=== PATIENT | female | born 1985 | race Caucasian/White ===

== ENCOUNTER 2017-11-15 16:06 | Emergency (ER) | payer MEDICAID, SELFPAY ==
[2017-11-15 16:08] VITALS: BP 121/63; PULSE 90; RESP 22; TEMP 36.6; O2SAT 97; BMI 34.7
--- NOTE | 2017-11-15 16:21 | CT_ITS ---
STUDY: CT BRAIN WITHOUT CONTRAST REASON FOR EXAM: Female, 32 years old. Headache. Nausea. RADIATION DOSAGE (If Supplied By Facility): CTDIvol = ( 44.99 ) mGy, DLP = ( 796.11 ) mGycm TECHNIQUE: Transaxial CT imaging of the brain was performed without administration of intravenous contrast material. Individualized dose optimization techniques were used for this CT. COMPARISON: 03/15/2017 FINDINGS: There is no acute bleed or infarct. There are normal white matter tracts. The ventricles are normal in configuration. There is no hydrocephalus. The visualized paranasal sinuses are clear. The mastoid air cells are well aerated. There is no skull fracture. CT/Brain/Head without Contrast IMPRESSION: No acute intracranial abnormality. Electronically Signed: Juan Miguel Kat, at 17:23 EDT Tel , Service support ,
[2017-11-15] MEDS: Ketorolac 30 MG/ML Syringe IV (16:34)
[2017-11-15] MEDS: 0.9% Normal Saline 1,000 ML 150 ML IV (16:34)
[2017-11-15] MEDS: proMETHazine 25 MG/ML Syringe 12.5 MG IV (16:34)
[2017-11-15 16:36] LABS: Bedside Glucose 121 mg/dL (70-110)
[2017-11-15 16:52] LABS: Absolute Lymphocyte Count 1.11 X10^3/ul (0.83-4.51); Absolute Neutrophil Count 6.5 X10^3/uL (2.0-7.7); Basophil# 0.01 X10^3/uL; Basophil% 0.1 % (0-1); Eosinophil# 0.03 X10^3/uL; Eosinophils% 0.4 % (0-5); Hematocrit 40.8 % (37-47); Hemoglobin 13.7 g/dl (12.0-15.0); Lymphocyte # 1.11 X10^3/ul (4.0); Lymphocyte % 14.5 % (19-41); Mean Corp Hgb Conc 33.6 g/gl (32-36); Mean Corpuscular Hgb 28.7 pg (27.0-32.0); Mean Corpuscular Volume 85.5 fL (81-99); Mean Platelet Vol. 9.2 fl (6.2-12.0); Monocyte# 0.03 X10^3/uL; Monocyte% 0.4 % (0-10); Neutrophil # 6.45 X10^3/uL (2.7-7.7); Neutrophil % 84.1 % (47-70); POSITIVE COUNT NO; POSITIVE DIFFERENTIAL NO; POSITIVE MORPHOLOGY NO; Platelet Count 172 K/mm3 (150-450); RBC Distribution Width CV 12.8 % (11.6-14.6); RBC Distribution Width SD 39.9 fl (35.1-43.9); Red Blood Count 4.77 M/mm3 (4.2-5.4); White Blood Count 7.7 K/mm3 (4.4-11.0)
[2017-11-15 17:01] LABS: Anion Gap 11 (5-15); BUN 11 mg/dL (7-18); BUN/Creat Ratio 12.3 RATIO (10-20); Calcium,Total 8.7 mg/dL (8.5-10.1); Chloride 111 mmol/L (98-107); Creatinine, Serum 0.89 mg/dL (0.55-1.02); EST Glomerular Filtration Rate 78 mL/min (>60); Est Glom Filt Rate - Afr Amer 94 mL/min (>60); Estimated Creatinine Clearance 81.66 ml/min; Glucose 103 mg/dL (74-106); Potassium 3.4 mmol/L (3.5-5.1); Sodium Level 144 mmol/L (136-145)
--- NOTE | 2017-11-15 17:16 | ED.VISSUMM ---
- ER Visit Summary Date of Service: 11/15/17 Chief Complaint: Headache History of Present Illness: The patient is a 32 F who states that she was out shopping today when she developed rather quick onset of frontal headache. She states it does not feel like her typical migraines. She has some nausea and feels shaky. Patient has not yet taken anything for this headache. She does have a history of migraines and seizures. She states she did hit the back of her head 3 days ago, but she has had no pain over the last 3 days. She has not had significant URI symptoms. Physical Examination: Vital signs are unremarkable. Patient sitting upright in bed no acute distress. Head neck examination is unremarkable. There is no meningismus. Heart is regular rate and rhythm. Lung sounds are clear. Abdomen soft nontender. Neuro exam reveals normal strength and sensation throughout with strong distal pulses. Test Results: CBC and chemistry studies are significant only for potassium of 3.4. BGT on arrival was 121. CT scan of the head Emergency Department Course and Treatment: She was given IV fluids along with Toradol and Phenergan. On repeat evaluation when the patient asked how her headache was she states still hurts. Patient was given p.o. Tylenol and Reglan. Repeat evaluation she does report improvement and wishes to go home. Treatment Plan: [] Disposition: Discharge Impression: Cephalgia, improved This note was generated with [employer] dictation software. It may contain incorrect words, spelling, and punctuation that were not noted in review of the chart prior to signing ED Disposition - Plan for ED Patient: Chief Complaint: Headache Referrals: Harrison Maldonado MD [Primary Care Provider] -
[2017-11-15] MEDS: Acetaminophen 500 MG Tablet 1000 MG PO (18:05)
[2017-11-15 18:06] VITALS: BP 96/66; PULSE 75; RESP 16; O2SAT 98
[2017-11-15] MEDS: Metoclopramide 10 MG Tablet PO (18:29)
--- NOTE | 2017-11-15 18:41 | ED.DEP ---
ED Disposition - Plan for ED Patient: Disposition: Home or Assisted Living Chief Complaint: Headache Instructions: ED Cephalgia Unspecified Referrals: Harrison Maldonado MD [Primary Care Provider] - As Needed
[2017-11-15 18:46] VITALS: BP 118/73; PULSE 68; RESP 15; O2SAT 98
== END 2017-11-15 18:48 | disposition home or self-care (01) ==
PROVIDERS: Emergency Provider Emergency Medicine; Family Provider Family Medicine; PCP Family Medicine
DX: R51 Headache (principal); R56.9 Unspecified convulsions; G43.909 Migraine, unspecified, not intractable, without status migrainosus; Z72.0 Tobacco use; Z79.51 Long term (current) use of inhaled steroids; Z79.899 Other long term (current) drug therapy
CPT/HCPCS: 70450; 80048; 82962; 85025; 96361; 96374; 96375; 99285; J7030; A4216

== ENCOUNTER 2018-01-10 18:17 | Observation (INO) | payer MEDICAID, SELFPAY ==
[2018-01-10 18:18] VITALS: BP 161/117; PULSE 52; RESP 18; TEMP 36.4; O2SAT 99; BMI 34.0
--- NOTE | 2018-01-10 18:38 | CT_ITS ---
CT Abdomen And Pelvis W/ Contrast INDICATION: LOWER LEFT SIDE ABD PAIN X 4 DAYS, HX SBO. Hx of colon resection x 2 d/t blockage. COMPARISON: None TECHNIQUE: Axial CT imaging of the abdomen and pelvis with IV contrast. Coronal and sagittal reformatted images. Radiation dose optimization technique applied. 100 mL of Isovue-300 were given intravenously. FINDINGS: Subsegmental atelectasis is seen at the visualized lung bases. The heart size is normal. The liver, gallbladder, adrenal glands, and pancreas are unremarkable. There is a focal wedge shaped area of decreased enhancement along the dome of the spleen, measuring approximately 1.7 cm in depth and with no associated subcapsular hematoma or other signs of hemorrhage. The kidneys enhance contrast symmetrically bilaterally and are without evidence of hydronephrosis. The bowel loops are nondistended. Sutures are noted at the hepatic flexure. Urinary bladder is unremarkable. There is no evidence of free air or free fluid. CT/Abdomen/Pelvis WITH Contrast IMPRESSION: Small focal wedge-shaped area of hypoenhancement in the dome of the spleen, suggestive of small focal infarct. No evidence of associated laceration or hemorrhage. The visualized lower ribs are intact. Otherwise no acute findings. at 2130 Reported and signed by: Shama Kaur MD Electronically Signed: Shama Kaur MD at 21:28 EDT Tel , Service support ,
--- NOTE | 2018-01-10 18:41 | ED.DCSUM_ITS ---
- ER Visit Summary Date of Service: 01/10/18 Chief Complaint: Abdominal pain History of Present Illness: The patient is a 32 F presenting with abdominal pain ?4 days. Patient has nausea with no vomiting. She has diarrhea. Denied denies blood in stool. She states she has felt similar in the past when she has had bowel obstructions. History of appendectomy and partial bowel resection secondary to bowel obstruction. Denies fever. Denies other complaints. Physical Examination: Vitals are stable. Patient is afebrile. Alert no acute distress. HEENT exam is unremarkable. Neck is supple. Lungs are clear and equal bilaterally. Heart is regular rate and rhythm. Abdomen is soft left upper and lower quadrant tenderness, voluntary guarding, no rebound Extremities are unremarkable. Skin is warm and dry. No focal neurologic deficit. Remainder of exam is unremarkable. Emergency Department Course and Treatment: Patient is given Dilaudid, Zofran IV. CBC chemistries unremarkable. Lipase is 691. Urinalysis unremarkable. HCG negative. CT abdomen/pelvis shows small focal wedge-shaped area of hypoenhancement in the dome of the spleen, suggestive of small focal infarct. No evidence of associated laceration or hemorrhage. The visualized lower ribs are intact. Discussed with Dr Grace, recommends pain control and workup for hypercoagulability. Will discuss the hospitalist for admission. Disposition: Observation Impression: Abdominal pain, splenic infarct, elevated lipase This note was generated with [employer] dictation software. It may contain incorrect words, spelling, and punctuation that were not noted in review of the chart prior to signing ED Disposition - Plan for ED Patient: Chief Complaint: Abd Pain Referrals: Harrison Maldonado MD [Primary Care Provider] -
[2018-01-10] MEDS: HYDROmorphone 1 MG/ML Syringe IV (19:01)
[2018-01-10] MEDS: Ondansetron 4 MG/2 ML Vial IV (19:01)
[2018-01-10 19:12] LABS: Bacteria 0 SEEN /hpf (None Seen); Mucous, Urine 0 SEEN /hpf (<or=2+); Red Blood Cells-Urine 0 SEEN /hpf (0-5)
[2018-01-10 19:14] LABS: Absolute Lymphocyte Count 2.01 X10^3/ul (0.83-4.51); Absolute Neutrophil Count 5.2 X10^3/uL (2.0-7.7); Basophil# 0.03 X10^3/uL; Basophil% 0.4 % (0-1); Eosinophil# 0.12 X10^3/uL; Eosinophils% 1.5 % (0-5); Hematocrit 42.7 % (37-47); Hemoglobin 14.8 g/dl (12.0-15.0); Lymphocyte # 2.01 X10^3/ul (4.0); Lymphocyte % 25.7 % (19-41); Mean Corp Hgb Conc 34.7 g/gl (32-36); Mean Corpuscular Hgb 29.1 pg (27.0-32.0); Mean Corpuscular Volume 84.1 fL (81-99); Mean Platelet Vol. 9.3 fl (6.2-12.0); Monocyte# 0.48 X10^3/uL; Monocyte% 6.1 % (0-10); Neutrophil # 5.18 X10^3/uL (2.7-7.7); Neutrophil % 66.2 % (47-70); Platelet Count 193 K/mm3 (150-450); RBC Distribution Width SD 39.5 fl (35.1-43.9); Red Blood Count 5.08 M/mm3 (4.2-5.4); White Blood Count 7.8 K/mm3 (4.4-11.0)
[2018-01-10 19:18] VITALS: BP 148/85; PULSE 60; RESP 14; O2SAT 97
[2018-01-10 19:20] LABS: POSITIVE COUNT NO; POSITIVE DIFFERENTIAL NO; POSITIVE MORPHOLOGY NO
[2018-01-10 19:21] LABS: Color, Urine Yellow (Yellow); Glucose, Dipstick Normal (Normal); Ketone-Dipstick Negative (Negative); Leukocyte Esterase-Dipstick 25 /ul (Negative); Nitrite-Dipstick Negative (Negative); Occult Blood-Urine Negative /ul (Negative); Protein-Dipstick Negative (Negative); Specific Gravity, Urine 1.005 (1.002-1.030); Urine Bilirubin Dipstick Negative (Negative); Urine Clarity Sl. Cloudy (Clear); Urine Urobilinogen Normal (Normal)
[2018-01-10 19:28] LABS: Squamous Epithelial Cells - UA 0-5 SEEN /hpf (5-10); White Blood Cells 0-5 SEEN /hpf (0-5)
[2018-01-10 19:31] LABS: ALB/GLOB Ratio 1.1 RATIO (0.9-2.4); AST(SGOT) 21 U/L (15-37); Alanine Aminotransfer ALT/SGPT 47 U/L (13-56); Albumin, Serum 4.1 g/dL (3.2-5.0); Alkaline Phosphatase 80 U/L (45-117); Anion Gap 8 (5-15); BUN 7 mg/dL (7-18); BUN/Creat Ratio 7.9 RATIO (10-20); Chloride 112 mmol/L (98-107); Creatinine, Serum 0.89 mg/dL (0.55-1.02); EST Glomerular Filtration Rate 78 mL/min (>60); Est Glom Filt Rate - Afr Amer 94 mL/min (>60); Estimated Creatinine Clearance 81.66 ml/min; Globulin 3.7 g/dL (2.2-4.2); Glucose 89 mg/dL (74-106); Lipase 691 U/L (73-393); Potassium 3.6 mmol/L (3.5-5.1); Protein, Total 7.8 g/dL (6.4-8.2); Sodium Level 143 mmol/L (136-145)
[2018-01-10 19:34] LABS: Pregnancy, Serum, hCG Quali. NEGATIVE Negative (0-9 Nonpreg)
[2018-01-10 21:02] VITALS: PULSE 64; RESP 15; O2SAT 97
[2018-01-10] MEDS: HYDROmorphone 0.5 MG/0.5 ML SYRINGE IV (22:18)
[2018-01-10 23:03] VITALS: BP 125/99; PULSE 67; RESP 18; TEMP 36.7; O2SAT 98
[2018-01-10 23:19] VITALS: BMI 34.8
[2018-01-10 23:23] VITALS: BMI 34.8
--- NOTE | 2018-01-10 23:33 | HP.PCM_ITS ---
Problem List (1) Abdominal pain Status: Acute (2) Splenic infarct Status: Acute (3) Pancreatitis Status: Acute (4) Partial small bowel obstruction Status: Acute (5) Seizure disorder Status: Chronic History of Present Illness Date of Admission: 01/10/18 Chief Complaint: Splenic infarct The patient is a 32 year old female admitted for splenic infarct. She has no h/ o spontaneous . She used marijuana for [employer] and has been having abdominal pain. Pain is sharp and severe. Pain has been getting progressively worse. Nothing appeared to improve or worse. Pain is not associated with any other symptoms. No diarrhea. No n/v. Past Medical History Past Medical History (Chronic Problems): Chronic Problems Seizure disorder (Chronic) Allergies bupropion HCl [From Wellbutrin] Allergy (Verified 01/10/18 23:18) seizures dill oil Allergy (Verified 11/15/17 16:08) Shortness of breath diphenhydramine HCl [From Benadryl] Allergy (Verified 01/10/18 23:18) Itching/throat swells doxycycline Allergy (Verified 01/10/18 23:18) Itching/vomiting morphine Allergy (Verified 11/15/17 16:08) Itching venom-honey bee [bee venom (honey bee)] Allergy (Verified 11/15/17 16:08) Anaphylaxis Home Medications: Ambulatory Orders Medication Instructions Recorded Folic Acid 4 mg PO DAILY@0800 12/20/14 Sucralfate [Carafate] 1 gm PO TID 12/20/14 Zonisamide [Zonegran] 300 mg PO QHS 12/20/14 Ranitidine [Zantac] 150 mg PO DAILY 05/11/16 Albuterol Inhaler [Ventolin Hfa 1 puff INHALATION Q4H PRN PRN 09/14/16 (SP)] levETIRAcetam tablet [Keppra] 1,000 mg PO BID 10/24/16 Sertraline HCl [Zoloft] 100 mg PO QHS 02/09/17 busPIRone [Buspar] 15 mg PO BID 02/09/17 traZODone [Desyrel] 100 mg PO QHS 02/11/17 Ibuprofen [Motrin] 800 mg PO TID PRN PRN #20 tablet 04/14/17 Verapamil [Calan Sr] 180 mg PO QHS 04/14/17 Rizatriptan Benzoate [Maxalt] 10 mg PO DAILY PRN 11/15/17 Clonazepam [Klonopin] 0.5 mg PO DAILY PRN 01/10/18 Fluticasone/Vilanterol [Breo 1 puff INHALATION DAILY 01/10/18 Ellipta 200-25 Mcg INH] Surgical History: no surgical history, - Psychiatric History: No pertinent psych hx Lives: With Family Smoking Status: Former smoker Tobacco Use: Secondhand, Cigarettes - *Family History Maternal History Items: - - She denies a family history of any chronic medical problems Review of Systems Constitutional: Denies: Chills, Fever, Weight Change HEENT: Denies: Head Aches, Sinus Congestion, Sinus Drainage Cardiovascular: Denies: Chest Pain, Palpitations Respiratory: Denies: Cough, Shortness of breath at rest, Sputum production Gastrointestinal: Reports: Abdominal Pain. Denies: Nausea, Vomiting Genitourinary: Denies: Dysuria Musculoskeletal: Denies: Joint Pain, Joint Tenderness Skin: Denies: Rash, Wounds Neurological: Denies: Numbness, Tingling, Focal weakness Psychiatric: Denies: Anxiety, Depression, Homicidal Ideations, Suicidal Ideations Hematologic/ Lymphatic: Denies: Easy Bruising, Easy Bleeding VTE Information - Inpt Only VTE Present on Admission: No VTE Mechan Device Prophylaxis: SCD's VTE Pharm Prophylaxis ordered?: Yes Patient Problems: Active and Suspected Problems Abdominal pain (Acute) Splenic infarct (Acute) Pancreatitis (Acute) - Physical Exam General: Alert, Oriented x3, Cooperative HEENT: Atraumatic, PERRLA, EOMI, Normocephalic Neck: Supple, No JVD, Negative Carotid Bruits Lungs: Clear to auscultation, Normal air movement Cardiovascular: Regular rate, No murmurs Abdomen: Soft, Tender Extremities: No edema, Capillary Refill Less than 3 Seconds Skin: No rashes, No breakdown Musculoskeletal: No Tenderness to Palpation of Joints or Extremities Neurological: Cranial nerves II-XII grossly intact Psych/Mental Status: Normal Affect, Appropriate Vital Signs Temp Pulse Resp BP Pulse Ox 98.1 F 67 18 125/99 H 98 01/10/18 23:03 01/10/18 23:03 01/10/18 23:03 01/10/18 23:03 01/10/18 23:03 Oxygen Delivery Method Room Air Weight: 94.9 kg Body Mass Index (BMI) 34.8 Assessment/Plan All Active Problems Abdominal pain (Acute) Splenic infarct (Acute) Pancreatitis (Acute) Partial small bowel obstruction (Acute) 32 year old female admitted for splenic infarct. 1) Abdominal pain: Most likely secondary to splenic infarct. Pain control. IVF hydration. Hypercoag workup pending. ECHO pending. 2) Splenic infarct: Hypercoag workup pending. ECHO pending. 3) Pancreatitis: Lipase 600s. Will repeat level in AM. Hydration and pain controlled. Pt is not allergic to morphine. 4) Drug abuse: Utox positive for marijuana and opiates. Education done.
--- NOTE | 2018-01-10 23:36 | ECHOD_ITS ---
Reason For Study: Chest Pain Procedure This was a 2D Doppler, Color Flow transthoracic echocardiogram. Exam performed portable in patient room. Left Ventricle Normal size and thickness. The estimated ejection fraction is 65 %. Normal diastology for age. No regional wall motion abnormalities noted. Right Ventricle Normal size and thickness. Normal systolic function. Atria Normal left atrium. Normal right atrium. Normal atrial septum. Mitral Valve The mitral valve is structurally normal. No prolapse or stenosis seen. Trivial mitral valve insufficiency. Tricuspid Valve Normal tricuspid valve. Trivial tricuspid valve insufficiency. Unable to estimate RV systolic pressure/pulmonary artery pressure due to technically difficult study. Aortic Valve Normal aortic valve. Trisinus/trileaflet aortic valve. Pulmonic Valve Normal pulmonic valve. Great Vessels Normal aortic root. Normal arch. Normal inferior vena cava. Inferior vena cava collapse with sniff. Pericardium/Pleural No pericardial effusion. MMode/2D Measurements & Calculations LVIDd: 4.7 cm IVSd: 0.83 cm Ao root diam: 2.9 cm LVIDs: 2.5 cm LVPWd: 0.88 cm LA dimension: 3.4 cm FS: 46.7 % LAV(MOD-bp): 42.7 ml LA A4 area: 19.2 cm2 RA A4 area: 14.1 cm2 LAV(MOD-bp) Indexed: 21.2 ml/m2 LAV(MOD-sp2): 35.7 ml LAV(MOD-sp4): 50.7 ml Time Measurements MV dec time: 0.18 sec Doppler Measurements & Calculations MV E max keo: 121.7 cm/sec MV V2 max: 139.6 cm/sec MV P1/2t max keo: 138.7 cm/sec MV A max keo: 73.8 cm/sec MV max P.8 mmHg MV P1/2t: 92.8 msec MV E/A: 1.6 MV V2 mean: 62.9 cm/sec MV dec slope: 437.6 cm/sec2 MV mean P.0 mmHg MVA(P1/2t): 2.4 cm2 MV V2 VTI: 41.3 cm Ao V2 max: 132.9 cm/sec LV V1 max: 121.3 cm/sec PA V2 max: 90.5 cm/sec Ao max P.1 mmHg LV V1 max P.9 mmHg Ao V2 mean: 87.6 cm/sec LV V1 mean P.9 mmHg Ao mean P.4 mmHg LV V1 mean: 79.7 cm/sec Ao V2 VTI: 27.1 cm LV V1 VTI: 26.9 cm Interpretation Summary The estimated ejection fraction is 65 %. Normal diastology for age. Trivial mitral valve insufficiency. Trivial tricuspid valve insufficiency. Unable to estimate RV systolic pressure/pulmonary artery pressure due to technically difficult study. Ordering Physician: Nicko Alvarez Referring Physician: Harrison Maldonado Performed By: Zelalem Ramos RCS
[2018-01-11] MEDS: busPIRone 15 MG TABLET PO ×2 (00:16→09:04)
[2018-01-11] MEDS: 0.9% Normal Saline 1,000 ML 150 ML IV ×4 (00:16→18:28)
[2018-01-11] MEDS: 0.9% NaCl Peripheral Flush Adult/Peds IV (00:16)
[2018-01-11] MEDS: levETIRAcetam 1,000 MG Tablet 1000 MG PO ×2 (00:17→09:04)
[2018-01-11] MEDS: Sertraline 100 MG Tablet PO (00:17)
[2018-01-11] MEDS: traZODone 100 MG Tablet PO (00:17)
[2018-01-11] MEDS: Verapamil SR 180 MG CAPSULE PO (00:18)
[2018-01-11] MEDS: Morphine 2 MG/ML Syringe 1 MG IV ×8 (00:21→20:40)
--- NOTE | 2018-01-11 00:29 | NURSING ---
Patient states had Morphine here a few years ago and IV site became itchy. She then had it in a [place] hospital in September of this year and did not experience any itching or side effects. Discussed with pharmacy and patient, patient OK with trying Morphine this admission. Removed Morphine from allergy list. Instructed patient to let RN know if she has any side effects with the Morphine this time. Will continue to monitor.
[2018-01-11 02:14] LABS: Amphetamine Urine VISTA NEGATIVE (<1000 ng/mL); Barbiturate Urine VISTA NEGATIVE (< 200 ng/mL); Benzodiazepine Urine VISTA NEGATIVE (< 200 ng/mL); Cocaine Urine VISTA NEGATIVE (< 300 ng/mL); Ecstacy Urine VISTA NEGATIVE (< 500 ng/mL); Methadone Urine VISTA NEGATIVE (< 300 ng/mL); PCP Urine VISTA NEGATIVE (< 25 ng/mL); THC Urine VISTA POSITIVE (< 50 ng/mL); Vista UDS pH Range 5
[2018-01-11 05:04] VITALS: BP 100/51; PULSE 64; RESP 18; TEMP 36.8; O2SAT 94
[2018-01-11 06:08] LABS: Absolute Lymphocyte Count 3.13 X10^3/ul (0.83-4.51); Absolute Neutrophil Count 4.5 X10^3/uL (2.0-7.7); Basophil# 0.03 X10^3/uL; Basophil% 0.4 % (0-1); Eosinophil# 0.21 X10^3/uL; Eosinophils% 2.5 % (0-5); Hematocrit 36.1 % (37-47); Hemoglobin 12.2 g/dl (12.0-15.0); Lymphocyte # 3.13 X10^3/ul (4.0); Lymphocyte % 37.8 % (19-41); Mean Corp Hgb Conc 33.8 g/gl (32-36); Mean Corpuscular Hgb 28.7 pg (27.0-32.0); Mean Corpuscular Volume 84.9 fL (81-99); Mean Platelet Vol. 9.1 fl (6.2-12.0); Monocyte# 0.41 X10^3/uL; Neutrophil # 4.48 X10^3/uL (2.7-7.7); Neutrophil % 54.2 % (47-70); Platelet Count 175 K/mm3 (150-450); RBC Distribution Width CV 13.3 % (11.6-14.6); RBC Distribution Width SD 41.3 fl (35.1-43.9); Red Blood Count 4.25 M/mm3 (4.2-5.4); White Blood Count 8.3 K/mm3 (4.4-11.0)
[2018-01-11 06:09] LABS: Differential Indicated SCAN CRITERIA MET; POSITIVE COUNT YES; POSITIVE DIFFERENTIAL NO; POSITIVE MORPHOLOGY NO
[2018-01-11 06:14] LABS: Anion Gap 8 (5-15); BUN 6 mg/dL (7-18); BUN/Creat Ratio 7.1 RATIO (10-20); Calcium,Total 7.9 mg/dL (8.5-10.1); Chloride 113 mmol/L (98-107); Creatinine, Serum 0.84 mg/dL (0.55-1.02); EST Glomerular Filtration Rate 83 mL/min (>60); Est Glom Filt Rate - Afr Amer 101 mL/min (>60); Estimated Creatinine Clearance 86.52 ml/min; Glucose 74 mg/dL (74-106); Lipase 179 U/L (73-393); Potassium 3.4 mmol/L (3.5-5.1); Sodium Level 146 mmol/L (136-145)
[2018-01-11] MEDS: Ondansetron 4 MG/2 ML Vial IV (06:16)
[2018-01-11 09:00] VITALS: BP 105/50; PULSE 54; RESP 16; TEMP 36.6; O2SAT 94
[2018-01-11] MEDS: Aspirin 81 MG TAB.CHEW PO (09:10)
--- NOTE | 2018-01-11 11:44 | PCM.PN.HOSP ---
Patient Problems: Active and Suspected Problems Abdominal pain (Acute) Splenic infarct (Acute) Pancreatitis (Acute) Subjective: CC: Abdominal pain Objective: The patient still reports of abdominal pain in the right upper quadrant area, she denies nausea, vomiting, diarrhea or constipation. Vitals/I&O's: Vital Signs Temp Pulse Resp BP Pulse Ox 97.8 F 54 L 16 105/50 L 94 01/11/18 09:00 01/11/18 09:00 01/11/18 09:00 01/11/18 09:00 01/11/18 09:00 Oxygen Delivery Method Room Air Weight: 94.9 kg Body Mass Index (BMI) 34.8 Intake and Output for Last 24 Hours 01/09/18 01/10/18 01/11/18 23:59 23:59 23:59 Intake Total 1384 / 1384 Output Total 500 / 500 Balance 884 / 884 General: Alert, Oriented x3 Oral: Moist Mucosa Neck: Supple Lungs: Clear to auscultation Cardiovascular: Normal S1, Normal S2 Abdomen: Bowel Sounds Present, Non Tender Extremities: No clubbing Laboratory Results 01/11/18 01:47: Urine Opiates Screen POSITIVE H, Urine Methadone Screen NEGATIVE, Ur Barbiturates Screen NEGATIVE, Ur Phencyclidine Scrn NEGATIVE, Ur Amphetamines Screen NEGATIVE, U Methamphetamin-MDMA NEGATIVE, U Benzodiazepines Scrn NEGATIVE, Urine Cocaine Screen NEGATIVE, U Cannabinoids Screen POSITIVE H, Ur Drug Screen Comment 01/11/18 05:30: Protein C Antigen Pending, Functional Protein C Cancelled, Prot C Funct Activity Pending, Antithrombin III Ag Pending, Func Antithrombin III Pending, Factor V Leiden Mutat Pending, Beta-2-GPI IgG Ab Pending, Beta-2-GPI IgA Ab Pending, Beta-2-GPI IgM Ab Pending, Anti-Cardiolipin IgG Ab Pending, Anti-Cardiolipin IgM Ab Pending, Factor II DNA Analysis Pending 01/11/18 05:30: WBC 8.3, RBC 4.25, Hgb 12.2, Hct 36.1 L, MCV 84.9, MCH 28.7, MCHC 33.8, RDW 13.3, RDW Differential 41.3, Plt Count 175, MPV 9.1, Immature Gran % (Auto) 0.100, Neut % (Auto) 54.2, Lymph % (Auto) 37.8, [place] % (Auto) 5.0, Eos % (Auto) 2.5, Baso % (Auto) 0.4, Absolute Neuts (auto) 4.5, Absolute Lymphs (auto) 3.13, Total Counted Not Reportable, Differential Comment 01/11/18 05:30: Sodium 146 H, Potassium 3.4 L, Chloride 113 H, Carbon Dioxide 25.0, Anion Gap 8, BUN 6 L, Creatinine 0.84, Estim Creat Clear Calc 86.52, Est GFR (MDRD) Af Amer 101, Est GFR (MDRD) Non-Af 83, BUN/Creatinine Ratio 7.1 L, Glucose 74, Calcium 7.9 L, Lipase 179 01/11/18 05:30: Dil Ector Viper Venom Pending Current Medications Albuterol Sulfate (Ventolin Aerosols) 2.5 mg INHALATION Q4H PRN PRN PRN Reason: WHEEZING Aspirin (Aspirin, Baby) 81 mg PO DAILY@0800 [facility] Last Admin: 01/11/18 09:10 Dose: 81 mg Buspirone HCl (Buspar) 15 mg PO BID [facility] Last Admin: 01/11/18 09:04 Dose: 15 mg Heparin Sodium (Porcine) (Heparin Na) 5,000 unit SC Q8 [facility] Last Admin: 01/11/18 05:15 Dose: Not Given Sodium Chloride () 1,000 mls @ 150 mls/hr IV .Q6H40M [facility] Last Admin: 01/11/18 06:26 Dose: 150 mls/hr Sodium Chloride () 250 mls @ 15 mls/hr IV .[id number] PRN PRN Reason: SALINE FLUSH Levetiracetam (Keppra Tablet) 1,000 mg PO BID [facility] Last Admin: 01/11/18 09:04 Dose: 1,000 mg Magnesium Hydroxide (Milk Of Magnesia) 30 ml PO DAILY PRN PRN PRN Reason: Constipation Morphine Sulfate () 1 mg IV Q2H PRN PRN PRN Reason: SEVERE PAIN (6-10/10) Last Admin: 01/11/18 09:03 Dose: 1 mg Ondansetron HCl (Zofran) 4 mg IV Q4H PRN PRN PRN Reason: NAUSEA/VOMITING Last Admin: 01/11/18 06:16 Dose: 4 mg Rizatriptan Benzoate (Maxalt) 10 mg PO DAILY PRN PRN Reason: HEADACHE Sertraline HCl (Zoloft) 100 mg PO QHS [facility] Last Admin: 01/11/18 00:17 Dose: 100 mg Sodium Chloride () 5 - 30 ml IV UD PRN PRN Reason: SALINE FLUSH Last Admin: 01/11/18 00:16 Dose: 10 ml Trazodone HCl (Desyrel) 100 mg PO QHS [facility] Last Admin: 01/11/18 00:17 Dose: 100 mg Verapamil HCl (Calan Sr) 180 mg PO QHS [facility] Last Admin: 01/11/18 00:18 Dose: 180 mg Medical Necessity - Tobacco Use Smoking Status: Former smoker Tobacco Use: Secondhand, Cigarettes Assessment/Plan All Active Problems Abdominal pain (Acute) Splenic infarct (Acute) Pancreatitis (Acute) Partial small bowel obstruction (Acute) 1. Abdominal pain; Most likely secondary to splenic infarct. We will continue pain control. 2. Splenic infarct; will start the patient on aspirin, will continue IV fluids echocardiogram and hypercoagulable profile pending. 3 acute Pancreatitis; bowel rest, IV fluids control. 4. History of drug abuse; UDS is positive for marijuana and opiates. She is recommended to avoid illicit drug use. 5. Subcutaneous heparin for DVT prophylaxis. Code Visit Inpatient E&M: 62068 Subs Hosp L2
--- NOTE | 2018-01-11 11:47 | PN_ITS ---
Patient Problems: Active and Suspected Problems Abdominal pain (Acute) Splenic infarct (Acute) Pancreatitis (Acute) Subjective: CC: Abdominal pain Objective: The patient still reports of abdominal pain in the right upper quadrant area, she denies nausea, vomiting, diarrhea or constipation. Vitals/I&O's: Vital Signs Temp Pulse Resp BP Pulse Ox 97.8 F 54 L 16 105/50 L 94 01/11/18 09:00 01/11/18 09:00 01/11/18 09:00 01/11/18 09:00 01/11/18 09:00 Oxygen Delivery Method Room Air Weight: 94.9 kg Body Mass Index (BMI) 34.8 Intake and Output for Last 24 Hours 01/09/18 01/10/18 01/11/18 23:59 23:59 23:59 Intake Total 1384 / 1384 Output Total 500 / 500 Balance 884 / 884 General: Alert, Oriented x3 Oral: Moist Mucosa Neck: Supple Lungs: Clear to auscultation Cardiovascular: Normal S1, Normal S2 Abdomen: Bowel Sounds Present, Non Tender Extremities: No clubbing Laboratory Results 01/11/18 01:47: Urine Opiates Screen POSITIVE H, Urine Methadone Screen NEGATIVE , Ur Barbiturates Screen NEGATIVE, Ur Phencyclidine Scrn NEGATIVE, Ur Amphetamines Screen NEGATIVE, U Methamphetamin-MDMA NEGATIVE, U Benzodiazepines Scrn NEGATIVE, Urine Cocaine Screen NEGATIVE, U Cannabinoids Screen POSITIVE H, Ur Drug Screen Comment 01/11/18 05:30: Protein C Antigen Pending, Functional Protein C Cancelled, Prot C Funct Activity Pending, Antithrombin III Ag Pending, Func Antithrombin III Pending, Factor V Leiden Mutat Pending, Beta-2-GPI IgG Ab Pending, Beta-2-GPI IgA Ab Pending, Beta-2-GPI IgM Ab Pending, Anti-Cardiolipin IgG Ab Pending, Anti -Cardiolipin IgM Ab Pending, Factor II DNA Analysis Pending 01/11/18 05:30: WBC 8.3, RBC 4.25, Hgb 12.2, Hct 36.1 L, MCV 84.9, MCH 28.7, MCHC 33.8, RDW 13.3, RDW Differential 41.3, Plt Count 175, MPV 9.1, Immature Gran % (Auto) 0.100, Neut % (Auto) 54.2, Lymph % (Auto) 37.8, [place] % (Auto) 5.0 , Eos % (Auto) 2.5, Baso % (Auto) 0.4, Absolute Neuts (auto) 4.5, Absolute Lymphs (auto) 3.13, Total Counted Not Reportable, Differential Comment 01/11/18 05:30: Sodium 146 H, Potassium 3.4 L, Chloride 113 H, Carbon Dioxide 25.0, Anion Gap 8, BUN 6 L, Creatinine 0.84, Estim Creat Clear Calc 86.52, Est GFR (MDRD) Af Amer 101, Est GFR (MDRD) Non-Af 83, BUN/Creatinine Ratio 7.1 L, Glucose 74, Calcium 7.9 L, Lipase 179 01/11/18 05:30: Dil Ector Viper Venom Pending Current Medications Albuterol Sulfate (Ventolin Aerosols) 2.5 mg INHALATION Q4H PRN PRN PRN Reason: WHEEZING Aspirin (Aspirin, Baby) 81 mg PO DAILY@0800 [facility] Last Admin: 01/11/18 09:10 Dose: 81 mg Buspirone HCl (Buspar) 15 mg PO BID [facility] Last Admin: 01/11/18 09:04 Dose: 15 mg Heparin Sodium (Porcine) (Heparin Na) 5,000 unit SC Q8 [facility] Last Admin: 01/11/18 05:15 Dose: Not Given Sodium Chloride () 1,000 mls @ 150 mls/hr IV .Q6H40M [facility] Last Admin: 01/11/18 06:26 Dose: 150 mls/hr Sodium Chloride () 250 mls @ 15 mls/hr IV .[id number] PRN PRN Reason: SALINE FLUSH Levetiracetam (Keppra Tablet) 1,000 mg PO BID [facility] Last Admin: 01/11/18 09:04 Dose: 1,000 mg Magnesium Hydroxide (Milk Of Magnesia) 30 ml PO DAILY PRN PRN PRN Reason: Constipation Morphine Sulfate () 1 mg IV Q2H PRN PRN PRN Reason: SEVERE PAIN (6-10/10) Last Admin: 01/11/18 09:03 Dose: 1 mg Ondansetron HCl (Zofran) 4 mg IV Q4H PRN PRN PRN Reason: NAUSEA/VOMITING Last Admin: 01/11/18 06:16 Dose: 4 mg Rizatriptan Benzoate (Maxalt) 10 mg PO DAILY PRN PRN Reason: HEADACHE Sertraline HCl (Zoloft) 100 mg PO QHS [facility] Last Admin: 01/11/18 00:17 Dose: 100 mg Sodium Chloride () 5 - 30 ml IV UD PRN PRN Reason: SALINE FLUSH Last Admin: 01/11/18 00:16 Dose: 10 ml Trazodone HCl (Desyrel) 100 mg PO QHS [facility] Last Admin: 01/11/18 00:17 Dose: 100 mg Verapamil HCl (Calan Sr) 180 mg PO QHS [facility] Last Admin: 01/11/18 00:18 Dose: 180 mg Medical Necessity - Tobacco Use Smoking Status: Former smoker Tobacco Use: Secondhand, Cigarettes Assessment/Plan All Active Problems Abdominal pain (Acute) Splenic infarct (Acute) Pancreatitis (Acute) Partial small bowel obstruction (Acute) 1. Abdominal pain; Most likely secondary to splenic infarct. We will continue pain control. 2. Splenic infarct; will start the patient on aspirin, will continue IV fluids echocardiogram and hypercoagulable profile pending. 3 acute Pancreatitis; bowel rest, IV fluids control. 4. History of drug abuse; UDS is positive for marijuana and opiates. She is recommended to avoid illicit drug use. 5. Subcutaneous heparin for DVT prophylaxis. Code Visit Inpatient E&M: 02512 Subs Hosp L2
[2018-01-11] MEDS: Pantoprazole Sodium 40 MG Tablet PO (14:12)
[2018-01-11 14:15] VITALS: BP 99/54; PULSE 58; RESP 18; TEMP 36.6; O2SAT 96
[2018-01-11 20:36] VITALS: BP 107/65; PULSE 64; RESP 18; TEMP 36.8; O2SAT 97
[2018-01-11 23:53] VITALS: BP 105/53; PULSE 49; RESP 16; TEMP 36.4; O2SAT 100
[2018-01-12] MEDS: busPIRone 15 MG TABLET PO ×2 (00:02→08:27)
[2018-01-12] MEDS: traZODone 100 MG Tablet PO (00:02)
[2018-01-12] MEDS: levETIRAcetam 1,000 MG Tablet 1000 MG PO ×2 (00:03→08:27)
[2018-01-12] MEDS: Sertraline 100 MG Tablet PO (00:04)
[2018-01-12] MEDS: Acetaminophen 325 MG Tablet PO ×3 (01:06→10:59)
[2018-01-12] MEDS: oxyCODONE 5 MG Tablet PO ×3 (01:07→10:58)
[2018-01-12 04:45] VITALS: BP 110/52; PULSE 50; RESP 18; TEMP 36.7; O2SAT 97
[2018-01-12 08:25] VITALS: BP 105/47; PULSE 63; RESP 18; TEMP 36.8; O2SAT 97
[2018-01-12] MEDS: Pantoprazole Sodium 40 MG Tablet PO (08:27)
[2018-01-12] MEDS: Aspirin 81 MG TAB.CHEW PO (08:30)
--- NOTE | 2018-01-12 10:01 | PCM.DC ---
- Discharge Diagnoses Current Active Problems: Current Active and Chronic Problems Abdominal pain (Acute) Splenic infarct (Acute) Pancreatitis (Acute) You will use the following diet at home:: Regular Discharge Activity: Return to Normal Activity Allergies/Adverse Reactions: Allergies bupropion HCl [From Wellbutrin] Allergy (Verified 01/10/18 23:18) seizures dill oil Allergy (Verified 11/15/17 16:08) Shortness of breath diphenhydramine HCl [From Benadryl] Allergy (Verified 01/10/18 23:18) Itching/throat swells doxycycline Allergy (Verified 01/10/18 23:18) Itching/vomiting venom-honey bee [bee venom (honey bee)] Allergy (Verified 11/15/17 16:08) Anaphylaxis Medications to take at Discharge Folic Acid 4 mg PO DAILY@0800 12/20/14 Sucralfate [Carafate] 1 gm PO TID 12/20/14 Zonisamide [Zonegran] 300 mg PO QHS 12/20/14 Ranitidine [Zantac] 150 mg PO DAILY 05/11/16 Albuterol Inhaler [Ventolin Hfa] 1 puff INHALATION Q4H PRN PRN 09/14/16 levETIRAcetam tablet [Keppra tablet] 1,000 mg PO BID 10/24/16 Sertraline HCl [Zoloft] 100 mg PO QHS 02/09/17 busPIRone [Buspar] 15 mg PO BID 02/09/17 traZODone [Desyrel] 100 mg PO QHS 02/11/17 Verapamil [Calan Sr] 180 mg PO QHS 04/14/17 Rizatriptan Benzoate [Maxalt] 10 mg PO DAILY PRN 11/15/17 Clonazepam [Klonopin] 0.5 mg PO DAILY PRN 01/10/18 Fluticasone/Vilanterol [Breo Ellipta 200-25 Mcg INH] 1 puff INHALATION DAILY 01/10/18 Aspirin [Aspirin, Baby] 81 mg PO DAILY@0800 tab.chew 01/12/18 Oxycodone [Oxyir] 5 mg PO Q4H PRN PRN #20 tab 01/12/18 The following prescriptions were given: Oxycodone [Oxyir] 5 mg PO Q4H PRN PRN #20 tab PRN Reason: Pain Primary Care Physician: Harrison Maldonado MD [Primary Care Provider] - Within 2 Weeks
--- NOTE | 2018-01-12 10:04 | DS.PCM_ITS ---
Discharge Date and Diagnosis Date of Admission: 01/10/18 Date of Discharge: 01/12/18 - Primary Discharge Diagnosis Active and Suspected Problems Abdominal pain (Acute) Splenic infarct (Acute) Pancreatitis (Acute) - Secondary Discharge Diagnosis Chronic Problems Seizure disorder (Chronic) Hospital Course and Treatment Operations: None Summary of Care Provided: 1. Abdominal pain; Most likely secondary to splenic infarct. The patient was discharged on prescription for oxycodone as needed. 2. Splenic infarct; started on Aspirin, echocardiogram showed no intracardiac thrombi and hypercoagulable profile pending is still pending. 3 Acute Pancreatitis; bowel was rested and IV fluids given. 4. History of drug abuse; UDS is positive for marijuana and opiates. She is recommended to avoid illicit drug use. The patient is a 32 year old female admitted who presented to the emergency room with abdominal pain. CT scan of the abdomen and pelvis demonstrated a small focal splenic infarct. The patient was started on aspirin and echocardiogram was obtained and did not show any intracardiac thrombi, hypercoagulable profile was ordered and is currently pending. She was discharged home in a stable condition and recommended to follow-up with her primary care doctor next week. Discharge Diet: No Restrictions Discharge Activity: Return to Normal Activity Home Medications: Medications to take at Discharge Folic Acid 4 mg PO DAILY@0800 12/20/14 Sucralfate [Carafate] 1 gm PO TID 12/20/14 Zonisamide [Zonegran] 300 mg PO QHS 12/20/14 Ranitidine [Zantac] 150 mg PO DAILY 05/11/16 Albuterol Inhaler [Ventolin Hfa] 1 puff INHALATION Q4H PRN PRN 09/14/16 levETIRAcetam tablet [Keppra tablet] 1,000 mg PO BID 10/24/16 Sertraline HCl [Zoloft] 100 mg PO QHS 02/09/17 busPIRone [Buspar] 15 mg PO BID 02/09/17 traZODone [Desyrel] 100 mg PO QHS 02/11/17 Verapamil [Calan Sr] 180 mg PO QHS 04/14/17 Rizatriptan Benzoate [Maxalt] 10 mg PO DAILY PRN 11/15/17 Clonazepam [Klonopin] 0.5 mg PO DAILY PRN 01/10/18 Fluticasone/Vilanterol [Breo Ellipta 200-25 Mcg INH] 1 puff INHALATION DAILY 08/29 Aspirin [Aspirin, Baby] 81 mg PO DAILY@0800 tab.chew 01/12/18 Oxycodone [Oxyir] 5 mg PO Q4H PRN PRN #20 tab 01/12/18 Following Prescrptions Were Given to Patient: Oxycodone [Oxyir] 5 mg PO Q4H PRN PRN #20 tab PRN Reason: Pain Primary Care Physician: Harrison Maldonado MD [Primary Care Provider] - Within 2 Weeks Medical Necessity - Tobacco Use Smoking Status: Former smoker Tobacco Use: Secondhand, Cigarettes Meaningful Use Info Meaningful Use Diagnoses (Choose all that apply): None applicable Code Visit Inpatient E&M: 7101[address] [facility]
[2018-01-23 10:01] LABS: Antithrombin 3 Function 72 % (75-135)
[2018-01-23 10:46] LABS: Dilute Russell Viper Venom 36.5 sec (0.0-47.0)
[2018-01-23 10:50] LABS: Protein C Antigen 66 % (60-150)
[2018-01-23 10:51] LABS: Anti-Cardiolipin Ab, IgG, Qn < 9 GPL U/mL (0-14); Anti-Cardiolipin Ab, IgM, Qn < 9 MPL U/mL (0-12); Anti-Thrombin 3 AG, Immunol 73 % (72-124); Beta-2-Glycoprotein I IgA <9 (0-25); Beta-2-Glycoprotein I IgG <9 (0-20); Beta-2-Glycoprotein I IgM <9 (0-32); Protein C, Functional 77 % (73-180)
== END 2018-01-12 11:42 | disposition home or self-care (01) ==
LOC: ED 18:52 → MS3 22:46
PROVIDERS: Admitting Provider Internal Medicine; Emergency Provider Emergency Medicine; Family Provider Family Medicine; PCP Family Medicine; Visit Provider Internal Medicine
DX: D73.5 Infarction of spleen (principal); K85.90 Acute pancreatitis without necrosis or infection, unspecified; G40.909 Epilepsy, unspecified, not intractable, without status epilepticus; F11.10 Opioid abuse, uncomplicated; F12.10 Cannabis abuse, uncomplicated; Z87.891 Personal history of nicotine dependence; Z79.899 Other long term (current) drug therapy; J45.909 Unspecified asthma, uncomplicated
CPT/HCPCS: 36415; 74177; 80048; 80053; 80307; 81001; 81240; 81241; 83690; 84703; 85025; 85300; 85301; 85302; 85303; 85613; 86146; 86147; 93306; 96361; 96374; 96375; 96376; 97802; 99218; 99285; J7030; J7040; Q9967; A4216; G0378; J2405

== ENCOUNTER 2018-02-21 17:35 | Emergency (ER) | payer MEDICAID, SELFPAY ==
[2018-02-21 17:37] VITALS: BP 137/84; PULSE 79; RESP 18; TEMP 36.9; O2SAT 99; BMI 34.6
--- NOTE | 2018-02-21 17:56 | ED.DCSUM_ITS ---
- ER Visit Summary Date of Service: 02/21/18 Chief Complaint: Abdominal pain History of Present Illness: The patient is a 32 F with history of a splenic laceration one month ago who presents for left upper quadrant abdominal pain. Patient states that yesterday she developed left upper quadrant abdominal pain with pain radiating into the left shoulder. It is sharp and stabbing. Worse with breathing and movement. Patient has tried ibuprofen and Percocet with minimal improvement. She has associated nausea and has had some diarrhea. She denies fever, chest pain, shortness of breath, back pain, vomiting, urinary symptoms. She is on the Depakote shot and denies any chance of . Patient was diagnosed with a splenic laceration [facility] approximately 1 month ago. No history of trauma. Patient did not require surgical intervention. Physical Examination: Vital signs: afebrile, hemodynamically stable, no hypoxia on room air General: well nourished, well developed, in no distress Skin: warm, dry, no rash, no pallor HEENT: normocephalic and atraumatic; PERRL, EOMI, moist mucous membranes Cardiovascular: regular rate and rhythm without murmurs, no peripheral edema, 2 + pulses all distal extremities Respiratory: No increased work of breathing, lungs are clear to auscultation bilaterally, no rales, rhonchi or wheezing Abdominal: Abdomen is soft, tender in the left upper quadrant with normoactive bowel sounds, no guarding or rebound, no masses MSK: Moves all extremities, no deformities, normal strength Neuro: Awake and alert, oriented ?4. No facial droop, sensation and motor function intact and symmetric Test Results: Abnormal Lab Results 02/21/18 02/21/18 02/21/18 18:15 18:15 18:15 WBC 7.2 RBC 4.90 Hgb 14.3 Hct 41.9 MCV 85.5 MCH 29.2 MCHC 34.1 RDW 13.1 RDW Differential 40.9 Plt Count 205 MPV 9.5 Immature Gran % (Auto) 0.300 Neut % (Auto) 56.3 Lymph % (Auto) 34.4 [place] % (Auto) 5.4 Eos % (Auto) 2.9 Baso % (Auto) 0.7 Absolute Neuts (auto) 4.0 Absolute Lymphs (auto) 2.47 Total Counted Not Reportable Sodium 144 Potassium 4.1 Chloride 112 H Carbon Dioxide 24.0 Anion Gap 8 BUN 10 Creatinine 0.86 Estim Creat Clear Calc 84.51 Est GFR (MDRD) Af Amer 99 Est GFR (MDRD) Non-Af 82 BUN/Creatinine Ratio 11.7 Glucose 104 Lactic Acid 1.5 Calcium 8.8 Total Bilirubin 0.40 AST 10 L ALT 27 Alkaline Phosphatase 82 Total Protein 7.3 Albumin 3.9 Globulin 3.4 Albumin/Globulin Ratio 1.1 Lipase 140 Urine Color Urine Clarity Urine pH Ur Specific [place] Urine Protein Urine Glucose (UA) Urine Ketones Urine Occult Blood Urine Nitrite Urine Bilirubin Urine Urobilinogen Ur Leukocyte Esterase Urine RBC Urine WBC Ur Squamous Epith Cells Urine Bacteria Urine Mucus Urine Test 02/21/18 02/21/18 18:27 18:27 WBC RBC Hgb Hct MCV MCH MCHC RDW RDW Differential Plt Count MPV Immature Gran % (Auto) Neut % (Auto) Lymph % (Auto) [place] % (Auto) Eos % (Auto) Baso % (Auto) Absolute Neuts (auto) Absolute Lymphs (auto) Total Counted Sodium Potassium Chloride Carbon Dioxide Anion Gap BUN Creatinine Estim Creat Clear Calc Est GFR (MDRD) Af Amer Est GFR (MDRD) Non-Af BUN/Creatinine Ratio Glucose Lactic Acid Calcium Total Bilirubin AST ALT Alkaline Phosphatase Total Protein Albumin Globulin Albumin/Globulin Ratio Lipase Urine Color Yellow Urine Clarity Sl. Cloudy Urine pH 6.0 Ur Specific [place] 1.015 Urine Protein 15 H Urine Glucose (UA) Normal Urine Ketones Negative Urine Occult Blood 250 H Urine Nitrite Negative Urine Bilirubin Negative Urine Urobilinogen Normal Ur Leukocyte Esterase 25 H Urine RBC 25-50 SEEN Urine WBC 0 SEEN Ur Squamous Epith Cells 0-5 SEEN Urine Bacteria RARE Urine Mucus 0 SEEN Urine Test Negative Clinical Impression(s) from Imaging Studies Abdomen/Pelvis CT 02/21/18 19:15 IMPRESSION: No acute abdominal or pelvic pathology. Stable 1.1 cm hyperenhancing lesion in the right lobe of the liver. This is not fully characterized on this exam, but may represent a hemangioma. Electronically Signed: Juan Miguel Kat, at 19:40 EDT Tel , Service support , Emergency Department Course and Treatment: Patient received pain medication and IV fluids. Given the history of the recent splenic injury, a CT of the abdomen and pelvis was performed. Patient had no abnormalities on her lab work. She did have hematuria, but states she is not currently menstruating. She has no urinary symptoms that would be concerning for pyelonephritis or UTI. negative. CT scan of the abdomen and pelvis showed no acute findings, including no kidney stones, perinephric stranding, splenic injuries, or any other abnormalities. Patient was given a prescription for Percocet after reviewing her OAR[facility] report. Given that this is likely pain related to a recent splenic injury, opiates were deemed appropriate for pain control in the situation. Patient is to follow-up with her doctor in 1 week for reevaluation of her hematuria or if she develops any new symptoms. Patient agreed with this plan and was discharged home in improved condition. Treatment Plan: [] Disposition: [] Impression: Left upper quadrant pain, recent history of splenic laceration This note was generated with [employer] dictation software. It may contain incorrect words, spelling, and punctuation that were not noted in review of the chart prior to signing ED Disposition - Plan for ED Patient: Disposition: Home or Assisted Living Chief Complaint: Abd Pain Instructions: ED Abdominal Pain Unkn Cause, ED Hematuria Prescriptions: Oxycodone HCl/Acetaminophen [Percocet 5/325] 1 tab PO Q6H PRN PRN 3 Days #12 tab PRN Reason: Pain Referrals: Harrison Maldonado MD [Primary Care Provider] - 5-7 Days Additional Instructions: Please follow-up with your doctor for reevaluation of the blood in your urine that was noted on your lab work. If you develop any pain when peeing, peeing more often than normal, or feeling like you need to pee but unable to do so, please be reevaluated for possibility of a urinary tract infection. You may use the Percocet as needed for pain. If you have any worsening of your condition or any new concerning symptoms, please return immediately to the emergency department for another evaluation.
[2018-02-21] MEDS: Morphine 4 MG/ML Syringe IV (18:23)
[2018-02-21] MEDS: 0.9% Normal Saline 1,000 ML 1000 ML IV (18:23)
[2018-02-21] MEDS: Ondansetron 4 MG/2 ML Vial IV (18:24)
[2018-02-21 18:27] LABS: Absolute Lymphocyte Count 2.47 X10^3/ul (0.83-4.51); Basophil# 0.05 X10^3/uL; Basophil% 0.7 % (0-1); Eosinophil# 0.21 X10^3/uL; Eosinophils% 2.9 % (0-5); Hematocrit 41.9 % (37-47); Hemoglobin 14.3 g/dl (12.0-15.0); Lymphocyte # 2.47 X10^3/ul (4.0); Lymphocyte % 34.4 % (19-41); Mean Corp Hgb Conc 34.1 g/gl (32-36); Mean Corpuscular Hgb 29.2 pg (27.0-32.0); Mean Corpuscular Volume 85.5 fL (81-99); Mean Platelet Vol. 9.5 fl (6.2-12.0); Monocyte# 0.39 X10^3/uL; Monocyte% 5.4 % (0-10); Neutrophil # 4.03 X10^3/uL (2.7-7.7); Neutrophil % 56.3 % (47-70); Platelet Count 205 K/mm3 (150-450); RBC Distribution Width CV 13.1 % (11.6-14.6); RBC Distribution Width SD 40.9 fl (35.1-43.9); White Blood Count 7.2 K/mm3 (4.4-11.0)
[2018-02-21 18:30] LABS: POSITIVE COUNT NO; POSITIVE DIFFERENTIAL NO; POSITIVE MORPHOLOGY NO
[2018-02-21 18:33] LABS: Mucous, Urine 0 SEEN /hpf (<or=2+); White Blood Cells 0 SEEN /hpf (0-5)
[2018-02-21 18:34] LABS: Color, Urine Yellow (Yellow); Glucose, Dipstick Normal (Normal); Ketone-Dipstick Negative (Negative); Leukocyte Esterase-Dipstick 25 /ul (Negative); Nitrite-Dipstick Negative (Negative); Occult Blood-Urine 250 /ul (Negative); Protein-Dipstick 15 mg/dl (Negative); Specific Gravity, Urine 1.015 (1.002-1.030); Urine Bilirubin Dipstick Negative (Negative); Urine Clarity Sl. Cloudy (Clear); Urine Urobilinogen Normal (Normal)
[2018-02-21 18:37] LABS: Internal QC Validated? YES +Cl - CLEAR BKGD
[2018-02-21 18:38] LABS: Pregnancy, Urine Negative Negative
[2018-02-21 18:41] LABS: ALB/GLOB Ratio 1.1 RATIO (0.9-2.4); AST(SGOT) 10 U/L (15-37); Alanine Aminotransfer ALT/SGPT 27 U/L (13-56); Albumin, Serum 3.9 g/dL (3.2-5.0); Alkaline Phosphatase 82 U/L (45-117); Anion Gap 8 (5-15); BUN 10 mg/dL (7-18); BUN/Creat Ratio 11.7 RATIO (10-20); Calcium,Total 8.8 mg/dL (8.5-10.1); Chloride 112 mmol/L (98-107); Creatinine, Serum 0.86 mg/dL (0.55-1.02); EST Glomerular Filtration Rate 82 mL/min (>60); Est Glom Filt Rate - Afr Amer 99 mL/min (>60); Estimated Creatinine Clearance 84.51 ml/min; Globulin 3.4 g/dL (2.2-4.2); Glucose 104 mg/dL (74-106); Lipase 140 U/L (73-393); Potassium 4.1 mmol/L (3.5-5.1); Protein, Total 7.3 g/dL (6.4-8.2); Sodium Level 144 mmol/L (136-145)
[2018-02-21 19:02] LABS: Lactic Acid 1.5 mmol/L (0.4-2.0)
[2018-02-21 19:09] LABS: Bacteria RARE /hpf (None Seen); Red Blood Cells-Urine 25-50 SEEN /hpf (0-5); Squamous Epithelial Cells - UA 0-5 SEEN /hpf (5-10)
--- NOTE | 2018-02-21 19:15 | CT_ITS ---
STUDY: CT ABDOMEN AND PELVIS WITH CONTRAST REASON FOR EXAM: Female, 32 years old. Abdominal pain. History of pancreatitis and splenic infarct or RADIATION DOSAGE (If Supplied By Facility): CTDIvol = ( 18.44 ) mGy, DLP = ( 1129.36 ) mGycm TECHNIQUE: Transaxial images were obtained from the dome of the diaphragm to the symphysis pubis without oral contrast. 100 ml of Isovue 300 contrast was administered. Sagittal and coronal images were reconstructed. Individualized dose optimization techniques were used for this CT. COMPARISON: 01/10/2018 FINDINGS: The visualized lung bases are clear. The visualized portions of the heart and pericardium are within normal limits. There are no calcified gallstones present. There is a stable 1.1 cm hyperenhancing lesion in the right lobe of the liver (image 37 series 2). The liver is otherwise unremarkable. The spleen is normal in size. The pancreas is within normal limits. There is no CT evidence of pancreatitis. The adrenal glands are within normal limits. There are no renal or ureteral stones. There is no hydronephrosis. There are no focal renal lesions. Normal visualized stomach. There is no bowel obstruction or inflammation. There are stable postsurgical changes from a right hemicolectomy. The aorta is normal in caliber. There is no abdominal or pelvic free air, free fluid, fluid collection or lymphadenopathy. There are bilateral physiologic adnexal cysts. There are no destructive osseous lesions. CT/Abdomen/Pelvis W IV Cont ONLY IMPRESSION: No acute abdominal or pelvic pathology. Stable 1.1 cm hyperenhancing lesion in the right lobe of the liver. This is not fully characterized on this exam, but may represent a hemangioma. Electronically Signed: Juan Miguel Kat, at 19:40 EDT Tel , Service support ,
[2018-02-21 19:50] VITALS: BP 117/67; PULSE 68; RESP 18; O2SAT 96
--- NOTE | 2018-02-21 20:23 | ED.DEP ---
ED Disposition - Plan for ED Patient: Disposition: Home or Assisted Living Chief Complaint: Abd Pain Instructions: ED Abdominal Pain Unkn Cause, ED Hematuria Prescriptions: Oxycodone HCl/Acetaminophen [Percocet 5/325] 1 tab PO Q6H PRN PRN 3 Days #12 tab PRN Reason: Pain Referrals: Harrison Maldonado MD [Primary Care Provider] - 5-7 Days Additional Instructions: Please follow-up with your doctor for reevaluation of the blood in your urine that was noted on your lab work. If you develop any pain when peeing, peeing more often than normal, or feeling like you need to pee but unable to do so, please be reevaluated for possibility of a urinary tract infection. You may use the Percocet as needed for pain. If you have any worsening of your condition or any new concerning symptoms, please return immediately to the emergency department for another evaluation.
[2018-02-21 20:43] VITALS: BP 113/73; PULSE 64; RESP 17
== END 2018-02-21 20:47 | disposition home or self-care (01) ==
PROVIDERS: Emergency Provider Emergency Medicine; Family Provider Family Medicine; PCP Family Medicine
DX: R10.12 Left upper quadrant pain (principal); Z87.828 Personal history of other (healed) physical injury and trauma
CPT/HCPCS: 74177; 80053; 81001; 81025; 83605; 83690; 85025; 96361; 96374; 96375; 99283; J7030; Q9967; A4216; J2405

== ENCOUNTER 2018-05-17 12:46 | Emergency (ER) | payer MEDICAID, SELFPAY ==
[2018-05-17 12:46] VITALS: BP 153/82; PULSE 82; RESP 16; TEMP 37.1; O2SAT 97; BMI 35.1
--- NOTE | 2018-05-17 13:03 | CT_ITS ---
STUDY: CT ABDOMEN AND PELVIS WITHOUT CONTRAST REASON FOR EXAM: Female, 32 years old. Abdominal pain radiating to back with nausea for past 3 days. History of prior colectomy due to rupture, and appendectomy. RADIATION DOSAGE (If Supplied By Facility): CTDIvol = ( 19.69 ) mGy, DLP = ( 1033.00 ) mGycm TECHNIQUE: Transaxial images were obtained from the dome of the diaphragm to the symphysis pubis without oral contrast, and without intravenous contrast. Sagittal and coronal images were reconstructed. Individualized dose optimization techniques were used for this CT. COMPARISON: CT abdomen and pelvis with IV contrast February 21, 2018. FINDINGS: The visualized lung bases are unremarkable. The visualized portions of the heart are within normal limits. Normal liver. The portal vein diameter is 14.5 mm. Normal gallbladder and extrahepatic biliary system. The common bile duct diameter reaches 7 mm. Coarsely calcified 13.5 mm structure along the subhepatic margin of the left lobe is consistent with a calcified lymph node. Normal spleen. Normal pancreas. Normal bilateral adrenal glands. Normal right kidney. Normal left kidney. No hydronephrosis. Normal visualized stomach. Normal small intestine. The right colon is surgically absent, and there is an anastomotic suture ring at an enterocolic anastomosis near the hepatic flexure, abutting the gallbladder. There is non-visualization of the appendix. Normal abdominal aorta. Normal inferior vena cava. Normal retroperitoneum. Normal urinary bladder. Normal visualized uterus and bilateral ovaries. There is a healed midline surgical incision of the mid abdominal wall. Just deep to the lower aspect of the incision is a 1 cm calcification that may be a lymph node or other postsurgical granuloma. There is a small umbilical hernia containing fat. Normal osseous structures. CT/Abdomen/Pelvis without Cont IMPRESSION: 1. Changes of prior right colectomy and enterocolic anastomosis near the hepatic flexure. No sign of bowel obstruction or suspicious mural thickening. The appendix is absent. 2. Healed midline surgical incision of the mid anterior abdominal wall. Just deep to the lower aspect of this incision is a stable 1 cm calcification, and there is a stable calcified lymph node along the inferior left subhepatic margin. 3. The hyperenhancing lesion seen in the right lobe of the liver on prior study, possibly an hemangioma, is not apparent here without IV contrast. 4. No new demonstrated abdominal/pelvic mass or fluid collection. Electronically Signed: Uriel Leon MD at 14:09 EDT , Service support ,
--- NOTE | 2018-05-17 13:07 | ED.DCSUM_ITS ---
- ER Visit Summary Date of Service: 05/17/18 Chief Complaint: [] Left flank pain for 3 days History of Present Illness: The patient is a 32 F [] left flank pain to the left lower quadrant for about 3 days she has a history of bowel obstructions with surgery [place] September 2017, she is been seen by Dr. santillan in the past for the above, she also has history of kidney stones a few years ago. She indicates the pain intensified today and she came in for evaluation she indicates she is constantly pushing her urine out of her body and the urine seems slightly more discolored she denies dysuria, some urinary frequency, bowel habits have been normal she has been able to eat light foods and had something to drink today that did not affect her pain, the etiology of her bowel obstructions are unclear she has seizure disorder that stable and she has no other complaints Depo-Provera contraception injections and denies any chance of Physical Examination: [] General, no distress resting comfortably HEENT is generally unremarkable The neck is supple no adenopathy Cardiovascular, regular rate and rhythm Lungs, clear bilateral Abdomen, soft there is very vague pain to the left lower abdomen, there is pain to the left flank there is no skin lesions the abdomen otherwise is soft without rebound or guarding, she indicates she did provide urine sample here and again she is been having bowel habits that consist of brown stool Extremities, no clubbing cyanosis or edema Neurologic, awake alert answering questions appropriately moving all 4 extremities Test Results: [] Emergency Department Course and Treatment: [] Given her complaints screening labs IV fluids pain management CT CT abdomen shows the postsurgical changes from her prior bowel obstructions including what appears to be a right hemicolectomy, no other acute abnormalities no bowel obstruction, see that report, her UA shows signs of UTI urine culture sent and screening labs are otherwise all generally unremarkable see those reports Expanded test results the patient explained is no signs of bowel obstruction kidney stone, signs of UTI she understands at this time she will be started on Naprosyn for the flank pain, Augmentin for the UTI, we did discuss the concept of pyelonephritis she understands and agrees with outpatient discharge, in addition she was given IV antibiotics and w and have asked to follow with her family doctors in the next few days for further management and she agrees to do so Treatment Plan: [] Disposition: [] Home stable Impression: [] Urinary tract infection, left flank pain This note was generated with [employer] dictation software. It may contain incorrect words, spelling, and punctuation that were not noted in review of the chart prior to signing ED Disposition - Plan for ED Patient: Chief Complaint: Abd Pain Instructions: ED Flank Pain Uncertain Cause Prescriptions: Amox/Clavulanate Tablet [Augmentin Tablet] 875 mg PO Q12H #20 tab Naproxen [Naprosyn] 500 mg PO BID PRN #20 tab Referrals: Harrison Maldonado MD [Primary Care Provider] -
[2018-05-17] MEDS: 0.9% Normal Saline 1,000 ML 250 ML IV (13:17)
[2018-05-17] MEDS: morphine 8 MG/ML Syringe IV (13:17)
[2018-05-17] MEDS: Ondansetron 4 MG/2 ML Vial IV (13:17)
[2018-05-17 13:36] LABS: Absolute Lymphocyte Count 1.65 X10^3/ul (0.83-4.51); Absolute Neutrophil Count 3.7 X10^3/uL (2.0-7.7); Basophil# 0.04 X10^3/uL; Basophil% 0.7 % (0-1); Color, Urine Yellow (Yellow); Eosinophil# 0.24 X10^3/uL; Eosinophils% 3.9 % (0-5); Glucose, Dipstick Normal (Normal); Hematocrit 42.3 % (37-47); Hemoglobin 14.1 g/dl (12.0-15.0); Ketone-Dipstick Negative (Negative); Leukocyte Esterase-Dipstick 100 /ul (Negative); Lymphocyte # 1.65 X10^3/ul (4.0); Mean Corp Hgb Conc 33.3 g/gl (32-36); Mean Corpuscular Hgb 29.3 pg (27.0-32.0); Mean Corpuscular Volume 87.9 fL (81-99); Mean Platelet Vol. 9.4 fl (6.2-12.0); Monocyte# 0.49 X10^3/uL; Mucous, Urine 0 SEEN /hpf (<or=2+); Neutrophil % 60.4 % (47-70); Nitrite-Dipstick Negative (Negative); Occult Blood-Urine Negative /ul (Negative); Platelet Count 187 K/mm3 (150-450); Protein-Dipstick Negative (Negative); RBC Distribution Width CV 12.8 % (11.6-14.6); RBC Distribution Width SD 41.1 fl (35.1-43.9); Red Blood Cells-Urine 0 SEEN /hpf (0-5); Red Blood Count 4.81 M/mm3 (4.2-5.4); Specific Gravity, Urine 1.015 (1.002-1.030); Urine Bilirubin Dipstick Negative (Negative); Urine Clarity Sl. Cloudy (Clear); Urine Urobilinogen Normal (Normal); White Blood Count 6.1 K/mm3 (4.4-11.0)
[2018-05-17 13:38] LABS: POSITIVE COUNT NO; POSITIVE DIFFERENTIAL NO; POSITIVE MORPHOLOGY NO
[2018-05-17 13:45] LABS: White Blood Cells 5-10 SEEN /hpf (0-5)
[2018-05-17 13:46] LABS: Anion Gap 9 (5-15); BUN 16 mg/dL (7-18); BUN/Creat Ratio 13.4 RATIO (10-20); Bacteria 1+ /hpf (None Seen); Calcium,Total 8.8 mg/dL (8.5-10.1); Chloride 108 mmol/L (98-107); Creatinine, Serum 1.19 mg/dL (0.55-1.02); EST Glomerular Filtration Rate 56 mL/min (>60); Est Glom Filt Rate - Afr Amer 67 mL/min (>60); Estimated Creatinine Clearance 61.07 ml/min; Glucose 111 mg/dL (74-106); Potassium 3.8 mmol/L (3.5-5.1); Sodium Level 139 mmol/L (136-145); Squamous Epithelial Cells - UA 0-5 SEEN /hpf (5-10)
--- NOTE | 2018-05-17 14:44 | ED.DEP ---
ED Disposition - Plan for ED Patient: Chief Complaint: Abd Pain Instructions: ED Flank Pain Uncertain Cause Prescriptions: Naproxen [Naprosyn] 500 mg PO BID PRN #20 tab Referrals: Harrison Maldonado MD [Primary Care Provider] -
--- NOTE | 2018-05-17 14:51 | ED.DEP ---
ED Disposition - Plan for ED Patient: Chief Complaint: Abd Pain Instructions: ED Flank Pain Uncertain Cause Prescriptions: Amox/Clavulanate Tablet [Augmentin Tablet] 875 mg PO Q12H #20 tab Naproxen [Naprosyn] 500 mg PO BID PRN #20 tab Referrals: Harrison Maldonado MD [Primary Care Provider] -
[2018-05-17] MEDS: 0.9% Normal Saline 1,000 ML 999 ML IV (15:26)
[2018-05-17 15:31] VITALS: BP 110/67; PULSE 57; RESP 16; O2SAT 97
[2018-05-17 18:23] LABS: Pregnancy, Serum, hCG Quali. NEGATIVE Negative (0-9 Nonpreg)
== END 2018-05-17 16:51 | disposition home or self-care (01) ==
PROVIDERS: Emergency Provider Emergency Medicine; Family Provider Family Medicine; PCP Family Medicine
DX: N39.0 Urinary tract infection, site not specified (principal); R10.9 Unspecified abdominal pain; G40.909 Epilepsy, unspecified, not intractable, without status epilepticus; Z87.442 Personal history of urinary calculi; Z79.51 Long term (current) use of inhaled steroids; Z79.82 Long term (current) use of aspirin; Z79.899 Other long term (current) drug therapy
CPT/HCPCS: 74176; 80048; 81001; 84703; 85025; 87086; 87088; 96361; 96365; 96374; 96375; 99284; J7030; A4216; J0696; J2405

== ENCOUNTER 2018-06-14 17:10 | Emergency (ER) | payer MEDICAID, SELFPAY ==
--- NOTE | 2018-06-14 17:10 | EKG12_ITS ---
Test Reason : CP Blood Pressure : / mmHG Vent. Rate : 077 BPM Atrial Rate : 077 BPM P-R Int : 172 ms QRS Dur : 088 ms QT Int : 390 ms P-R-T Axes : 062 -03 018 degrees QTc Int : 441 ms Sinus rhythm with Premature supraventricular complexes Low voltage QRS Nonspecific T wave abnormality Abnormal ECG Confirmed by BETZY BANEGAS, PATTI ([id number]), newspaper managing editor JARETT HAIR ([id number]) on 06/18/2018 1:33:59 PM Referred By: YOSELYN Confirmed By:PATTI OB MD
[2018-06-14 17:11] VITALS: BP 124/83; PULSE 86; RESP 19; TEMP 36.6; O2SAT 99; BMI 36.8
--- NOTE | 2018-06-14 17:44 | RAD_ITS ---
STUDY: X-RAY CHEST REASON FOR EXAM: Female, 32 years old. Chest pain. TECHNIQUE: Single frontal view of the chest. COMPARISON: August 11, 2016 FINDINGS: The lungs are clear and expanded. There is no demonstrated pleural abnormality. Normal size heart. Normal mediastinum and barbra. Normal visualized pulmonary arteries. Normal visualized aortic arch and descending thoracic aorta. Normal visualized thoracic spine. Normal visualized ribs, clavicles, and shoulders. There is no demonstrated abnormality of the visualized soft tissue structures of the upper abdomen. RAD/Chest 1 View (Portable) IMPRESSION: Normal x-ray examination of the chest. Electronically Signed: Daniel Pineda MD at 18:07 EDT , Service support ,
[2018-06-14 18:16] LABS: Mucous, Urine 0 SEEN /hpf (<or=2+)
[2018-06-14 18:18] LABS: Absolute Lymphocyte Count 1.99 X10^3/ul (0.83-4.51); Absolute Neutrophil Count 4.2 X10^3/uL (2.0-7.7); Basophil# 0.03 X10^3/uL; Basophil% 0.4 % (0-1); Color, Urine Yellow (Yellow); Eosinophil# 0.14 X10^3/uL; Eosinophils% 2.1 % (0-5); Glucose, Dipstick Normal (Normal); Hematocrit 41.3 % (37-47); Hemoglobin 13.9 g/dl (12.0-15.0); Ketone-Dipstick Negative (Negative); Leukocyte Esterase-Dipstick 500 /ul (Negative); Lymphocyte # 1.99 X10^3/ul (4.0); Lymphocyte % 29.3 % (19-41); Mean Corp Hgb Conc 33.7 g/gl (32-36); Mean Corpuscular Hgb 29.6 pg (27.0-32.0); Mean Corpuscular Volume 87.9 fL (81-99); Mean Platelet Vol. 9.1 fl (6.2-12.0); Monocyte# 0.39 X10^3/uL; Monocyte% 5.7 % (0-10); Neutrophil # 4.24 X10^3/uL (2.7-7.7); Neutrophil % 62.5 % (47-70); Nitrite-Dipstick Negative (Negative); Occult Blood-Urine 150 /ul (Negative); POSITIVE COUNT NO; POSITIVE DIFFERENTIAL NO; POSITIVE MORPHOLOGY NO; Platelet Count 183 K/mm3 (150-450); Protein-Dipstick Negative (Negative); RBC Distribution Width CV 12.9 % (11.6-14.6); RBC Distribution Width SD 41.4 fl (35.1-43.9); Urine Bilirubin Dipstick Negative (Negative); Urine Clarity Clear (Clear); Urine Urobilinogen Normal (Normal); Urine pH 6.5 (5.0 - 8.0); White Blood Count 6.8 K/mm3 (4.4-11.0)
[2018-06-14] MEDS: Mag Hydrox/Al Hydrox/Simeth 30 ML UDC PO (18:28)
[2018-06-14 18:29] LABS: White Blood Cells 50-100 SEEN /hpf (0-5)
[2018-06-14 18:31] LABS: Bacteria 1+ /hpf (None Seen); Red Blood Cells-Urine 5-10 SEEN /hpf (0-5); Squamous Epithelial Cells - UA 25-50 SEEN /hpf (5-10); Yeast-Urine RARE /hpf (None Seen)
[2018-06-14 18:41] LABS: ALB/GLOB Ratio 1.1 RATIO (0.9-2.4); AST(SGOT) 11 U/L (15-37); Alanine Aminotransfer ALT/SGPT 36 U/L (13-56); Albumin, Serum 3.6 g/dL (3.2-5.0); Alkaline Phosphatase 69 U/L (45-117); Anion Gap 7 (5-15); BUN 10 mg/dL (7-18); BUN/Creat Ratio 10.3 RATIO (10-20); Calcium,Total 8.4 mg/dL (8.5-10.1); Chloride 113 mmol/L (98-107); Creatinine, Serum 0.97 mg/dL (0.55-1.02); EST Glomerular Filtration Rate 70 mL/min (>60); Est Glom Filt Rate - Afr Amer 85 mL/min (>60); Estimated Creatinine Clearance 74.92 ml/min; Globulin 3.4 g/dL (2.2-4.2); Glucose 120 mg/dL (74-106); Lipase 127 U/L (73-393); Potassium 3.7 mmol/L (3.5-5.1); Sodium Level 143 mmol/L (136-145)
[2018-06-14 19:32] VITALS: BP 112/77; PULSE 73; RESP 15; O2SAT 97
[2018-06-14 19:34] LABS: Pregnancy, Serum, hCG Quali. NEGATIVE Negative (0-9 Nonpreg)
--- NOTE | 2018-06-14 19:45 | ED.VISSUMM ---
- ER Visit Summary Date of Service: 06/14/18 Chief Complaint: Stomach pain History of Present Illness: The patient is a 32 F with stomach pain for 3 days. The pain is in her epigastric area and radiates to her chest. Associated with nausea. Denies vomiting or diarrhea. She does have some dysuria. She is on control. Denies any MEDICAL TECHNOLOGIST HEMATOLOGY symptoms. Denies any history of this in the past. Denies fevers or jaundice. Physical Examination: Afebrile and vital signs unremarkable. Uncomfortable but not toxic or in distress. Heart regular rate and rhythm. Lungs clear. Abdomen is tender in the epigastric region. Skin appears normal in color. Alert and oriented. Tearful. Test Results: CBC unremarkable. EKG shows sinus rhythm at a rate of 77 with PVCs and nonspecific T wave changes. Chest x-ray normal. Glucose 120. Liver panel and lipase normal. Urinalysis shows signs of infection. Troponin and test negative. Emergency Department Course and Treatment: Patient treated with a GI cocktail. On reassessment, she did not have much improvement. She was treated with Pepcid, naproxen, and Macrobid. I believe she is appropriate for outpatient follow-up and will call her PCP on Saturday. If she has any new or worsening symptoms, she should return right away. Treatment Plan: Discharge Disposition: Discharge Impression: 1. Abdominal pain epigastric 2. UTI This note was generated with [employer] dictation software. It may contain incorrect words, spelling, and punctuation that were not noted in review of the chart prior to signing ED Disposition - Plan for ED Patient: Chief Complaint: General Illness Referrals: Harrison Maldonado MD [Primary Care Provider] -
--- NOTE | 2018-06-14 19:47 | ED.DEP ---
ED Disposition - Plan for ED Patient: Chief Complaint: General Illness Instructions: ED Abdominal Pain Unkn Cause Prescriptions: Nitrofurantoin Macrocrystals [Macrobid] 100 mg PO Q12 #10 cap Famotidine [Pepcid] 20 mg PO BID #28 tab Naproxen [Naprosyn] 500 mg PO BID #14 tab Referrals: Harrison Maldonado MD [Primary Care Provider] -
[2018-06-14 19:53] VITALS: BP 103/63; PULSE 67; RESP 20; O2SAT 97
[2018-06-14] MEDS: Nitrofurantoin Macrocrystals 100 MG Capsule PO (19:53)
[2018-06-14] MEDS: Famotidine 20 MG Tablet PO (19:53)
[2018-06-14] MEDS: Naproxen 250 MG Tablet 500 MG PO (19:53)
== END 2018-06-14 20:01 | disposition home or self-care (01) ==
LOC: ED 18:18
PROVIDERS: Emergency Provider Emergency Medicine; Family Provider Family Medicine; PCP Family Medicine
DX: N39.0 Urinary tract infection, site not specified (principal); R10.13 Epigastric pain; J45.909 Unspecified asthma, uncomplicated; R56.9 Unspecified convulsions; Z72.0 Tobacco use; Z79.51 Long term (current) use of inhaled steroids; Z79.82 Long term (current) use of aspirin; Z79.899 Other long term (current) drug therapy
CPT/HCPCS: 71045; 80053; 81001; 83690; 84484; 84703; 85025; 93005; 99285; A4216

== ENCOUNTER 2018-08-24 00:52 | Emergency (ER) | payer MEDICAID, SELFPAY ==
[2018-08-24 00:53] VITALS: BP 122/97; PULSE 70; RESP 18; TEMP 36.8; O2SAT 97; BMI 35.7
[2018-08-24 01:14] LABS: Absolute Lymphocyte Count 3.74 X10^3/ul (0.83-4.51); Absolute Neutrophil Count 5.8 X10^3/uL (2.0-7.7); Basophil# 0.04 X10^3/uL; Basophil% 0.4 % (0-1); Eosinophil# 0.19 X10^3/uL; Eosinophils% 1.9 % (0-5); Hematocrit 43.5 % (37-47); Hemoglobin 14.6 g/dl (12.0-15.0); Lymphocyte # 3.74 X10^3/ul (4.0); Lymphocyte % 36.5 % (19-41); Mean Corp Hgb Conc 33.6 g/gl (32-36); Mean Corpuscular Hgb 29.7 pg (27.0-32.0); Mean Corpuscular Volume 88.6 fL (81-99); Mean Platelet Vol. 9.7 fl (6.2-12.0); Monocyte# 0.46 X10^3/uL; Monocyte% 4.5 % (0-10); Neutrophil # 5.81 X10^3/uL (2.7-7.7); Neutrophil % 56.5 % (47-70); POSITIVE COUNT NO; POSITIVE DIFFERENTIAL NO; POSITIVE MORPHOLOGY NO; Platelet Count 197 K/mm3 (150-450); RBC Distribution Width SD 41.7 fl (35.1-43.9); Red Blood Count 4.91 M/mm3 (4.2-5.4); White Blood Count 10.3 K/mm3 (4.4-11.0)
[2018-08-24] MEDS: 0.9% Normal Saline 1,000 ML 1000 ML IV (01:15)
[2018-08-24] MEDS: Ondansetron 4 MG/2 ML Vial IV (01:15)
[2018-08-24] MEDS: Morphine 4 MG/ML Syringe IV (01:16)
[2018-08-24 01:26] LABS: Mucous, Urine 0 SEEN /hpf (<or=2+); Red Blood Cells-Urine 0 SEEN /hpf (0-5)
[2018-08-24 01:32] LABS: ALB/GLOB Ratio 1.2 RATIO (0.9-2.4); AST(SGOT) 16 U/L (15-37); Alanine Aminotransfer ALT/SGPT 33 U/L (13-56); Albumin, Serum 4.1 g/dL (3.2-5.0); Alkaline Phosphatase 74 U/L (45-117); Anion Gap 9 (5-15); BUN 11 mg/dL (7-18); BUN/Creat Ratio 9.9 RATIO (10-20); Chloride 109 mmol/L (98-107); Creatinine, Serum 1.11 mg/dL (0.55-1.02); EST Glomerular Filtration Rate 60 mL/min (>60); Est Glom Filt Rate - Afr Amer 73 mL/min (>60); Estimated Creatinine Clearance 65.47 ml/min; Globulin 3.3 g/dL (2.2-4.2); Glucose 98 mg/dL (74-106); Lipase 159 U/L (73-393); Potassium 3.7 mmol/L (3.5-5.1); Protein, Total 7.4 g/dL (6.4-8.2); Sodium Level 140 mmol/L (136-145)
[2018-08-24 01:33] LABS: Color, Urine Yellow (Yellow); Glucose, Dipstick Normal (Normal); Ketone-Dipstick Negative (Negative); Leukocyte Esterase-Dipstick 100 /ul (Negative); Nitrite-Dipstick Negative (Negative); Occult Blood-Urine Negative /ul (Negative); Protein-Dipstick 15 mg/dl (Negative); Urine Bilirubin Dipstick Negative (Negative); Urine Clarity Sl. Cloudy (Clear); Urine Urobilinogen 1 mg/dl (Normal)
[2018-08-24 01:42] LABS: Bacteria 1+ /hpf (None Seen); Internal QC Validated? YES +Cl - CLEAR BKGD; Pregnancy, Urine Negative Negative; Squamous Epithelial Cells - UA 5-10 SEEN /hpf (5-10); White Blood Cells 0-5 SEEN /hpf (0-5)
--- NOTE | 2018-08-24 01:53 | CT_ITS ---
HISTORY: ABD PAIN X 5 DAYS, HX SBO WITH COLECTOMY, APPY FROM TECHNIQUE: Helically acquired images were obtained of the abdomen and pelvis following IV contrast. A radiation dose optimization technique was used for this scan. IV Contrast dosage and agent: 100 cc Isovue-300 contrast Oral contrast: None. The patient was unable to fully follow breathing instructions and this partly limits evaluation of the liver. COMPARISON: 05/17/2018 without contrast and 02/21/2018 with IV contrast FINDINGS: Lower thorax: Clear Allowing for motion artifact, the pericholecystic right hepatic lobe shows a stable 1.1 cm enhancing lesion compatible with flash filling hemangioma. Stable benign-appearing coarse calcifications measuring 1.2 cm in dimension posterior to the left hepatic lobe. This may reflect old peripancreatic derick calcification. No biliary dilatation or new hepatic lesion. Normal hepatic size. Normal spleen and pancreas. Bilateral renal excretion of contrast without evidence of hydronephrosis, pyelonephritis, or suspicious renal lesion. Adrenal glands are not enlarged. Abdominal aorta is normal caliber. Patent IVC. No ascites or suspicious lymph enlargement. GI tract: No obstruction. Right hemicolectomy with ileotransverse anastomosis. Pelvis: Anteverted uterus which is normal in size. Poorly distended urinary bladder which is otherwise negative. No free fluid or lymphadenopathy. Bones: No acute osseous abnormality. Ventral abdominal Wall: Small fat-containing umbilical hernia., Unchanged. CT/Abdomen/Pelvis W IV Cont ONLY IMPRESSION: 1. No bowel obstruction or other acute abdominal disease identified. Stable CT findings 2. Right hemicolectomy with incidental findings, as above. Individualized dose optimization techniques were used for this CT. at 0244 Reported and signed by: Eugenio Garces MD Electronically Signed: Eugenio Garces, at 2:43 EST Tel , Service support ,
[2018-08-24] MEDS: Mag Hydrox/Al Hydrox/Simeth 30 ML UDC PO (02:27)
--- NOTE | 2018-08-24 02:58 | ED.VISSUMM ---
- ER Visit Summary Date of Service: 08/24/18 Chief Complaint: Abdominal pain History of Present Illness: The patient is a 32 F with upper abdominal pain for 5 days. Epigastric location. Associated with nausea. No other associated symptoms like vomiting, diarrhea, fever, jaundice. 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 She also had a prior colectomy after a bowel injury, appendectomy, pancreatitis partial small bowel obstruction. She said she never had this pain before. She takes Carafate as well as an H2 kristen. She has a history of acid reflux. Physical Examination: Afebrile and vital signs are unremarkable. Patient but not toxic or in distress. Heart regular. Lungs clear. Abdomen is tender in the upper hemiabdomen. No guarding or rebound. Skin appears normal in color. Test Results: CBC unremarkable. CMP and lipase are unremarkable. Creatinine is 1.11, slightly elevated. Urinalysis shows what looks like skin contamination. test negative. Emergency Department Course and Treatment: Patient treated with pain meds, Zofran. Will check labs and urinalysis. Everything was fairly unremarkable. She said her pain had not improved. She received additional pain medicine as well as a GI cocktail, and a CT was ordered. CT showed no acute changes. She does have postoperative changes, but nothing to explain her pain. Patient has unremarkable vitals and unremarkable exam. Workup here was also unremarkable. I believe she is for outpatient follow-up. She is will add a PPI kristen. Return for any new or worsening issues, otherwise follow-up with primary care. Treatment Plan: As above Disposition: Discharge Impression: 1. Epigastric abdominal pain This note was generated with [employer] dictation software. It may contain incorrect words, spelling, and punctuation that were not noted in review of the chart prior to signing ED Disposition - Plan for ED Patient: Chief Complaint: Abd Pain Referrals: Harrison Maldonado MD [Primary Care Provider] -
--- NOTE | 2018-08-24 03:05 | ED.DEP ---
ED Disposition - Plan for ED Patient: Chief Complaint: Abd Pain Instructions: ED Abdominal Pain Unkn Cause Prescriptions: Omeprazole [Prilosec] 20 mg PO DAILY #30 cap Referrals: Harrison Maldonado MD [Primary Care Provider] -
[2018-08-24 03:13] VITALS: BP 118/70; PULSE 72; RESP 20; O2SAT 96
== END 2018-08-24 03:14 | disposition home or self-care (01) ==
PROVIDERS: Emergency Provider Emergency Medicine; Family Provider Family Medicine; PCP Family Medicine
DX: R10.13 Epigastric pain (principal); K21.9 Gastro-esophageal reflux disease without esophagitis; R56.9 Unspecified convulsions; Z90.49 Acquired absence of other specified parts of digestive tract; Z79.51 Long term (current) use of inhaled steroids; Z79.82 Long term (current) use of aspirin; Z79.899 Other long term (current) drug therapy
CPT/HCPCS: 74177; 80053; 81001; 81025; 83690; 85025; 96361; 96374; 96375; 99285; J7030; Q9967; A4216; J2405

== ENCOUNTER 2018-08-27 02:05 | Emergency (ER) | payer MEDICAID, SELFPAY ==
[2018-08-27 02:06] VITALS: BP 122/88; PULSE 77; RESP 18; TEMP 37.1; O2SAT 97; BMI 35.7
--- NOTE | 2018-08-27 02:21 | RAD_ITS ---
STUDY: X-RAY - ACUTE ABDOMINAL SERIES REASON FOR EXAM: Female, 33 years old. Midabdominal pain for one week TECHNIQUE: Single view of the chest. Supine, 3 view(s) of the abdomen were obtained. COMPARISON: None. FINDINGS: The lungs are clear and expanded. Normal size heart. Normal mediastinum and barbra. Normal visualized pulmonary arteries. Normal visualized aortic arch and descending thoracic aorta. There is a non-specific bowel gas pattern. The soft tissue structures of the abdomen and pelvis are unremarkable. Normal visualized osseous structures. RAD/Acute Abdomen Inc Chest IMPRESSION: Normal x-ray examination of the chest, abdomen, and pelvis. No acute findings Electronically Signed: Kwabena Churchill MD at 3:12 EST Tel , Service support ,
--- NOTE | 2018-08-27 02:24 | ED.DCSUM_ITS ---
- ER Visit Summary Date of Service: 08/27/18 Chief Complaint: Abdominal pain History of Present Illness: The patient is a 33 F persistent upper abdominal pain for the past week. Nausea symptoms. Was seen in the ED 2 days ago with a workup that was negative. States pain has been continued, she did call her PCP yesterday was told to walk into the office however did not. She reports she does get sent to the ED. This evening pain was worsening going down to her mid abdomen. 8 out of 10. History of right hemicolectomy and appendectomy secondary to trauma from childbirth. Records noted she had a splenic infarct, she reports there was initial concerns of this however when transferred to [place], was found to have splenic laceration conservatively managed. Pain is sharp and achy 8 out of 10. She is on the Depakote shots. Nausea without vomiting. No bowel movement for 2 days. Positive flatus. Reports history of pancreatitis. Denies alcohol use. Tobacco history occasional THC with last use 2 days ago. Physical Examination: General: Alert and oriented ?3, no acute distress HEENT: Normocephalic, atraumatic. Moist mucosa membranes Neck: supple, nontender. Cardiovascular: Regular rate and rhythm, no murmurs Respiratory: Normal breath sounds, symmetric, no distress Abdomen: Soft, tenderness mid abdomen without guarding or rebound, nondistended, mild hypoactive bowel sounds Extremities: Nontender, no edema, pulses intact ?4 Neuro: no focal neurological deficits. Test Results: White count 10.8 hemoglobin 14.6. Creatinine 1.17. Potassium 3.8. Lipase 143. Liver enzymes normal. Lactic acid 1.0. Abdominal series x- ray nonspecific bowel pattern per radiology Emergency Department Course and Treatment: Patient nonsurgical abdomen. She had a normal CT 2 days ago. Persistent symptoms worsened today. Labs stable lactic acid also negative. Abdominal series per radiology nonspecific bowel pattern. She does admit to still having flatus. Treated for pain and nausea with improving symptoms. Abdomen on reevaluation remains benign. There is no progression. Prescription for antiemetics, antispasmodics as needed. Signs and symptoms discussed to return. All questions were answered. Treatment Plan: [] Disposition: Discharge Impression: 1. Nonspecific abdominal pain This note was generated with [employer] dictation software. It may contain incorrect words, spelling, and punctuation that were not noted in review of the chart prior to signing ED Disposition - Plan for ED Patient: Disposition: Home or Assisted Living Chief Complaint: Abd Pain Diagnosis: Nonspecific abdominal pain Instructions: ED Abdominal Pain Unkn Cause Prescriptions: Dicyclomine HCl [Bentyl] 10 mg PO Q6H PRN PRN #12 capsule PRN Reason: abdominal cramping Ondansetron [Zofran Odt] 4 mg PO Q8H PRN PRN #10 tablet PRN Reason: Nausea Referrals: Harrison Maldonado MD [Primary Care Provider] - 2 Days Gabe Grace MD [STAFF PHYSICIAN] - 2 Days
[2018-08-27] MEDS: Morphine 4 MG/ML Syringe IV (02:34)
[2018-08-27] MEDS: 0.9% Normal Saline 1,000 ML 1000 ML IV (02:34)
[2018-08-27] MEDS: Ondansetron 4 MG/2 ML Vial IV (02:35)
[2018-08-27 02:44] LABS: Absolute Lymphocyte Count 3.19 X10^3/ul (0.83-4.51); Absolute Neutrophil Count 6.7 X10^3/uL (2.0-7.7); Basophil# 0.06 X10^3/uL; Basophil% 0.6 % (0-1); Eosinophil# 0.17 X10^3/uL; Eosinophils% 1.6 % (0-5); Hematocrit 42.9 % (37-47); Hemoglobin 14.6 g/dl (12.0-15.0); Lymphocyte # 3.19 X10^3/ul (4.0); Lymphocyte % 29.6 % (19-41); Mean Corpuscular Hgb 29.9 pg (27.0-32.0); Mean Corpuscular Volume 87.9 fL (81-99); Mean Platelet Vol. 9.5 fl (6.2-12.0); Monocyte# 0.64 X10^3/uL; Monocyte% 5.9 % (0-10); Neutrophil # 6.69 X10^3/uL (2.7-7.7); Neutrophil % 62.1 % (47-70); Platelet Count 199 K/mm3 (150-450); RBC Distribution Width CV 12.8 % (11.6-14.6); RBC Distribution Width SD 40.9 fl (35.1-43.9); Red Blood Count 4.88 M/mm3 (4.2-5.4); White Blood Count 10.8 K/mm3 (4.4-11.0)
[2018-08-27 02:46] LABS: POSITIVE COUNT NO; POSITIVE DIFFERENTIAL NO; POSITIVE MORPHOLOGY NO
[2018-08-27 02:59] LABS: ALB/GLOB Ratio 1.1 RATIO (0.9-2.4); AST(SGOT) 18 U/L (15-37); Alanine Aminotransfer ALT/SGPT 31 U/L (13-56); Alkaline Phosphatase 72 U/L (45-117); Anion Gap 9 (5-15); BUN 14 mg/dL (7-18); Calcium,Total 8.7 mg/dL (8.5-10.1); Chloride 110 mmol/L (98-107); Creatinine, Serum 1.17 mg/dL (0.55-1.02); EST Glomerular Filtration Rate 57 mL/min (>60); Est Glom Filt Rate - Afr Amer 69 mL/min (>60); Estimated Creatinine Clearance 61.54 ml/min; Globulin 3.6 g/dL (2.2-4.2); Glucose 81 mg/dL (74-106); Lipase 143 U/L (73-393); Potassium 3.8 mmol/L (3.5-5.1); Protein, Total 7.6 g/dL (6.4-8.2); Sodium Level 141 mmol/L (136-145)
[2018-08-27 03:21] VITALS: BP 136/80; PULSE 88; RESP 16; O2SAT 98
--- OUTSIDE RECORDS SUMMARY | 2018-10-31 20:47 | XMS RPT_ITS ---
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 Liver enzymes normal. Lactic acid 1.0. Abdominal series x-ray nonspecific bowel pattern per radiology Emergency Department Course and Treatment: Patient nonsurgical abdomen. She had a normal CT 2 days ago. Persistent symptoms worsened today. Labs stable lactic acid also negative. Abdominal series per radiology nonspecific bowel pattern. She does admit to still having flatus. Treated for pain and nausea with improving symptoms. Abdomen on reevaluation remains benign. There is no progression. Prescription for antiemetics, antispasmodics as needed. Signs and symptoms discussed to return. All questions were answered. Treatment Plan: [] Disposition: Discharge Impression: 1. Nonspecific abdominal pain This note was generated with ViViFi dictation software. It may contain incorrect words, spelling, and punctuation that were not noted in review of the chart prior to signing ED Disposition - Plan for ED Patient: Disposition: Home or Assisted Living Chief Complaint: Abd Pain Diagnosis: Nonspecific abdominal pain Instructions: ED Abdominal Pain Unkn Cause Prescriptions: Dicyclomine HCl [Bentyl] 10 mg PO Q6H PRN PRN #12 capsule PRN Reason: abdominal cramping Ondansetron [Zofran Odt] 4 mg PO Q8H PRN PRN #10 tablet PRN Reason: Nausea Referrals: Harrison Chambers MD [Primary Care Provider] - 2 Days Gabe Grace MD [STAFF PHYSICIAN] - 2 Days What to do if you have Problems For any increased pain, shortness of breath, bleeding, nausea or vomiting, chest pain, or any unexpected problems, contact your Primary Care Provider. Call [facility] ([phone]) or report to the closest Emergency Room. Call 911 if necessary. 08/27/18 0321 <Electronically signed by Clive Hawkins> Date Clive Hawkins Cosigner Signature (If Indicated): Date CC: Harrison Chambers MD CBC W/DIFF, AUTOMATED Collected: 08/27/2018 Status: F Source: [place] 2:25 AM [facility] REPOSITORY TYPE CODE TESTS RESULT OUT OF RANGE REFERENCE UNITS LAB L100.1000 4.4-11.0 K/mm3 Normal WBC 10.8 LAB L100.1200 4.2-5.4 M/mm3 Normal RBC 4.88 LAB L100.1300 12.0-15.0 g/dl Normal HGB 14.6 LAB L100.1400 37-47 % Normal HCT 42.9 LAB L100.1500 81-99 fL Normal MCV 87.9 LAB L100.1600 27.0-32.0 pg Normal MCH 29.9 LAB L100.1700 32-36 g/gl Normal MCHC 34.0 LAB L100.1810 11.6-14.6 % Normal RDW CV 12.8 LAB L100.1820 35.1-43.9 fl Normal RDW SD 40.9 LAB L100.1900 150-450 K/mm3 Normal PLT 199 LAB L100.2000 6.2-12.0 fl Normal MPV 9.5 LAB L100.2100 47-70 % Normal NEUT% 62.1 LAB L100.2200 19-41 % Normal LY% 29.6 LAB L100.2300 0-10 % Normal MONO% 5.9 LAB L100.2400 0-5 % Normal EO% 1.6 LAB L100.2500 0-1 % Normal BASO% 0.6 LAB L100.2550 0.0-0.9 % Normal IM GRAN % 0.200 Result Comment: IG% - Immature Granulocytes (promyelocytes, myelocytes and metamyelocytes) > 1% indicates that a LEFT SHIFT is Present. LAB L100.2620 2.0-7.7 X10 3/uL Normal Absolute Neut 6.7 LAB L100.2720 0.83-4.51 X10 3/ul Normal Absolute Lymph 3.19 Performed By: #### L100.0100 #### [facility] [address] [place], [address] COMPREHENSIVE METABOLIC Collected: 08/27/2018 Status: F Source: [facility] 2:25 AM [facility] REPOSITORY TYPE CODE TESTS RESULT OUT OF RANGE REFERENCE UNITS LAB L501.0100 74-106 mg/dL Normal GLU 81 Result Comment: Please note revised GLUCOSE reference range effective 2017. LAB L501.1000 7-18 mg/dL Normal BUN 14 LAB L501.1100 0.55-1.02 mg/dL High CREAT,SERUM 1.17 Result Comment: The validity of the calculated GFR AND GFRAA in patients over 70 years has not been determined. Clinical correlation is essential. LAB L501.1110 >60 mL/min Low EST GFR 57 Result Comment: Non- GFR Calc LAB L501.1115 >60 mL/min Normal EST GFR - AA 69 Result Comment: GFR Calc LAB L501.1255 ml/min Normal Estimated CRCL 61.54 LAB L501.1300 10-20 RATIO Normal BUN/CRE 12.0 LAB L501.1500 6.4-8. g/dL Normal 2 T PROT 7.6 LAB L501.1800 3.2-5. g/dL Normal 0 ALB 4.0 LAB L501.1950 2.2-4. g/dL Normal 2 GLOB 3.6 LAB L501.2000 0.9-2. RATIO Normal 4 A/G 1.1 LAB L501.2200 8.5-10 mg/dL Normal .1 CA 8.7 LAB L501.4100 15-37 U/L Normal AST 18 Result Comment: Slight Hemolysis, Result may be falsely increased. LAB L501.4305 45-117 U/L Normal ALK P 72 LAB L501.4405 13-56 U/L Normal ALT 31 LAB L501.4600 0.20-1.00 mg/dL Normal T BILI 0.90 LAB L501.5300 136-145 mmol/L Normal NA 141 LAB L501.5600 3.5-5.1 mmol/L Normal K 3.8 Result Comment: Slight Hemolysis, Result may be falsely increased. LAB L501.5900 98-107 mmol/L High CL 110 LAB L501.6100 21.0-32.0 mmol/L Normal CO2 22.0 LAB L501.6200 5-15 Normal 9 GAP Performed By: #### L500.4050, L501.2450 #### [facility] [address] [place], [place], [address] LIPASE Collected: 08/27/2018 Status: F Source: [place] 2:25 AM [facility] REPOSITORY TYPE CODE TESTS RESULT OUT OF RANGE REFERENCE UNITS LAB L501.2450 73-393 U/L Normal LIPASE 143 Performed By: #### L500.4050, L501.2450 #### [facility] [address] [place], [address] LACTIC ACID Collected: 08/27/2018 Status: F Source: [place] 2:25 AM [facility] REPOSITORY Order Comment: Yes/No query for Sepsis Lactate Rule Y TYPE CODE TESTS RESULT OUT OF RANGE REFERENCE UNITS LAB L503.6005 0.4-2.0 mmol/L Normal LACTIC ACID 1.0 Performed By: #### L503.6005 #### [facility] [address] [place], [address] ACUTE ABDOMEN INC Observed: 08/27/2018 Status: F Source: [place]ST 2:22 AM [facility] REPOSITORY [facility] Imaging Services [address] [place] [address] Acute Abdomen Inc Chest MR#: [id number] Acct: [id number] Name: URSULA HUGHES Rep #: [id number] : 1985 F 33 From: Kwabena Churchill MD PCP: Harrison Chambers MD Status: REG ER Study: Acute Abdomen Inc Chest Date of Exam: 08/27/18 Exam# [id number] Ordering Dr: Clive Neri DO STUDY: X-RAY - ACUTE ABDOMINAL SERIES REASON FOR EXAM: Female, 33 years old. Midabdominal pain for one week TECHNIQUE: Single view of the chest. Supine, 3 view(s) of the abdomen were obtained. COMPARISON: None. FINDINGS: The lungs are clear and expanded. Normal size heart. Normal mediastinum and barbra. Normal visualized pulmonary arteries. Normal visualized aortic arch and descending thoracic aorta. There is a non-specific bowel gas pattern. The soft tissue structures of the abdomen and pelvis are unremarkable. Normal visualized osseous structures. RAD/Acute Abdomen Inc Chest IMPRESSION: Normal x-ray examination of the chest, abdomen, and pelvis. No acute findings Electronically Signed: Kwabena Churchill MD at 3:12 EST Tel , Service support , CC: Clive Neri; Harrison Chambers MD Water Aerob[employer] Instructor: Signed EMERGENCY DEPARTMENT Observed: 08/24/2018 Status: F Source: [place] SUMMARY 4:37 AM [facility] REPOSITORY [facility] Medical Records Department [address] [place] [address] Emergency Department Summary 08/24/18 0258 MR#: [id number] Acct: [id number] Name: URSULA HUGHES Rep #: [id number] : 1985 32 From: Owen Mason MD PCP: Harrison Chambers MD Status: DEP ER - ER Visit Summary Date of Service: 08/24/18 Chief Complaint: Abdominal pain History of Present Illness: The patient is a 32 F with upper abdominal pain for 5 days. Epigastric location. Associated with nausea. No other associated symptoms like vomiting, diarrhea, fever, jaundice. 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 She also had a prior colectomy after a bowel injury, appendectomy, pancreatitis partial small bowel obstruction. She said she never had this pain before. She takes Carafate as well as an H2 kristen. She has a history of acid reflux. Physical Examination: Afebrile and vital signs are unremarkable. Patient but not toxic or in distress. Heart regular. Lungs clear. Abdomen is tender in the upper hemiabdomen. No guarding or rebound. Skin appears normal in color. Test Results: CBC unremarkable. CMP and lipase are unremarkable. Creatinine is 1.11, slightly elevated. Urinalysis shows what looks like skin contamination. test negative. Emergency Department Course and Treatment: Patient treated with pain meds, Zofran. Will check labs and urinalysis. Everything was fairly unremarkable. She said her pain had not improved. She received additional pain medicine as well as a GI cocktail, and a CT was ordered. CT showed no acute changes. She does have postoperative changes, but nothing to explain her pain. Patient has unremarkable vitals and unremarkable exam. Workup here was also unremarkable. I believe she is for outpatient follow-up. She is will add a PPI kristen. Return for any new or worsening issues, otherwise follow-up with primary care. Treatment Plan: As above Disposition: Discharge Impression: 1. Epigastric abdominal pain This note was generated with ViViFi dictation software. It may contain incorrect words, spelling, and punctuation that were not noted in review of the chart prior to signing ED Disposition - Plan for ED Patient: Chief Complaint: Abd Pain Referrals: Harrison Chambers MD [Primary Care Provider] - What to do if you have Problems For any increased pain, shortness of breath, bleeding, nausea or vomiting, chest pain, or any unexpected problems, contact your Primary Care Provider. Call [facility] ([phone]) or report to the closest Emergency Room. Call 911 if necessary. 08/24/18436 <Electronically signed by Owen Mason MD> Date Owen Mason MD Cosigner Signature (If Indicated): Date CC: Harrison Chambers MD DISCHARGE INSTRUCTION Observed: 08/24/2018 Status: F Source: [place] 4:37 AM [facility] REPOSITORY [facility] Medical Records Department [address] [place] [address] Discharge Instruction 08/24/18 0305 MR#: [id number] Acct: [id number] Name: URSULA HUGHES Rep #: [id number] : 1985 32 From: Owen Mason MD PCP: Harrison Chambers MD Status: DEP ER ED Disposition - Plan for ED Patient: Chief Complaint: Abd Pain Instructions: ED Abdominal Pain Unkn Cause Prescriptions: Omeprazole [Prilosec] 20 mg PO DAILY #30 cap Referrals: Harrison Chambers MD [Primary Care Provider] - What to do if you have Problems For any increased pain, shortness of breath, bleeding, nausea or vomiting, chest pain, or any unexpected problems, contact your Primary Care Provider. Call [facility] ([phone]) or report to the closest Emergency Room. Call 911 if necessary. 08/24/18436 <Electronically signed by Owen Mason MD> Date Owen Mason MD Cosigner Signature (If Indicated): Date CC: Harrison Chambers MD ABDOMEN/PELVIS W IV CONT Observed: 08/24/2018 Status: F Source: [place] ONLY 1:54 AM [facility] REPOSITORY [facility] Imaging [place] [address] Abdomen/Pelvis W IV Cont ONLY MR#: [id number] Acct: [id number] Name: URSULA HUGHES Rep #: [id number] : 1985 F 32 From: Carolin Garces MD PCP: Harrison Chambers MD Status: REG ER Study: Abdomen/Pelvis W IV Cont ONLY Date of Exam: 08/24/18 Exam# [id number] Ordering Dr: Owen Mason MD HISTORY: ABD PAIN X 5 DAYS, HX SBO WITH COLECTOMY, APPY FROM TECHNIQUE: Helically acquired images were obtained of the abdomen and pelvis following IV contrast. A radiation dose optimization technique was used for this scan. IV Contrast dosage and agent: 100 cc Isovue-300 contrast Oral contrast: None. The patient was unable to fully follow breathing instructions and this partly limits evaluation of the liver. COMPARISON: 05/17/2018 without contrast and 02/21/2018 with IV contrast FINDINGS: Lower thorax: Clear Allowing for motion artifact, the pericholecystic right hepatic lobe shows a stable 1.1 cm enhancing lesion compatible with flash filling hemangioma. Stable benign-appearing coarse calcifications measuring 1.2 cm in dimension posterior to the left hepatic lobe. This may reflect old peripancreatic derick calcification. No biliary dilatation or new hepatic lesion. Normal hepatic size. Normal spleen and pancreas. Bilateral renal excretion of contrast without evidence of hydronephrosis, pyelonephritis, or suspicious renal lesion. Adrenal glands are not enlarged. Abdominal aorta is normal caliber. Patent IVC. No ascites or suspicious lymph enlargement. GI tract: No obstruction. Right hemicolectomy with ileotransverse anastomosis. Pelvis: Anteverted uterus which is normal in size. Poorly distended urinary bladder which is otherwise negative. No free fluid or lymphadenopathy. Bones: No acute osseous abnormality. Ventral abdominal Wall: Small fat-containing umbilical hernia., Unchanged. CT/Abdomen/Pelvis W IV Cont ONLY IMPRESSION: 1. No bowel obstruction or other acute abdominal disease identified. Stable CT findings 2. Right hemicolectomy with incidental findings, as above. Individualized dose optimization techniques were used for this CT. at 0244 Reported and signed by: Carolin Garces MD Electronically Signed: Carolin Garces, at 2:43 EST Tel , Service support , CC: Owen Mason MD; Harrison Chambers MD Water Aerobics Instructor: Signed URINALYSIS, COMPLETE Collected: 08/24/2018 Status: F Source: [place] 1:20 AM [facility] REPOSITORY Order Comment: How was Urine Obtained? CLEAN CATCH TYPE CODE TESTS RESULT OUT OF RANGE REFERENCE UNITS LAB L400.3000 Yellow COLOR Normal Yellow LAB L400.3050 Clear Normal CLARITY Sl. Cloudy LAB L400.3200 Normal mg/dl Normal GLUCOSE, UR Normal LAB L400.3300 Negative mg/dL Normal BILIRUBIN URINE Negative LAB L400.3400 Negative mg/dl Normal KETONE UR Negative LAB L400.3465 1.002-1.030 Normal SP.GR. DIPSTX 1.010 LAB L400.3550 5.0 - 8.0 pH UR Normal 7.0 LAB L400.3600 Negative mg/dl High PROT 15 DIPSTX LAB L400.3700 Normal mg/dl High 1 UROBILI LAB L400.3750 Negative Normal NITRITE UR Negative LAB L400.3780 Negative /ul Normal OCCULT BLOOD-UR Negative LAB L400.3800 Negative /ul High LEUK ESTERASE 100 LAB L400.4050 0-5 /hpf WBC Normal 0-5 SEEN LAB L400.4100 0-5 /hpf 0 Normal RBC-UA SEEN LAB L400.4150 5-10 /hpf SQUAM Normal EPI 5-10 SEEN LAB L400.4300 None Seen /hpf 1+ Normal BACTERIA LAB L400.4350 <or=2+ /hpf 0 Normal MUCUS, URINE SEEN Performed By: #### L400.0001, L400.7600 #### [facility] [address] [place], [address] ,URINE Collected: 08/24/2018 Status: F Source: [place] 1:20 AM [facility] REPOSITORY Order Comment: How was Urine Obtained? CLEAN CATCH TYPE CODE TESTS RESULT OUT OF REFERENCE UNITS RANGE LAB L400.8000 Negative Normal HCGUQUAL Negative Result Comment: Very dilute urine specimens, as indicated by a low specific gravity, may not contain home office representative levels of hCG. If is still suspected, a first morning urine specimen should be collected 48 hours later and tested. Performed By: #### L400.0001, L400.7600 #### [facility] [place], [address] CBC W/DIFF, AUTOMATED Collected: 08/24/2018 Status: F Source: [place] 1:03 AM [facility] REPOSITORY TYPE CODE TESTS RESULT OUT OF RANGE REFERENCE UNITS LAB L100.1000 4.4-11.0 K/mm3 Normal WBC 10.3 LAB L100.1200 4.2-5.4 M/mm3 Normal RBC 4.91 LAB L100.1300 12.0-15.0 g/dl Normal HGB 14.6 LAB L100.1400 37-47 % Normal HCT 43.5 LAB L100.1500 81-99 fL Normal MCV 88.6 LAB L100.1600 27.0-32.0 pg Normal MCH 29.7 LAB L100.1700 32-36 g/gl Normal MCHC 33.6 LAB L100.1810 11.6-14.6 % Normal RDW CV 13.0 LAB L100.1820 35.1-43.9 fl Normal RDW SD 41.7 LAB L100.1900 150-450 K/mm3 Normal PLT 197 LAB L100.2000 6.2-12.0 fl Normal MPV 9.7 LAB L100.2100 47-70 % Normal NEUT% 56.5 LAB L100.2200 19-41 % Normal LY% 36.5 LAB L100.2300 0-10 % Normal MONO% 4.5 LAB L100.2400 0-5 % Normal EO% 1.9 LAB L100.2500 0-1 % Normal BASO% 0.4 LAB L100.2550 0.0-0.9 % Normal IM GRAN % 0.200 Result Comment: IG% - Immature Granulocytes (promyelocytes, myelocytes and metamyelocytes) > 1% indicates that a LEFT SHIFT is Present. LAB L100.2620 2.0-7.7 X10 3/uL Normal Absolute Neut 5.8 LAB L100.2720 0.83-4.51 X10 3/ul Normal Absolute Lymph 3.74 Performed By: #### L100.0100 #### [facility] [address] [place], [address] COMPREHENSIVE METABOLIC Collected: 08/24/2018 Status: F Source: [place] [facility] 1:03 AM [facility] REPOSITORY TYPE CODE TESTS RESULT OUT OF RANGE REFERENCE UNITS LAB L501.0100 74-106 mg/dL Normal GLU 98 Result Comment: Please note revised GLUCOSE reference range effective 2017. LAB L501.1000 7-18 mg/dL Normal BUN 11 LAB L501.1100 0.55-1.02 mg/dL High CREAT,SERUM 1.11 Result Comment: The validity of the calculated GFR AND GFRAA in patients over 70 years has not been determined. Clinical correlation is essential. LAB L501.1110 >60 mL/min Normal EST GFR 60 Result Comment: Non- GFR Calc LAB L501.1115 >60 mL/min Normal EST GFR - AA 73 Result Comment: GFR Calc LAB L501.1255 ml/min Normal Estimated CRCL 65.47 LAB L501.1300 10-20 RATIO Low BUN/CRE 9.9 LAB L501.1500 6.4-8. g/dL Normal 2 T PROT 7.4 LAB L501.1800 3.2-5. g/dL Normal 0 ALB 4.1 LAB L501.1950 2.2-4. g/dL Normal 2 GLOB 3.3 LAB L501.2000 0.9-2. RATIO Normal 4 A/G 1.2 LAB L501.2200 8.5-10 mg/dL Normal .1 CA 9.0 LAB L501.4100 15-37 U/L Normal AST 16 LAB L501.4305 45-117 U/L Normal ALK P 74 LAB L501.4405 13-56 U/L Normal ALT 33 LAB L501.4600 0.20-1 mg/dL Normal .00 T BILI 0.50 LAB L501.5300 136-14 mmol/L Normal 5 NA 140 LAB L501.5600 3.5-5. mmol/L Normal 1 K 3.7 LAB L501.5900 98-107 mmol/L High CL 109 LAB L501.6100 21.0-3 mmol/L Normal 2.0 CO2 22.0 LAB L501.6200 5-15 Normal GAP 9 Performed By: #### L500.4050, L501.2450 #### [facility] [address] [place], [address] LIPASE Collected: 08/24/2018 Status: F Source: [place] 1:03 AM [facility] REPOSITORY TYPE CODE TESTS RESULT OUT OF RANGE REFERENCE UNITS LAB L501.2450 73-393 U/L Normal LIPASE 159 Performed By: #### L500.4050, L5.0 #### [facility] [address] [place], [address] PROGRESS Observed: 08/14/2018 Status: COMPLETED Source: [place] 3:06 PM [facility] REPOSITORY HNO ID: [id number] Author: Idania Nguyen RN Service: (none) Author Type: (none) Type: Progress Notes Filed: 08/14/2018 3:10 PM Note Text: Patient identified by name and date of . Ursula Hughes is here for a Depo Provera injection. Patient brought medication. Date last injected: out of range - negative test Depo-Provera, 150 mg, administered IM right upper quadrant gluteus, Lot # [id number], expiration date 09/11/2022. Depo-Provera was given without incident. Date of last menses: No LMP recorded. Patient has had an injection. Irregular bleeding - No Menses ceased - Yes STD prevention discussed: Yes Patient instructed to return to clinic in 12 weeks. [email or web address] Provider Alisia Ellington MD was present in office at time of injection. Idania Nguyen RN CNNURSE Observed: 08/14/2018 Status: COMPLETED Source: [place] 3:00 PM [facility] REPOSITORY Nurse Visit (WOOB) URSULA HUGHES ([id number]) 1985 F Date Time Provider Department 08/14/18 3:00 PM NURSE GRAPHIC ART TECHNICIAN [facility] BRITTANY WOAMBER During your visit today, we recorded the following information about you: Blood pressure Weight 108/80 100.2 kg Idania Nguyen RN 08/14/2018 3:10 PM Signed Patient identified by name and date of . Ursula Hughes is here for a Depo Provera injection. Patient brought medication. Date last injected: out of range - negative test Depo-Provera, 150 mg, administered IM right upper quadrant gluteus, Lot # [id number], expiration date 09/11/2022. Depo-Provera was given without incident. Date of last menses: No LMP recorded. Patient has had an injection. Irregular bleeding - No Menses ceased - Yes STD prevention discussed: Yes Patient instructed to return to clinic in 12 weeks. [email or web address] Provider Alisia Ellington MD was present in office at time of injection. Idania Nguyen RN 08/14/2018 3:06 PM Signed DEPO-PROVERA control is a way for men and women to prevent . There are many different methods of control; some types also protect against sexually transmitted diseases. Depo-Provera is a control method for women. It is made up of a hormone similar to progesterone and is given as a shot into the woman's arm or buttocks. Each shot provides protection against for up to 14 weeks, but the shot must be received once every 3 months. Depo-Provera does not protect against sexually transmitted diseases. Where can I get Depo-Provera? You must receive the shot from a doctor. The shot is usually given within five days of the beginning of your menstrual period. How is Depo-Provera used? Once the shot has been given, no additional steps are needed to prevent . With Depo-Provera, you must receive another shot once every three months to remain fully protected. How soon does it work? Protection begins immediately after the first shot if given during a menstrual period. How effective is Depo-Provera? Depo-Provera is 99% effective in preventing . Can any woman use Depo-Provera? Most women can use Depo-Provera. However, it is not recommended for women who have: Unexplained vaginal bleeding Liver disease Breast cancer Blood clots Are there side effects associated with Depo-Provera? Depo-Provera can cause a number of side effects, including: Irregular menstrual periods, or no periods at all Headaches Nervousness Depression Dizziness Acne Changes in appetite Weight gain Excessive growth of facial and body hair Hair loss You should discuss the potential side effects of Depo-Provera with your doctor. Most of the side effects are not common. Change in the menstrual cycle is the most common side effect. You may experience irregular bleeding or spotting. After a year of use, about 50% of women will stop getting their periods. Their periods usually return when they discontinue the shots. Can I become after I stop using Depo-Provera? With Depo-Provera, you could become as soon as 12 to 14 weeks after your last shot. It may take some women up to a year or two to conceive after they stop using this type of control. Does Depo-Provera protect against sexually transmitted diseases? No. To help protect yourself from STDs, use a male condom each time you and your partner have sex. What are the advantages of using Depo-Provera? You don't have to remember to take it every day or use it before sex. It provides long-term protection as long as you get the shot every three months. It doesn't interfere with sexual activity. It's over 99% effective. It's less expensive than the Pill. What are the disadvantages of using Depo-Provera? It can cause unwanted side effects. It does not provide protection against sexually transmitted diseases. It can cause irregular menstrual periods. You need to stop taking Depo-Provera several months ahead of time if you plan to become . Regular doctor visits can be inconvenient. ? Copyright 9499-2021 [facility]. All rights reserved This information is provided by the [facility] and is not intended to replace the medical advice of your doctor or health care provider. Please consult your health care provider for advice about a specific medical condition. For additional written health information, please contact the Health Information Center at the [facility] or toll-free extension [phone]. This document was last reviewed on: 2004 Referring Provider: SELF [[id number]] Allergies As of Date: 08/14/2018 Noted Allergy Reaction BEES 02/06/2007 BENADRYL MAXIMUM STRENGTH (DIPHEN*02/11/2006 Comments: throat itchy and vomiting dill pickles [Other] 02/06/2007 doxycycillin [Other] 10/03/2007 10 - Anaphylaxis OPIOIDS - MORPHINE ANALOGUES 12/19/2015 15 - Contraindication- Medical [facility]* Comments: Has hx of drug diversion WELLBUTRIN (BUPROPION) 06/14/2008 Comments: seizures Date Reviewed: 08/14/2018 Reviewed by: Idania Nguyen RN - Fully Assessed Reason for Visit: Depo Provera Injection [1655] Primary Visit Diagnosis:Encounter for management and injection of depo-Provera [Z30.42] Other Visit Diagnosis:Endometriosis [N80.9] Order(s):[facility] [place] [facility] [[id number]] Order #: [id number] Prescriptions as of 08/14/2018 Sig: FOLIC ACID 1 MG TABLET Take 4 tablets by mouth once * BUSPIRONE 15 MG TABLET TAKE 1 TABLET BY MOUTH THREE * RANITIDINE 150 MG TABLET TAKE 1 TABLET BY MOUTH TWICE * RIZATRIPTAN 10 MG TABLET TAKE 1 TABLET BY MOUTH NEE* SUCRALFATE 1 GRAM TABLET TAKE 1 TABLET BY MOUTH BEFORE* TRAZODONE 100 MG TABLET TAKE 1 TABLET BY MOUTH DAILY * MEDROXYPROGESTERONE 150 MG/ML* Inject 1 mL intramuscularly e* LEVETIRACETAM 1,000 MG TABLET Take 1 tablet by mouth twice * SERTRALINE 25 MG TABLET Take 4 tablets by mouth once * ALBUTEROL SULFATE HFA 90 MCG/* Inhale 2 Puffs as instructed * VERAPAMIL ER 180 MG 24 HR CAP* Take 1 capsule by mouth once * CIPROFLOXACIN 0.3 %-DEXAMETHA* Use 4 Drops in the right ear * VERAPAMIL ER (SR) 180 MG TABL* Take 1 tablet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 Physical Exam Constitutional: She is oriented to person, place, and time. She appears well-developed and well-nourished. HENT: Head: Normocephalic and atraumatic. Right Ear: External ear normal. Left Ear: External ear normal. Eyes: EOM are normal. Right eye exhibits no discharge. Left eye exhibits no discharge. No scleral icterus. Neck: Normal range of motion. No tracheal deviation present. Cardiovascular: Normal rate and regular rhythm. Pulmonary/Chest: Effort normal and breath sounds normal. No respiratory distress. Abdominal: Soft. She exhibits no distension. There is tenderness. There is no rebound and no guarding. Musculoskeletal: Normal range of motion. She exhibits no edema, tenderness or deformity. Neurological: She is alert and oriented to person, place, and time. Skin: Skin is warm and dry. Capillary refill takes less than 2 seconds. No rash noted. No erythema. No pallor. Psychiatric: She has a normal mood and affect. Her behavior is normal. Judgment and thought content normal. Nursing note and vitals reviewed. Diagnostic Testing ED Labs Ordered and Reviewed COMPREHENSIVE METABOLIC PANEL (AK,AV,EU,FV,HL,ALIE,MM,SP) - Abnormal; Notable for the following: Result Value Ref Range Chloride 110 (*) 98 - 107 mEq/L Glucose 106 (*) 70 - 99 mg/dL All other components within normal limits URINALYSIS WITH MICROSCOPIC (EU,FV,HL,ALIE,MM,SP) - Abnormal; Notable for the following: Leukocytes Esterase 3+ (*) Negative Bacteria Urine (Manual) FEW (*) None All other components within normal limits CBC + AUTO DIFF (AK,AV,EU,FV,HL,ALIE,MM,SP) LIPASE BLOOD (AK,AV,EU,FV,HL,ALIE,MM,SP) HCG QUAL BLOOD (AK,EU,FV,HL,ALIE,SP) MDRD GFR Procedures ED Course / Clinical Impression Clinical Impressions as of Apr 09 1556 Pain of upper abdomen MDM / Disposition / Plan patient had a CT scan done no acute findings labs all look good concerning history regarding opiate pain medication as well nonacute abdomen . Will stick with nonnarcotic analgesic Disposition The patient was discharged and given RX. Counseled patient regarding . As well as the need for follow-up. Discharged home with verbal and written instructions. They were instructed to return as needed for persistent or worsening symptoms or any new concerns. Condition at disposition is stable and improved. SIGNATURE: MD Jossy Cruz MD 04/09/18 1556 ED NOTE Observed: 04/09/2018 Status: COMPLETED Source: [place] 2:24 PM [facility] REPOSITORY HNO ID: [id number] Author: Magi (Rn) REBECCA Foreman Service: Emergency Medicine Author Type: Registered Nurse Type: ED Notes Filed: 04/09/2018 2:47 PM Note Text: Patient returned to the Emergency Department. CT ABDOMEN AND PELVIS Observed: 04/09/2018 Status: F Source: [facility] WITH CONTRAST 2:20 PM HEALTH SYSTEM REPOSITORY Performed at [facility] APPROVED BY: Tulio Prince MD EXAMINATION: CT ABDOMEN AND PELVIS WITH IV CONTRAST CLINICAL HISTORY: Abdominal pain and fever. TECHNIQUE: CT of the abdomen and pelvis is performed using standard technique, scanning from just above the dome of the diaphragm to the symphysis pubis. MQ: CTAP_3 Contrast: IV: 150 ml of Omnipaque 300 Oral: None CT Radiation dose: Integrated Dose-length product (DLP) for this visit = 697.55 mGy*cm. CT Dose Reduction Employed: Automated exposure control COMPARISON: CT abdomen and pelvis studies 01/22/2018 and 01/20/2018. RESULT: There is a relative diffuse decrease in liver attenuation. There is a 1.2 cm hypervascular lesion redemonstrated within the liver, image 34 of series 2. Stable. The gallbladder is visualized. There is no biliary duct dilatation. The spleen, pancreas and adrenal glands are unremarkable. There is symmetric renal enhancement. There is no renal calculus or hydronephrosis. The celiac and superior mesenteric arteries are patent. The SMV, splenic and portal veins are patent. Postoperative changes of midline incision. 0.8 cm mesenteric calcification anterior pelvis. There is no pathologically enlarged abdominal or pelvic lymphadenopathy. There is no abdominopelvic ascites. The small bowel is not dilated or thick-walled. There are findings of right hemicolectomy with enterocolic anastomosis within the right upper quadrant abdomen. There is moderate stool within the trans verse and descending colon. No acute osseous abnormality. Bibasilar atelectasis. IMPRESSION: No definite acute intra-abdominal abnormality. 1.2 cm hypervascular liver lesion, possible flash fill cavernous hemangioma. Status post right hemicolectomy. ED NOTE Observed: 04/09/2018 Status: COMPLETED Source: [place] 1:51 PM [facility] REPOSITORY HNO ID: [id number] Author: Magi SalmeronRn) Kellen, RN Service: Emergency Medicine Author Type: Registered Nurse Type: ED Notes Filed: 04/09/2018 2:46 PM Note Text: Patient transported to radiology with Tech. ED NOTE Observed: 04/09/2018 Status: COMPLETED Source: [place] 1:29 PM [facility] REPOSITORY HNO ID: [id number] Author: Magi SalmeronRn) Kellen, RN Service: Emergency Medicine Author Type: Registered Nurse Type: ED Notes Filed: 04/09/2018 1:37 PM Note Text: Patient informed: the name of medication, why we are giving it, possible side effects, what they may expect to feel, and was offered a chance to ask questions, prior to the administration of Dilaudid and Zofran. COMPREHENSIVE PANEL Collected: 04/09/2018 Status: F Source: [facility] 1:20 PM HEALTH SYSTEM REPOSITORY TYPE CODE TESTS RESULT OUT OF REFERENCE UNITS RANGE LAB DIRECTOR TALENT(LOINC) 136-145 mEq/L Sodium Blood 140 LAB LK(LOINC) 3.5-5.1 mEq/L Potassium Blood 4.4 LAB LCL(LOINC) 98-107 mEq/L Chloride High Blood 110 LAB LCO2(LOINC 21-32 mEq/L ) CO2 Blood 25 LAB LGLU(LOINC 70-99 mg/dL ) Glucose High Blood 106 LAB LBUN(LOINC 7-25 mg/dL ) BUN Blood 10 LAB LCREA(LOIN 0.51-0.95 mg/dL C) Creatinine Blood 0.83 LAB LCA(LOINC) 8.5-10.1 mg/dL Calcium Blood 9.0 LAB LALB(LOINC 3.4-5.0 g/dL ) Albumin Blood 3.9 LAB LTP(LOINC) 6.4-8.2 g/dL Total Protein 6.9 LAB LAST(LOINC 15-37 U/L ) AST-SGOT Blood 16 LAB LALT(LOINC 14-63 U/L ) ALT-SGPT Blood 22 LAB LALKP(LOIN 46-116 U/L C) Alk Phosphatase 64 LAB LBILT(LOIN 0.2-1.0 mg/dL C) Total Bilirubin 0.9 LAB LANGP(LOIN 8-20 C) Anion Gap 10 LAB LBNCR(LOIN 10-20 C) BUN/Creatinine 12 Ratio Performed By: #### LP14 #### [place] [address] LIPASE BLOOD Collected: 04/09/2018 Status: F Source: [facility] 1:20 PM [facility] REPOSITORY TYPE CODE TESTS RESULT OUT OF REFERENCE UNITS RANGE LAB LLIP(LOINC) 73-393 U/L Lipase Blood 126 Performed By: #### LLIP #### [place] [address] MDRD EGFR Collected: 04/09/2018 Status: F Source: [facility] 1:20 PM [facility] REPOSITORY TYPE CODE TESTS RESULT OUT OF RANGE REFERENCE UNITS LAB LGFRF(LOINC >60mL/min/1.73m ) 2 eGFR >60 Result Comment: If the patient is , multiply the result by 1.210. Performed By: #### LGFR #### [facility] [address] [place], [place] [address] HCG, QUAL. SERUM Collected: 04/09/2018 Status: F Source: [facility] 1:20 PM HEALTH SYSTEM REPOSITORY TYPE CODE TESTS RESULT OUT OF REFERENCE UNITS RANGE LAB LSHCG(LOINC Negative ) HCG, Negative Qual. Serum Performed By: #### LSHCG #### [facility] [address] [place], [place] [address] HEMOGRAM/DIFF Collected: 04/09/2018 Status: F Source: [facility] 1:20 PM HEALTH SYSTEM REPOSITORY TYPE CODE TESTS RESULT OUT OF REFERENCE UNITS RANGE LAB LWBC(LOINC 4.8-10.8 thou/cmm ) WBC 6.6 LAB LRBC(LOINC 4.20-5.40 mil/cmm ) RBC 4.67 LAB LHGB(LOINC 12.0-16.0 g/dL ) Hgb 13.7 LAB LHCT(LOINC 37.0-47.0 % ) Hct 40.6 LAB LMCV(LOINC 81.0-99.0 fl ) MCV 86.9 LAB LMCH(LOINC 27.0-31.0 pg ) MCH 29.3 LAB LMCHC(LOIN 32.0-36.0 % C) MCHC 33.7 LAB LRDW(LOINC 11.5-15.9 % ) RDW 12.4 LAB LPLT(LOINC 150-400 thou/cmm ) Platelet 199 LAB LMPV(LOINC 7.1-10.5 fl ) MPV 9.4 LAB LSEGT(LOIN % C) Seg Neutrophil 62.7 LAB LLYMP(LOIN % C) Lymphocyte 29.0 LAB LMNO(LOINC % ) Monocyte 5.0 LAB VERN(LOINC % ) Eosinophil 3.0 LAB LBASO(LOIN % C) Basophil 0.3 LAB LSEGN(LOIN 3.00-5.67 thou/cmm C) Abs. Neut (ANC) 4.13 LAB LLYMN(LOIN 1.50-3.65 thou/cmm C) Abs. Lymph 1.91 LAB LMONN(LOIN 0.20-1.00 thou/cmm C) Abs. [place] 0.33 LAB LEOSN(LOIN 0.00-0.41 thou/cmm C) Abs. Eosin 0.20 LAB LBASN(LOIN 0.00-0.08 thou/cmm C) Abs. Baso 0.02 Performed By: #### LCBCD #### [place] [address] URINALYSIS ROUTINE Collected: 04/09/2018 Status: F Source: [facility] 12:57 PM HEALTH SYSTEM REPOSITORY TYPE CODE TESTS RESULT OUT OF RANGE REFERENCE UNITS LAB LCOLR(LOIN C) Urine Color YELLOW LAB LAPPU(LOIN C) Urine Appearance 2+ (SLT CLOUDY) LAB LGLUR(LOIN Negative C) Glucose Urine NEGATIVE LAB LKETO(LOIN Negative C) Ketone Urine NEGATIVE LAB LHGBU(LOIN Negative C) Hemoglobin,Urin NEGATIVE e LAB LPRTU(LOIN Negative C) Protein Urine NEGATIVE LAB LNITR(LOIN Negative C) Nitrites Urine NEGATIVE LAB LBILU(LOIN Negative C) Bilirubin Urine NEGATIVE LAB LSPG(LOINC 1.005-1.030 ) Specific 1.020 [place], Ur LAB LPHUR(LOIN 5.0-8.0 C) pH,Urine 7.0 LAB LUROB(LOIN 0.0-1.0 EU/dL C) Urobilinogen,Ur 1.0 LAB LLEUK(LOIN Negative C) Abnormal Leukocytes 3+ Esterase LAB LWBCU(LOIN 0-5 /hpf C) WBC, Urine 2-5 LAB LRBCU(LOIN 0-3 /hpf C) RBC,Urine NONE LAB LEPIT(LOIN 0-5 /hpf C) Ep Cells Urine 2-5 LAB LBACT(LOIN None C) Abnormal Bacteria Urine FEW LAB LMUCU(LOIN None C) Mucus Threads FEW Performed By: #### LURIN #### [place] [address] ED NOTE Observed: 04/09/2018 Status: COMPLETED Source: [place] 12:30 PM [facility] REPOSITORY HNO ID: [id number] Author: Silvina (Rn) REBECCA Matt Service: Emergency Medicine Author Type: Registered Nurse Type: ED Notes Filed: 04/09/2018 12:31 PM Note Text: Alert and oriented x 3 with regular and easy respirations. EMERGENCY DEPARTMENT Observed: 02/22/2018 Status: F Source: [place] SUMMARY 1:03 AM [facility] REPOSITORY [facility] Medical Records Department [address] [place] [address] Emergency Department Summary 02/21/18 1755 MR#: [id number] Acct: [id number] Name: URSULA HUGHES Rep #: [id number] : 1985 32 From: Janki Franco MD PCP: Harrison Chambers MD Status: DEP ER - ER Visit Summary Date of Service: 02/21/18 Chief Complaint: Abdominal pain History of Present Illness: The patient is a 32 F with history of a splenic laceration one month ago who presents for left upper quadrant abdominal pain. Patient states that yesterday she developed left upper quadrant abdominal pain with pain radiating into the left shoulder. It is sharp and stabbing. Worse with breathing and movement. Patient has tried ibuprofen and Percocet with minimal improvement. She has associated nausea and has had some diarrhea. She denies fever, chest pain, shortness of breath, back pain, vomiting, urinary symptoms. She is on the Depakote shot and denies any chance of . Patient was diagnosed with a splenic laceration [facility] approximately 1 month ago. No history of trauma. Patient did not require surgical intervention. Physical Examination: Vital signs: afebrile, hemodynamically stable, no hypoxia on room air General: well nourished, well developed, in no distress Skin: warm, dry, no rash, no pallor HEENT: normocephalic and atraumatic; PERRL, EOMI, moist mucous membranes Cardiovascular: regular rate and rhythm without murmurs, no peripheral edema, 2+ pulses all distal extremities Respiratory: No increased work of breathing, lungs are clear to auscultation bilaterally, no rales, rhonchi or wheezing Abdominal: Abdomen is soft, tender in the left upper quadrant with normoactive bowel sounds, no guarding or rebound, no masses MSK: Moves all extremities, no deformities, normal strength Neuro: Awake and alert, oriented 4. No facial droop, sensation and motor function intact and symmetric Test Results: Abnormal Lab Results WBC 7.2 RBC 4.90 Hgb 14.3 Hct 41.9 MCV 85.5 MCH 29.2 MCHC 34.1 Clinical Impression(s) from Imaging Studies Abdomen/Pelvis CT 02/21/18 19:15 IMPRESSION: No acute abdominal or pelvic pathology. Stable 1.1 cm hyperenhancing lesion in the right lobe of the liver. This is not fully characterized on this exam, but may represent a hemangioma. Electronically Signed: Juan Miguel Kat, at 19:40 EDT Tel , Service support , Emergency Department Course and Treatment: Patient received pain medication and IV fluids. Given the history of the recent splenic injury, a CT of the abdomen and pelvis was performed. Patient had no abnormalities on her lab work. She did have hematuria, but states she is not currently menstruating. She has no urinary symptoms that would be concerning for pyelonephritis or UTI. negative. CT scan of the abdomen and pelvis showed no acute findings, including no kidney stones, perinephric stranding, splenic injuries, or any other abnormalities. Patient was given a prescription for Percocet after reviewing her [facility]ARRS report. Given that this is likely pain related to a recent splenic injury, opiates were deemed appropriate for pain control in the situation. Patient is to follow-up with her doctor in 1 week for reevaluation of her hematuria or if she develops any new symptoms. Patient agreed with this plan and was discharged home in improved condition. Treatment Plan: [] Disposition: [] Impression: Left upper quadrant pain, recent history of splenic laceration This note was generated with ViVi[employer] dictation software. It may contain incorrect words, spelling, and punctuation that were not noted in review of the chart prior to signing ED Disposition - Plan for ED Patient: Disposition: Home or Assisted Living Chief Complaint: Abd Pain Instructions: ED Abdominal Pain Unkn Cause, ED Hematuria Prescriptions: Oxycodone HCl/Acetaminophen [Percocet 5/325] 1 tab PO Q6H PRN PRN 3 Days #12 tab PRN Reason: Pain Referrals: Harrison Chambers MD [Primary Care Provider] - 5-7 Days Additional Instructions: Please follow-up with your doctor for reevaluation of the blood in your urine that was noted on your lab work. If you develop any pain when peeing, peeing more often than normal, or feeling like you need to pee but unable to do so, please be reevaluated for possibility of a urinary tract infection. You may use the Percocet as needed for pain. If you have any worsening of your condition or any new concerning symptoms, please return immediately to the emergency department for another evaluation. What to do if you have Problems For any increased pain, shortness of breath, bleeding, nausea or vomiting, chest pain, or any unexpected problems, contact your Primary Care Provider. Call [facility] ([phone]) or report to the closest Emergency Room. Call 911 if necessary. 02/22/18 0103 <Electronically signed by Janki Franco MD> Date Janki Franco MD Cosigner Signature (If Indicated): Date CC: Harrison Chambers MD DISCHARGE INSTRUCTION Observed: 02/22/2018 Status: F Source: [place] 12:20 AM [facility] REPOSITORY [facility] Medical Records Department [address] [place] [address] Discharge Instruction 02/21/182022 MR#: [id number] Acct: [id number] Name: URSULA HUGHES Rep #: [id number] : 1985 32 From: Janki Franco MD PCP: Harrison Chambers MD Status: DEP ER ED Disposition - Plan for ED Patient: Disposition: Home or Assisted Living Chief Complaint: Abd Pain Instructions: ED Abdominal Pain Unkn Cause, ED Hematuria Prescriptions: Oxycodone HCl/Acetaminophen [Percocet 5/325] 1 tab PO Q6H PRN PRN 3 Days #12 tab PRN Reason: Pain Referrals: Harrison Chambers MD [Primary Care Provider] - 5-7 Days Additional Instructions: Please follow-up with your doctor for reevaluation of the blood in your urine that was noted on your lab work. If you develop any pain when peeing, peeing more often than normal, or feeling like you need to pee but unable to do so, please be reevaluated for possibility of a urinary tract infection. You may use the Percocet as needed for pain. If you have any worsening of your condition or any new concerning symptoms, please return immediately to the emergency department for another evaluation. What to do if you have Problems For any increased pain, shortness of breath, bleeding, nausea or vomiting, chest pain, or any unexpected problems, contact your Primary Care Provider. Call [facility] ([phone]) or report to the closest Emergency Room. Call 911 if necessary. 02/22/18 0020 <Electronically signed by Janki Franco MD> Date Janki Franco MD Cosigner Signature (If Indicated): Date CC: Harrison Chambers MD ,URINE Collected: 02/21/2018 Status: F Source: [place] 6:27 PM [facility] REPOSITORY TYPE CODE TESTS RESULT OUT OF REFERENCE UNITS RANGE LAB L400.8000 Negative Normal HCGUQUAL Negative Result Comment: Very dilute urine specimens, as indicated by a low specific gravity, may not contain home office representative levels of hCG. If is still suspected, a first morning urine specimen should be collected 48 hours later and tested. Performed By: #### L400.7600, L400.0001 #### [facility] [address] [place], [address] URINALYSIS, COMPLETE Collected: 02/21/2018 Status: F Source: [place] 6:27 PM [facility] REPOSITORY Order Comment: How was Urine Obtained? CLEAN CATCH TYPE CODE TESTS RESULT OUT OF RANGE REFERENCE UNITS LAB L400.3000 Yellow COLOR Normal Yellow LAB L400.3050 Clear Normal CLARITY Sl. Cloudy LAB L400.3200 Normal mg/dl Normal GLUCOSE, UR Normal LAB L400.3300 Negative mg/dL Normal BILIRUBIN URINE Negative LAB L400.3400 Negative mg/dl Normal KETONE UR Negative LAB L400.3465 1.002-1.030 Normal SP.GR. DIPSTX 1.015 LAB L400.3550 5.0 - 8.0 pH UR Normal 6.0 LAB L400.3600 Negative mg/dl High PROT 15 DIPSTX LAB L400.3700 Normal mg/dl Normal UROBILI Normal LAB L400.3750 Negative Normal NITRITE UR Negative LAB L400.3780 Negative /ul High OCCULT BLOOD-UR 250 LAB L400.3800 Negative /ul High LEUK 25 ESTERASE LAB L400.4050 0-5 /hpf WBC 0 Normal SEEN LAB L400.4100 0-5 /hpf Normal RBC-UA 25-50 SEEN LAB L400.4150 5-10 /hpf SQUAM Normal EPI 0-5 SEEN LAB L400.4300 None Seen /hpf Normal BACTERIA RARE LAB L400.4350 <or=2+ /hpf 0 Normal MUCUS, URINE SEEN Performed By: #### L400.7600, L400.0001 #### [facility] [place], [address] CBC W/DIFF, AUTOMATED Collected: 02/21/2018 Status: F Source: [place] 6:15 PM [facility] REPOSITORY TYPE CODE TESTS RESULT OUT OF RANGE REFERENCE UNITS LAB L100.1000 4.4-11.0 K/mm3 Normal WBC 7.2 LAB L100.1200 4.2-5.4 M/mm3 Normal RBC 4.90 LAB L100.1300 12.0-15.0 g/dl Normal HGB 14.3 LAB L100.1400 37-47 % Normal HCT 41.9 LAB L100.1500 81-99 fL Normal MCV 85.5 LAB L100.1600 27.0-32.0 pg Normal MCH 29.2 LAB L100.1700 32-36 g/gl Normal MCHC 34.1 LAB L100.1810 11.6-14.6 % Normal RDW CV 13.1 LAB L100.1820 35.1-43.9 fl Normal RDW SD 40.9 LAB L100.1900 150-450 K/mm3 Normal PLT 205 LAB L100.2000 6.2-12.0 fl Normal MPV 9.5 LAB L100.2100 47-70 % Normal NEUT% 56.3 LAB L100.2200 19-41 % Normal LY% 34.4 LAB L100.2300 0-10 % Normal MONO% 5.4 LAB L100.2400 0-5 % Normal EO% 2.9 LAB L100.2500 0-1 % Normal BASO% 0.7 LAB L100.2550 0.0-0.9 % Normal IM GRAN % 0.300 Result Comment: IG% - Immature Granulocytes (promyelocytes, myelocytes and metamyelocytes) > 1% indicates that a LEFT SHIFT is Present. LAB L100.2620 2.0-7.7 X10 3/uL Normal Absolute Neut 4.0 LAB L100.2720 0.83-4.51 X10 3/ul Normal Absolute Lymph 2.47 Performed By: #### L100.0100 #### [facility] [address] [place], [address] COMPREHENSIVE METABOLIC Collected: 02/21/2018 Status: F Source: [facility] 6:15 PM [facility] REPOSITORY TYPE CODE TESTS RESULT OUT OF RANGE REFERENCE UNITS LAB L501.0100 74-106 mg/dL Normal GLU 104 Result Comment: Fasting Glucose result from 100 to 125 mg/dL suggests IMPAIRED HOMEOSTASIS per A.D.A. criteria. Please note revised GLUCOSE reference range effective 2017. LAB L501.1000 7-18 mg/dL Normal BUN 10 LAB L501.1100 0.55-1.02 mg/dL Normal CREAT,SERUM 0.86 Result Comment: The validity of the calculated GFR AND GFRAA in patients over 70 years has not been determined. Clinical correlation is essential. LAB L501.1110 >60 mL/min Normal EST GFR 82 Result Comment: Non- GFR Calc LAB L501.1115 >60 mL/min Normal EST GFR - AA 99 Result Comment: GFR Calc LAB L501.1255 ml/min Normal Estimated CRCL 84.51 LAB L501.1300 10-20 RATIO Normal BUN/CRE 11.7 LAB L501.1500 6.4-8. g/dL Normal 2 T PROT 7.3 LAB L501.1800 3.2-5. g/dL Normal 0 ALB 3.9 LAB L501.1950 2.2-4. g/dL Normal 2 GLOB 3.4 LAB L501.2000 0.9-2. RATIO Normal 4 A/G 1.1 LAB L501.2200 8.5-10 mg/dL Normal .1 CA 8.8 LAB L501.4100 15-37 U/L Low AST 10 LAB L501.4305 45-117 U/L Normal ALK P 82 LAB L501.4405 13-56 U/L Normal ALT 27 LAB L501.4600 0.20-1 mg/dL Normal .00 T BILI 0.40 LAB L501.5300 136-14 mmol/L Normal 5 NA 144 LAB L501.5600 3.5-5. mmol/L Normal 1 K 4.1 LAB L501.5900 98-107 mmol/L High CL 112 LAB L501.6100 21.0-3 mmol/L Normal 2.0 CO2 24.0 LAB L501.6200 5-15 Normal GAP 8 Performed By: #### L500.4050, L501.2450, L503.6005 #### [facility] [address] [place], [address] LIPASE Collected: 02/21/2018 Status: F Source: [place] 6:15 PM [facility] REPOSITORY TYPE CODE TESTS RESULT OUT OF RANGE REFERENCE UNITS LAB L501.2450 73-393 U/L Normal LIPASE 140 Performed By: #### L500.4050, L501.2450, L503.6005 #### [facility] [address] [place], [address] LACTIC ACID Collected: 02/21/2018 Status: F Source: [place] 6:15 PM [facility] REPOSITORY Order Comment: Yes/No query for Sepsis Lactate Rule Y TYPE CODE TESTS RESULT OUT OF RANGE REFERENCE UNITS LAB L503.6005 0.4-2.0 mmol/L Normal LACTIC ACID 1.5 Performed By: #### L500.4050, L501.2450, L503.6005 #### [facility] [address] [place], [address] ABDOMEN/PELVIS W IV CONT Observed: 02/21/2018 Status: F Source: [facility] 5:55 PM [facility] REPOSITORY [facility] [address] [place] [address] Abdomen/Pelvis W IV Cont ONLY MR#: [id number] Acct: [id number] Name: URSULA HUGHES Rep #: [id number] : 1985 F 32 From: Juan Miguel Kat MD PCP: Harrison Chambers MD Status: REG ER Study: Abdomen/Pelvis W IV Cont ONLY Date of Exam: 02/21/18 Exam# [id number] Ordering Dr: Janki Franco MD STUDY: CT ABDOMEN AND PELVIS WITH CONTRAST REASON FOR EXAM: Female, 32 years old. Abdominal pain. History of pancreatitis and splenic infarct or RADIATION DOSAGE (If Supplied By Facility): CTDIvol = ( 18.44 ) mGy, DLP = ( 1129.36 ) mGycm TECHNIQUE: Transaxial images were obtained from the dome of the diaphragm to the symphysis pubis without oral contrast. 100 ml of Isovue 300 contrast was administered. Sagittal and coronal images were reconstructed. Individualized dose optimization techniques were used for this CT. COMPARISON: 01/10/2018 FINDINGS: The visualized lung bases are clear. The visualized portions of the heart and pericardium are within normal limits. There are no calcified gallstones present. There is a stable 1.1 cm hyperenhancing lesion in the right lobe of the liver (image 37 series 2). The liver is otherwise unremarkable. The spleen is normal in size. The pancreas is within normal limits. There is no CT evidence of pancreatitis. The adrenal glands are within normal limits. There are no renal or ureteral stones. There is no hydronephrosis. There are no focal renal lesions. Normal visualized stomach. There is no bowel obstruction or inflammation. There are stable postsurgical changes from a right hemicolectomy. The aorta is normal in caliber. There is no abdominal or pelvic free air, free fluid, fluid collection or lymphadenopathy. There are bilateral physiologic adnexal cysts. There are no destructive osseous lesions. CT/Abdomen/Pelvis W IV Cont ONLY IMPRESSION: No acute abdominal or pelvic pathology. Stable 1.1 cm hyperenhancing lesion in the right lobe of the liver. This is not fully characterized on this exam, but may represent a hemangioma. Electronically Signed: Juan Miguel Kat, at 19:40 EDT Tel , Service support , CC: Janki Franco MD; Harrison Chambers MD Water Aerobics Instructor: Signed PROGRESS Observed: 02/14/2018 Status: COMPLETED Source: [place] 3:09 PM [facility] REPOSITORY HNO ID: [id number] Author: Jing Vásquez LPN Service: (none) Author Type: (none) Type: Progress Notes Filed: 02/14/2018 3:34 PM Note Text: Pt seen in office today for Depo Provera Injection. Patient brought own med. BP 116/70 Ht 5' 5.5 (1.66m) Wt 209 lb 6.4 oz (95.0kg) BMI 34.30 kg/(m2). Vital signs reviewed. Pt advised when to return for next injection and/or yearly pap. Tolerated injection well? Yes. See medication note for lot#, exp date. CNOV Observed: 02/14/2018 Status: COMPLETED Source: [place] 3:00 PM [facility] REPOSITORY Office Visit (WOOB) URSULA HUGHES ([id number]) 1985 F Date Time Provider Department 02/14/18 3:00 PM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 clinician: [facility] Acute Pancreatitis What is acute pancreatitis? Pancreatitis is a condition that occurs when the pancreas, an organ behind the stomach, becomes inflamed. The pancreas produces digestive enzymes needed to break down food. It also makes insulin, which regulates the level of glucose in the blood. The digestive enzymes flow into the small intestine. Insulin is released into the blood. Pancreatitis can be acute or chronic. Acute pancreatitis occurs as one sudden episode. After acute pancreatitis the pancreas usually returns to its normal condition. Chronic pancreatitis means ongoing pancreatitis in which there is permanent damage to the pancreas. How does it occur? The cause of the acute pancreatitis is not completely understood. About half of the people who have pancreatitis have gallstones. Alcohol abuse can also lead to pancreatitis. Less frequent causes are some medicines, stomach or duodenal ulcers, or injury from being hit in the stomach. What are the symptoms? The main symptom is severe pain in the middle of your upper abdomen. The pain: often occurs 12 to 24 hours after a large meal or heavy drinking spreads to your back and chest is steady and sharp gets worse when you move feels better when you sit or lean forward usually makes you vomit In severe cases, you may have signs of shock, including: restlessness fast heartbeat feeling lightheaded or faint confusion cold, sweaty arms or legs If you have any of these signs of shock with abdominal pain, get emergency care or call 911 right away. How is it diagnosed? Your health care provider will ask about your medical history, particularly about how much alcohol you drink and if you have had symptoms of gallstones. He or she will examine you and order blood and urine tests. You may have the following tests: x-rays of your abdomen and chest ultrasound exam of the pancreas and gallbladder ERCP, which is a way of looking at your pancreas through a slim, flexible tube called an endoscope, which is passed through your mouth, down to where your pancreas and intestines are connected CT scan of the pancreas How is it treated? You will probably stay in the hospital. To decrease the amount of enzymes your pancreas is producing, you cannot eat or drink anything for a while. You will not start drinking or eating again until the abdominal pain stops. You will be given fluids through your vein (IV). A tube may be put through your nose, down into your stomach to remove fluids and prevent nausea and vomiting. This is called nasogastric suction. You may have to stop taking some medicines you have been taking. A narcotic drug or other pain reliever will be prescribed for your abdominal pain. You may have other medicines as well. You will need to stay in bed and take it easy. When the pain stops, you can start drinking clear liquids and gradually progress to eating a diet of low-fat foods. If you have gallstones, they may be removed while you are in the hospital to prevent another attack of pancreatitis. Your health care provider may decide you can leave the hospital when you no longer have pain and are able to eat. Most people treated with nasogastric suction and IV fluids start feeling better in 1 to 3 days and go home in 5 to 10 days. More severe disease requires treatment in an intensive care unit (ICU) and a hospital stay of several weeks. How long do the effects last? Most people recover completely, especially if the disease is diagnosed early enough. Severe pancreatitis can be life threatening. How can I take care of myself? Follow the instructions your health care provider gives you. This includes how you take any medicines he or she has prescribed. Don't take any other medicines, including non-prescription drugs, without asking your health care provider. How can I prevent another attack of acute pancreatitis? Pancreatitis can recur and may become an ongoing problem. To prevent another attack: Avoid drinking alcohol unless your health care provider approves. Follow the diet your health care provider prescribes. Follow your provider's recommendations for physical activity. If gallstones caused the pancreatitis and they have not been removed, surgery to remove them may help prevent further attacks. Prescriptions ordered this encounter Disp Refills Start End OXYCODONE-ACETAMINOPHEN 5 MG-325 MG * 20 t* 0 01/20/2018 01/27/2018 Class: Print RX Route: ORAL Sig: Take 1 tablet by mouth every 4 hours as needed for Pain (sparingly) for up to 7 days. Encounter Status:Closed by Rafael COREY PA-C on 01/20/18 DISCHARGE SUMMARY Observed: 01/12/2018 Status: F Source: [place] 4:15 PM [facility] REPOSITORY [facility] Medical Records Department [address] [facility] [address] Discharge Summary 01/12/18 1004 MR#: [id number] Acct: [id number] Name: URSULA HUGHES Rafael Rep #: [id number] : 1985 32 From: Joan Gates MD PCP: Harrison Chambers MD Status: DIS MAGALIE Y Location: [place] [address]-1 Discharge Date and Diagnosis Date of Admission: 01/10/18 Date of Discharge: 01/12/18 - Primary Discharge Diagnosis Active and Suspected Problems Abdominal pain (Acute) Splenic infarct (Acute) Pancreatitis (Acute) - Secondary Discharge Diagnosis Chronic Problems Seizure disorder (Chronic) Hospital Course and Treatment Operations: None Summary of Care Provided: 1. Abdominal pain; Most likely secondary to splenic infarct. The patient was discharged on prescription for oxycodone as needed. 2. Splenic infarct; started on Aspirin, echocardiogram showed no intracardiac thrombi and hypercoagulable profile pending is still pending. 3 Acute Pancreatitis; bowel was rested and IV fluids given. 4. History of drug abuse; UDS is positive for marijuana and opiates. She is recommended to avoid illicit drug use. The patient is a 32 year old female admitted who presented to the emergency room with abdominal pain. CT scan of the abdomen and pelvis demonstrated a small focal splenic infarct. The patient was started on aspirin and echocardiogram was obtained and did not show any intracardiac thrombi, hypercoagulable profile was ordered and is currently pending. She was discharged home in a stable condition and recommended to follow-up with her primary care doctor next week. Discharge Diet: No Restrictions Discharge Activity: Return to Normal Activity Home Medications: Medications to take at Discharge Folic Acid 4 mg PO DAILY@0800 12/20/14 Sucralfate [Carafate] 1 gm PO TID 12/20/14 Zonisamide [Zonegran] 300 mg PO QHS 12/20/14 Ranitidine [Zantac] 150 mg PO DAILY 05/11/16 Albuterol Inhaler [Ventolin Hfa] 1 puff INHALATION Q4H PRN PRN 09/14/16 levETIRAcetam tablet [Keppra tablet] 1,000 mg PO BID 10/24/16 Sertraline HCl [Zoloft] 100 mg PO QHS 02/09/17 busPIRone [Buspar] 15 mg PO BID 02/09/17 traZODone [Desyrel] 100 mg PO QHS 02/11/17 Verapamil [Calan Sr] 180 mg PO QHS 04/14/17 Rizatriptan Benzoate [Maxalt] 10 mg PO DAILY PRN 11/15/17 Clonazepam [Klonopin] 0.5 mg PO DAILY PRN 01/10/18 Fluticasone/Vilanterol [Breo Ellipta 200-25 Mcg INH] 1 puff INHALATION DAILY 01/10/18 Aspirin [Aspirin, Baby] 81 mg PO DAILY@0800 tab.chew 01/12/18 Oxycodone [Oxyir] 5 mg PO Q4H PRN PRN #20 tab 01/12/18 Following Prescrptions Were Given to Patient: Oxycodone [Oxyir] 5 mg PO Q4H PRN PRN #20 tab PRN Reason: Pain Primary Care Physician: Harrison Chambers MD [Primary Care Provider] - Within 2 Weeks Medical Necessity - Tobacco Use Smoking Status: Former smoker Tobacco Use: Secondhand, Cigarettes Meaningful Use Info Meaningful Use Diagnoses (Choose all that apply): None applicable Code Visit Inpatient E AND M: 11233 Disch Hosp 01/12/18 8495 <Electronically signed by Joan Gates MD> Date Joan Gates MD Cosigner Signature (if applicable): Date CC: Joan Gates MD; Harrison Chambers MD Signed DISCHARGE INSTRUCTION Observed: 01/12/2018 Status: F Source: LISSY 10:02 AM [facility] REPOSITORY [facility] Medical Records Department [address] [place] [address] Instructions for Home/Discharge Instructions 01/12/18 1001 MR#: [id number] Acct: [id number] Name: URSULA HUGHES Rep #: [id number] : 1985 32 From: Joan Gates MD PCP: Harrison Chambers MD Status: ADM MAGALIE - Discharge Diagnoses Current Active Problems: Current Active and Chronic Problems Abdominal pain (Acute) Splenic infarct (Acute) Pancreatitis (Acute) You will use the following diet at home:: Regular Discharge Activity: Return to Normal Activity Allergies/Adverse Reactions: Allergies bupropion HCl [From Wellbutrin] Allergy (Verified 01/10/18 23:18) seizures dill oil Allergy (Verified 11/15/17 16:08) Shortness of breath diphenhydramine HCl [From Benadryl] Allergy (Verified 01/10/18 23:18) Itching/throat swells doxycycline Allergy (Verified 01/10/18 23:18) Itching/vomiting venom-honey bee [bee venom (honey bee)] Allergy (Verified 11/15/17 16:08) Anaphylaxis Medications to take at Discharge Folic Acid 4 mg PO DAILY@0800 12/20/14 Sucralfate [Carafate] 1 gm PO TID 12/20/14 Zonisamide [Zonegran] 300 mg PO QHS 12/20/14 Ranitidine [Zantac] 150 mg PO DAILY 05/11/16 Albuterol Inhaler [Ventolin Hfa] 1 puff INHALATION Q4H PRN PRN 09/14/16 levETIRAcetam tablet [Keppra tablet] 1,000 mg PO BID 10/24/16 Sertraline HCl [Zoloft] 100 mg PO QHS 02/09/17 busPIRone [Buspar] 15 mg PO BID 02/09/17 traZODone [Desyrel] 100 mg PO QHS 02/11/17 Verapamil [Calan Sr] 180 mg PO QHS 04/14/17 Rizatriptan Benzoate [Maxalt] 10 mg PO DAILY PRN 11/15/17 Clonazepam [Klonopin] 0.5 mg PO DAILY PRN 01/10/18 Fluticasone/Vilanterol [Breo Ellipta 200-25 Mcg INH] 1 puff INHALATION DAILY 01/10/18 Aspirin [Aspirin, Baby] 81 mg PO DAILY@0800 tab.chew 01/12/18 Oxycodone [Oxyir] 5 mg PO Q4H PRN PRN #20 tab 01/12/18 The following prescriptions were given: Oxycodone [Oxyir] 5 mg PO Q4H PRN PRN #20 tab PRN Reason: Pain Primary Care Physician: Harrison Chambers MD [Primary Care Provider] - Within 2 Weeks 01/12/18 1002 <Electronically signed by Joan Gates MD> Date Joan Gates MD CC: Harrison Chambers MD ECHOCARDIOGRAM COMPLETE Observed: 01/11/2018 Status: F Source: TIONA 10:15 AM [facility] REPOSITORY [facility] Cardiovascular Services [address] [place] [id number] Echo Complete 01/11/18 0830 MR#: [id number] Acct: [id number] Name: URSULA HUGHES Rep #: [id number] : 1985 32 From: Owen Pettit MD Attending Dr: Joan Gates MD Status: ADM MAGALIE Ordering Dr: Nicko Alvarez MD Date: 01/10/18 Location: [facility] Sex: F C Admitted: 01/10/18 Reason For Study: Chest Pain Procedure This was a 2D Doppler, Color Flow transthoracic echocardiogram. Exam performed portable in patient room. Left Ventricle Normal size and thickness. The estimated ejection fraction is 65 %. Normal diastology for age. No regional wall motion abnormalities noted. Right Ventricle Normal size and thickness. Normal systolic function. Atria Normal left atrium. Normal right atrium. Normal atrial septum. Mitral Valve The mitral valve is structurally normal. No prolapse or stenosis seen. Trivial mitral valve insufficiency. Tricuspid Valve Normal tricuspid valve. Trivial tricuspid valve insufficiency. Unable to estimate RV systolic pressure/pulmonary artery pressure due to technically difficult study. Aortic Valve Normal aortic valve. Trisinus/trileaflet aortic valve. Pulmonic Valve Normal pulmonic valve. Great Vessels Normal aortic root. Normal arch. Normal inferior vena cava. Inferior vena cava collapse with sniff. Pericardium/Pleural No pericardial effusion. MMode/2D Measurements AND Calculations LVIDd: 4.7 cm IVSd: 0.83 cm Ao root diam: 2.9 cm LVIDs: 2.5 cm LVPWd: 0.88 cm LA dimension: 3.4 cm FS: 46.7 % LAV(MOD-bp): 42.7 ml LA A4 area: 19.2 cm2 RA A4 area: 14.1 cm2 LAV(MOD-bp) Indexed: 21.2 ml/m2 LAV(MOD-sp2): 35.7 ml LAV(MOD-sp4): 50.7 ml Time Measurements MV dec time: 0.18 sec Doppler Measurements AND Calculations MV E max keo: 121.7 cm/sec MV V2 max: 139.6 cm/sec MV P1/2t max keo: 138.7 cm/sec MV A max keo: 73.8 cm/sec MV max P.8 mmHg MV P1/2t: 92.8 msec MV E/A: 1.6 MV V2 mean: 62.9 cm/sec MV dec slope: 437.6 cm/sec2 MV mean P.0 mmHg MVA(P1/2t): 2.4 cm2 MV V2 VTI: 41.3 cm Ao V2 max: 132.9 cm/sec LV V1 max: 121.3 cm/sec PA V2 max: 90.5 cm/sec Ao max P.1 mmHg LV V1 max P.9 mmHg Ao V2 mean: 87.6 cm/sec LV V1 mean P.9 mmHg Ao mean P.4 mmHg LV V1 mean: 79.7 cm/sec Ao V2 VTI: 27.1 cm LV V1 VTI: 26.9 cm Interpretation Summary The estimated ejection fraction is 65 %. Normal diastology for age. Trivial mitral valve insufficiency. Trivial tricuspid valve insufficiency. Unable to estimate RV systolic pressure/pulmonary artery pressure due to technically difficult study. Ordering Physician: Nicko Alvarez Referring Physician: Harrison Chambers Performed By: Zelalem Ramos RCS 01/11/18 1015 Date Owen Pettit MD CC: Joan Gates MD; Nicko Alvarez MD; Harrison hCambers MD Date Dictated: 01/11/18 0830 Date Transcribed: 01/11/18 101 [employer] Instructor: Signed CBC W/DIFF, AUTOMATED Collected: 01/11/2018 Status: F Source: [place] 5:30 AM [facility] REPOSITORY TYPE CODE TESTS RESULT OUT OF RANGE REFERENCE UNITS LAB L100.1000 4.4-11.0 K/mm3 Normal WBC 8.3 LAB L100.1200 4.2-5.4 M/mm3 Normal RBC 4.25 LAB L100.1300 12.0-15.0 g/dl Normal HGB 12.2 LAB L100.1400 37-47 % Low HCT 36.1 LAB L100.1500 81-99 fL Normal MCV 84.9 LAB L100.1600 27.0-32.0 pg Normal MCH 28.7 LAB L100.1700 32-36 g/gl Normal MCHC 33.8 LAB L100.1810 11.6-14.6 % Normal RDW CV 13.3 LAB L100.1820 35.1-43.9 fl Normal RDW SD 41.3 LAB L100.1900 150-450 K/mm3 Normal PLT 175 LAB L100.2000 6.2-12.0 fl Normal MPV 9.1 LAB L100.2100 47-70 % Normal NEUT% 54.2 LAB L100.2200 19-41 % Normal LY% 37.8 LAB L100.2300 0-10 % Normal MONO% 5.0 LAB L100.2400 0-5 % Normal EO% 2.5 LAB L100.2500 0-1 % Normal BASO% 0.4 LAB L100.2550 0.0-0.9 % Normal IM GRAN % 0.100 Result Comment: IG% - Immature Granulocytes (promyelocytes, myelocytes and metamyelocytes) > 1% indicates that a LEFT SHIFT is Present. LAB L100.2620 2.0-7.7 X10 3/uL Normal Absolute Neut 4.5 LAB L100.2720 0.83-4.51 X10 3/ul Normal Absolute Lymph 3.13 LAB L100.4500 SMEAR Normal COMMENT Result Comment: RARE MACROTHROMBOCYTES Performed By: #### L100.0100 #### [facility] [address] [place], [address] BASIC METABOLIC Collected: 01/11/2018 Status: F Source: [place] PROFILE (BMP) 5:30 AM [facility] REPOSITORY TYPE CODE TESTS RESULT OUT OF RANGE REFERENCE UNITS LAB L501.0100 74-106 mg/dL Normal GLU 74 Result Comment: Please note revised GLUCOSE reference range effective 2017. LAB L501.1000 7-18 mg/dL Low BUN 6 LAB L501.1100 0.55-1.02 mg/dL Normal CREAT,SERUM 0.84 Result Comment: The validity of the calculated GFR AND GFRAA in patients over 70 years has not been determined. Clinical correlation is essential. LAB L501.1110 >60 mL/min Normal EST GFR 83 Result Comment: Non- GFR Calc LAB L501.1115 >60 mL/min Normal EST GFR - AA 101 Result Comment: GFR Calc LAB L501.1255 ml/min Normal Estimated CRCL 86.52 LAB L501.1300 10-20 RATIO Low BUN/CRE 7.1 LAB L501.2200 8.5-10 mg/dL Low .1 CA 7.9 LAB L501.5300 136-14 mmol/L High 5 NA 146 LAB L501.5600 3.5-5. mmol/L Low 1 K 3.4 LAB L501.5900 98-107 mmol/L High CL 113 LAB L501.6100 21.0-3 mmol/L Normal 2.0 CO2 25.0 LAB L501.6200 5-15 Normal GAP 8 Performed By: #### L500.2500, L501.2450 #### [facility] [address] [place], [address] LIPASE Collected: 01/11/2018 Status: F Source: [place] 5:30 AM [facility] REPOSITORY TYPE CODE TESTS RESULT OUT OF RANGE REFERENCE UNITS LAB L501.2450 73-393 U/L Normal LIPASE 179 Performed By: #### L500.2500, L501.2450 #### [facility] [address] [place], [address] DILUTE NELSON VIPER Collected: 01/11/2018 Status: F Source: [place] VENOM 5:30 AM [facility] REPOSITORY TYPE CODE TESTS RESULT OUT OF RANGE REFERENCE UNITS LAB L4500.1015 0.0-47.0 sec Normal DRVVT 36.5 Result Comment: Effective January 13, 2018 this profile will be made non- orderable. [facility] offers order code [id number] Lupus Anticoagulant Reflex. For further information please contact your local [facility] Portfolio Analyst. Performed at: - [facility] [address] [id number] Assisted Living Assistant: Harrison Dodd MD, Phone: [phone] Performed By: #### L4500.1015 #### [facility] (refer to report for specific site) refer to report for address and phone number PROTEIN C DEFIC. Collected: 01/11/2018 Status: F Source: [place] PROFILE 5:30 AM [facility] REPOSITORY TYPE CODE TESTS RESULT OUT OF RANGE REFERENCE UNITS LAB L3100.7310 60-150 % Normal PROTEIN C 66 Result Comment: Verified by repeat analysis LAB L3100.7335 73-180 % Normal PROT C,FUNC 77 Result Comment: A deficiency of protein C (PC), either congenital or acquired, increases the risk of thromboembolism. Acquired PC deficiency occurs more frequently than congenital deficiency. PC levels can be transiently diminished after a thrombotic event or surgery or in the presence of certain anticoagulants. Heparin, direct Xa inhibitor, or thrombotic inhibitor therapy does not alter PC levels physiologically and does not interfere with this assay because it is chromogenic and clot-based. Vitamin K antagonist therapy may decrease plasma levels of functional protein C (PC) as PC is a vitamin K-dependent protein. Vitamin K deficiency, due to dietary insufficiency or malabsorption will also lead to reduced PC levels. Acquired deficiency can be found in individuals with disseminated intravascular coagulation (DIC) and sepsis. Severe hepatic disorders (hepatitis, cirrhosis, etc.), nephrotic syndrome, malignancy and inflammatory bowel disease can lead to diminished PC levels. Drug therapy with L-asparaginse or fluorouracil can also reduce PC levels. Levels may be decreased in patients with polycythemia vera, sickle cell disease and essential thrombocythemia. Repeat evaluation on a new plasma sample to confirm or refute this result should be considered, after ruling out acquired causes, depending on the clinical scenario. Performed By: #### L3100.7275, L3100.8410, L3300.0450, L3410.2000, L4500.2000, L4500.5000 #### [facility] (refer to report for specific site) refer to report for address and phone number ANTICARDIOLIPIN IGG, IGM Collected: 01/11/2018 Status: F Source: LISSY 5:30 AM [facility] REPOSITORY TYPE CODE TESTS RESULT OUT OF RANGE REFERENCE UNITS LAB L3100.8420 0-14 GPL U/mL Normal ANTICARDIO IgG < 9 Result Comment: Negative: <15 Indeterminate: 15 - 20 Low-Med Positive: >20 - 80 High Positive: >80 LAB L3100.8425 0-12 MPL U/mL Normal ANTICARDIO IgM < 9 Result Comment: Negative: <13 Indeterminate: 13 - 20 Low-Med Positive: >20 - 80 High Positive: >80 Performed By: #### L3100.7275, L3100.8410, L3300.0450, L3410.2000, L4500.2000, L4500.5000 #### [facility] (refer to report for specific site) refer to report for address and phone number AT [facility] / Collected: 01/11/2018 Status: F Source: LISSY IMMUNOL 5:30 AM [facility] REPOSITORY TYPE CODE TESTS RESULT OUT OF RANGE REFERENCE UNITS LAB L3300.0500 75-135 % Low AT3 FUNCTION 72 LAB L3300.0540 72-124 % Normal AT3 AG, 73 IMMUNOL Result Comment: This test was developed and its performance characteristics determined by [facility]. It has not been cleared or approved by the Food and Drug Administration. Performed By: #### L3100.7275, L3100.8410, L3300.0450, L3410.2000, L4500.2000, L4500.5000 #### [facility] (refer to report for specific site) refer to report for address and phone number BETA-2 GLYCOPROT IGG, Collected: 01/11/2018 Status: F Source: Rafael CHAPMAN 5:30 AM [facility] REPOSITORY TYPE CODE TESTS RESULT OUT OF RANGE REFERENCE UNITS LAB L3410.2100 0-20 Normal B2 GLYCO <9 I IGG Result Comment: Result Units: GPI IgG units The reference interval reflects a 3SD or 99th percentile interval, which is thought to represent a potentially clinically significant result in accordance with the International Consensus Statement on the classification criteria for definitive antiphospholipid syndrome (APS). J Thromb Haem 2006;4:295-306. LAB L3410.2200 0-25 Normal B2 GLYCO I IGA <9 Result Comment: Result Units: GPI IgA units The reference interval reflects a 3SD or 99th percentile interval, which is thought to represent a potentially clinically significant result in accordance with the International Consensus Statement on the classification criteria for definitive antiphospholipid syndrome (APS). J Thromb Haem 2006;4:295-306. LAB L3410.2300 0-32 Normal B2 GLYCO I IGM <9 Result Comment: Result Units: GPI IgM units The reference interval reflects a 3SD or 99th percentile interval, which is thought to represent a potentially clinically significant result in accordance with the International Consensus Statement on the classification criteria for definitive antiphospholipid syndrome (APS). J Thromb Haem 2006;4:295-306. Performed By: #### L3100.7275, L3100.8410, L3300.0450, L3410.2000, L4500.2000, L4500.5000 #### [facility] (refer to report for specific site) refer to report for address and phone number FACTOR II, DNA Collected: 01/11/2018 Status: F Source: LISSY ANALYSIS 5:30 AM [facility] REPOSITORY TYPE CODE TESTS RESULT OUT OF RANGE REFERENCE UNITS LAB L4500.2100 . Normal FACTOR Comment II,DNA Result Comment: NEGATIVE No mutation identified. Comment: A point mutation ([id number]) in the factor II (prothrombin) gene is the second most common cause of inherited thrombophilia. The incidence of this mutation in the [place] population is about 2% and in the population it is approximately 0.5%. This mutation is rare in the and population. Being heterozygous for a prothrombin mutation increases the risk for developing venous thrombosis about 2 to 3 times above the general population risk. Being homozygous for the prothrombin gene mutation increases the relative risk for venous thrombosis further, although it is not yet known how much further the risk is increased. In women heterozygous for the prothrombin gene mutation, the use of estrogen containing oral contraceptives increases the relative risk of venous thrombosis about 16 times and the risk of developing cerebral thrombosis is also significantly increased. In the prothrombin gene mutation increases risk for venous thrombosis and may increase risk for stillbirth, placental abruption, pre-eclampsia and growth restriction. If the patient possesses two or more congenital or acquired thrombophilic risk factors, the risk for thrombosis may rise to more than the sum of the risk ratios for the individual mutations. This assay detects only the prothrombin [id number] mutation and does not measure genetic abnormalities elsewhere in the genome. Other thrombotic risk factors may be pursued through systematic clinical laboratory analysis. These factors include the R506Q (Leiden) mutation in the Factor V gene, plasma homocysteine levels, as well as testing for deficiencies of antithrombin III, protein C and protein S. Genetic Counselors are available for health care providers to discuss results at [phone] [place] ([phone]). Methodology: DNA analysis of the Factor II gene was performed by PCR amplification followed by restriction analysis. The diagnostic sensitivity is >99% for both. All the tests must be combined with clinical information for the most accurate interpretation. Molecular-based testing is highly accurate, but as in any laboratory test, diagnostic errors may occur. This test was developed and its performance characteristics determined by [facility]. It has not been cleared or approved by the Food and Drug Administration. Poort SR, et al. Blood. 1996; 88:3822-3854. Yady EA. Circulation. 2004; 110:e15-e18. Joyce I, et al. Arterioscler Thromb Vasc Biol. 1999; 19:700-703. Ervin Hutson, PhD, FACMG Fifi Tinsley, PhD, FACMG Shama Nguyen MMarcoS., PhD, FACMG Mei Duran, PhD, FACMG Kem Escobar, PhD, FACMG Brian Wilde, PhD, FAC Performed at: [address] [id number] Assisted Living Assistant: Harrison Dodd MD, Phone: [phone] Performed at: [address] [id number] Assisted Living Assistant: Bill Joya PhD, Phone: [phone] Performed at: [address] [id number] Assisted Living Assistant: Spenser Pagan MD, Phone: [phone] Performed By: #### L3100.7275, L3100.3138, L3300.0450, L3410.2000, L4500.2000, L4500.5000 #### [facility]er to report for specific site) refer to report for address and phone number FACT V LEIDEN Collected: 01/11/2018 Status: F Source: LISSY MUTATION 5:30 AM [facility] REPOSITORY TYPE CODE TESTS RESULT OUT OF RANGE REFERENCE UNITS LAB L4500.5100 . Normal FACTOR V Comment LEIDEN Result Comment: Result: Negative (no mutation found) Factor V Leiden is a specific mutation (R506Q) in the factor V gene that is associated with an increased risk of venous thrombosis. Factor V Leiden is more resistant to inactivation by activated protein C. As a result, factor V persists in the circulation leading to a mild hyper- coagulable state. The Leiden mutation accounts for 90% - 95% of APC resistance. Factor V Leiden has been reported in patients with deep vein thrombosis, pulmonary embolus, central retinal vein occlusion, cerebral sinus thrombosis and hepatic vein thrombosis. Other risk factors to be considered in the workup for venous thrombosis include the [id number] mutation in the factor II (prothrombin) gene, protein S and C deficiency, and antithrombin deficiencies. Anticardiolipin antibody and lupus anticoagulant analysis may be appropriate for certain patients, as well as homocysteine levels. Contact your local [facility] for information on how to order additional testing if desired. Genetic counselors are available for health care providers to discuss results at [phone] Methodology: DNA analysis of the Factor V gene was performed by allele- specific PCR. The diagnostic sensitivity and specificity is >99% for both. Molecular-based testing is highly accurate, but as in any laboratory test, diagnostic errors may occur. All test results must be combined with clinical information for the most accurate interpretation. This test was developed and its performance characteristics determined by [facility]. It has not been cleared or approved by the Food and Drug Administration. References: Kulwant Blanca (1996). Clin Lab Med 16:169-186. Ervin Hutson, PhD, FACMG Fifi Tinsley, PhD, FACMG Shama Nguyen M.S., PhD, FACMG Mei Duran, PhD, FACMG Kem Escobar, PhD, FAC Brian Wilde PhD, FAC Performed By: #### L3100.7275, L3100.8410, L3300.0450, L3410.2000, L4500.2000, L4500.5000 #### [facility] (refer to report for specific site) refer to report for address and phone number HISTORY AND PHYSICAL Observed: 01/11/2018 Status: F Source: TIONA EXAM 4:47 AM [facility] REPOSITORY [facility] Medical Records Department [address] [place] [address] History and Physical 01/10/18 2333 MR#: [id number] Acct: [id number] Name: URSULA HUGHES Rep #: [id number] : 1985 32 From: Nicko Alvarez MD PCP: Harrison Chambers MD Status: ADM MAGALIE Y Location: [place] [address] Problem List (1) Abdominal pain Status: Acute (2) Splenic infarct Status: Acute (3) Pancreatitis Status: Acute (4) Partial small bowel obstruction Status: Acute (5) Seizure disorder Status: Chronic History of Present Illness Date of Admission: 01/10/18 Chief Complaint: Splenic infarct The patient is a 32 year old female admitted for splenic infarct. She has no h/o spontaneous . She used marijuana for and has been having abdominal pain. Pain is sharp and severe. Pain has been getting progressively worse. Nothing appeared to improve or worse. Pain is not associated with any other symptoms. No diarrhea. No n/v. Past Medical History Past Medical History (Chronic Problems): Chronic Problems Seizure disorder (Chronic) Allergies bupropion HCl [From Wellbutrin] Allergy (Verified 01/10/18 23:18) seizures dill oil Allergy (Verified 11/15/17 16:08) Shortness of breath diphenhydramine HCl [From Benadryl] Allergy (Verified 01/10/18 23:18) Itching/throat swells doxycycline Allergy (Verified 01/10/18 23:18) Itching/vomiting morphine Allergy (Verified 11/15/17 16:08) Itching venom-honey bee [bee venom (honey bee)] Allergy (Verified 11/15/17 16:08) Anaphylaxis Home Medications: Ambulatory Orders Medication Instructions Recorded Surgical History: no surgical history, - Psychiatric History: No pertinent psych hx Lives: With Family Smoking Status: Former smoker Tobacco Use: Secondhand, Cigarettes - *Family History Maternal History Items: - - She denies a family history of any chronic medical problems Review of Systems Constitutional: Denies: Chills, Fever, Weight Change HEENT: Denies: Head Aches, Sinus Congestion, Sinus Drainage Cardiovascular: Denies: Chest Pain, Palpitations Respiratory: Denies: Cough, Shortness of breath at rest, Sputum production Gastrointestinal: Reports: Abdominal Pain. Denies: Nausea, Vomiting Genitourinary: Denies: Dysuria Musculoskeletal: Denies: Joint Pain, Joint Tenderness Skin: Denies: Rash, Wounds Neurological: Denies: Numbness, Tingling, Focal weakness Psychiatric: Denies: Anxiety, Depression, Homicidal Ideations, Suicidal Ideations Hematologic/ Lymphatic: Denies: Easy Bruising, Easy Bleeding VTE Information - Inpt Only VTE Present on Admission: No VTE Mechan Device Prophylaxis: SCD's VTE Pharm Prophylaxis ordered?: Yes Patient Problems: Active and Suspected Problems Abdominal pain (Acute) Splenic infarct (Acute) Pancreatitis (Acute) - Physical Exam General: Alert, Oriented x3, Cooperative HEENT: Atraumatic, PERRLA, EOMI, Normocephalic Neck: Supple, No JVD, Negative Carotid Bruits Lungs: Clear to auscultation, Normal air movement Cardiovascular: Regular rate, No murmurs Abdomen: Soft, Tender Extremities: No edema, Capillary Refill Less than 3 Seconds Skin: No rashes, No breakdown Musculoskeletal: No Tenderness to Palpation of Joints or Extremities Neurological: Cranial nerves II-XII grossly intact Psych/Mental Status: Normal Affect, Appropriate Vital Signs Temp Pulse Resp BP Pulse Ox 98.1 F 67 18 125/99 H 98 01/10/18 23:03 01/10/18 23:03 01/10/18 23:03 01/10/18 23:03 01/10/18 23:03 Oxygen Delivery Method Room Air Weight: 94.9 kg Body Mass Index (BMI) 34.8 Assessment/Plan All Active Problems Abdominal pain (Acute) Splenic infarct (Acute) Pancreatitis (Acute) Partial small bowel obstruction (Acute) 32 year old female admitted for splenic infarct. 1) Abdominal pain: Most likely secondary to splenic infarct. Pain control. IVF hydration. Hypercoag workup pending. ECHO pending. 2) Splenic infarct: Hypercoag workup pending. ECHO pending. 3) Pancreatitis: Lipase 600s. Will repeat level in AM. Hydration and pain controlled. Pt is not allergic to morphine. 4) Drug abuse: Utox positive for marijuana and opiates. Education done. 01/11/18 1314 <Electronically signed by Nicko Alvarez MD> Date [facility] Signature: Date (if applicable) CC: Nicko Alvarez MD; Harrison Chambers MD Signed URINE DRUG SCREEN Collected: 01/11/2018 Status: F Source: LISSY (VISTA) 1:47 AM [facility] REPOSITORY TYPE CODE TESTS RESULT OUT OF RANGE REFERENCE UNITS LAB L505.0075 TO BE Normal CONFIRMED Result Comment: CONFIRMATORY TESTING FOR ALL POSITIVE URINE DRUG SCREEN RESULTS WILL ONLY BE SENT OUT UPON PHYSICIAN ORDER. VISTA Urine Drug Screen methods provide only preliminary analytical test results. A more specific alternate chemical method must be used in order to obtain a confirmed analytical result. Gas chromatography/mass spectrometery (GC/MS) is the preferred confirmatory method. Clinical consideration and professional judgement should be applied to any drug of abuse test result, particularly when preliminary positive results are used. URINE TCA TESTING MUST BE ORDERED SEPARATELY. USE TEST MNEMONIC: [facility] LAB L505.5005 VISTA UDS PH 5 Normal LAB L505.5015 <1000 ng/mL AMPHETAMINES Normal NEGATIVE LAB L505.5025 < 200 ng/mL BARBITIURATES Normal NEGATIVE LAB L505.5035 < 200 ng/mL BENZODIAZIPINE Normal NEGATIVE LAB L505.5045 < 300 ng/mL COCAINE Normal NEGATIVE LAB L505.5055 < 500 ng/mL ECSTACY Normal NEGATIVE LAB L505.5065 < 300 ng/mL METHADONE Normal NEGATIVE LAB L505.5075 < 300 High ng/mL OPIATES POSITIVE LAB L505.5085 < 25 ng/mL PCP Normal NEGATIVE LAB L505.5095 < 50 High ng/mL THC POSITIVE Performed By: #### L505.5000 #### [facility] [address] [facility] [place], [address] EMERGENCY DEPARTMENT Observed: 01/10/2018 Status: F Source: LISSY SUMMARY 10:38 PM [facility] REPOSITORY [facility] Medical Records Department [address] [facility] [place] [address] Emergency Department Summary 01/10/18 1840 MR#: [id number] Acct: [id number] Name: URSULA HUGHES Rep #: [id number] : 1985 32 From: Kelsy Pate MD PCP: Harrison Chambers MD Status: REG ER - ER Visit Summary Date of Service: 01/10/18 Chief Complaint: Abdominal pain History of Present Illness: The patient is a 32 F presenting with abdominal pain 4 days. Patient has nausea with no vomiting. She has diarrhea. Denied denies blood in stool. She states she has felt similar in the past when she has had bowel obstructions. History of appendectomy and partial bowel resection secondary to bowel obstruction. Denies fever. Denies other complaints. Physical Examination: Vitals are stable. Patient is afebrile. Alert no acute distress. HEENT exam is unremarkable. Neck is supple. Lungs are clear and equal bilaterally. Heart is regular rate and rhythm. Abdomen is soft left upper and lower quadrant tenderness, voluntary guarding, no rebound Extremities are unremarkable. Skin is warm and dry. No focal neurologic deficit. Remainder of exam is unremarkable. Emergency Department Course and Treatment: Patient is given Dilaudid, Zofran IV. CBC chemistries unremarkable. Lipase is 691. Urinalysis unremarkable. HCG negative. CT abdomen/pelvis shows small focal wedge-shaped area of hypoenhancement in the dome of the spleen, suggestive of small focal infarct. No evidence of associated laceration or hemorrhage. The visualized lower ribs are intact. Discussed with Dr Grace, recommends pain control and workup for hypercoagulability. Will discuss the hospitalist for admission. Disposition: Observation Impression: Abdominal pain, splenic infarct, elevated lipase This note was generated with ViViFi dictation software. It may contain incorrect words, spelling, and punctuation that were not noted in review of the chart prior to signing ED Disposition - Plan for ED Patient: Chief Complaint: Abd Pain Referrals: Harrison Chambers MD [Primary Care Provider] - What to do if you have Problems For any increased pain, shortness of breath, bleeding, nausea or vomiting, chest pain, or any unexpected problems, contact your Primary Care Provider. Call [facility] ([phone]) or report to the closest Emergency Room. Call 911 if necessary. 01/10/18 7771 <Electronically signed by Kelsy Pate MD> Date Kelsy Garnerigngio Signature (If Indicated): Date CC: Harrison Chambers MD CBC W/DIFF, AUTOMATED Collected: 01/10/2018 Status: F Source: LISSY 7:05 PM [facility] REPOSITORY TYPE CODE TESTS RESULT OUT OF RANGE REFERENCE UNITS LAB L100.1000 4.4-11.0 K/mm3 Normal WBC 7.8 LAB L100.1200 4.2-5.4 M/mm3 Normal RBC 5.08 LAB L100.1300 12.0-15.0 g/dl Normal HGB 14.8 LAB L100.1400 37-47 % Normal HCT 42.7 LAB L100.1500 81-99 fL Normal MCV 84.1 LAB L100.1600 27.0-32.0 pg Normal MCH 29.1 LAB L100.1700 32-36 g/gl Normal MCHC 34.7 LAB L100.1810 11.6-14.6 % Normal RDW CV 13.0 LAB L100.1820 35.1-43.9 fl Normal RDW SD 39.5 LAB L100.1900 150-450 K/mm3 Normal PLT 193 LAB L100.2000 6.2-12.0 fl Normal MPV 9.3 LAB L100.2100 47-70 % Normal NEUT% 66.2 LAB L100.2200 19-41 % Normal LY% 25.7 LAB L100.2300 0-10 % Normal MONO% 6.1 LAB L100.2400 0-5 % Normal EO% 1.5 LAB L100.2500 0-1 % Normal BASO% 0.4 LAB L100.2550 0.0-0.9 % Normal IM GRAN % 0.100 Result Comment: IG% - Immature Granulocytes (promyelocytes, myelocytes and metamyelocytes) > 1% indicates that a LEFT SHIFT is Present. LAB L100.2620 2.0-7.7 X10 3/uL Normal Absolute Neut 5.2 LAB L100.2720 0.83-4.51 X10 3/ul Normal Absolute Lymph 2.01 Performed By: #### L100.0100 #### [facility] [address] [place], [place], [id number] COMPREHENSIVE METABOLIC Collected: 01/10/2018 Status: F Source: LISSY HUTCHINS 7:05 PM [facility] REPOSITORY TYPE CODE TESTS RESULT OUT OF RANGE REFERENCE UNITS LAB L501.0100 74-106 mg/dL Normal GLU 89 Result Comment: Please note revised GLUCOSE reference range effective 2017. LAB L501.1000 7-18 mg/dL Normal BUN 7 LAB L501.1100 0.55-1.02 mg/dL Normal CREAT,SERUM 0.89 Result Comment: The validity of the calculated GFR AND GFRAA in patients over 70 years has not been determined. Clinical correlation is essential. LAB L501.1110 >60 mL/min Normal EST GFR 78 Result Comment: Non- GFR Calc LAB L501.1115 >60 mL/min Normal EST GFR - AA 94 Result Comment: GFR Calc LAB L501.1255 ml/min Normal Estimated CRCL 81.66 LAB L501.1300 10-20 RATIO Low BUN/CRE 7.9 LAB L501.1500 6.4-8. g/dL Normal 2 T PROT 7.8 LAB L501.1800 3.2-5. g/dL Normal 0 ALB 4.1 LAB L501.1950 2.2-4. g/dL Normal 2 GLOB 3.7 LAB L501.2000 0.9-2. RATIO Normal 4 A/G 1.1 LAB L501.2200 8.5-10 mg/dL Normal .1 CA 9.0 LAB L501.4100 15-37 U/L Normal AST 21 LAB L501.4305 45-117 U/L Normal ALK P 80 LAB L501.4405 13-56 U/L Normal ALT 47 LAB L501.4600 0.20-1 mg/dL Normal .00 T BILI 0.50 LAB L501.5300 136-14 mmol/L Normal 5 NA 143 LAB L501.5600 3.5-5. mmol/L Normal 1 K 3.6 LAB L501.5900 98-107 mmol/L High CL 112 LAB L501.6100 21.0-3 mmol/L Normal 2.0 CO2 23.0 LAB L501.6200 5-15 Normal GAP 8 Performed By: #### L500.4050, L501.2450 #### [facility] [address], [address] LIPASE Collected: 01/10/2018 Status: F Source: TIONA 7:05 PM [facility] REPOSITORY TYPE CODE TESTS RESULT OUT OF REFERENCE UNITS RANGE LAB L501.2450 73-393 U/L High LIPASE 691 Performed By: #### L500.4050, L501.2450 #### [facility] [address] [place], [address] ,SERUM,HCG QUALI. Collected: Status: F Source: TIONA 01/10/2018 7:05 PM [facility] REPOSITORY TYPE CODE TESTS RESULT OUT OF REFERENCE UNITS RANGE LAB L700.6700 =>Qualitative mIU/mL Normal HCG Qual < 1 triggr LAB L700.7000 0-9 Nonpreg Negative Normal HCGSQUAL NEGATIVE Performed By: #### L700.6800 #### [facility] [address] [place], [address] URINALYSIS, COMPLETE Collected: 01/10/2018 Status: F Source: TIONA 6:50 PM [facility] REPOSITORY Order Comment: Order Date: 01/10/18 How was Urine Obtained? CLEAN CATCH TYPE CODE TESTS RESULT OUT OF RANGE REFERENCE UNITS LAB L400.3000 Yellow COLOR Normal Yellow LAB L400.3050 Clear Normal CLARITY Sl. Cloudy LAB L400.3200 Normal mg/dl Normal GLUCOSE, UR Normal LAB L400.3300 Negative mg/dL Normal BILIRUBIN URINE Negative LAB L400.3400 Negative mg/dl Normal KETONE UR Negative LAB L400.3465 1.002-1.030 Normal SP.GR. DIPSTX 1.005 LAB L400.3550 5.0 - 8.0 pH UR Normal 7.0 LAB L400.3600 Negative mg/dl PROT Normal DIPSTX Negative LAB L400.3700 Normal mg/dl Normal UROBILI Normal LAB L400.3750 Negative Normal NITRITE UR Negative LAB L400.3780 Negative /ul Normal OCCULT BLOOD-UR Negative LAB L400.3800 Negative /ul High LEUK 25 ESTERASE LAB L400.4050 0-5 /hpf WBC Normal 0-5 SEEN LAB L400.4100 0-5 /hpf 0 Normal RBC-UA SEEN LAB L400.4150 5-10 /hpf SQUAM Normal EPI 0-5 SEEN LAB L400.4300 None Seen /hpf 0 Normal BACTERIA SEEN LAB L400.4350 <or=2+ /hpf 0 Normal MUCUS, URINE SEEN Performed By: #### L400.0001 #### [facility] [address] [facility] [place], [address] ABDOMEN/PELVIS WITH Observed: 01/10/2018 Status: F Source: TIONA CONTRAST 6:39 PM [facility] REPOSITORY [facility] Imaging Services [address] [place] [address] Abdomen/Pelvis WITH Contrast MR#: [id number] Acct: [id number] Name: URSULA HUGHES Rep #: [id number] : 1985 F 32 From: Shama Kaur MD PCP: Harrison Chambers MD Status: REG ER Study: Abdomen/Pelvis WITH Contrast Date of Exam: 01/10/18 Exam# [id number] Ordering Dr: Kelsy Pate MD CT Abdomen And Pelvis W/ Contrast INDICATION: LOWER LEFT SIDE ABD PAIN X 4 DAYS, HX SBO. Hx of colon resection x 2 d/t blockage. COMPARISON: None TECHNIQUE: Axial CT imaging of the abdomen and pelvis with IV contrast. Coronal and sagittal reformatted images. Radiation dose optimization technique applied. 100 mL of Isovue-300 were given intravenously. FINDINGS: Subsegmental atelectasis is seen at the visualized lung bases. The heart size is normal. The liver, gallbladder, adrenal glands, and pancreas are unremarkable. There is a focal wedge shaped area of decreased enhancement along the dome of the spleen, measuring approximately 1.7 cm in depth and with no associated subcapsular hematoma or other signs of hemorrhage. The kidneys enhance contrast symmetrically bilaterally and are without evidence of hydronephrosis. The bowel loops are nondistended. Sutures are noted at the hepatic flexure. Urinary bladder is unremarkable. There is no evidence of free air or free fluid. CT/Abdomen/Pelvis WITH Contrast IMPRESSION: Small focal wedge-shaped area of hypoenhancement in the dome of the spleen, suggestive of small focal infarct. No evidence of associated laceration or hemorrhage. The visualized lower ribs are intact. Otherwise no acute findings. at 2130 Reported and signed by: Shama Kaur MD Electronically Signed: Shama Kaur MD at 21:28 EDT Tel , Service support , CC: Kelsy Pate MD; Harrison Chambers MD [employer] Instructor: Signed PROGRESS Observed: 12/06/2017 Status: COMPLETED Source: [place] 3:29 PM [facility] REPOSITORY HNO ID: [id number] Author: Jing Khalil Service: (none) Author Type: (none) Type: Progress Notes Filed: 12/06/2017 3:29 PM Note Text: Radiology Service Progress Note PATIENT NAME: Ursula Hughes DATE OF SERVICE: December 06, 2017 TIME: 3:29 PM PATIENT IDENTITY VERIFICATION COMPLETED USING TWO (2) METHODS: Patient confirmed name verbally and Date of . PATIENT GENDER DATA: Female. status: : No status: NO. PATIENT RELEVANT IMPLANT DATA REVIEWED: Not Applicable RADIOLOGY DEPARTMENT: CT; Exam(s) Completed: Brain PERIPHERAL IV DATA: Not applicable SIGNED BY: Jing Khalil December 06, 2017 3:29 PM CBC AND DIFFERENTIAL Collected: 12/06/2017 Status: F Source: [place] 2:28 PM [facility] REPOSITORY TYPE CODE TESTS RESULT OUT OF REFERENCE UNITS RANGE LAB WBC 3.70-11.00 k/uL WBC 5.97 LAB RBC 3.90-5.20 m/uL RBC 4.86 LAB HGB 11.5-15.5 g/dL Hemoglobin 14.0 LAB HCT 36.0-46.0 % Hematocrit 41.9 LAB MCV 80.0-100.0 fL MCV 86.2 LAB MCH 26.0-34.0 pG MCH 28.8 LAB MCHC 30.5-36.0 g/dL MCHC 33.4 LAB RDWCV 11.5-15.0 % RDW-CV 12.9 LAB PLTCT 150-400 k/uL Platelet Count 203 LAB MPV 9.0-12.7 fL MPV 9.9 LAB ANEUT % Neut% 60.3 LAB AANEUT 1.45-7.50 k/uL Abs Neut 3.59 LAB ALYMP % Lymph% 33.2 LAB AALYMP 1.00-4.00 k/uL Abs Lymph 1.98 LAB AMONO % Randolph% 4.4 LAB AAMONO <0.87 k/uL Abs Randolph 0.26 LAB AEOS % Eosin% 1.3 LAB AAEOS <0.46 k/uL Abs Eosin 0.08 LAB ABASO % Baso% 0.8 LAB AABASO <0.11 k/uL Abs Baso 0.05 LAB AUNRBC 0 /100 WBC NRBCs 0.0 LAB ABNRBC <0.01 k/uL Absolute nRBC <0.01 LAB DTYP DTYPE Auto Diff Performed By: #### CBCDIF, BMP #### [facility] [address], [place] [address] BASIC METABOLIC PANL Collected: 12/06/2017 Status: F Source: [place] 2:28 PM [facility] REPOSITORY TYPE CODE TESTS RESULT OUT OF REFERENCE UNITS RANGE LAB GLU 74-99 mg/dL Glucose 82 Result Comment: The [place] Diabetes Association (ADA) provides guidance for cutoff values for fasting glucose and random glucose. The ADA defines fasting as no caloric intake for at least 8 hours. Fas ting plasma glucose results between 100 to 125 mg/dL indicate increased risk for diabetes (prediabetes). Fasting plasma glucose results greater than or equal to 126 mg/dL meet the criteria for diagnosis of diabetes. In the absence of unequivocal hyperglycemia, results should be confirmed by repeat testing. In a patient with classic symptoms of hyperglycemia or hyperglycemic crisis, random plasma glucose results greater than or equal to 200 mg/dL meet the criteria for diagnosis of diabetes. Reference: Standards of Medical Care in Diabetes 2016, [place] Diabetes Association. Diabetes Care. 2016.39(Suppl 1). LAB BUN 7-21 mg/dL BUN 11 LAB CRET 0.58-0.96 mg/dL Creatinine 0.92 LAB NA 136-144 mmol/L Sodium 142 LAB K 3.7-5.1 mmol/L Potassium 4.4 LAB CL 97-105 mmol/L Chloride High 109 LAB CO2 22-30 mmol/L Low CO2 20 LAB AGAP 9-18 mmol/L Anion Gap 13 LAB CA 8.5-10.2 mg/dL Calcium, Total 9.2 LAB GFRAA eGFR- Amer. >60 LAB GFRNAA . eGFR-All Other Races >60 Result Comment: eGFR (Estimated GFR) Units of measure: mL/min/1.73 meters squared eGFR is derived from the reexpressed MDRD Study equation using the following parameters: serum creatinine, age, gender and race. The creatinine assay has been calibrated to be traceable to IDMS. An eGFR <60 mL/min/1.73m2 for >3 months is consistent with chronic kidney disease. Refer to KDOQI guidelines for clinical interpretation. In patients with unstable renal function, e.g. those with acute kidney injury, the eGFR may not accurately reflect actual GFR. Performed By: #### CBCDIF, [facility] #### [facility] [address] [place], [place] [address] CT BRAIN WO IVCON Observed: 12/06/2017 Status: F Source: [place] 2:07 PM [facility] REPOSITORY * * *Final Report* * * DATE OF EXAM: Dec 06 2017 2:07PM [facility] 0504 - CT BRAIN WO IVCON / PROCEDURE REASON: Headache * * * * Physician Interpretation * * * * EXAMINATION: CT BRAIN WO IVCON HISTORY: Headache TECHNIQUE: Serial axial images without IV contrast were obtained from the vertex to the foramen magnum. MQ: [id number] CT Dose-Length Product (DLP): 907 mGy*cm CT Dose Reduction Employed: No dose reduction techniques were required COMPARISON: MRI of 02/23/2014 RESULT: Post-operative change: None. Acute change: No evidence of an acute infarct or other acute parenchymal process. Hemorrhage: No evidence of acute intracranial hemorrhage. Mass Lesion / Mass Effect: There is no evidence of an intracranial mass or extraaxial fluid collection. No significant mass effect. Chronic change: None apparent. Parenchyma: There is no significant volume loss. The brain parenchyma is otherwise within normal limits for age. Ventricles: The ventricles are within normal limits of size and configuration for age. Paranasal sinuses and skull base: The visualized paranasal sinuses are grossly clear. The skull base and imaged soft tissues are unremarkable. IMPRESSION: No acute intracranial process, including no intracranial hemorrhage. Water Aerob[employer] Instructor: DARLINE Transcribe Date/Time: Dec 06 2017 2:20P Dictated by : CAROLIN COHEN DO This examination was interpreted and the report reviewed and electronically signed by: ARPITA WALL MD on Dec 06 2017 2:29PM EST [id number] Observed: 12/06/2017 Status: COMPLETED Source: [place] 12:02 PM [facility] REPOSITORY HNO ID: [id number] Author: Harrison Chambers Service: (none) Author Type: Physician Type: Progress Notes Filed: 12/06/2017 12:13 PM Note Text: Patient presents with: Headache HPI: Patient presents today for office visit for acute visit. Nursing Notes: Natividad Carlson LPN 12/06/2017 11:36 AM Signed Here today c/o headache for 3 days and not getting relief. Does note some sinus congestion. Cough that isn't productive feels like has stuff to cough up but she can't. Does state some changes in her vision with head and is sensitive to light. Denies nausea/vomiting. Has used her maxalt and tylenol along with ice to help. Also has a scratch on left palm that wants to check was done by unknown animal yesterday. Is the worst headache she has ever had. Normally gets a few times a year. This gradually got worse Photophobia and vision changes are new. Having a tunnel vision sensation. No new speech issues. No numbness or weakness. Some dizziness. No fever or chills. Has mild cough and congestion. Mild nausea. No head injury. No diarrhea or constipation. Headache is very focal on right forehead. Headache is 9/10 MEDICATIONS: Current Outpatient Prescriptions: sertraline (ZOLOFT) 25 mg tablet Take 4 tablets by mouth once daily. levETIRAcetam (KEPPRA) 1,000 mg tablet Take 1,000 mg by mouth twice daily. folic acid 1 mg tablet Take 4 tablets by mouth once daily. ranitidine (ZANTAC) 150 mg tablet Take 1 tablet by mouth twice daily. sucralfate (CARAFATE) 1 gram tablet Take 1 tablet by mouth before meals and at bedtime. albuterol HFA (PROAIR HFA) 90 mcg/actuation inhaler Inhale 2 Puffs as instructed every 6 hours as needed. flunisolide (AEROSPAN) 80 mcg/actuation HFAA Inhale 2 Puffs as instructed twice daily. verapamil ER 180 mg 24 hr capsule Take 1 capsule by mouth once daily. rizatriptan (MAXALT) 10 mg tablet Take 1 tablet by mouth as needed. May repeat in 2 hours if needed clonazePAM (KLONOPIN) 0.5 mg tablet Take 1 tablet by mouth twice daily as needed for up to 90 days. busPIRone (BUSPAR) 15 mg tablet Take 1 tablet by mouth three times daily. medroxyPROGESTERone (DEPO-PROVERA) 150 mg/mL injection Inject 1 mL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 09/21/2017 Status: COMPLETED Source: [place] 10:45 PM [facility] REPOSITORY HNO ID: [id number] Author: Ni SalmeronRn) REBECCA Pan Service: Emergency Medicine Author Type: Registered Nurse Type: ED Notes Filed: 09/21/2017 10:55 PM Note Text: Dr Sams [facility] ED NOTE Observed: 09/21/2017 Status: COMPLETED Source: [place] 10:36 PM [facility] REPOSITORY HNO ID: [id number] Author: Thelma SalmeronRn) REBECCA Tyler Service: Emergency Medicine Author Type: Registered Nurse Type: ED Notes Filed: 09/21/2017 10:39 PM Note Text: Presents to ED ambulatory via triage, states significant other is here waiting in car (states has ride). Pt c/o incisional pain s/p abdominal surgery in [place] 09/04/17 for adhesions. Pt sts this pain started yesterday, has not notified surgeon of c/o due to moving here from [place]. Pt is AANDO, wdp, resps appear even and unlabored. Pt does not appear to be in distress. ALLERGIES ALLERGIES DATE TYPE / CODE NAME / CODE REACTION SEVERITY SOURCE 09/05/19 Drug bupropion seizures Unknown [place] [facility] Allergy/978903770 HCl/V026234314(RXNO [facility] (SNOMED CT[facility] ) Hospital Repository 09/05/19 Drug diphenhydramine Itching/throat Unknown [place] 19 Allergy/716761065 HCl/M290153032(RXNO sw[place] [facility] (SNOM[facility] ) Hospital Repository 09/05/19 Drug doxycycline/K226860 Itching/vomiting Unknown [place] 19 Allergy/085106209 748(RXNORM) [facility] (SNOMED CT) Hospital Repository 09/05/19 Drug dill Shortness of Unknown [place] 19 Allergy/640346114 oil/B925168453(RXNO breath [facility] ([facility] Hospital Repository 09/05/19 Drug venom-honey Anaphylaxis Unknown [place] 19 Allergy/953572022 bee/C255061545(RXNO [facility] (SNOM[facility] ) Hospital Repository 11/16/19 Drug morphine/Q558593338 Itching Unknown [place] 18 Allergy/587033201 (RXNORM) [facility] (SNOMED CT) Hospital Repository 12/19/19 Drug OPIOIDS - MORPHINE CONTRAINDICA [place] 16 Class/822687917(S ANALOGUES [facility] Main NOMED [facility]) [place] Repository 06/14/20 DRUG BUPROPION [place] 08 INGREDI/422629426 [facility] (SNOMED CT) [place] Rep[facility] 10/03/19 Miscellaneous OTHER ANAPHYLAXIS [place] 08 Allergy/072874923 [facility] (SNOMED CT) [place] Rep[facility] 02/07/20 Environ/133474194 BEES [place] 07 (SNOMED CT) Clinic Main [place] Rep[facility] 02/07/20 Miscellaneous OTHER [place] 07 Allergy/773951447 [facility] (SNOMED CT) [place] [facility] 02/12/20 DRUG DIPHENHYDRAMINE HCL [place] 06 INGREDI/910878584 Clinic Main (SNOMED CT) [place] Rep[facility] NG/812397579(SNOM BEES [facility] ED CT) [facility] Repository NG/302065874(SNOM DIPHENHYDRAMINE HCL [facility] ED CT) [facility] Repository NG/791317146(SNOM OTHER [facility] ED CT) [facility] Repository NG/407169310(SNOM OPIOIDS - MORPHINE [facility] ED CT) ANALOGUES [facility] Repository NG/288785609(SNOM BUPROPION [facility] ED CT) Health System Repository ENCOUNTERS ENCOUNTERS ADMIT/DISCHARGE ACCOUNT NUMBER ADMITTING ENCOUNTER LOCATION SOURCE CLASS 09/04/2018/09/05/19 [id number] Emergency [place] ding:ED Repository 09/04/2018/09/05/19 [id number] Ambulatory [address] Main [place] Repository 09/04/2018/09/05/19 [id number] Ambulatory [address] [place] Repository 09/03/2018/09/03/19 [id number] Ambulatory [address] Repository 08/27/2018/08/27/19 [id number] Emergency [place] ding:ED Repository 08/24/2018/08/24/19 [id number] Emergency [place] ding:ED Repository 08/14/2018/08/15/19 [id number] Ambulatory [address] [place] Repository 06/18/2018/06/18/20 [id number] Ambulatory [address] [place] Rep[place] 06/14/2018/06/14/20 [id number] Emergency [place] ding:ED Repository 05/20/2018/05/21/20 [id number] Ambulatory [address] Repository 05/17/2018/05/17/20 [id number] Emergency [place] [address] ding:ED Repository 05/16/2018/05/19/20 [id number] Ambulatory [address] [place] Repository 02/21/2018/02/22/20 [id number] Emergency [place] ding:ED Repository 02/14/2018/02/18/20 [id number] Ambulatory [address] Repository 01/20/2018/01/24/20 [id number] ADARSH, [address] Other [place] Repository 01/20/2018/01/24/20 [id number] ADARSH, Inpatient [address] MEDICAL Repository CENTERBuildi ng:TCURoom: [id number]: 01/20/2018/01/23/20 [id number] Ambulatory [address] Repository 01/20/2018/01/22/20 [id number] Ambulatory [address] Repository 01/11/2018/01/13/20 [id number] Ambulatory BMSBuilding: [place] [facility] Repository 01/10/2018/01/13/20 [id number] Kim Nicko Ambulatory [address] ding:PJ7Vpjx Repository : OR473Kav: 1 01/10/2018 [id number] Kim Nicko Ambulatory BMSBuilding: [place] [facility] Repository 01/10/2018 [id number] [facility] Ambulatory BMSBuilding: [place] BMS.[facility] Repository 01/10/2018 [id number] [facility] Ambulatory BMSBuilding: [place] BMS.[facility] Repository 12/06/2017/12/07/19 [id number] Ambulatory [address] Repository 12/06/2017/12/07/19 [id number] Ambulatory [address] Repository 12/06/2017/12/10/19 [id number] Ambulatory [address] Repository 11/15/2017/11/16/19 [id number] Emergency [address] ding:ED Repository 11/15/2017/11/19/19 [id number] Ambulatory [address] Repository 11/14/2017/11/16/19 [id number] Ambulatory [address] Repository PAYERS PAYERS ENCOUNTER GUARANTOR PAYER SUBSCRIBER SOURCE 09/04/2018 URSULA Hall Primary URSULA Yuan [id number] [facility] Number: [id number], [place] [id number] Repository [address]Jwo: [phone]) Date:2018-09-04 O [phone] (YC) [address]ATTN: [place] [address]NL: 09/04/2018 Secondary NOT GIVENUNK [place] Insurance:SELF PAY [facility] Number: Effective Repository Date:2018-09-04 08/27/2018 URSULA Hall Primary URSULA Hall [place] [id number] Insurance:CARESOURCEP [place]ASSFORDDOB: [facility] Number: [id number], [place] [id number] Repository [address]Swc: ([phone]) Date:2018-08-27P O [phone] () [address]ATTN: [place] [address]OW: 08/27/2018 Secondary NOT GIVENUNK [place] Insurance:SELF PAY [facility] Number: Effective Repository Date:2018-08-27 08/24/2018 URSULA Hall Primary URSULA Hall [place] [id number] Insurance:CARESOURCEP [place]ASSFORDDOB: [facility] Number: [id number], [place] [id number] Repository [address]Enn: ([phone]) Date:2018-08-24P O [phone] () [address]ATTN: [place] [address]TZ: 08/24/2018 Secondary NOT GIVENUNK [place] Insurance:SELF PAY [facility] Number: Effective Repository Date:2018-08-24 06/14/2018 URSULA Hall Primary URSULA Hall [place] [id number] Insurance:CARESOURCEP [place]ASSFORDDOB: [facility] Number: [id number], [place] [id number] Repository [address]Vkk: ([phone]) Date:2018-06-14P O [phone] () [address]ATTN: [place] [address]HN: 06/14/2018 Secondary NOT GIVENUNK [place] Insurance:SELF PAY [facility] Number: Effective Repository Date:2018-06-14 05/17/2018 URSULA M Primary URSULA Rafael [place] [id number] Insurance:CARESOURCEP [place]ASSFORDDOB: [facility] Number: [id number], [place] [id number] Repository [address]Oqf: ([phone]) Date:2018-05-17P O [phone] () [address]ATTN: [place] [address]PE: 05/17/2018 Secondary NOT GIVENUNK [place] Insurance:SELF PAY [facility] Number: Effective Repository Date:2018-05-17 02/21/2018 URSULA M Primary URSULA M [place] [id number] Insurance:CARESOURCEP GLASSSTANDISHDOB: [facility] Number: [id number], [place] [id number] Repository [address]Gwi: ([phone]) Date:2018-02-21P O [phone] () [address]ATTN: [place] [address]RU: 02/21/2018 Secondary NOT GIVENUNK [place] Insurance:SELF PAY [facility] Number: Effective Repository Date:2018-02-21 01/20/2018 URSULA M Primary URSULA M [facility] GLASSSTANDISHDOB: Insurance:[facility]: Health System MEDICAIDPolicy [id number] Number: [place], [place] [id number] [address]Kbb: ([phone]) Date: [phone] () 01/11/2018 URSULA M Primary URSULA M [place] [id number] Insurance:CARESOURCEP GLASSFORDDOB: [facility] Number: [id number], [place] [id number] Repository [address]Hdv: (330) Date:2018-01-10P O [phone] () [address]ATTN: [place] [address]TW: 01/11/2018 Secondary NOT GIVENUNK [place] Insurance:SELF PAY [facility] Number: Effective Repository Date:2018-01-11 01/10/2018 URSULA M Primary URSULA M [place] [id number] Insurance:CARESOURCEP GLASSFORDDOB: [facility] Number: [id number], [place] [id number] Repository [address]Ltd: ([phone]) Date:2018-01-10P O [phone] (HP) [address]ATTN: [place] [address]XJ: 01/10/2018 Secondary NOT GIVENUNK [place] Insurance:SELF PAY [facility] Number: Effective Repository Date:2018-01-10 01/10/2018 URSULA M Primary URSULA M [place] [id number] Insurance:CARESOURCEP GLASSFORDDOB: [facility] Number: [id number], [place] [id number] Repository [address]Jfr: (330) Date:2018-01-10P O [phone] () [address]ATTN: [place] [address]LZ: 01/10/2018 Secondary NOT GIVENUNK [place] Insurance:SELF PAY [facility] Number: Effective Repository Date:2018-01-10 01/10/2018 URSULA M Primary URSULA M [place] [id number] Insurance:CARESOURCEP [place]ASSFORDDOB: [facility] Number: [id number], [place] [id number] Repository [address]Lir: (330) Date:2018-01-10P O [phone] () [address]ATTN: [place] [address]NV: 01/10/2018 Secondary NOT GIVENUNK [place] Insurance:SELF PAY [facility] Number: Effective Repository Date:2018-01-10 01/10/2018 URSULA M Primary URSULA M [place] [id number] Insurance:CARESOURCEP GLASSFORDDOB: [facility] Number: [id number], [place] [id number] Repository [address]Ssq: (330) Date:2018-01-10P O [phone] () [address]ATTN: [place] [address]GR: 01/10/2018 Secondary NOT GIVENUNK [place] Insurance:SELF PAY [facility] Number: Effective Repository Date:2018-01-10 11/15/2017 URSULA Hall Primary URSULA Barberoster [id number] [facility] Number: [id number], [place] [id number] Repository [address]Fxa: ([phone]) Date:2017-11-15P O [phone] () [address]ATTN: [place] [address]QS: 11/15/2017 Secondary NOT GIVENUNK [place] Insurance:SELF PAY [facility] Number: Effective Repository Date:2017-11-15
== END 2018-08-27 03:26 | disposition home or self-care (01) ==
PROVIDERS: Emergency Provider Emergency Medicine; Family Provider Family Medicine; PCP Family Medicine
DX: K29.70 Gastritis, unspecified, without bleeding (principal); R10.10 Upper abdominal pain, unspecified; Z72.0 Tobacco use
CPT/HCPCS: 74022; 80053; 83605; 83690; 85025; 96361; 96374; 96375; 99283; J7030; A4216; J2405

== ENCOUNTER 2018-09-04 18:02 | Emergency (ER) | payer MEDICAID, SELFPAY ==
[2018-09-04 18:03] VITALS: BP 143/69; PULSE 91; RESP 16; TEMP 36.4; O2SAT 97; BMI 40.2
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
[2018-09-04 18:51] LABS: Anion Gap 8 (5-15); BUN 9 mg/dL (7-18); Calcium,Total 8.9 mg/dL (8.5-10.1); Chloride 112 mmol/L (98-107); EST Glomerular Filtration Rate 77 mL/min (>60); Est Glom Filt Rate - Afr Amer 93 mL/min (>60); Glucose 85 mg/dL (74-106); Potassium 3.6 mmol/L (3.5-5.1); Sodium Level 141 mmol/L (136-145)
[2018-09-04 18:52] LABS: Absolute Lymphocyte Count 2.05 X10^3/ul (0.83-4.51); Absolute Neutrophil Count 5.6 X10^3/uL (2.0-7.7); Basophil# 0.03 X10^3/uL; Basophil% 0.4 % (0-1); Eosinophil# 0.03 X10^3/uL; Eosinophils% 0.4 % (0-5); Hematocrit 43.3 % (37-47); Hemoglobin 14.9 g/dl (12.0-15.0); Lymphocyte # 2.05 X10^3/ul (4.0); Lymphocyte % 25.4 % (19-41); Mean Corp Hgb Conc 34.4 g/gl (32-36); Mean Corpuscular Hgb 29.9 pg (27.0-32.0); Mean Corpuscular Volume 86.9 fL (81-99); Mean Platelet Vol. 9.3 fl (6.2-12.0); Neutrophil # 5.55 X10^3/uL (2.7-7.7); Neutrophil % 68.7 % (47-70); Platelet Count 204 K/mm3 (150-450); RBC Distribution Width CV 12.8 % (11.6-14.6); RBC Distribution Width SD 41.1 fl (35.1-43.9); Red Blood Count 4.98 M/mm3 (4.2-5.4); White Blood Count 8.1 K/mm3 (4.4-11.0)
[2018-09-04 18:53] LABS: Differential Indicated SCAN CRITERIA MET; POSITIVE COUNT NO; POSITIVE DIFFERENTIAL NO; POSITIVE MORPHOLOGY YES
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
[2018-09-04 19:26] LABS: Anisocytosis RARE; Platelet Estimate ADEQUATE (ADEQ); Platelet Morphology LARGE
[2018-09-04 19:55] LABS: Alcohol, Blood (Medical)-Serum < 3.0 mg/dL
[2018-09-04 20:06] LABS: Pregnancy, Serum, hCG Quali. NEGATIVE Negative (0-9 Nonpreg)
[2018-09-04 20:06] LABS: Amphetamine Urine VISTA NEGATIVE (<1000 ng/mL); Barbiturate Urine VISTA NEGATIVE (< 200 ng/mL); Benzodiazepine Urine VISTA NEGATIVE (< 200 ng/mL); Cocaine Urine VISTA NEGATIVE (< 300 ng/mL); Ecstacy Urine VISTA NEGATIVE (< 500 ng/mL); Methadone Urine VISTA NEGATIVE (< 300 ng/mL); PCP Urine VISTA NEGATIVE (< 25 ng/mL); THC Urine VISTA POSITIVE (< 50 ng/mL); Vista UDS pH Range 6
--- NOTE | 2018-09-04 20:09 | NURSING ---
CALLED CRISIS AT 2009
[2018-09-04] MEDS: Acetaminophen 325 MG Tablet 650 MG PO (21:31)
[2018-09-04 22:03] VITALS: PULSE 90; RESP 16
--- NOTE | 2018-09-04 22:25 | CM.ED ---
SOCIAL WORK NOTE LEVI FROM CRISIS HERE. ANTICIPATE D/C TO [facility].
--- NOTE | 2018-09-04 22:28 | NURSING ---
ACCEPTED TO [facility] BY DR. RUANO [phone] REPORT
[2018-09-05] VITALS (8 sets, daily range): BP systolic 127–136; BP diastolic 62–91; PULSE 76–82; RESP 16; TEMP 36.8–37.1; O2SAT 96–98
[2018-09-05] MEDS: Sertraline 50 MG Tablet 25 MG PO (00:55)
[2018-09-05] MEDS: Verapamil SR 180 MG CAPSULE PO (00:55)
[2018-09-05] MEDS: traZODone 100 MG Tablet PO (00:55)
[2018-09-05] MEDS: LORazepam 1 MG Tablet PO (06:23)
--- NOTE | 2018-09-05 07:37 | ED.RN ---
PTS BELONGINGS GIVEN TO TRANSPORT SQUAD, EACH BAG LABELED WITH PT LABEL.
== END 2018-09-05 08:02 ==
LOC: ED 18:20
PROVIDERS: Emergency Provider Emergency Medicine; Family Provider Family Medicine; PCP Family Medicine
DX: R45.851 Suicidal ideations (principal); F32.9 Major depressive disorder, single episode, unspecified; Z72.0 Tobacco use; Z79.51 Long term (current) use of inhaled steroids; Z79.82 Long term (current) use of aspirin; Z79.899 Other long term (current) drug therapy
CPT/HCPCS: 80048; 80307; 80320; 84703; 85025; 99285; G0480

== ENCOUNTER 2018-10-16 13:55 | Emergency (ER) | payer MEDICAID, SELFPAY ==
[2018-10-16] VITALS (9 sets, daily range): BP systolic 99–118; BP diastolic 71–92; PULSE 85–108; RESP 14–17; TEMP 36.6; O2SAT 96–97; BMI 38.5
--- NOTE | 2018-10-16 14:26 | ED.RN ---
PT REFUSING TO CHANGE INTO GOWN. STATING SHE IS LEAVING AND GOING TO [facility]. DOCTOR IN ROOM.
--- NOTE | 2018-10-16 14:32 | EKG12_ITS ---
Test Reason : MEDICAL CLEARANCE Blood Pressure : / mmHG Vent. Rate : 095 BPM Atrial Rate : 095 BPM P-R Int : 142 ms QRS Dur : 088 ms QT Int : 368 ms P-R-T Axes : 003 -12 -14 degrees QTc Int : 462 ms Normal sinus rhythm Possible Left atrial enlargement Low voltage QRS Nonspecific T wave abnormality Prolonged QT Abnormal ECG Confirmed by BETZY BANEGAS, PATTI ([id number]), editor trade journal JARETT HAIR ([id number]) on 10/21/2018 9:09:28 AM Referred By: CARLOS A Confirmed By:PATTI BO MD
--- NOTE | 2018-10-16 14:32 | RAD_ITS ---
STUDY: X-RAY CHEST REASON FOR EXAM: Female, 33 years old. Syncopal episode. Mayo ideation. TECHNIQUE: Single AP portable view of the chest. COMPARISON: Comparison is made with prior study dated June 14, 2018. FINDINGS: The lungs are clear and expanded. There is no demonstrated pleural abnormality. Normal size heart. Normal mediastinum and barbra. Normal visualized pulmonary arteries. Normal visualized aortic arch and descending thoracic aorta. Normal visualized thoracic spine. Normal visualized ribs, clavicles, and shoulders. There is no demonstrated abnormality of the visualized soft tissue structures of the upper abdomen. RAD/Chest 1 View (Portable) IMPRESSION: Normal x-ray examination of the chest. Electronically Signed: Nato Wick, at 14:59 EST , Service support ,
[2018-10-16 15:42] LABS: Absolute Lymphocyte Count 1.66 X10^3/ul (0.83-4.51); Absolute Neutrophil Count 7.1 X10^3/uL (2.0-7.7); Basophil# 0.01 X10^3/uL; Basophil% 0.1 % (0-1); Eosinophil# 0.03 X10^3/uL; Eosinophils% 0.3 % (0-5); Hematocrit 45.9 % (37-47); Hemoglobin 15.4 g/dl (12.0-15.0); Lymphocyte # 1.66 X10^3/ul (4.0); Lymphocyte % 18.3 % (19-41); Mean Corp Hgb Conc 33.6 g/gl (32-36); Mean Corpuscular Volume 89.3 fL (81-99); Mean Platelet Vol. 9.6 fl (6.2-12.0); Monocyte# 0.29 X10^3/uL; Monocyte% 3.2 % (0-10); Neutrophil # 7.06 X10^3/uL (2.7-7.7); Neutrophil % 77.7 % (47-70); Platelet Count 179 K/mm3 (150-450); RBC Distribution Width CV 13.3 % (11.6-14.6); RBC Distribution Width SD 43.6 fl (35.1-43.9); Red Blood Count 5.14 M/mm3 (4.2-5.4); White Blood Count 9.1 K/mm3 (4.4-11.0)
[2018-10-16 15:43] LABS: POSITIVE COUNT NO; POSITIVE DIFFERENTIAL NO; POSITIVE MORPHOLOGY NO
[2018-10-16 16:00] LABS: ALB/GLOB Ratio 1.3 RATIO (0.9-2.4); AST(SGOT) 20 U/L (15-37); Alanine Aminotransfer ALT/SGPT 35 U/L (13-56); Albumin, Serum 4.4 g/dL (3.2-5.0); Alkaline Phosphatase 73 U/L (45-117); Anion Gap 9 (5-15); BUN 12 mg/dL (7-18); BUN/Creat Ratio 11.3 RATIO (10-20); Calcium,Total 9.3 mg/dL (8.5-10.1); Chloride 112 mmol/L (98-107); Creatinine, Serum 1.06 mg/dL (0.55-1.02); EST Glomerular Filtration Rate 63 mL/min (>60); Est Glom Filt Rate - Afr Amer 77 mL/min (>60); Globulin 3.5 g/dL (2.2-4.2); Glucose 109 mg/dL (74-106); Potassium 3.5 mmol/L (3.5-5.1); Protein, Total 7.9 g/dL (6.4-8.2); Sodium Level 142 mmol/L (136-145)
[2018-10-16 16:21] LABS: Pregnancy, Serum, hCG Quali. NEGATIVE Negative (0-9 Nonpreg)
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
--- NOTE | 2018-10-16 16:36 | ED.DCSUM_ITS ---
- ER Visit Summary Date of Service: 10/16/18 Chief Complaint: Suicidal History of Present Illness: The patient is a 33 F who is brought in by the police. There was concerns for her mental health. Patient states she has not eaten in 5 days and has not slept in 3 she states that is near to her. She states that she can feel her brother reaching out to her to take her with him. When asked if she is suicidal she states I am I am not. She is reportedly in a very bad living situation. She has been free from cocaine for about 2 years states she relapsed last week. Physical Examination: Afebrile vital signs are stable Gen: Well-nourished well-developed Head: Normocephalic atraumatic Eyes: Perrl EOMI ENT: TMs clear no rhinorrhea moist mucous membranes Neck: Supple no lymphadenopathy no JVD nontender CVS: Regular rate rhythm no murmurs normal S1-S2 Respiratory: No distress clear to auscultation bilaterally chest nontender Abdomen: Soft nontender nondistended normal bowel sounds no masses Back: Nontender Extremity: Nontender no edema Skin: Normal color no rash Neuro: alert orientated ?3 CN II-XII intact normal strength sensation reflexes gait cerebellar Psych: Patient appears depressed. She has a labile affect. Again when asked if she is suicidal she states may be. Test Results: Psychiatric screening labs will be obtained. Emergency Department Course and Treatment: Crisis will be up to evaluate the patient. Impression: 1. Suicidal ideation 2. Depression This note was generated with [employer] software. It may contain incorrect words, spelling, and punctuation that were not noted in review of the chart prior to signing <Owen Haskins - Last Filed: 10/16/18 16:33> - ER Visit Summary Date of Service: 10/16/18 Emergency Department Course and Treatment: Crisis was in to evaluate the patient and felt the patient would benefit from inpatient treatment. They pink slipped the patient and will make arrangements for transfer to a psychiatric facility. Disposition: Transfer to psychiatric facility Impression: 1. Suicidal ideation 2. Depression This note was generated with [employer] software. It may contain incorrect words, spelling, and punctuation that were not noted in review of the chart p rior to signing <Ross Lemus - Last Filed: 10/16/18 22:16> ED Disposition <Owen Haskins - Last Filed: 10/16/18 16:33> <Ross Lemus - Last Filed: 10/16/18 22:16> - Plan for ED Patient: Disposition: Psychiatric Hospital or Unit Diagnosis: Depression with suicidal ideation Referrals: Harrison Maldonado MD [Primary Care Provider] -
[2018-10-16 19:18] LABS: Bacteria 0 SEEN /hpf (None Seen); Red Blood Cells-Urine 0 SEEN /hpf (0-5)
[2018-10-16 19:22] LABS: Color, Urine Yellow (Yellow); Glucose, Dipstick Normal (Normal); Ketone-Dipstick 5 mg/dl (Negative); Leukocyte Esterase-Dipstick 500 /ul (Negative); Nitrite-Dipstick Negative (Negative); Occult Blood-Urine 10 /ul (Negative); Protein-Dipstick 30 mg/dl (Negative); Specific Gravity, Urine 1.025 (1.002-1.030); Urine Clarity Sl. Cloudy (Clear); Urine Urobilinogen 4 mg/dl (Normal)
[2018-10-16 19:23] LABS: Urine Bilirubin Dipstick 1 mg/dL (Negative)
[2018-10-16 19:27] LABS: Squamous Epithelial Cells - UA 10-25 SEEN /hpf (5-10)
[2018-10-16 19:28] LABS: White Blood Cells 0-5 SEEN /hpf (0-5)
[2018-10-16 19:29] LABS: Hyaline Cast 0-5 SEEN /lpf (0-5); Mucous, Urine 2+ /hpf (<or=2+)
--- NOTE | 2018-10-16 19:48 | ED.RN ---
PATIENT STATES TO HYPNOTHERAPIST THAT SHE IS ANXIOUS, DR. LUNA MADE AWARE.
[2018-10-16 20:21] LABS: Amphetamine Urine VISTA POSITIVE (<1000 ng/mL); Barbiturate Urine VISTA NEGATIVE (< 200 ng/mL); Benzodiazepine Urine VISTA POSITIVE (< 200 ng/mL); Cocaine Urine VISTA NEGATIVE (< 300 ng/mL); Ecstacy Urine VISTA NEGATIVE (< 500 ng/mL); Methadone Urine VISTA NEGATIVE (< 300 ng/mL); PCP Urine VISTA NEGATIVE (< 25 ng/mL); THC Urine VISTA POSITIVE (< 50 ng/mL); Vista UDS pH Range 5
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
[2018-10-16] MEDS: LORazepam 1 MG Tablet PO (23:46)
[2018-10-17] VITALS: RESP 14
--- NOTE | 2018-10-17 01:09 | NURSING ---
ACCEPTED TO [facility] BY [facility] [phone] OPTION 1 REPORT DOES NOT WANT PATIENT TILL LATER MORNING
[2018-10-17 02:34] VITALS: RESP 16
[2018-10-17 04:12] VITALS: BP 117/76; PULSE 73; RESP 16; O2SAT 96
[2018-10-17 05:30] VITALS: RESP 16
[2018-10-17 06:48] VITALS: RESP 16
[2018-10-17 07:42] VITALS: BP 117/76; PULSE 73; RESP 16; RESP 18; O2SAT 99
== END 2018-10-17 08:10 ==
PROVIDERS: Emergency Provider Emergency Medicine; Family Provider Family Medicine; PCP Family Medicine
DX: R45.851 Suicidal ideations (principal); F32.9 Major depressive disorder, single episode, unspecified; J45.909 Unspecified asthma, uncomplicated; R56.9 Unspecified convulsions; Z72.0 Tobacco use; Z79.51 Long term (current) use of inhaled steroids; Z79.82 Long term (current) use of aspirin; Z79.899 Other long term (current) drug therapy
CPT/HCPCS: 71045; 80053; 80307; 80320; 81001; 84484; 84703; 85025; 93005; 99284; G0480

== ENCOUNTER 2018-10-29 17:22 | Emergency (ER) | payer MEDICAID, SELFPAY ==
[2018-10-16 13:57] VITALS: BMI 38.5
[2018-10-29 17:24] VITALS: BP 138/90; PULSE 104; RESP 16; TEMP 36.9; O2SAT 96; BMI 36.1
--- NOTE | 2018-10-29 17:29 | ED.RN ---
PT ARRIVES TO ED FOR ABD PAIN. UPON ASKING MENTAL HEALTH SCREENING QUESTIONS PT STATED YES AND NO TO SUICIDAL IDEATION. PT WAS INSTRUCTED THAT IT COULD NOT BE BOTH. SCRIPT WAS FOLLOWED AND PT STATED YES TO FIRST THREE SCREENING QUESTIONS. PT WAS INFORMED THAT SHE WOULD NEED CRISIS EVAL. SHE STATED SHE HAS NO INTENTION OR PLAN TO KILL HER SELF. SHE WAS RECENTLY ADMITTED TO A PSYCH HOSPITAL FOR THE SAME. PT HAS OUT PATIENT COUNSELING. Blue MCLAIN RN [id number]
--- NOTE | 2018-10-29 18:10 | CM.ED ---
Social Work Assessment Referral Date: 10/29/18 Date of Assessment: 10/29/18 Informant: NURSING Reason for Consult: SUICIDAL IDEATION Information obtained from: PATIENT Living Arrangements: PATIENT LIVING WITH SIGNIFICANT OTHER, MARIA ISABEL HERNANDEZ ([phone]) Employment/Financial: Supports: Social/Family Stressors: Mental Health History: Diagnoses: Medications: Physicians/Practitioners: Last Appointment (if applicable): Substance Abuse History: Substance(s) of choice: Last use: Hx of treatment: Where? When? Interventions: Assessment: PLAN:
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
--- NOTE | 2018-10-29 18:12 | ED.DCSUM_ITS ---
- ER Visit Summary Date of Service: 10/29/18 Chief Complaint: Abdominal pain with nausea and vomiting History of Present Illness: The patient is a 33 F history of psychiatric illness and prior hemicolectomy due to bowel obstruction with a prior appendectomy. Patient states that she has had a 3-day history of diffuse abdominal cramping more so on the left side. And 2-day history of nausea vomiting. No diarrhea. Had a bowel movement yesterday. No dysuria. Has not had a menstrual period for months due to being on Depo-Provera. Physical Examination: Young female no acute distress. Vital signs are stable. She is afebrile. She does not look septic or toxic. She does not look dehydrated. HEENT exam moist mucous membranes. Otherwise unremarkable. Neck nontender. No lymphadenopathy. Lungs clear to auscultation bilaterally. Heart regular rhythm rate about 95 no murmur. Abdomen soft. Nondistended. Normal bowel sounds. Tender mildly left lower quadrant left side. No signs of obstruction. Patient moving all 4 extremities. Neurovascular intact. Back nontender. Skin unremarkable. Neurologically awake alert with no focal motor deficits. Test Results: CBC, BMP, LFT and lipase all normal. UA unremarkable. Serum test negative. Abdominal x-ray shows no acute abnormality other increased stool. No signs of obstruction. Read both by myself and radiologist. Emergency Department Course and Treatment: Patient treated with a liter normal saline. Zofran for nausea and Toradol for pain. She is a recovering heroin addict. Treatment Plan: Repeat exam patient doing well at 2120. Abdomen is benign. I went over all test results with her and her family. She already has Zofran at home. Discharge. Fluids and rest. Fiber. Follow-up with your doctor if not i mproving. Disposition: Discharge Impression: Acute abdominal pain with nausea and vomiting History of small bowel obstruction with prior partial colectomy and appendectomy. This note was generated with [employer] dictation software. It may contain incorrect words, spelling, and punctuation that were not noted in review of the chart prior to signing ED Disposition - Plan for ED Patient: Referrals: Harrison Maldonado MD [Primary Care Provider] -
[2018-10-29 18:38] LABS: Mucous, Urine 0 SEEN /hpf (<or=2+); Red Blood Cells-Urine 0 SEEN /hpf (0-5)
[2018-10-29 18:42] LABS: Color, Urine Yellow (Yellow); Glucose, Dipstick Normal (Normal); Ketone-Dipstick Negative (Negative); Leukocyte Esterase-Dipstick 100 /ul (Negative); Nitrite-Dipstick Negative (Negative); Occult Blood-Urine Negative /ul (Negative); Protein-Dipstick Negative (Negative); Urine Bilirubin Dipstick Negative (Negative); Urine Clarity Cloudy (Clear); Urine Urobilinogen Normal (Normal)
[2018-10-29] MEDS: Ketorolac 30 MG/ML Syringe IV (18:45)
[2018-10-29] MEDS: Ondansetron 4 MG/2 ML Vial IV (18:45)
[2018-10-29] MEDS: 0.9% Normal Saline 1,000 ML 1000 ML IV (18:45)
[2018-10-29 18:53] LABS: Bacteria RARE /hpf (None Seen); Squamous Epithelial Cells - UA 10-25 SEEN /hpf (5-10); White Blood Cells 0-5 SEEN /hpf (0-5)
[2018-10-29 18:55] LABS: AST(SGOT) 12 U/L (15-37); Alanine Aminotransfer ALT/SGPT 23 U/L (13-56); Albumin, Serum 3.9 g/dL (3.2-5.0); Alkaline Phosphatase 75 U/L (45-117); Anion Gap 6 (5-15); BUN 11 mg/dL (7-18); BUN/Creat Ratio 10.2 RATIO (10-20); Bilirubin, Direct 0.14 mg/dL (0.00-0.30); Calcium,Total 8.8 mg/dL (8.5-10.1); Chloride 114 mmol/L (98-107); Creatinine, Serum 1.08 mg/dL (0.55-1.02); EST Glomerular Filtration Rate 62 mL/min (>60); Est Glom Filt Rate - Afr Amer 75 mL/min (>60); Estimated Creatinine Clearance 66.67 ml/min; Globulin 3.7 g/dL (2.2-4.2); Glucose 79 mg/dL (74-106); Lipase 136 U/L (73-393); Potassium 3.5 mmol/L (3.5-5.1); Protein, Total 7.6 g/dL (6.4-8.2); Sodium Level 143 mmol/L (136-145)
--- NOTE | 2018-10-29 18:55 | RAD_ITS ---
STUDY: X-RAY - ACUTE ABDOMINAL SERIES REASON FOR EXAM: Female, 33 years old. Abdominal pain. History of small bowel obstruction. TECHNIQUE: Single view of the chest. Supine, and erect view(s) of the abdomen were obtained. COMPARISON: Chest, October 16, 2018. Acute abdominal series, August 27, 2018. FINDINGS: The lungs are clear and expanded. Normal size heart. Normal mediastinum and barbra. Normal visualized pulmonary arteries. Normal visualized aortic arch and descending thoracic aorta. There is a non-specific bowel gas pattern. Aerated feces are seen throughout the colon. No small bowel dilatation or evidence of obstruction. There are no air-fluid levels. There is no free air. The soft tissue structures of the abdomen and pelvis are unremarkable. Normal visualized osseous structures. RAD/Acute Abdomen Inc Chest IMPRESSION: 1. No acute cardiopulmonary disease or interval change. 2. No acute intra-abdominal process. Electronically Signed: Carlos Raman DO at 19:37 EDT Tel [phone], Service support ,
[2018-10-29 18:59] LABS: Absolute Lymphocyte Count 2.57 X10^3/ul (0.83-4.51); Absolute Neutrophil Count 3.6 X10^3/uL (2.0-7.7); Basophil# 0.04 X10^3/uL; Basophil% 0.6 % (0-1); Eosinophil# 0.22 X10^3/uL; Eosinophils% 3.2 % (0-5); Hematocrit 43.5 % (37-47); Hemoglobin 14.8 g/dl (12.0-15.0); Lymphocyte # 2.57 X10^3/ul (4.0); Lymphocyte % 37.7 % (19-41); Mean Corpuscular Hgb 29.4 pg (27.0-32.0); Mean Corpuscular Volume 86.3 fL (81-99); Mean Platelet Vol. 9.6 fl (6.2-12.0); Monocyte# 0.36 X10^3/uL; Monocyte% 5.3 % (0-10); Neutrophil # 3.62 X10^3/uL (2.7-7.7); Neutrophil % 53.1 % (47-70); Platelet Count 229 K/mm3 (150-450); RBC Distribution Width CV 12.9 % (11.6-14.6); RBC Distribution Width SD 40.2 fl (35.1-43.9); Red Blood Count 5.04 M/mm3 (4.2-5.4); White Blood Count 6.8 K/mm3 (4.4-11.0)
[2018-10-29 19:12] LABS: POSITIVE COUNT NO; POSITIVE DIFFERENTIAL NO; POSITIVE MORPHOLOGY NO
[2018-10-29 19:31] LABS: Pregnancy, Serum, hCG Quali. NEGATIVE Negative (0-9 Nonpreg)
[2018-10-29 20:00] VITALS: BP 117/64; PULSE 68; RESP 16; O2SAT 100
--- NOTE | 2018-10-29 21:24 | ED.DEP ---
ED Disposition - Plan for ED Patient: Disposition: Home or Assisted Living Instructions: ED Abdominal Pain Unkn Cause Referrals: Harrison Maldonado MD [Primary Care Provider] - 3-5 Days if not improving Additional Instructions: Plenty of fluids and rest. Fruits, vegetables and fiber to help improve the constipation. Follow-up with your doctor if not improving.
[2018-10-29 21:26] VITALS: RESP 16
== END 2018-10-29 21:29 | disposition home or self-care (01) ==
PROVIDERS: Emergency Provider Emergency Medicine; Family Provider Family Medicine; PCP Family Medicine
DX: R10.32 Left lower quadrant pain (principal); R11.2 Nausea with vomiting, unspecified; Z90.49 Acquired absence of other specified parts of digestive tract; R56.9 Unspecified convulsions; J45.909 Unspecified asthma, uncomplicated; Z72.0 Tobacco use; Z79.899 Other long term (current) drug therapy
CPT/HCPCS: 74022; 80048; 80076; 81001; 83690; 84703; 85025; 96361; 96374; 96375; 99283; J7030; A4216; J2405

== ENCOUNTER 2018-10-30 23:20 | Emergency (ER) | payer MEDICAID, SELFPAY ==
[2018-10-29 17:24] VITALS: BMI 36.1
[2018-10-30 23:21] VITALS: BP 124/75; PULSE 81; RESP 16; TEMP 36.7; O2SAT 97; BMI 35.7
[2018-10-31] MEDS: Metoclopramide 10 MG/2 ML Vial IV (00:40)
[2018-10-31] MEDS: Ketorolac 30 MG/ML Syringe IV (00:40)
[2018-10-31] MEDS: 0.9% Normal Saline 1,000 ML 1000 ML IV (00:40)
[2018-10-31 00:49] LABS: Absolute Lymphocyte Count 3.06 X10^3/ul (0.83-4.51); Absolute Neutrophil Count 4.7 X10^3/uL (2.0-7.7); Basophil# 0.04 X10^3/uL; Basophil% 0.5 % (0-1); Eosinophil# 0.26 X10^3/uL; Eosinophils% 3.1 % (0-5); Hematocrit 39.3 % (37-47); Hemoglobin 13.4 g/dl (12.0-15.0); Lymphocyte # 3.06 X10^3/ul (4.0); Lymphocyte % 36.2 % (19-41); Mean Corp Hgb Conc 34.1 g/gl (32-36); Mean Corpuscular Hgb 29.4 pg (27.0-32.0); Mean Corpuscular Volume 86.2 fL (81-99); Mean Platelet Vol. 9.5 fl (6.2-12.0); Monocyte# 0.36 X10^3/uL; Monocyte% 4.3 % (0-10); Neutrophil # 4.72 X10^3/uL (2.7-7.7); Neutrophil % 55.7 % (47-70); Platelet Count 214 K/mm3 (150-450); RBC Distribution Width CV 12.9 % (11.6-14.6); RBC Distribution Width SD 40.9 fl (35.1-43.9); Red Blood Count 4.56 M/mm3 (4.2-5.4); White Blood Count 8.5 K/mm3 (4.4-11.0)
[2018-10-31 00:50] LABS: POSITIVE COUNT NO; POSITIVE DIFFERENTIAL NO; POSITIVE MORPHOLOGY NO
[2018-10-31 01:06] LABS: ALB/GLOB Ratio 1.1 RATIO (0.9-2.4); AST(SGOT) 17 U/L (15-37); Alanine Aminotransfer ALT/SGPT 23 U/L (13-56); Albumin, Serum 3.6 g/dL (3.2-5.0); Alkaline Phosphatase 76 U/L (45-117); Anion Gap 6 (5-15); BUN 11 mg/dL (7-18); BUN/Creat Ratio 10.5 RATIO (10-20); Calcium,Total 8.2 mg/dL (8.5-10.1); Chloride 115 mmol/L (98-107); Creatinine, Serum 1.05 mg/dL (0.55-1.02); EST Glomerular Filtration Rate 64 mL/min (>60); Est Glom Filt Rate - Afr Amer 78 mL/min (>60); Estimated Creatinine Clearance 68.57 ml/min; Globulin 3.2 g/dL (2.2-4.2); Glucose 92 mg/dL (74-106); Lipase 134 U/L (73-393); Potassium 3.8 mmol/L (3.5-5.1); Protein, Total 6.8 g/dL (6.4-8.2); Sodium Level 144 mmol/L (136-145)
[2018-10-31 01:12] LABS: Pregnancy, Serum, hCG Quali. NEGATIVE Negative (0-9 Nonpreg)
--- NOTE | 2018-10-31 01:49 | ED.DCSUM_ITS ---
- ER Visit Summary Date of Service: 10/31/18 Chief Complaint: Nausea vomiting and diarrhea History of Present Illness: The patient is a 33 F who presents with nausea vomiting and diarrhea for the past 4 days. She also complains of a pounding headache. She has a history of migraines. Her fianc? or boyfriend is ill with similar symptoms. She complains of abdominal cramping more so on the left. She reports subjective fevers. No documented fever. She denies chest pain or shortness of breath. Physical Examination: Afebrile vitals normal No distress Heart regular rate and rhythm Lungs are clear Abdomen soft Alert and oriented No focal or lateralizing neurological deficits Test Results: CBC CMP lipase all normal. negative. Emergency Department Course and Treatment: Patient was treated here with IV f luids Toradol Reglan. She states she feels much better on reevaluation. I suspect this is most likely related to a viral syndrome. She was instructed on supportive care. She was discharged. Treatment Plan: [] Disposition: Discharge Impression: Viral syndrome This note was generated with [employer] dictation software. It may contain incorrect words, spelling, and punctuation that were not noted in review of the chart prior to signing ED Disposition - Plan for ED Patient: Referrals: Harrison Maldonado MD [Primary Care Provider] -
--- NOTE | 2018-10-31 01:49 | ED.DEP ---
ED Disposition - Plan for ED Patient: Instructions: ED Viral Syndrome Referrals: Harrison Maldonado MD [Primary Care Provider] -
== END 2018-10-31 02:02 | disposition home or self-care (01) ==
PROVIDERS: Emergency Provider Emergency Medicine; Family Provider Family Medicine; PCP Family Medicine
DX: J06.9 Acute upper respiratory infection, unspecified (principal); R56.9 Unspecified convulsions; J45.909 Unspecified asthma, uncomplicated; Z72.0 Tobacco use; Z79.899 Other long term (current) drug therapy
CPT/HCPCS: 80053; 83690; 84703; 85025; 96361; 96374; 96375; 99283; J7030; A4216

== ENCOUNTER 2019-02-05 00:07 | Emergency (ER) | payer MEDICAID, SELFPAY ==
[2019-02-05 00:09] VITALS: BP 125/77; PULSE 71; RESP 16; TEMP 37; O2SAT 98; BMI 39.2
--- NOTE | 2019-02-05 00:25 | ED.VISSUMM ---
- ER Visit Summary Date of Service: 02/05/19 Chief Complaint: Dental pain History of Present Illness: The patient is a 33 F who presents with dental pain. As a child she had a surgery where a pin was placed in her right front tooth. That tooth broke today. She complains of hot and cold sensitivity and pain. Physical Examination: Afebrile vitals normal There is an Banks 3 fracture of the maxillary central incisor no evidence of any dental abscess Heart regular rate and rhythm Lungs clear Alert Test Results: Not indicated Emergency Department Course and Treatment: Dental fracture was covered with calcium hydroxide paste. Patient was given a prescription for naproxen and advised to follow-up with dentistry. Treatment Plan: [] Disposition: Discharge Impression: Dental fracture This note was generated with [employer] dictation software. It may contain incorrect words, spelling, and punctuation that were not noted in review of the chart prior to signing ED Disposition - Plan for ED Patient: Referrals: Harrison Maldonado MD [Primary Care Provider] -
--- NOTE | 2019-02-05 00:27 | ED.DEP ---
ED Disposition - Plan for ED Patient: Instructions: Dental Trauma Prescriptions: Naproxen [Naprosyn] 500 mg PO BID #20 tab Prescription Printed Referrals: Harrison Maldonado MD [Primary Care Provider] -
== END 2019-02-05 00:32 | disposition home or self-care (01) ==
LOC: ED 00:26
PROVIDERS: Emergency Provider Emergency Medicine; Family Provider Family Medicine; PCP Family Medicine
DX: S02.5XXA Fracture of tooth (traumatic), initial encounter for closed fracture (principal); Z72.0 Tobacco use; X58.XXXA Exposure to other specified factors, initial encounter; Y93.89 Activity, other specified; Y92.89 Other specified places as the place of occurrence of the external cause; Y99.8 Other external cause status
CPT/HCPCS: 99282

== ENCOUNTER 2019-02-13 21:16 | Emergency (ER) | payer MEDICAID, SELFPAY ==
[2019-02-13 21:18] VITALS: BP 158/77; PULSE 91; RESP 16; TEMP 36.6; O2SAT 97; BMI 35.7
--- NOTE | 2019-02-13 21:25 | RAD_ITS ---
STUDY: X-RAY - RIGHT HAND REASON FOR EXAM: Female, 33 years old. Right hand injury TECHNIQUE: 3 view(s) of the hand. COMPARISON: None. FINDINGS: Normal radiocarpal articulation. Normal distal radioulnar joint. Metallic screw transfixes the navicular bone. Multiple old avulsion fracture of the ulnar styloid. Screw holes in the distal radius. Normal visualized carpal bones. Normal carpal articulations Normal carpometacarpal articulation of the thumb. Normal second through fifth carpometacarpal joints. Normal metacarpi. Normal metacarpophalangeal joint of the thumb. Normal interphalangeal joint of the thumb. Normal proximal and distal phalanges of the thumb. Normal metacarpophalangeal joints of the second through fifth fingers. Normal proximal and distal interphalangeal joints of the second through fifth fingers. Normal phalanges of the second through fifth fingers. The soft tissue structures are unremarkable. RAD/Hand Min 3 Views IMPRESSION: No acute disease Electronically Signed: Bruce España MD at 21:57 EDT , Service support ,
--- NOTE | 2019-02-13 21:53 | ED.DCSUM_ITS ---
- ER Visit Summary Date of Service: 02/13/19 Chief Complaint: Hand injury History of Present Illness: The patient is a 33 F states that she received some upsetting news and so she punched a tree she is right-handed. She notes pain over the dorsum of the right hand. Physical Examination: Afebrile vital signs stable There is hematoma contusion and abrasion to the dorsum of the right hand. No malrotation of the digits. Neurovascular intact. Test Results: And films were negative for fracture Emergency Department Course and Treatment: Patient was offered Motrin and ice. Follow-up with primary care if not improving 10 to 14 days. Impression: 1. Right hand hematoma This note was generated with [employer] dictation software. It may contain incorrect words, spelling, and punctuation that were not noted in review of the chart prior to signing ED Disposition - Plan for ED Patient: Disposition: Home or Assisted Living Instructions: CONTUSION, Hand Prescriptions: Ibuprofen [Motrin] 600 mg PO Q8H PRN PRN #20 tab PRN Reason: Pain Prescription Printed Referrals: Harrison Maldonado MD [Primary Care Provider] - 10-14 Days if not better
[2019-02-13] MEDS: Ibuprofen 400 MG Tablet 800 MG PO (22:09)
[2019-02-13 22:11] VITALS: BP 152/86; PULSE 81; RESP 16; O2SAT 98
== END 2019-02-13 22:15 | disposition home or self-care (01) ==
PROVIDERS: Emergency Provider Emergency Medicine; Family Provider Family Medicine; PCP Family Medicine
DX: S60.221A Contusion of right hand, initial encounter (principal); E66.9 Obesity, unspecified; Z72.0 Tobacco use; R56.9 Unspecified convulsions; Z79.899 Other long term (current) drug therapy; W22.09XA Striking against other stationary object, initial encounter; Y93.89 Activity, other specified; Y92.89 Other specified places as the place of occurrence of the external cause; Y99.8 Other external cause status
CPT/HCPCS: 73130; 99283

== ENCOUNTER 2019-03-01 18:44 | Emergency (ER) | payer MEDICAID, SELFPAY ==
[2019-03-01 18:45] VITALS: BP 131/92; PULSE 76; RESP 16; TEMP 36.2; O2SAT 100; BMI 38.2
--- NOTE | 2019-03-01 19:35 | CT_ITS ---
STUDY: CT ABDOMEN AND PELVIS WITH CONTRAST REASON FOR EXAM: Female, 33 years old. Abdominal pain RADIATION DOSAGE (If Supplied By Facility): CTDIvol = ( 18.74 ) mGy, DLP = ( 1299.35 ) mGycm TECHNIQUE: Transaxial images were obtained from the dome of the diaphragm to the symphysis pubis with oral contrast. 100 IV/Oral Isovue 300 was administered. Sagittal and coronal images were reconstructed. Individualized dose optimization techniques were used for this CT. COMPARISON: Previous study of 08/24/2018 FINDINGS: The visualized lung bases are unremarkable. The visualized portions of the heart are within normal limits. There is a contrast blush of the left hepatic lobe measuring 9 mm. This may represent a flash filling hemangioma. This is stable in the interval. . There is calcification posterior to the left hepatic lobe. Normal gallbladder and extrahepatic biliary system. Normal spleen. Normal pancreas. Normal bilateral adrenal glands. Normal right kidney. Normal left kidney. Normal visualized stomach. Normal small intestine. Status post right hemicolectomy changes are noted. Normal abdominal aorta. Normal inferior vena cava. Normal retroperitoneum. Normal urinary bladder. The uterus and adnexal structures are unremarkable. There is a small umbilical hernia containing fat. Normal osseous structures. CT/Abdomen/Pelvis WITH Contrast IMPRESSION: 1. Status post right hemicolectomy. 2. Contrast blush or faint calcification of the left hepatic lobe measuring 9 mm. This may represent a flash filling hemangioma. This is stable in the interval. 3. Small fat-containing umbilical hernia. 4. There is no evidence of free intra-abdominal or intrapelvic air, fluid, or inflammatory process. Electronically Signed: Bravo Nogueira MD at 21:45 EDT , Service support ,
--- NOTE | 2019-03-01 19:41 | ED.DCSUM_ITS ---
- ER Visit Summary Date of Service: 03/01/19 Chief Complaint: Abdominal pain History of Present Illness: The patient is a 33 F presenting with abdominal pain. Patient states this started 3 days ago. Pain has been intermittent. She has associated nausea with no vomiting. She has mild constipation. She denies fever. Denies urinary complaints. She states she has had previous bowel obstructions related to adhesions. Physical Examination: Vitals are stable. Patient is afebrile. Alert no acute distress. HEENT exam is unremarkable. Neck is supple. Lungs are clear and equal bilaterally. Heart is regular rate and rhythm. Abdomen is soft diffuse tenderness mostly right lower quadrant. No rebound or guarding Extremities are unremarkable. Skin is warm and dry. Remainder of exam is unremarkable. Emergency Department Course and Treatment: Patient is given morphine, Zofran IV. CBC, chemistries unremarkable. Liver lipase are normal. hCG negative. Urinalysis unremarkable. CT abdomen pelvis shows status post right hemicolectomy. Contrast blush or faint calcification of the left hepatic lobe measuring 9 mm. This may represent a flash filling hemangioma. This is stable in the interval. Small fat-containing umbilical hernia. There is no evidence of free intra-abdominal or intrapelvic air, fluid, or inflammatory process. On reevaluation, patient is resting comfortably. She is advised to follow-up with her primary care physician. Advised to return to ED for worsening complaints. Disposition: Discharge home Impression: Abdominal pain This note was generated with [employer] dictation software. It may contain incorrect words, spelling, and punctuation that were not noted in review of the chart prior to signing ED Disposition - Plan for ED Patient: Instructions: ABDOMINAL PAIN, Unknown Cause, (Female) Prescriptions: Dicyclomine HCl [Bentyl] 20 mg PO TIDAC #20 cap Prescription Printed Ondansetron [Zofran Odt] 4 mg PO Q8H PRN PRN #10 tab PRN Reason: Nausea Prescription Printed Referrals: Harrison Maldonado MD [Primary Care Provider] -
[2019-03-01] MEDS: Ondansetron 4 MG/2 ML Vial IV (19:50)
[2019-03-01] MEDS: Morphine 4 MG/ML Syringe IV (19:51)
[2019-03-01 19:56] LABS: Absolute Lymphocyte Count 2.62 X10^3/uL (0.83-4.51); Basophil# 0.06 X10^3/uL; Basophil% 0.7 % (0-1); Eosinophil# 0.29 X10^3/uL; Eosinophils% 3.4 % (0-5); Hematocrit 41.4 % (37-47); Hemoglobin 14.2 g/dL (12.0-15.0); Lymphocyte # 2.62 X10^3/ul (4.0); Lymphocyte % 30.8 % (19-41); Mean Corp Hgb Conc 34.3 g/dL (32-36); Mean Corpuscular Hgb 30.3 pg (27.0-32.0); Mean Corpuscular Volume 88.3 fL (81-99); Mean Platelet Vol. 9.3 fl (6.2-12.0); Monocyte# 0.53 X10^3/uL; Monocyte% 6.2 % (0-10); NRBC Flagged by Analyzer 0 % (0-5); Neutrophil # 4.99 X10^3/uL (2.7-7.7); Neutrophil % 58.7 % (47-70); Platelet Count 229 K/mm3 (150-450); RBC Distribution Width CV 12.8 % (11.6-14.6); RBC Distribution Width SD 41.2 fl (35.1-43.9); Red Blood Count 4.69 M/mm3 (4.2-5.4); White Blood Count 8.5 K/mm3 (4.4-11.0)
[2019-03-01 20:02] LABS: ALB/GLOB Ratio 1.1 RATIO (0.9-2.4); AST(SGOT) 9 U/L (15-37); Alanine Aminotransfer ALT/SGPT 27 U/L (13-56); Albumin, Serum 3.8 g/dL (3.2-5.0); Alkaline Phosphatase 74 U/L (45-117); Anion Gap 3 (5-15); BUN 6 mg/dL (7-18); BUN/Creat Ratio 5.4 RATIO (10-20); Chloride 113 mmol/L (98-107); Creatinine, Serum 1.11 mg/dL (0.55-1.02); EST Glomerular Filtration Rate 60 mL/min (>60); Est Glom Filt Rate - Afr Amer 73 mL/min (>60); Estimated Creatinine Clearance 64.87 ml/min; Globulin 3.5 g/dL (2.2-4.2); Glucose 81 mg/dL (74-106); Internal QC Validated? YES +Cl - CLEAR BKGD; Lipase 148 U/L (73-393); Potassium 3.6 mmol/L (3.5-5.1); Pregnancy, Serum, hCG Quali. NEGATIVE Negative; Protein, Total 7.3 g/dL (6.4-8.2); Sodium Level 140 mmol/L (136-145)
[2019-03-01 20:23] LABS: Bacteria 0 SEEN /hpf (None Seen); Mucous, Urine 0 SEEN /hpf (<or=2+); Red Blood Cells-Urine 0 SEEN /hpf (0-5)
[2019-03-01 20:28] LABS: Color, Urine Yellow (Yellow); Glucose, Dipstick Normal (Normal); Ketone-Dipstick Negative (Negative); Leukocyte Esterase-Dipstick Negative /ul (Negative); Nitrite-Dipstick Negative (Negative); Occult Blood-Urine Negative /ul (Negative); Protein-Dipstick Negative (Negative); Urine Bilirubin Dipstick Negative (Negative); Urine Clarity Clear (Clear); Urine Urobilinogen Normal (Normal); Urine pH 6.5 (5.0 - 8.0)
[2019-03-01 21:16] LABS: Squamous Epithelial Cells - UA 0-5 SEEN /hpf (5-10); White Blood Cells 0-5 SEEN /hpf (0-5)
--- NOTE | 2019-03-01 22:23 | ED.DEP ---
ED Disposition - Plan for ED Patient: Instructions: ABDOMINAL PAIN, Unknown Cause, (Female) Prescriptions: Dicyclomine HCl [Bentyl] 20 mg PO TIDAC #20 capsule Ondansetron [Zofran Odt] 4 mg PO Q8H PRN PRN #10 tablet PRN Reason: Nausea Referrals: Harrison Maldonado MD [Primary Care Provider] -
[2019-03-01 22:36] VITALS: BP 139/86; PULSE 63; RESP 16; O2SAT 99
[2019-03-01 22:37] VITALS: BP 139/86; PULSE 63; RESP 16; O2SAT 99
== END 2019-03-01 22:38 | disposition home or self-care (01) ==
LOC: ED 19:22
PROVIDERS: Emergency Provider Emergency Medicine; Family Provider Family Medicine; PCP Family Medicine
DX: R10.84 Generalized abdominal pain (principal); R56.9 Unspecified convulsions; Z72.0 Tobacco use; Z79.899 Other long term (current) drug therapy
CPT/HCPCS: 74177; 80053; 81001; 83690; 84703; 85025; 96361; 96374; 96375; 99283; J7040; Q9967; A4216; J2405

== ENCOUNTER 2019-03-29 00:03 | Emergency (ER) | payer MEDICAID, SELFPAY ==
[2019-03-29 00:04] VITALS: BP 138/62; PULSE 91; RESP 15; TEMP 36.6; O2SAT 97; BMI 39.6
--- NOTE | 2019-03-29 00:49 | ED.DCSUM_ITS ---
History of Present Illness Chief Complaint: Back Informant: Patient Narrative: Patient has several complaints. She states that she injured her hand 1 or 2 months ago and was placed in a Velcro splint, she followed up with her PCP who subsequently said that he was not concerned and she had only worn the splint for 1 or 2 weeks. She states for the past month, sometime after this follow-up, she started having pain going back into her wrist, hurts to use her hand and wrist and better when leaving it alone. She denies any new injuries. The original injury was from punching a tree. She was diagnosed with contusion. She states for the past week or 2, her low back is been hurting and now she feels like it is moving into her abdomen. She describes a vague periumbilical discomfort and some nausea. No vomiting, no fevers. She has had occasional urinary incontinence but she does feel the need to go just cannot make it to a toilet soon enough because of urgency. She denies any problems having bowel movements. No saddle anesthesia, no radiation of pain down either lower extremity, or weakness/numbness. No back injury. No IV drug use, no fevers. - Past Medical History (1) Seizure disorder Status: Chronic Past Medical History - Allergies and Home Meds Allergies/Adverse Reactions: Allergies bupropion HCl [From Wellbutrin] Allergy (Verified 03/29/19 00:07) seizures dill oil Allergy (Verified 03/29/19 00:07) Shortness of breath diphenhydramine HCl [From Benadryl] Allergy (Verified 03/29/19 00:07) Itching/throat swells doxycycline Allergy (Verified 03/29/19 00:07) Itching/vomiting venom-honey bee [bee venom (honey bee)] Allergy (Verified 03/29/19 00:07) Anaphylaxis Primary Care Physician: Harrison Maldonado MD [Primary Care Provider] - Surgical History: no surgical history, - Smoking Status: Current every day smoker - Family History Maternal Family History: Reports: - - She denies a family history of any chronic medical problems Review of Systems General: Denies: Chills, Fever, Sweats Eyes: Denies: Visual changes - bilaterally, Diplopia ENT: Denies: Rhinorrhea, Sore throat Cardiovascular: Denies: Chest pain, Palpitations Respiratory: Denies: Dyspnea, Cough, Dyspnea on exertion Gastrointestinal: Reports: Abdominal pain, Nausea. Denies: Vomiting, Diarrhea, Melena, Hematochezia Genitourinary: Reports: - - Urgency. Denies: Dysuria, Hematuria, Frequency Musculoskeletal: Reports: Back pain, Extremity Pain Skin: Denies: Rash, Wounds Neurological: Denies: Headache, Weakness, Numbness Physical Exam Vital Signs/Narrative: Vital Signs Temp Pulse Resp BP Pulse Ox 03/29/19 00:04 97.8 F 91 15 138/62 H 97 Inital Vital Signs reviewed: Yes General: Well nourished, Well developed, Obese, No Acute Distress - Well- appearing, conversive Head: Normocephalic, Atraumatic Eyes: Perrl, EOMI ENT: Moist mucous membranes, No rhinorrhea Neck: Supple, Nontender Cardiovascular: Regular rate, Regular rhythm, No murmurs Respiratory: No distress, CTA bilaterally, Chest nontender Abdomen: Soft, Nondistended, Normal bowel sounds, Tender - Suprapubic, epigastric, periumbilical. Negative for: Guarding, Rebound tenderness Back: Normal Inspection, - - Bilateral lumbar paraspinal tenderness. No rashes.. Negative for: CVA tenderness, Spinal tenderness Extremities: No edema, Tenderness - Right medial-dorsal distal radius over first and second extensor compartments, but nontender over the more dorsal radius. Positive Alonzo. Full range of motion wrist and all fingers., - - Negative straight leg raises bilaterally. Skin: Normal color, No rash, No Trauma Neurological: Alert, Oriented x3, Cranial nerves II-XII grossly intact, Normal Strength, Normal Sensation, Normal DTR - No clonus. Downgoing toes., Normal Gait Diagnostic/Tx/Re-eval Laboratory Results 03/29/19 03/29/19 00:05 00:05 Urine Color Yellow Urine Clarity Clear Urine pH 6.0 Ur Specific [place] 1.015 Urine Protein 15 H Urine Glucose (UA) Normal Urine Ketones Negative Urine Occult Blood Negative Urine Nitrite Negative Urine Bilirubin Negative Urine Urobilinogen Normal Ur Leukocyte Esterase 100 H Urine RBC 0 SEEN Urine WBC 5-10 SEEN Ur Squamous Epith Cells 50-100 SEEN Urine Bacteria 0 SEEN Urine Mucus 0 SEEN Urine Test Negative - Medical Decision Making Her right wrist exam is consistent with de Quervain's tenosynovitis. She already has a Velcro splint and she is advised to wear it. With regards to her back, it does get worse with movement and may only be musculoskeletal strain. I see no reason image the bones of her back at this time, but given her other symptoms I thought it would be reasonable to check a urine, which does show some signs of infection although there are also epithelial cells. I will send her for a culture and treat her empirically with 3 days of Bactrim and advised that she follow-up for persistent pain and use her splint along with anti- inflammatories which were given here. ED Disposition - Plan for ED Patient: Disposition: Home or Assisted Living Diagnosis: Cystitis without hematuria, Low back pain, De Quervain's tenosynovitis, right Instructions: De Quervain Tenosynovitis, BACK PAIN (Acute or Chronic) Prescriptions: Smz/Tmp Ds [Bactrim Ds] 1 tab PO BID #6 tab Prescription Printed Naproxen [Naprosyn] 500 mg PO BID PRN #20 tab Prescription Printed Referrals: Harrison Maldonado MD [Primary Care Provider] - 3-5 Days if not improving
[2019-03-29 01:40] LABS: Bacteria 0 SEEN /hpf (None Seen); Mucous, Urine 0 SEEN /hpf (<or=2+); Red Blood Cells-Urine 0 SEEN /hpf (0-5)
[2019-03-29 01:45] LABS: Internal QC Validated? YES +Cl - CLEAR BKGD; Pregnancy, Urine Negative Negative
[2019-03-29 01:47] LABS: Color, Urine Yellow (Yellow); Glucose, Dipstick Normal (Normal); Ketone-Dipstick Negative (Negative); Leukocyte Esterase-Dipstick 100 /ul (Negative); Nitrite-Dipstick Negative (Negative); Occult Blood-Urine Negative /ul (Negative); Protein-Dipstick 15 mg/dl (Negative); Specific Gravity, Urine 1.015 (1.002-1.030); Urine Bilirubin Dipstick Negative (Negative); Urine Clarity Clear (Clear); Urine Urobilinogen Normal (Normal)
[2019-03-29 01:48] LABS: Squamous Epithelial Cells - UA 50-100 SEEN /hpf (5-10); White Blood Cells 5-10 SEEN /hpf (0-5)
[2019-03-29] MEDS: Smz/Tmp Ds Tablet 1 TABLET PO (02:18)
[2019-03-29] MEDS: Ketorolac 60 MG/2 ML Vial IM (02:18)
[2019-03-29 02:31] VITALS: PULSE 80; RESP 16
== END 2019-03-29 02:32 | disposition home or self-care (01) ==
PROVIDERS: Emergency Provider Emergency Medicine; Family Provider Family Medicine; PCP Family Medicine
DX: N30.90 Cystitis, unspecified without hematuria (principal); M65.4 Radial styloid tenosynovitis [de Quervain]; M54.5 Low back pain; F17.200 Nicotine dependence, unspecified, uncomplicated
CPT/HCPCS: 81001; 81025; 87086; 87088; 96372; 99283

== ENCOUNTER 2019-03-31 12:36 | Emergency (ER) | payer MEDICAID, SELFPAY ==
[2019-03-31 12:37] VITALS: BP 140/110; PULSE 87; RESP 18; TEMP 36.8; O2SAT 97; BMI 39.3
--- NOTE | 2019-03-31 13:11 | CT_ITS ---
STUDY: CTA HEAD AND NECK WITH CONTRAST REASON FOR EXAM: Female, 33 years old. Severe sudden left-sided headache RADIATION DOSAGE (If Supplied By Facility): CTDIvol = ( 30.27 ) mGy, DLP = ( 1595.91 ) mGycm TECHNIQUE: CT angiography was performed with a multi-detector CT scanner. Data acquisition was obtained from the skull base through the vertex following intravenous administration of 100 IV Isovue 370. MIP images were reconstructed from the axial data set. Post-processing of the angiographic images was performed, with multiplanar reformation and 3D reconstruction. Individualized dose optimization techniques were used for this CT. COMPARISON: No relevant priors. FINDINGS: Normal bilateral petrous carotid arteries. Normal right cavernous carotid artery with a normal supraclinoid bifurcation. Normal left cavernous carotid artery with a normal supraclinoid bifurcation. Normal right A1 segments of the anterior cerebral artery. Normal left A1 segments of the anterior cerebral artery. Normal intact anterior communicating artery (ACOM). Normal bilateral A2 segments of the anterior cerebral arteries. Normal right M1 and M2 segments of the middle cerebral arteries, with a normal M1 bifurcation. Normal left M1 and M2 segments of the middle cerebral arteries, with a normal M1 bifurcation. Normal right posterior communicating artery (PCOM). Normal left posterior communicating artery (PCOM). Normal bilateral vertebral arteries. Normal basilar artery with a normal basilar bifurcation. The visualized bilateral superior cerebellar (SCA) arteries are normal. Normal bilateral P1, P2 and visualized P3 segments of the posterior cerebral arteries. There is no demonstrated aneurysm of the [place] of [place]. There is no demonstrated abnormality of the visualized brain. AORTIC ARCH: Normal visualized aortic arch. Normal origins of the brachiocephalic, left common carotid, and left subclavian arteries. RIGHT CAROTID ARTERIES: Normal right common carotid artery (CCA). Normal right common carotid bulb. Normal origin of the right internal carotid (ICA) artery without a hemodynamically significant stenosis. Normal visualized cervical portion of the right internal carotid artery. Normal origin of the right external carotid artery (ECA). LEFT CAROTID ARTERIES: Normal left common carotid artery (CCA). Normal left common carotid bulb. Normal origin of the left internal carotid (ICA) artery without a hemodynamically significant stenosis. Normal visualized cervical portion of the left internal carotid artery. Normal origin of the left external carotid artery (ECA). VERTEBRAL ARTERIES: Normal bilateral vertebral arteries. CT/CTA Head AND Neck W/ Contrast IMPRESSION: Normal CTA Head and neck with contrast. Electronically Signed: Uriel Alva MD at 13:56 EDT , Service support ,
[2019-03-31] MEDS: 0.9% Normal Saline 1,000 ML 150 ML IV (13:23)
[2019-03-31 13:32] LABS: Absolute Lymphocyte Count 1.93 X10^3/uL (0.83-4.51); Absolute Neutrophil Count 5.2 X10^3/uL (2.0-7.7); Basophil# 0.04 X10^3/uL; Basophil% 0.5 % (0-1); Eosinophil# 0.38 X10^3/uL; Eosinophils% 4.7 % (0-5); Hematocrit 42.1 % (37-47); Hemoglobin 14.2 g/dL (12.0-15.0); Lymphocyte # 1.93 X10^3/ul (4.0); Lymphocyte % 24.1 % (19-41); Mean Corp Hgb Conc 33.7 g/dL (32-36); Mean Corpuscular Hgb 29.6 pg (27.0-32.0); Mean Corpuscular Volume 87.9 fL (81-99); Monocyte# 0.45 X10^3/uL; Monocyte% 5.6 % (0-10); NRBC Flagged by Analyzer 0 % (0-5); Neutrophil % 64.9 % (47-70); Platelet Count 210 K/mm3 (150-450); RBC Distribution Width SD 41.5 fl (35.1-43.9); Red Blood Count 4.79 M/mm3 (4.2-5.4)
[2019-03-31 13:45] LABS: Anion Gap 5 (5-15); BUN 8 mg/dL (7-18); Calcium,Total 9.2 mg/dL (8.5-10.1); Chloride 113 mmol/L (98-107); Creatinine, Serum 1.15 mg/dL (0.55-1.02); EST Glomerular Filtration Rate 58 mL/min (>60); Est Glom Filt Rate - Afr Amer 70 mL/min (>60); Estimated Creatinine Clearance 62.61 ml/min; Glucose 121 mg/dL (74-106); Potassium 4.1 mmol/L (3.5-5.1); Sodium Level 142 mmol/L (136-145)
--- NOTE | 2019-03-31 14:27 | ED.RN ---
PT REQUESTS PAIN MEDICATION, DR. CRUZ MADE AWARE.
[2019-03-31] MEDS: Metoclopramide 10 MG/2 ML Vial IV (14:39)
[2019-03-31] MEDS: Ketorolac 30 MG/ML Syringe IV (14:39)
[2019-03-31] MEDS: Morphine 4 MG/ML Syringe IV (15:52)
--- NOTE | 2019-03-31 15:52 | ED.DCSUM_ITS ---
- ER Visit Summary Date of Service: 03/31/19 Chief Complaint: [Headache] History of Present Illness: The patient is a 33 F [presents to the emergency department with a headache that started about 2 and half hours ago. Patient states that she was sleeping and woke up with pain in the left side of her head. She rates the pain as a 10 out of 10. Patient states that the pain is worse when she turns her head certain ways. She denies any nausea or vomiting or photophobia. Patient does have a history of migraines but states that this is different had a headache she is had. Patient denies any falls or head injuries. She denies any fever or recent illness.] She is concerned because her mom has a history of brain aneurysm that required clipping. Physical Examination: [HEENT-PERRLA, EOMI. Cranial nerves II through XII grossly intact. TMs clear. Mucous membranes moist. No adenopathy. She has tenderness to the left posterior occiput it seems to reproduce her pain. Cardiovascular-regular rate and rhythm without murmur or ectopy Lungs-clear to auscultation, chest wall stable without crepitus or subcu emphysema Abdomen-normoactive bowel sounds, soft, nontender, no rebound or rigidity, no peritoneal signs. Neuro eoji-paykrr-ylom and heel alvarez testing within normal limits, negative Romberg, negative pronator, fundi benign Extremities-intact ?4, normal range of motion, normal pulses, atraumatic] Test Results: [CTA of the head and neck obtained were normal. CBC with differential is normal. Chemistries unremarkable. [place] level was 0.9.] Emergency Department Course and Treatment: [Patient initially medicated with Reglan and Toradol and had no relief with that. Patient was then given morphine 4 mg IV.] Treatment Plan: [Will be given a prescription for an naproxen and Flexeril. Suspect she may have an occipital neuritis.] Disposition: [Discharged home in stable condition] Impression: [Cephalgia] This note was generated with [employer] dictation software. It may contain incorrect words, spelling, and punctuation that were not noted in review of the chart prior to signing ED Disposition - Plan for ED Patient: Referrals: Harrison Maldonado MD [Primary Care Provider] -
--- NOTE | 2019-03-31 15:55 | ED.DEP ---
ED Disposition - Plan for ED Patient: Instructions: HEADACHE, Unspecified Prescriptions: cycloBENZAPRine HCl [Flexeril] 10 mg PO TID PRN #20 tab PRN Reason: Muscle Spasm Prescription Printed Naproxen [Naprosyn] 500 mg PO BID PRN #20 tab Prescription Printed Referrals: Harrison Maldonado MD [Primary Care Provider] - 3-5 Days
[2019-03-31 16:10] VITALS: BP 94/77; PULSE 77; RESP 16; O2SAT 98
--- NOTE | 2019-03-31 16:14 | ED.RN ---
IV DC'ED, CATHETER INTACT, SMALL GAUZE DRESSING PLACED. DISCHARGE INSTRUCTIONS GIVEN TO AND REVIEWED WITH PATIENT, PATIENT DENIES QUESTIONS OR CONCERNS AND VOICES UNDERSTANDING OF DISCHARGE INSTRUCTIONS. PT AMBULATES OUT OF ROOM WITHOUT DIFFICULTY.
== END 2019-03-31 16:15 | disposition home or self-care (01) ==
PROVIDERS: Emergency Provider Emergency Medicine; Family Provider Family Medicine; PCP Family Medicine
DX: R51 Headache (principal); Z72.0 Tobacco use
CPT/HCPCS: 70496; 70498; 80048; 80178; 85025; 96361; 96374; 96375; 99283; J7030; Q9967; A4216

== ENCOUNTER 2019-05-21 05:10 | Emergency (ER) | payer MEDICAID, SELFPAY ==
[2019-05-21 05:11] VITALS: BP 141/101; PULSE 92; RESP 16; TEMP 36.5; O2SAT 100; BMI 40.4
--- NOTE | 2019-05-21 05:21 | ED.VIS.GEN ---
History of Present Illness Chief Complaint: General Illness Informant: Patient Onset: Yesterday Narrative: Patient started feeling sick after eating sandwich for dinner around 7 PM. Vomited total of 4 times no hematemesis last time half hour ago. States with her last emesis started shaking, denies fever, chills, sweats. Currently nauseated. No diarrhea. No urinary symptoms. Patient on Depo-Provera shot. Denies abdominal pain. Denies any cough or chest pains. Prior similar symptoms: No Past Medical History - Allergies and Home Meds Allergies/Adverse Reactions: Allergies bupropion HCl [From Wellbutrin] Allergy (Verified 05/21/19 05:13) seizures dill oil Allergy (Verified 05/21/19 05:13) Shortness of breath diphenhydramine HCl [From Benadryl] Allergy (Verified 05/21/19 05:13) Itching/throat swells doxycycline Allergy (Verified 05/21/19 05:13) Itching/vomiting venom-honey bee [bee venom (honey bee)] Allergy (Verified 05/21/19 05:13) Anaphylaxis Primary Care Physician: Harrison Maldonado MD [Primary Care Provider] - Surgical History: no surgical history, - Smoking Status: Current every day smoker - Family History Maternal Family History: Reports: - - She denies a family history of any chronic medical problems Review of Systems General: Denies: Chills, Fever, Sweats Eyes: Denies: Visual changes - bilaterally, Diplopia ENT: Denies: Rhinorrhea, Sore throat Cardiovascular: Denies: Chest pain, Palpitations Respiratory: Denies: Dyspnea, Cough, Dyspnea on exertion Gastrointestinal: Reports: Nausea, Vomiting. Denies: Abdominal pain, Diarrhea, Melena, Hematochezia Genitourinary: Denies: Dysuria, Hematuria, Frequency Musculoskeletal: Denies: Back pain, Extremity Pain Skin: Denies: Rash, Wounds Neurological: Denies: Headache, Weakness, Numbness Physical Exam Vital Signs/Narrative: Vital Signs Temp Pulse Resp BP Pulse Ox 05/21/19 05:11 97.7 F L 92 16 141/101 H 100 Inital Vital Signs reviewed: Yes General: Well nourished, Well developed, No Acute Distress Head: Normocephalic, Atraumatic Eyes: Perrl, EOMI ENT: No rhinorrhea, - - Mild dry mucous membranes Neck: Supple, Nontender Cardiovascular: Regular rate, Regular rhythm, No murmurs Respiratory: No distress, CTA bilaterally, Chest nontender Abdomen: Soft, Nontender, Nondistended, Normal bowel sounds, - - Negative McBurney's. Negative for: Carver's sign Back: Nontender, Normal Inspection Extremities: Nontender, No edema Skin: Normal color, No rash Neurological: Alert, Oriented x3, Cranial nerves II-XII grossly intact, Normal Strength, Normal Sensation Psychological: Normal affect, Normal Mood Diagnostic/Tx/Re-eval - Medical Decision Making Patient nontoxic, nontender abdomen. Initial given Zofran ODT, drank a sip of water afterwards, states was not quite helping. She did not vomit. She is given IM Phenergan with improvement. Tolerating oral intake. Prescription for Phenergan as needed, continue oral hydration at home. Signs of discussed return. Otherwise follow-up with her PCP. ED Disposition - Plan for ED Patient: Disposition: Home or Assisted Living Diagnosis: Nausea & vomiting Instructions: VOMITING (6y-Adult) Prescriptions: proMETHazine tablet [Phenergan] 25 mg PO Q6H PRN PRN #10 tablet PRN Reason: Nausea Referrals: Harrison Maldonado MD [Primary Care Provider] - 3-5 Days if not improving
[2019-05-21] MEDS: Ondansetron ODT 4 MG Tablet 8 MG PO (05:25)
[2019-05-21] MEDS: proMETHazine 25 MG/ML Syringe 12.5 MG IM (06:15)
== END 2019-05-21 06:35 | disposition home or self-care (01) ==
PROVIDERS: Emergency Provider Emergency Medicine; Family Provider Family Medicine; PCP Family Medicine
DX: R11.2 Nausea with vomiting, unspecified (principal); F17.200 Nicotine dependence, unspecified, uncomplicated
CPT/HCPCS: 96372; 99284

== ENCOUNTER 2019-06-10 03:10 | Emergency (ER) | payer MEDICAID, SELFPAY ==
[2019-06-10 03:13] VITALS: BP 131/91; PULSE 112; RESP 18; TEMP 36.6; O2SAT 98; BMI 39.5
--- NOTE | 2019-06-10 03:31 | ED.VIS.GEN ---
History of Present Illness Chief Complaint: Nausea/Vomiting Informant: Patient Narrative: Patient stated she smoked a joint tonight about 2 hours after started to get nauseous. She had 7-10 episodes of emesis since then over the last few hours. She stated the last few episodes had some blood streaking in it. She is not on any blood thinners. No history of stomach ulcer. History of remote hemicolectomy secondary to bowel obstruction. She has had frequent visits for vomiting and abdominal pain. Recent negative CAT scan for acute abnormality. Patient stated she thinks her symptoms are from the marijuana this evening. Current severity is moderate. She tried a dose of Phenergan that she had at home with minimal relief. She denies any acute abdominal pain currently other than mild cramping. - Past Medical History (1) Abdominal pain Status: Acute (2) Pancreatitis Status: Acute (3) Partial small bowel obstruction Status: Acute (4) Splenic infarct Status: Acute (5) Seizure disorder Status: Chronic Past Medical History - Allergies and Home Meds Allergies/Adverse Reactions: Allergies bupropion HCl [From Wellbutrin] Allergy (Verified 06/10/19 03:11) seizures dill oil Allergy (Verified 06/10/19 03:11) Shortness of breath diphenhydramine HCl [From Benadryl] Allergy (Verified 06/10/19 03:11) Itching/throat swells doxycycline Allergy (Verified 06/10/19 03:11) Itching/vomiting venom-honey bee [bee venom (honey bee)] Allergy (Verified 06/10/19 03:11) Anaphylaxis Primary Care Physician: Harrison Maldonado MD [Primary Care Provider] - Prior records reviewed: Yes Past Medical History: - - See problem list Surgical History: no surgical history, - Smoking Status: Current every day smoker Alcohol: None Drugs: None - Family History Maternal Family History: Reports: - - She denies a family history of any chronic medical problems Review of Systems General: Denies: Chills, Fever, Sweats Eyes: Denies: Visual changes - bilaterally, Diplopia ENT: Denies: Rhinorrhea, Sore throat Cardiovascular: Denies: Chest pain, Palpitations Respiratory: Denies: Dyspnea, Cough, Dyspnea on exertion Gastrointestinal: Reports: Abdominal pain, Nausea, Vomiting. Denies: Diarrhea, Melena, Hematochezia Genitourinary: Denies: Dysuria, Hematuria, Frequency Musculoskeletal: Denies: Back pain, Extremity Pain Skin: Denies: Rash, Wounds Neurological: Denies: Headache, Weakness, Numbness Physical Exam Vital Signs/Narrative: Vital Signs Temp Pulse Resp BP Pulse Ox 06/10/19 03:13 97.9 F 112 H 18 131/91 H 98 General: Well nourished, Well developed, No Acute Distress Head: Normocephalic, Atraumatic Eyes: Perrl, EOMI ENT: Moist mucous membranes, No rhinorrhea Neck: Supple, Nontender Cardiovascular: Regular rate, No murmurs, Tachycardia Respiratory: No distress, CTA bilaterally, Chest nontender Abdomen: Soft, Nontender, Nondistended, Normal bowel sounds Back: Nontender, Normal Inspection Extremities: Nontender, No edema Skin: Normal color, No rash Neurological: Alert, Oriented x3, Cranial nerves II-XII grossly intact, Normal Strength, Normal Sensation Psychological: Normal affect, Normal Mood Diagnostic/Tx/Re-eval - Medical Decision Making Given Toradol IV fluids Zofran. Lab work obtained lab work is unremarkable. CBC shows no acute major abnormalities. Lipase and watch lites unremarkable. Patient felt better after treatments. Also given a dose of Reglan. No vomiting here. I suspect she has marijuana induced emesis. We will follow-up as an outpatient and avoid marijuana. I suspect the blood flecks in her vomit were from a Ghislaine-Curran tear ED Disposition - Plan for ED Patient: Disposition: Home or Assisted Living Diagnosis: Nausea and vomiting, Marijuana abuse, Ghislaine-Curran tear Instructions: Understanding Marijuana Abuse Prescriptions: Ondansetron [Zofran Odt] 4 mg PO Q8H PRN PRN #10 tab PRN Reason: Nausea Prescription Printed Referrals: Harrison Maldonado MD [Primary Care Provider] -
[2019-06-10] MEDS: Ondansetron 4 MG/2 ML Vial IV (03:37)
[2019-06-10] MEDS: Ketorolac 30 MG/ML Syringe IV (03:37)
[2019-06-10] MEDS: 0.9% Normal Saline 1,000 ML 1000 ML IV (03:37)
[2019-06-10 03:49] LABS: Absolute Neutrophil Count 6.7 X10^3/uL (2.0-7.7); Basophil# 0.05 X10^3/uL; Basophil% 0.5 % (0-1); Eosinophil# 0.18 X10^3/uL; Eosinophils% 1.8 % (0-5); Hematocrit 41.9 % (37-47); Hemoglobin 14.3 g/dL (12.0-15.0); Lymphocyte % 22.4 % (19-41); Mean Corp Hgb Conc 34.1 g/dL (32-36); Mean Corpuscular Hgb 29.6 pg (27.0-32.0); Mean Corpuscular Volume 86.7 fL (81-99); Mean Platelet Vol. 9.5 fl (6.2-12.0); Monocyte# 0.63 X10^3/uL; Monocyte% 6.4 % (0-10); NRBC Flagged by Analyzer 0 % (0-5); Neutrophil # 6.73 X10^3/uL (2.7-7.7); Neutrophil % 68.7 % (47-70); Platelet Count 245 K/mm3 (150-450); RBC Distribution Width CV 12.7 % (11.6-14.6); RBC Distribution Width SD 40.4 fl (35.1-43.9); Red Blood Count 4.83 M/mm3 (4.2-5.4); White Blood Count 9.8 K/mm3 (4.4-11.0)
[2019-06-10 03:58] LABS: Anion Gap 10 (5-15); BUN 10 mg/dL (7-18); Calcium,Total 9.6 mg/dL (8.5-10.1); Chloride 112 mmol/L (98-107); Creatinine, Serum 1.11 mg/dL (0.55-1.02); EST Glomerular Filtration Rate 60 mL/min (>60); Est Glom Filt Rate - Afr Amer 73 mL/min (>60); Estimated Creatinine Clearance 64.87 ml/min; Glucose 134 mg/dL (74-106); Lipase 103 U/L (73-393); Potassium 3.7 mmol/L (3.5-5.1); Sodium Level 143 mmol/L (136-145)
[2019-06-10] MEDS: Metoclopramide 10 MG/2 ML Vial 5 MG IV (04:30)
[2019-06-10 05:16] VITALS: BP 125/88; PULSE 88; RESP 16; O2SAT 97
== END 2019-06-10 05:17 | disposition home or self-care (01) ==
PROVIDERS: Emergency Provider Emergency Medicine; Family Provider Family Medicine; PCP Family Medicine
DX: K22.6 Gastro-esophageal laceration-hemorrhage syndrome (principal); R11.2 Nausea with vomiting, unspecified; F12.10 Cannabis abuse, uncomplicated; G40.909 Epilepsy, unspecified, not intractable, without status epilepticus; F17.200 Nicotine dependence, unspecified, uncomplicated; Z90.49 Acquired absence of other specified parts of digestive tract
CPT/HCPCS: 80048; 83690; 85025; 96361; 96374; 96375; 99285; J7030; A4216; J2405

== ENCOUNTER 2019-06-28 22:36 | Emergency (ER) | payer MEDICAID, SELFPAY ==
[2019-06-28 22:39] VITALS: BP 133/80; PULSE 107; RESP 18; TEMP 36.6; O2SAT 97; BMI 38.4
--- NOTE | 2019-06-28 22:48 | RAD_ITS ---
HISTORY: LEFT SIDED ABD PAIN FOR 2 DAYS. NO BM FOR 3-4 DAYS.NAUSEADYSPNEA EXAM: Abdomen acute series with chest. COMPARISON: October 29, 2018 chest x-ray and abdominal series. CT scan of the abdomen and pelvis from March 01, 2019 FINDINGS: # of images incl. paperwork: 4 Heart silhouette and mediastinal contours are normal. Lungs are clear. No effusions are present. No free air is present under the diaphragm. No osseous abnormalities are demonstrated. Bowel-gas pattern is normal. The cecum and some of the ascending colon has been resected with anastomotic surgical clips in the right upper quadrant just inferior to the inferior margin of the liver. No organomegaly is present. RAD/Acute Abdomen Inc Chest IMPRESSION: No evidence of bowel obstruction. Partial resection of the right colon.. at 0614 Reported and signed by: Holger Dominguez MD Electronically Signed: Holger Dominguez MD at 23:47 EST Tel , Service support ,
--- NOTE | 2019-06-28 22:49 | ED.VIS.GEN ---
History of Present Illness Chief Complaint: Abd Pain Informant: Patient Narrative: Status since yesterday she has had mainly left-sided abdominal cramping. Some on the right. History of small bowel obstruction x2 in the past in 2007 [id number]. She had partial colectomy past. She states she has not had a bowel movement for 3 days. She is passing gas. She is now having vomiting. She still able to eat. No home treatment. She has had multiple visits for abdominal complaints in the past. Patient denies any nausea currently. - Past Medical History (1) Abdominal pain Status: Acute (2) Pancreatitis Status: Acute (3) Partial small bowel obstruction Status: Acute (4) Splenic infarct Status: Acute (5) Seizure disorder Status: Chronic Past Medical History - Allergies and Home Meds Allergies/Adverse Reactions: Allergies bupropion HCl [From Wellbutrin] Allergy (Verified 06/28/19 22:40) seizures dill oil Allergy (Verified 06/28/19 22:40) Shortness of breath diphenhydramine HCl [From Benadryl] Allergy (Verified 06/28/19 22:40) Itching/throat swells doxycycline Allergy (Verified 06/28/19 22:40) Itching/vomiting venom-honey bee [bee venom (honey bee)] Allergy (Verified 06/28/19 22:40) Anaphylaxis Primary Care Physician: Harrison Maldonado MD [Primary Care Provider] - Prior records reviewed: Yes Past Medical History: - - See problem list Surgical History: - - Partial hemicolectomy Lives: With Family Smoking Status: Current every day smoker Alcohol: None Drugs: None - Family History Maternal Family History: Reports: - - She denies a family history of any chronic medical problems Review of Systems General: Denies: Chills, Fever, Sweats Eyes: Denies: Visual changes - bilaterally, Diplopia ENT: Denies: Rhinorrhea, Sore throat Cardiovascular: Denies: Chest pain, Palpitations Respiratory: Denies: Dyspnea, Cough, Dyspnea on exertion Gastrointestinal: Reports: Abdominal pain, Nausea, Constipation. Denies: Vomiting, Melena, Hematochezia Genitourinary: Denies: Dysuria, Hematuria, Frequency Musculoskeletal: Denies: Back pain, Extremity Pain Skin: Denies: Rash, Wounds Neurological: Denies: Headache, Weakness, Numbness Physical Exam Vital Signs/Narrative: Vital Signs Temp Pulse Resp BP Pulse Ox 06/28/19 22:39 97.9 F 107 H 18 133/80 H 97 General: Well nourished, Well developed, No Acute Distress Head: Normocephalic, Atraumatic Eyes: Perrl, EOMI ENT: Moist mucous membranes, No rhinorrhea Neck: Supple, Nontender Cardiovascular: Regular rate, Regular rhythm, No murmurs Respiratory: No distress, CTA bilaterally, Chest nontender Abdomen: Soft, Nondistended, Normal bowel sounds, Tender - Tender left upper quadrant. Negative for: Nontender, Guarding, Rebound tenderness, Hypoactive bowel sounds, Ventral hernia, Inguinal hernia, Umbilical hernia, Hernia reducible, Hernia irreducible, Psoas sign, Obturator sign, Rovsig's sign, Carver's sign Back: Nontender, Normal Inspection Extremities: Nontender, No edema Skin: Normal color, No rash Neurological: Alert, Oriented x3, Cranial nerves II-XII grossly intact, Normal Strength, Normal Sensation Psychological: Normal affect, Normal Mood Diagnostic/Tx/Re-eval - Medical Decision Making IV established given IV fluids Zofran and Toradol. Lab work and abdominal x-ray series obtained work shows a mildly elevated creatinine of 1.1 which is chronic for the patient. CBC liver function test lipase all normal. Normal x-ray series shows nonspecific bowel bowel gas pattern. Not overly constipated my opinion. No evidence of obstruction. Patient felt better after treatment. She will be instructed to use MiraLAX [id number] for constipation which I feel is the cause of her symptoms and will follow-up as an outpatient ED Disposition - Plan for ED Patient: Disposition: Home or Assisted Living Diagnosis: Constipation Instructions: CONSTIPATION (Adult) Referrals: Harrison Maldonado MD [Primary Care Provider] -
[2019-06-28] MEDS: Ondansetron 4 MG/2 ML Vial IV (23:12)
[2019-06-28] MEDS: 0.9% Normal Saline 1,000 ML 1000 ML IV (23:12)
[2019-06-28] MEDS: Ketorolac 30 MG/ML Syringe IV (23:14)
[2019-06-28 23:22] LABS: Absolute Lymphocyte Count 3.03 X10^3/uL (0.83-4.51); Absolute Neutrophil Count 4.5 X10^3/uL (2.0-7.7); Basophil# 0.06 X10^3/uL; Basophil% 0.7 % (0-1); Eosinophil# 0.15 X10^3/uL; Eosinophils% 1.8 % (0-5); Hematocrit 42.8 % (37-47); Hemoglobin 14.3 g/dL (12.0-15.0); Lymphocyte # 3.03 X10^3/ul (4.0); Lymphocyte % 36.7 % (19-41); Mean Corp Hgb Conc 33.4 g/dL (32-36); Mean Corpuscular Hgb 29.1 pg (27.0-32.0); Mean Platelet Vol. 9.1 fl (6.2-12.0); Monocyte# 0.55 X10^3/uL; Monocyte% 6.7 % (0-10); NRBC Flagged by Analyzer 0 % (0-5); Neutrophil # 4.46 X10^3/uL (2.7-7.7); Platelet Count 246 K/mm3 (150-450); RBC Distribution Width CV 12.8 % (11.6-14.6); RBC Distribution Width SD 40.5 fl (35.1-43.9); Red Blood Count 4.92 M/mm3 (4.2-5.4); White Blood Count 8.3 K/mm3 (4.4-11.0)
[2019-06-28 23:51] LABS: ALB/GLOB Ratio 1.2 RATIO (0.9-2.4); AST(SGOT) 15 U/L (15-37); Alanine Aminotransfer ALT/SGPT 28 U/L (13-56); Alkaline Phosphatase 70 U/L (45-117); Anion Gap 7 (5-15); BUN 14 mg/dL (7-18); BUN/Creat Ratio 12.5 RATIO (10-20); Calcium,Total 9.2 mg/dL (8.5-10.1); Chloride 111 mmol/L (98-107); Creatinine, Serum 1.12 mg/dL (0.55-1.02); EST Glomerular Filtration Rate 59 mL/min (>60); Est Glom Filt Rate - Afr Amer 72 mL/min (>60); Estimated Creatinine Clearance 64.29 ml/min; Globulin 3.4 g/dL (2.2-4.2); Glucose 94 mg/dL (74-106); Lipase 136 U/L (73-393); Potassium 3.6 mmol/L (3.5-5.1); Protein, Total 7.4 g/dL (6.4-8.2); Sodium Level 142 mmol/L (136-145)
[2019-06-28 23:56] LABS: Internal QC Validated? YES +Cl - CLEAR BKGD; Pregnancy, Serum, hCG Quali. NEGATIVE Negative
[2019-06-29 00:08] VITALS: BP 135/66; PULSE 72; RESP 15; O2SAT 98
== END 2019-06-29 00:10 | disposition home or self-care (01) ==
PROVIDERS: Emergency Provider Emergency Medicine; Family Provider Family Medicine; PCP Family Medicine
DX: K59.00 Constipation, unspecified (principal); Z90.49 Acquired absence of other specified parts of digestive tract; G40.909 Epilepsy, unspecified, not intractable, without status epilepticus; F17.200 Nicotine dependence, unspecified, uncomplicated; Z79.899 Other long term (current) drug therapy
CPT/HCPCS: 74022; 80053; 83690; 84703; 85025; 96361; 96374; 96375; 99284; J7030; A4216; J2405

== ENCOUNTER 2019-07-05 15:06 | Emergency (ER) | payer MEDICAID, SELFPAY ==
[2019-07-05 15:07] VITALS: BP 136/78; PULSE 100; RESP 18; TEMP 36.3; O2SAT 98; BMI 35.7
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
[2019-07-05 16:00] LABS: Absolute Lymphocyte Count 2.28 X10^3/uL (0.83-4.51); Absolute Neutrophil Count 4.1 X10^3/uL (2.0-7.7); Basophil# 0.04 X10^3/uL; Basophil% 0.6 % (0-1); Eosinophil# 0.04 X10^3/uL; Eosinophils% 0.6 % (0-5); Hemoglobin 14.2 g/dL (12.0-15.0); Lymphocyte # 2.28 X10^3/ul (4.0); Lymphocyte % 33.5 % (19-41); Mean Corp Hgb Conc 34.6 g/dL (32-36); Mean Corpuscular Hgb 29.5 pg (27.0-32.0); Mean Corpuscular Volume 85.2 fL (81-99); Mean Platelet Vol. 9.3 fl (6.2-12.0); Monocyte# 0.38 X10^3/uL; Monocyte% 5.6 % (0-10); NRBC Flagged by Analyzer 0 % (0-5); Neutrophil # 4.06 X10^3/uL (2.7-7.7); Neutrophil % 59.6 % (47-70); Platelet Count 220 K/mm3 (150-450); RBC Distribution Width CV 12.4 % (11.6-14.6); RBC Distribution Width SD 38.5 fl (35.1-43.9); Red Blood Count 4.81 M/mm3 (4.2-5.4); White Blood Count 6.8 K/mm3 (4.4-11.0)
[2019-07-05] MEDS: 0.9% Normal Saline 1,000 ML 1000 ML IV (16:01)
[2019-07-05] MEDS: Ondansetron 4 MG/2 ML Vial IV ×2 (16:02→16:46)
--- NOTE | 2019-07-05 16:07 | RAD_ITS ---
STUDY: X-RAY - ACUTE ABDOMINAL SERIES REASON FOR EXAM: Female, 33 years old. Abdominal pain. TECHNIQUE: Single view of the chest. Supine, and erect view(s) of the abdomen were obtained on 6 images. COMPARISON: None. FINDINGS: The lungs are clear and expanded. Normal size heart. Normal mediastinum and barbra. Normal visualized pulmonary arteries. Normal visualized aortic arch and descending thoracic aorta. There is a non-specific bowel gas pattern. The soft tissue structures of the abdomen and pelvis are unremarkable. Normal visualized osseous structures. RAD/Acute Abdomen Inc Chest IMPRESSION: No acute abnormality of the chest, abdomen or pelvis. Electronically Signed: Daniel Pineda MD at 16:43 EST , Service support ,
[2019-07-05 16:10] LABS: Red Blood Cells-Urine 0 SEEN /hpf (0-5)
[2019-07-05 16:15] LABS: Color, Urine Yellow (Yellow); Glucose, Dipstick Normal (Normal); Ketone-Dipstick Negative (Negative); Leukocyte Esterase-Dipstick 25 /ul (Negative); Nitrite-Dipstick Negative (Negative); Occult Blood-Urine Negative /ul (Negative); Protein-Dipstick 30 mg/dl (Negative); Specific Gravity, Urine 1.015 (1.002-1.030); Urine Bilirubin Dipstick Negative (Negative); Urine Clarity Clear (Clear); Urine Urobilinogen Normal (Normal)
[2019-07-05] MEDS: Famotidine 200 MG/20 ML MDV 20 MG in 0.9% Normal Saline (Pres. free 8 ML 300 MG IV (16:16)
[2019-07-05 16:17] LABS: Internal QC Validated? YES +Cl - CLEAR BKGD; Pregnancy, Urine Negative Negative
[2019-07-05 16:20] LABS: ALB/GLOB Ratio 1.3 RATIO (0.9-2.4); AST(SGOT) 8 U/L (15-37); Alanine Aminotransfer ALT/SGPT 23 U/L (13-56); Albumin, Serum 4.3 g/dL (3.2-5.0); Alkaline Phosphatase 69 U/L (45-117); Anion Gap 8 (5-15); BUN 8 mg/dL (7-18); BUN/Creat Ratio 8.8 RATIO (10-20); Calcium,Total 9.7 mg/dL (8.5-10.1); Chloride 111 mmol/L (98-107); Creatinine, Serum 0.91 mg/dL (0.55-1.02); EST Glomerular Filtration Rate 75 mL/min (>60); Est Glom Filt Rate - Afr Amer 91 mL/min (>60); Estimated Creatinine Clearance 79.12 ml/min; Globulin 3.2 g/dL (2.2-4.2); Glucose 114 mg/dL (74-106); Lipase 514 U/L (73-393); Potassium 3.6 mmol/L (3.5-5.1); Protein, Total 7.5 g/dL (6.4-8.2); Sodium Level 143 mmol/L (136-145)
[2019-07-05 16:32] LABS: Bacteria 1+ /hpf (None Seen); Mucous, Urine 2+ /hpf (<or=2+); Squamous Epithelial Cells - UA 0-5 SEEN /hpf (5-10); White Blood Cells 0-5 SEEN /hpf (0-5)
[2019-07-05 17:26] VITALS: BP 118/62; PULSE 62; RESP 14; O2SAT 99
[2019-07-05 17:38] VITALS: BP 142/100; PULSE 74; RESP 17; O2SAT 100
== END 2019-07-05 17:39 | disposition home or self-care (01) ==
PROVIDERS: Emergency Provider Emergency Medicine; Family Provider Family Medicine; PCP Family Medicine
DX: K92.0 Hematemesis (principal); R19.7 Diarrhea, unspecified; R10.9 Unspecified abdominal pain; G40.909 Epilepsy, unspecified, not intractable, without status epilepticus; K21.9 Gastro-esophageal reflux disease without esophagitis; Z79.899 Other long term (current) drug therapy; F17.200 Nicotine dependence, unspecified, uncomplicated
CPT/HCPCS: 74022; 80053; 81001; 81025; 83690; 85025; 96361; 96374; 96375; 96376; 99283; J7030; A4216; J2405; J3490

== ENCOUNTER 2019-07-10 13:51 | Emergency (ER) | payer MEDICAID, SELFPAY ==
[2019-07-10 13:53] VITALS: BP 120/78; PULSE 61; RESP 16; TEMP 36.7; O2SAT 98; BMI 35.4
--- NOTE | 2019-07-10 14:27 | EKG12_ITS ---
[place] Reason : [facility] [place] [facility] [place] Pressure : / mmHG Vent. Rate : 068 BPM Atrial Rate : 068 BPM P-R Int : 176 ms QRS Dur : 078 ms QT Int : 398 ms P-R-T Axes : 048 -18 014 degrees QTc Int : 423 ms Normal sinus rhythm with sinus arrhythmia Low voltage QRS Borderline ECG Confirmed by BETZY BANEGAS, PATTI ([id number]), editor managing director JARETT HAIR ([id number]) on 07/13/2019 11:37:37 AM Referred By: MAXIMINO Confirmed By:PATTI BO MD
--- NOTE | 2019-07-10 14:27 | ED.VIS.GEN ---
History of Present Illness Chief Complaint: Suicidal Informant: Patient Onset: Weeks Context: Sudden Onset Timing: Continuous - Thoughts of harming self, depressed Quality: Depression Location: Residing at snf Current Severity: Mild Maximum Severity: Severe Worsened by: Anniversary of younger brother suicide, June 17, 2011 Relieved by: Nothing Associated Symptoms: Thoughts of harming self. Narrative: Patient is a 33-year-old woman residing at the [facility] who presents with depression and suicidal thoughts. She has had thoughts of taking pills, jumping off the bridge or being injured by a motor vehicle. Last attempt was September and she was hospitalized at that time. She has been hospitalized 5 times prior to today. Patient reports poor appetite, weight loss and problems with sleep. Patient became tearful when she was speaking of her brother. He committed suicide June 17, 2011. He shot himself in the head. There are issues with nieces. Prior similar symptoms: Yes Recent Illness/Hospitalization: No - Past Medical History (1) Depression Status: Acute (2) Seizure disorder Status: Chronic Past Medical History - Allergies and Home Meds Allergies/Adverse Reactions: Allergies bupropion HCl [From Wellbutrin] Allergy (Verified 07/10/19 13:53) seizures dill oil Allergy (Verified 07/10/19 13:53) Shortness of breath diphenhydramine HCl [From Benadryl] Allergy (Verified 07/10/19 13:53) Itching/throat swells doxycycline Allergy (Verified 07/10/19 13:53) Itching/vomiting venom-honey bee [bee venom (honey bee)] Allergy (Verified 07/10/19 13:53) Anaphylaxis Primary Care Physician: Harrison Maldonado MD [Primary Care Provider] - Prior records reviewed: Yes Surgical History: noncontributory, - - Partial hemicolectomy, Lives: Alone Smoking Status: Current every day smoker Alcohol: None Drugs: None - Family History Maternal Family History: Reports: - - She denies a family history of any chronic medical problems Review of Systems General: Reports: Weight loss. Denies: Chills, Fever, Malaise, Subjective, Sweats, - Eyes: Denies: Visual changes - bilaterally, Blurred Vision - bilaterally ENT: Denies: Rhinorrhea, Sore throat Cardiovascular: Reports: Palpitations - History of palpitations and presently taking Cardizem.. Denies: Chest pain, Heart racing Respiratory: Denies: Dyspnea, Cough, Dyspnea on exertion Gastrointestinal: Denies: Abdominal pain, Nausea, Vomiting, Diarrhea, Melena, Hematochezia Genitourinary: Denies: Dysuria, Hematuria, Frequency Musculoskeletal: Denies: Myalgias, Arthralgias, Neck pain, Back pain, Swelling, Extremity Pain, -, - Skin: Denies: Rash, Wounds Neurological: Denies: Headache, Weakness, Numbness Psych: Reports: Depression, Anxiety, Suicidal thoughts, Suicidal ideations Hematologic: Denies: Easy bruising, Easy bleeding Physical Exam Vital Signs/Narrative: Vital Signs Temp Pulse Resp BP Pulse Ox 07/10/19 13:53 98.1 F 61 16 120/78 98 Inital Vital Signs reviewed: Yes General: Well nourished, Well developed, Obese, No Acute Distress Head: Normocephalic, Atraumatic Eyes: Perrl, EOMI ENT: Moist mucous membranes, No rhinorrhea Neck: Supple, Nontender Cardiovascular: Regular rate, Regular rhythm, No murmurs, Normal S1, Normal S2 Respiratory: No distress, CTA bilaterally, Chest nontender Abdomen: Soft, Nontender, Nondistended, Normal bowel sounds Back: Nontender, Normal Inspection Extremities: Nontender, No edema Skin: Normal color, No rash, No Trauma. Negative for: Cyanosis, Diaphoresis, Jaundice Neurological: Alert, Oriented x3, Cranial nerves II-XII grossly intact, Normal Strength, Normal Sensation Psychological: Depressed, Tearful Diagnostic/Tx/Re-eval Laboratory Results 07/10/19 07/10/19 07/10/19 14:40 14:40 14:40 WBC 7.7 RBC 5.09 Hgb 14.8 Hct 43.4 MCV 85.3 MCH 29.1 MCHC 34.1 RDW Std Deviation 38.3 RDW Coeff of Radha 12.4 Plt Count 236 MPV 9.4 Immature Gran % (Auto) 0.300 Neut % (Auto) 62.5 Lymph % (Auto) 29.3 [place] % (Auto) 5.1 Eos % (Auto) 2.1 Baso % (Auto) 0.7 Absolute Neuts (auto) 4.8 Absolute Lymphs (auto) 2.25 Nucleated RBC % 0 Sodium 143 Potassium 3.9 Chloride 115 H Carbon Dioxide 21.0 Anion Gap 7 BUN 9 Creatinine 0.91 Estim Creat Clear Calc 79.12 Est GFR (MDRD) Af Amer 91 Est GFR (MDRD) Non-Af 76 BUN/Creatinine Ratio 9.9 L Glucose 99 Calcium 9.1 Serum , Qual Urine Opiates Screen Urine Methadone Screen Ur Barbiturates Screen Ur Phencyclidine Scrn Ur Amphetamines Screen U Methamphetamin-MDMA U Benzodiazepines Scrn Urine Cocaine Screen U Cannabinoids Screen Ur Drug Screen Comment Ethyl Alcohol < 3.0 07/10/19 07/10/19 14:40 14:40 WBC RBC Hgb Hct MCV MCH MCHC RDW Std Deviation RDW Coeff of Radha Plt Count MPV Immature Gran % (Auto) Neut % (Auto) Lymph % (Auto) [place] % (Auto) Eos % (Auto) Baso % (Auto) Absolute Neuts (auto) Absolute Lymphs (auto) Nucleated RBC % Sodium Potassium Chloride Carbon Dioxide Anion Gap BUN Creatinine Estim Creat Clear Calc Est GFR (MDRD) Af Amer Est GFR (MDRD) Non-Af BUN/Creatinine Ratio Glucose Calcium Serum , Qual NEGATIVE Urine Opiates Screen NEGATIVE Urine Methadone Screen NEGATIVE Ur Barbiturates Screen NEGATIVE Ur Phencyclidine Scrn NEGATIVE Ur Amphetamines Screen NEGATIVE U Methamphetamin-MDMA NEGATIVE U Benzodiazepines Scrn NEGATIVE Urine Cocaine Screen NEGATIVE U Cannabinoids Screen POSITIVE H Ur Drug Screen Comment Ethyl Alcohol Tox screen is positive for cannabinoids. Blood work is otherwise unremarkable. Because of history of palpitations EKG was obtained and is unremarkable. She was seen by Sandi who agrees she needs admission to the hospital for psychiatric reasons. - EKG Initial EKG Interpretation: Sinus Rhythm - Sinus rhythm with a ventricular rate of 68. DE interval is 176 ms. QS duration is 78 ms. QT duration 398 ms. [place] is normal. Voltage is slightly decreased which may be secondary to body habitus. There is no acute ischemic changes noted. EKG is essentially normal. - Medical Decision Making Appropriate blood work and EKG was obtained to determine if there is any medical reason that would prohibit patient from going to a psychiatric facility. She did contact the counseling center and she was informed that Ashley would in all likelihood see her in the emergency department. ED Disposition - Plan for ED Patient: Disposition: Psychiatric Hospital or Unit Diagnosis: Depression with suicidal ideation Referrals: Harrison Maldonado MD [Primary Care Provider] -
[2019-07-10 14:51] LABS: Absolute Lymphocyte Count 2.25 X10^3/uL (0.83-4.51); Absolute Neutrophil Count 4.8 X10^3/uL (2.0-7.7); Basophil# 0.05 X10^3/uL; Basophil% 0.7 % (0-1); Eosinophil# 0.16 X10^3/uL; Eosinophils% 2.1 % (0-5); Hematocrit 43.4 % (37-47); Hemoglobin 14.8 g/dL (12.0-15.0); Lymphocyte # 2.25 X10^3/ul (4.0); Lymphocyte % 29.3 % (19-41); Mean Corp Hgb Conc 34.1 g/dL (32-36); Mean Corpuscular Hgb 29.1 pg (27.0-32.0); Mean Corpuscular Volume 85.3 fL (81-99); Mean Platelet Vol. 9.4 fl (6.2-12.0); Monocyte# 0.39 X10^3/uL; Monocyte% 5.1 % (0-10); NRBC Flagged by Analyzer 0 % (0-5); Neutrophil # 4.81 X10^3/uL (2.7-7.7); Neutrophil % 62.5 % (47-70); Platelet Count 236 K/mm3 (150-450); RBC Distribution Width CV 12.4 % (11.6-14.6); RBC Distribution Width SD 38.3 fl (35.1-43.9); Red Blood Count 5.09 M/mm3 (4.2-5.4); White Blood Count 7.7 K/mm3 (4.4-11.0)
[2019-07-10 15:02] LABS: Amphetamine Urine VISTA NEGATIVE (<1000 ng/mL); Anion Gap 7 (5-15); BUN 9 mg/dL (7-18); BUN/Creat Ratio 9.9 RATIO (10-20); Barbiturate Urine VISTA NEGATIVE (< 200 ng/mL); Benzodiazepine Urine VISTA NEGATIVE (< 200 ng/mL); Calcium,Total 9.1 mg/dL (8.5-10.1); Chloride 115 mmol/L (98-107); Cocaine Urine VISTA NEGATIVE (< 300 ng/mL); Creatinine, Serum 0.91 mg/dL (0.55-1.02); EST Glomerular Filtration Rate 76 mL/min (>60); Ecstacy Urine VISTA NEGATIVE (< 500 ng/mL); Est Glom Filt Rate - Afr Amer 91 mL/min (>60); Estimated Creatinine Clearance 79.12 ml/min; Glucose 99 mg/dL (74-106); Methadone Urine VISTA NEGATIVE (< 300 ng/mL); PCP Urine VISTA NEGATIVE (< 25 ng/mL); Potassium 3.9 mmol/L (3.5-5.1); Sodium Level 143 mmol/L (136-145); THC Urine VISTA POSITIVE (< 50 ng/mL); Vista UDS pH Range 6
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
[2019-07-10 15:18] VITALS: RESP 15
[2019-07-10 15:23] LABS: Internal QC Validated? YES +Cl - CLEAR BKGD; Pregnancy, Serum, hCG Quali. NEGATIVE Negative
[2019-07-10 15:25] LABS: Alcohol, Blood (Medical)-Serum < 3.0 mg/dL
[2019-07-10] MEDS: Ondansetron ODT 4 MG Tablet PO (15:31)
--- NOTE | 2019-07-10 15:39 | CM.ED ---
Social Work Patient medically cleared per Dr. Dinh. Telephone call to [facility], they do have openings and they are in-network with patient insurance. Clinical information faxed. Pending approval. Gurmeet MINER, JG
[2019-07-10 16:37] VITALS: RESP 15
--- NOTE | 2019-07-10 17:03 | CM.ED ---
Social Work Telephone call from [facility]. Patient has been accepted. Nurse to Nurse: [phone]. Accepting Doctor: Dr. Simons. Admitting to the [facility] [address]. Updated patient and medical team. All agreeable to plan. [place] [facility] Faxed. Senior Sourcing Manager to set up transportation. Gurmeet Delgado MSW, JG
[2019-07-10 17:18] VITALS: BP 113/68; PULSE 75; RESP 16; O2SAT 97
== END 2019-07-10 17:34 ==
PROVIDERS: Emergency Medicine; Emergency Provider Emergency Medicine; Family Provider Family Medicine; PCP Family Medicine
DX: R45.851 Suicidal ideations (principal); F32.9 Major depressive disorder, single episode, unspecified; G40.909 Epilepsy, unspecified, not intractable, without status epilepticus; F17.200 Nicotine dependence, unspecified, uncomplicated; E66.9 Obesity, unspecified; Z79.899 Other long term (current) drug therapy
CPT/HCPCS: 36415; 80048; 80307; 80320; 84703; 85025; 93005; 99284; G0480

== ENCOUNTER 2019-08-12 19:53 | Emergency (ER) | payer MEDICAID, SELFPAY ==
[2019-08-12 19:54] VITALS: BP 108/84; PULSE 92; RESP 20; TEMP 36.9; O2SAT 96; BMI 41.3
[2019-08-12 21:01] LABS: Internal QC Validated? YES +Cl - CLEAR BKGD; Pregnancy, Urine Negative Negative
[2019-08-12 21:08] LABS: Amphetamine Urine VISTA NEGATIVE (<1000 ng/mL); Barbiturate Urine VISTA NEGATIVE (< 200 ng/mL); Benzodiazepine Urine VISTA NEGATIVE (< 200 ng/mL); Cocaine Urine VISTA NEGATIVE (< 300 ng/mL); Ecstacy Urine VISTA NEGATIVE (< 500 ng/mL); Methadone Urine VISTA NEGATIVE (< 300 ng/mL); PCP Urine VISTA NEGATIVE (< 25 ng/mL); THC Urine VISTA POSITIVE (< 50 ng/mL); Vista UDS pH Range 6
[2019-08-12 21:36] VITALS: BP 125/85; PULSE 81; RESP 20; O2SAT 96
[2019-08-12] MEDS: 0.9% Normal Saline 1,000 ML 999 ML IV (21:36)
[2019-08-12 22:04] LABS: Absolute Lymphocyte Count 3.01 X10^3/uL (0.83-4.51); Absolute Neutrophil Count 6.5 X10^3/uL (2.0-7.7); Basophil# 0.07 X10^3/uL; Basophil% 0.7 % (0-1); Eosinophil# 0.17 X10^3/uL; Eosinophils% 1.7 % (0-5); Hematocrit 41.1 % (37-47); Hemoglobin 13.7 g/dL (12.0-15.0); Lymphocyte # 3.01 X10^3/ul (4.0); Lymphocyte % 29.3 % (19-41); Mean Corp Hgb Conc 33.3 g/dL (32-36); Mean Corpuscular Hgb 28.4 pg (27.0-32.0); Mean Corpuscular Volume 85.1 fL (81-99); Mean Platelet Vol. 9.1 fl (6.2-12.0); Monocyte# 0.54 X10^3/uL; Monocyte% 5.3 % (0-10); NRBC Flagged by Analyzer 0 % (0-5); Neutrophil # 6.45 X10^3/uL (2.7-7.7); Neutrophil % 62.7 % (47-70); Platelet Count 234 K/mm3 (150-450); RBC Distribution Width CV 13.1 % (11.6-14.6); RBC Distribution Width SD 40.4 fl (35.1-43.9); Red Blood Count 4.83 M/mm3 (4.2-5.4); White Blood Count 10.3 K/mm3 (4.4-11.0)
[2019-08-12 22:23] LABS: Anion Gap 7 (5-15); BUN 13 mg/dL (7-18); BUN/Creat Ratio 13.2 RATIO (10-20); Calcium,Total 9.4 mg/dL (8.5-10.1); Chloride 113 mmol/L (98-107); Creatinine, Serum 0.99 mg/dL (0.55-1.02); EST Glomerular Filtration Rate 69 mL/min (>60); Est Glom Filt Rate - Afr Amer 83 mL/min (>60); Estimated Creatinine Clearance 72.73 ml/min; Glucose 154 mg/dL (74-106); Potassium 4.1 mmol/L (3.5-5.1); Sodium Level 143 mmol/L (136-145)
[2019-08-12 22:27] LABS: Alcohol, Blood (Medical)-Serum < 3.0 mg/dL
--- NOTE | 2019-08-12 23:25 | ED.DCSUM_ITS ---
- ER Visit Summary Date of Service: 08/12/19 Chief Complaint: Seizure History of Present Illness: The patient is a 33 F with seizures today. She had 2 tonic-clonic seizures. These were witnessed. She was unresponsive and had a postictal state. She did not bite her tongue or exhibit incontinence. No tra diana. She takes Keppra 1000 mg twice a day and denies any change in her medication or missed dosages. History of asthma as well. She uses marijuana and smokes tobacco. She resides at a snf and thinks that the smell of drugs in her room from another resident is causing her seizures. Physical Examination: Afebrile and vital signs unremarkable. Head and neck atraumatic. HEENT exam unremarkable. Neck nontender. Heart regular. Lungs clear. Abdomen soft. Extremities nontender with no edema. Skin normal in color. Renal nerves grossly intact. Normal strength and sensation. Test Results: CBC normal. Metabolic panel unremarkable. hCG negative. Tox cream positive for THC. Alcohol negative. Emergency Department Course and Treatment: Patient was monitored. She had seizure precautions. She was given a bolus of fluids. Work-up was unremarkable. No further seizures. Will increase her Keppra to 1500 mg twice a day. She was given a prescription for the difference. She will follow-up with neurology. Seizure precautions. Return for any new or worsening issues. Treatment Plan: As above Disposition: Discharge Impression: 1. Breakthrough seizures This note was generated with [employer] dictation software. It may contain incorrect words, spelling, and punctuation that were not noted in review of the chart prior to signing ED Disposition - Plan for ED Patient: Instructions: SEIZURE, Recurrent [Adult] Prescriptions: Levetiracetam [Keppra] 500 mg PO BID 30 Days #60 tab Prescription Printed Referrals: Donal Bush MD [STAFF PHYSICIAN] -
--- NOTE | 2019-08-12 23:27 | ED.DEP ---
ED Disposition - Plan for ED Patient: Instructions: SEIZURE, Recurrent [Adult] Prescriptions: Levetiracetam [Keppra] 500 mg PO BID 30 Days #60 tab Prescription Printed Referrals: Donal Bush MD [STAFF PHYSICIAN] -
[2019-08-12 23:38] VITALS: BP 141/96; PULSE 80; RESP 16; O2SAT 96
== END 2019-08-12 23:30 | disposition home or self-care (01) ==
LOC: ED 21:01
PROVIDERS: Emergency Provider Emergency Medicine; Family Provider Family Medicine; PCP Family Medicine
DX: G40.909 Epilepsy, unspecified, not intractable, without status epilepticus (principal); J45.909 Unspecified asthma, uncomplicated; Z79.899 Other long term (current) drug therapy; F12.90 Cannabis use, unspecified, uncomplicated; F17.200 Nicotine dependence, unspecified, uncomplicated
CPT/HCPCS: 80048; 80307; 80320; 81025; 85025; 96360; 96361; 99285; J7030; G0480

== ENCOUNTER 2019-09-15 18:09 | Emergency (ER) | payer MEDICAID, SELFPAY ==
[2019-09-15 18:09] VITALS: BP 155/84; PULSE 81; RESP 18; TEMP 36.2; O2SAT 99
[2019-09-15 18:10] VITALS: BP 155/84; PULSE 75; RESP 16; TEMP 36.2; O2SAT 100; BMI 39.3
[2019-09-15] MEDS: 0.9% Normal Saline 1,000 ML 1000 ML IV (19:40)
[2019-09-15] MEDS: Morphine 4 MG/ML Syringe IV (19:41)
[2019-09-15] MEDS: Ondansetron 4 MG/2 ML Vial IV (19:41)
--- NOTE | 2019-09-15 19:53 | ED.VISSUMM ---
- ER Visit Summary Date of Service: 09/15/19 Chief Complaint: Abdominal pain History of Present Illness: The patient is a 34 F who presents with abdominal pain that has been constant for the past 1-1/2 weeks. Patient describes her pain is stabbing and burning. Patient states the pain is over the left upper quadrant. Patient states nothing makes her pain better or worse. Patient admits to some nausea but denies any vomiting. Patient denies any recent fevers or chills. Patient admits to some diarrhea but denies any melena or hematochezia. Patient denies any dysuria or hematuria. Patient states her last menstrual period was approximately 5 years ago and she is on the Depo-Provera. Physical Examination: Vital signs are stable. Patient is afebrile. Patient is in no acute distress. Oral mucosa is pink and moist. Neck is supple. Trachea is midline. There is no JVD noted. Heart was regular rate and rhythm. Lungs are clear and equal bilaterally. Abdomen is soft. Bowel sounds are normal. There is left upper quadrant and epigastric tenderness. There is no rebound or guarding noted. Skin is warm dry. Cranial nerves II through XII are intact. There are no focal motor or sensory deficits noted. Extremities are intact. There is no calf tenderness or edema. Test Results: CBC, comprehensive metabolic profile, urinalysis, and urine hCG were obtained were all normal. Emergency Department Course and Treatment: Patient was given IV fluids, morphine, and Zofran. Patient felt better on reevaluation wanted to go home. Patient left prior to receiving discharge instructions. Patient was verbally instructed to follow-up with her primary care physician for further evaluation. Disposition: Discharge home Impression: 1. Abdominal pain 2. Headache This note was generated with [employer] software. It may contain incorrect words, spelling, and punctuation that were not noted in review of the chart prior to signing ED Disposition - Plan for ED Patient: Disposition: Home or Assisted Living Diagnosis: Abdominal pain, Headache Referrals: Harrison Maldonado MD [Primary Care Provider] -
[2019-09-15 19:56] LABS: Bacteria 0 SEEN /hpf (None Seen); Mucous, Urine 0 SEEN /hpf (<or=2+); Red Blood Cells-Urine 0 SEEN /hpf (0-5)
[2019-09-15 19:58] LABS: Absolute Lymphocyte Count 3.15 X10^3/uL (0.83-4.51); Absolute Neutrophil Count 6.3 X10^3/uL (2.0-7.7); Basophil# 0.06 X10^3/uL; Basophil% 0.6 % (0-1); Eosinophil# 0.23 X10^3/uL; Eosinophils% 2.2 % (0-5); Hematocrit 41.3 % (37-47); Hemoglobin 13.8 g/dL (12.0-15.0); Lymphocyte # 3.15 X10^3/ul (4.0); Lymphocyte % 30.7 % (19-41); Mean Corp Hgb Conc 33.4 g/dL (32-36); Mean Corpuscular Hgb 28.5 pg (27.0-32.0); Mean Corpuscular Volume 85.2 fL (81-99); Mean Platelet Vol. 9.4 fl (6.2-12.0); Monocyte# 0.52 X10^3/uL; Monocyte% 5.1 % (0-10); NRBC Flagged by Analyzer 0 % (0-5); Neutrophil # 6.28 X10^3/uL (2.7-7.7); Neutrophil % 61.1 % (47-70); Platelet Count 244 K/mm3 (150-450); RBC Distribution Width CV 13.5 % (11.6-14.6); RBC Distribution Width SD 42.1 fl (35.1-43.9); Red Blood Count 4.85 M/mm3 (4.2-5.4); White Blood Count 10.3 K/mm3 (4.4-11.0)
[2019-09-15 20:04] LABS: Color, Urine Yellow (Yellow); Glucose, Dipstick Normal (Normal); Ketone-Dipstick Negative (Negative); Leukocyte Esterase-Dipstick 100 /ul (Negative); Nitrite-Dipstick Negative (Negative); Occult Blood-Urine Negative /ul (Negative); Protein-Dipstick Negative (Negative); Urine Bilirubin Dipstick Negative (Negative); Urine Clarity Sl. Cloudy (Clear); Urine Urobilinogen Normal (Normal)
[2019-09-15 20:09] LABS: White Blood Cells 5-10 SEEN /hpf (0-5)
[2019-09-15 20:10] LABS: Amorphous Sediment 1+ URATE; Squamous Epithelial Cells - UA 10-25 SEEN /hpf (5-10)
[2019-09-15 20:14] LABS: ALB/GLOB Ratio 1.2 RATIO (0.9-2.4); AST(SGOT) 9 U/L (15-37); Alanine Aminotransfer ALT/SGPT 22 U/L (13-56); Albumin, Serum 3.9 g/dL (3.2-5.0); Alkaline Phosphatase 81 U/L (45-117); Anion Gap 6 (5-15); BUN 8 mg/dL (7-18); BUN/Creat Ratio 7.1 RATIO (10-20); Calcium,Total 9.2 mg/dL (8.5-10.1); Chloride 112 mmol/L (98-107); Creatinine, Serum 1.13 mg/dL (0.55-1.02); EST Glomerular Filtration Rate 59 mL/min (>60); Est Glom Filt Rate - Afr Amer 71 mL/min (>60); Estimated Creatinine Clearance 63.12 ml/min; Globulin 3.3 g/dL (2.2-4.2); Glucose 135 mg/dL (74-106); Lipase 155 U/L (73-393); Potassium 3.7 mmol/L (3.5-5.1); Protein, Total 7.2 g/dL (6.4-8.2); Sodium Level 142 mmol/L (136-145)
[2019-09-15 20:23] LABS: Internal QC Validated? YES +Cl - CLEAR BKGD; Pregnancy, Urine Negative Negative
[2019-09-15 20:26] VITALS: BP 139/106; PULSE 66; RESP 18; O2SAT 99
[2019-09-15 21:05] VITALS: RESP 15
--- NOTE | 2019-09-15 22:17 | ED.RN ---
PT RINGS CALL LIGHT REQUESTING HER LAB RESULTS. THIS RN INFORMED PT OF MD-RE-EVAL STATUS, AND THAT DOCTOR WOULD BE IN WITH HER RESULTS SOON POSSIBLE. PT REPORTS SHE IS TIRED OF WAITING AND WANTS TO BE D/C. REQUESTS IV REMOVAL. THIS RN D/C IV AND COVERED SITE WITH 2X2 GAUZE AND PAPER TAPE. PT DRESSES SELF. REPORTS SHE IS CALLING A CAB.
--- NOTE | 2019-09-15 22:21 | ED.RN ---
PT INFORMED THAT SHE CANNOT DRIVE FOR 6 HOURS AFTER HAVING MORPHINE, PT VERBALIZES UNDERSTANDING, DRESSES SELF, AND AMBULATES OUT OF DEPT BY SELF.
== END 2019-09-15 22:21 | disposition home or self-care (01) ==
PROVIDERS: Emergency Provider Emergency Medicine; PCP Family Medicine
DX: R10.12 Left upper quadrant pain (principal); R10.13 Epigastric pain; R51 Headache; J45.909 Unspecified asthma, uncomplicated; R56.9 Unspecified convulsions; Z72.0 Tobacco use; Z79.899 Other long term (current) drug therapy
CPT/HCPCS: 80053; 81001; 81025; 83690; 85025; 96361; 96374; 96375; 99283; J7030; A4216; J2405

== ENCOUNTER 2020-07-04 18:48 | Emergency (ER) | payer MEDICAID, SELFPAY ==
[2020-07-04 18:49] VITALS: BP 155/98; PULSE 102; RESP 16; TEMP 35.8; O2SAT 98; BMI 38.2
--- NOTE | 2020-07-04 19:27 | ED.VIS.GEN ---
History of Present Illness Chief Complaint: Nausea/Vomiting/Diarrhea Informant: Patient Onset: Days - 4 days Current Severity: Moderate Maximum Severity: Moderate Narrative: Patient presents with 4-day history of nausea, vomiting, and diarrhea. She states has not been able to keep anything down including her home medications. She reports being seen at [facility] emergency room this afternoon. She was given Zofran and IV fluids. She states after going home she started vomiting again in spite of taking the Zofran they had discharged her with. Patient denies fever but has had some chills. She denies known exposure to Covid. - Past Medical History (1) Depression Status: Chronic (2) Seizure disorder Status: Chronic Past Medical History - Allergies and Home Meds Allergies/Adverse Reactions: Allergies bupropion HCl [From Wellbutrin] Allergy (Verified 07/04/20 18:50) seizures dill oil Allergy (Verified 07/04/20 18:50) Shortness of breath diphenhydramine HCl [From Benadryl] Allergy (Verified 07/04/20 18:50) Itching/throat swells doxycycline Allergy (Verified 07/04/20 18:50) Itching/vomiting venom-honey bee [bee venom (honey bee)] Allergy (Verified 07/04/20 18:50) Anaphylaxis Primary Care Physician: Harrison Maldonado MD [Primary Care Provider] - Prior records reviewed: Yes Surgical History: noncontributory, - - Partial hemicolectomy, Smoking Status: Current every day smoker - Family History Maternal Family History: Reports: - - She denies a family history of any chronic medical problems Review of Systems General: Reports: Chills. Denies: Fever Eyes: Denies: Visual changes - bilaterally ENT: Denies: Bilateral ear pain Cardiovascular: Denies: Chest pain Respiratory: Denies: Dyspnea, Cough Gastrointestinal: Reports: Abdominal pain, Nausea, Vomiting, Diarrhea Genitourinary: Denies: Dysuria Musculoskeletal: Denies: Swelling, Extremity Pain Skin: Denies: Rash Neurological: Denies: Headache Hematologic: Denies: Easy bruising, Easy bleeding Allergy: Denies: Uticaria Physical Exam Vital Signs/Narrative: Vital Signs Temp Pulse Resp BP Pulse Ox 07/04/20 18:49 96.5 F L 102 H 16 155/98 H 98 Inital Vital Signs reviewed: Yes General: Well nourished, Well developed Head: Normocephalic ENT: Moist mucous membranes Neck: Supple Cardiovascular: Regular rate, Regular rhythm Respiratory: No distress, CTA bilaterally Abdomen: Soft, Nontender, Hypoactive bowel sounds Skin: Normal color Neurological: Alert, Oriented x3 Psychological: Normal affect Diagnostic/Tx/Re-eval - Medical Decision Making I was able to review the patient's labs obtained at [facility] just a couple hours ago. White count was 10.2, hemoglobin 16.9. BUN was 16 creatinine was 1.01. Glucose was 121. Potassium 3.8. Patient was given a 500 cc IV fluid bolus here along with a dose of IV Phenergan. She was given IV Keppra and was able to tolerate her p.o. Lamictal. On repeat evaluation she does feel improved. Should be written for Phenergan tablets along with a few suppositories to have if needed. ED Disposition - Plan for ED Patient: Disposition: Home or Assisted Living Diagnosis: Vomiting Instructions: ED Nausea Vomiting Adult Prescriptions: proMETHazine suppository [Phenergan Suppository] 25 mg RECTAL Q6H PRN PRN #6 suppos. PRN Reason: Nausea Transmission Status: Pending to [id number] proMETHazine tablet [Phenergan] 25 mg PO Q6H PRN PRN #10 tab PRN Reason: Nausea Transmission Status: Pending to [id number] Referrals: Harrison Maldonado MD [Primary Care Provider] - 3-5 Days if not improving
[2020-07-04] MEDS: proMETHazine 25 MG/ML Syringe 12.5 MG IV (19:50)
[2020-07-04] MEDS: lamoTRIgine 100 MG Tablet PO (20:27)
[2020-07-04] MEDS: levETIRAcetam IV 1,000 MG/100 ML BAG 400 MG IV (20:27)
== END 2020-07-04 21:16 | disposition home or self-care (01) ==
PROVIDERS: Emergency Provider Emergency Medicine; PCP Family Medicine
DX: R11.2 Nausea with vomiting, unspecified (principal); F17.200 Nicotine dependence, unspecified, uncomplicated; G40.909 Epilepsy, unspecified, not intractable, without status epilepticus; F32.9 Major depressive disorder, single episode, unspecified
CPT/HCPCS: 96365; 96375; 99283; J7030; A4216

== ENCOUNTER → 2022-08-28 | Outpatient (CLI) | payer OTHER, SELFPAY ==
--- NOTE | 2022-08-28 12:30 | ECHOD_ITS ---
Reason For Study: ATRIAL FIB/FLUTTER Procedure This was a 2D Doppler, Color Flow transthoracic echocardiogram. The study was technically difficult. Exam performed in department. Left Ventricle Based upon the 2D echocardiographic images obtained there appears to be normal left ventricular size, wall motion, and systolic function. The estimated ejection fraction is 60 %. No evidence for diastolic dysfunction. Right Ventricle Normal RV size. Normal systolic function. Atria Normal left atrium. Normal right atrium. No doppler evidence for ASD. Mitral Valve There is no mitral annular calcification. Normal mitral valve. Trivial mitral valve insufficiency. Tricuspid Valve Normal tricuspid valve. Trivial tricuspid valve insufficiency. Aortic Valve The aortic valve is not well visualized. Pulmonic Valve The pulmonic valve is not well visualized. Great Vessels Normal sized aortic root. Pericardium/Pleural No pericardial effusion. MMode/2D Measurements & Calculations LVIDd: 5.4 cm IVSd: 0.89 cm Ao root diam: 3.4 cm LVIDs: 3.2 cm LVPWd: 0.82 cm RVDd: 3.0 cm FS: 41.6 % LAV(MOD-bp): 59.5 ml LA A4 area: 17.5 cm2 LA dimension(2D): 3.8 cm LAV(MOD-bp) Indexed: 28.1 ml/m2 LAV(MOD-sp2): 66.8 ml LAV(MOD-sp4): 50.5 ml RA A4 area: 15.5 cm2 Time Measurements MV dec time: 0.22 sec Doppler Measurements & Calculations MV E max isaías: 84.7 cm/sec Lat Peak E' Isaías: 10.8 cm/sec Med Peak E' Isaías: 10.3 cm/sec MV A max isaías: 54.4 cm/sec E/E' lat: 7.8 E/E' med: 8.2 MV E/A: 1.6 MV dec slope: 382.9 cm/sec2 Ao V2 max: 110.0 cm/sec LV V1 max: 90.1 cm/sec Ao max P.8 mmHg LV V1 max P.2 mmHg Ao V2 mean: 75.6 cm/sec LV V1 mean P.7 mmHg Ao mean P.6 mmHg LV V1 mean: 59.7 cm/sec Ao V2 VTI: 28.8 cm LV V1 VTI: 21.6 cm AV (velocity ratio): 0.75 PA V2 max: 101.3 cm/sec TR max isaías: 246.2 cm/sec PA V2 mean: 70.5 cm/sec TR max P.3 mmHg ECHO/Echo Complete Interpretation Summary The study was technically difficult. Based upon the 2D echocardiographic images obtained there appears to be normal left ventricular size, wall motion, and systolic function. The estimated ejection fraction is 60 %. Trivial mitral valve insufficiency. Trivial tricuspid valve insufficiency. No evidence for diastolic dysfunction. Ordering Physician: Earnest Leonardo Referring Physician: Harrison Maldonado Performed By: Shruti Aguilar, ARCHANA, RVT
== END | disposition home or self-care (01) ==
LOC: CVS 12:29
PROVIDERS: PCP Family Medicine; Visit Provider Internal Medicine Cardiovascular Disease
DX: I48.0 Paroxysmal atrial fibrillation (principal); I47.1 Supraventricular tachycardia; R06.02 Shortness of breath; R07.9 Chest pain, unspecified
CPT/HCPCS: 93306

== ENCOUNTER → 2022-08-30 | Outpatient (CLI) | payer MEDICARE, MEDICAID, SELFPAY ==
--- NOTE | 2022-08-30 11:13 | RAD_ITS ---
STUDY: X-RAY CHEST REASON FOR EXAM: Female, 37 years old. CHEST PAIN COUGH AND SOB. SVT. shortness of breath TECHNIQUE: XR Chest 2 Views COMPARISON: None FINDINGS: There is no demonstrated pleural abnormality. Normal size heart. Normal mediastinum and barbra. Normal visualized pulmonary arteries. Normal visualized aortic arch and descending thoracic aorta. Normal visualized thoracic spine. Normal visualized ribs, clavicles, and shoulders. There is no demonstrated abnormality of the visualized soft tissue structures of the upper abdomen. RAD/Chest PA and Lateral IMPRESSION: There are no acute findings. Electronically Signed: Sagar Mock MD at 17:23 EST ,
--- NOTE | 2022-08-31 05:56 | PFTCOMP_ITS ---
COMPLETE PULMONARY FUNCTION TEST INTERPRETATION Brief HPI: Patient is a 37-year-old female, currently under the care of Dr. Leonardo, who presents to [facility] for complete pulmonary function tests secondary to diagnosis of SVT. Respiratory therapist reports good effort and reproducible results. Interpretation: Forced expiration spirometry shows no large airways obstructive ventilatory defect with an FEV1 of 87% predicted. There is no significant bronchodilator response by strict ATS criteria. Spirograms are of good quality and plateau normally. The respiratory flow volume loop shows a normal pattern. Lung volumes by body plethysmography show a decreased total lung capacity at 3.98 L, 74% predicted. All other lung volumes are within normal limits. Diffusion capacity by carbon monoxide is at the lower limit of normal at 75% predicted. The airway resistance is slightly elevated. No previous pulmonary function tests were available for review. Impression: Mild restrictive ventilatory defect with a symmetric reduction diffusion capacity
== END | disposition home or self-care (01) ==
PROVIDERS: PCP Family Medicine; Referring Provider Internal Medicine Cardiovascular Disease; Visit Provider Internal Medicine Cardiovascular Disease
DX: I47.1 Supraventricular tachycardia (principal); I48.0 Paroxysmal atrial fibrillation; R06.02 Shortness of breath; R07.9 Chest pain, unspecified
CPT/HCPCS: 71046; 94060; 94726; 94729

== ENCOUNTER 2022-10-21 12:19 | Inpatient (IN) | payer MEDICARE, MEDICAID, SELFPAY ==
[2022-10-21 12:20] VITALS: BP 153/132; PULSE 190; RESP 20; TEMP 37.2; O2SAT 100; BMI 36.6
--- NOTE | 2022-10-21 12:56 | ED.VIS.GI ---
HPI HPI - GI History of Present Illness Chief Complaint: Nausea/Vomiting Informant: patient and spouse/S.O. Narrative Narrative: Vomiting started yesterday, started getting pink-tinged blood with it last night that has progressed to smal amounts of lay hematemesis today. Was seen at ER in [place] last night and given Zofran but nothing else. She states she has a history of peptic ulcer disease and reflux. She states she has not been able to keep her Keppra down for her epilepsy this morning, she states she takes sucralfate 4 times per day chronically for a couple years but she is not on a PPI and she does not know why she does not take 1. She denies any melena or bright red blood per rectum recently. She is having left upper quadrant pain no other abdominal pain. No urinary symptoms. No fevers or chills. No diarrhea. No known sick contacts. Patient has been having abdominal pain with eating for about the past week. [facility] Medical History Abdominal pain Abnormal pulmonary function test Epilepsy Febrile seizure GERD (gastroesophageal reflux disease) New onset atrial fibrillation Pancreatitis Paroxysmal atrial fibrillation Partial small bowel obstruction Seizure disorder Splenic infarct Traumatic brain injury Home Medications sucralfate 1 gram tablet 1 g PO TID GERD 12/20/14 [History Last Taken 07/03/19] trazodone 100 mg tablet 150 mg PO QHS sleep 02/11/17 [History Last Taken 07/03/19] rizatriptan 10 mg tablet 10 mg PO DAILY PRN Headache 11/15/17 [History Last Taken 10/29/18 10 MG] hydroxyzine pamoate 50 mg capsule 50 mg PO BID PRN PRN Anxiety 03/31/19 [History Last Taken 07/04/19] albuterol sulfate 90 mcg/actuation aerosol inhaler (ProAir HFA) 2 puff inhalation Q6H PRN 08/17/22 [History Last Taken Unknown] apixaban 5 mg tablet (Eliquis) 5 mg PO BID 08/17/22 [History Last Taken Unknown] dicyclomine 20 mg tablet 20 mg PO Q6H PRN 08/17/22 [History Last Taken Unknown] epinephrine 0.3 mg/0.3 mL injection, auto-injector 0.3 mg IM ONCE PRN anaphylaxis 08/17/22 [History Last Taken Unknown] famotidine 40 mg tablet 40 mg PO DAILY 08/17/22 [History Last Taken Unknown] folic acid 1 mg tablet 4 mg PO DAILY 08/17/22 [History Last Taken Unknown] levetiracetam 1,000 mg tablet 1,000 mg PO BID 08/17/22 [History Last Taken Unknown] lithium carbonate 300 mg tablet 300 mg PO .COMPLEX 08/17/22 [History Last Taken Unknown] ondansetron HCl 8 mg tablet 8 mg PO Q12H PRN nausea and vomiting 08/17/22 [History Last Taken Unknown] pantoprazole 40 mg tablet,delayed release 40 mg PO BID 08/17/22 [History Last Taken Unknown] prazosin 2 mg capsule 2 mg PO QHS 08/17/22 [History Last Taken Unknown] quetiapine 300 mg tablet (Seroquel) 300 mg PO DAILY 08/17/22 [History Last Taken Unknown] verapamil 240 mg tablet,extended release 240 mg PO DAILY 08/17/22 [History Last Taken Unknown] Allergy/AdvReac Type Severity Reaction Status Date / Time bupropion HCl Allergy seizures Verified 10/21/22 12:22 [From Wellbutrin] dill oil Allergy Shortness Verified 10/21/22 12:22 of breath diphenhydramine HCl Allergy Itching/throat Verified 10/21/22 12:22 [From Benadryl] swells doxycycline Allergy Itching/vom Verified 10/21/22 12:22 iting venom-honey bee Allergy Anaphylaxis Verified 10/21/22 12:22 [bee venom (honey bee)] Opioids - Morphine Analogues AdvReac HX Drug Verified 10/21/22 12:22 Diversion Family History Mother Cancer Breast Asthma Grandmother Heart disease Grandfather Heart disease Aunt Atrial fibrillation Surgical History History of partial colectomy History of surgery on wrist History of tonsillectomy Social History Smoking Status: Current every day smoker tobacco type: cigarettes alcohol intake: never substance use type: marijuana caffeine: Yes (occasional) ROS ROS ED Constitutional Constitutional ED: Denies chills or fever(s) Eyes Eyes: Denies change in vision or diplopia ENT ENT ED: Denies rhinorrhea or sore throat Cardiovascular Cardiovascular: Denies chest pain or palpitations Respiratory/Chest Respiratory/Chest: Denies cough or dyspnea Gastrointestinal Gastrointestinal: Reports as per HPI, abdominal pain, hematemesis, nausea and vomiting; Denies diarrhea, hematochezia or melena Genitourinary Genitourinary ED: Denies dysuria or hematuria Musculoskeletal Musculoskeletal: Denies back pain or neck pain Integumentary Denies abscess or rash Neurologic Neurologic: Denies headache(s), paresthesias or weakness Psychiatric Psychiatric: Reports anxiety; Denies suicidal thoughts EXAM Physical Exam Const Vital Signs: 10/21/22 12:20 10/21/22 14:17 Temperature 99 F Temperature Source Temporal Pulse Rate 190 H 62 Respiratory Rate 20 H 26 H Blood Pressure 153/132 H 150/80 H Blood Pressure Mean 139 103 Pulse Ox 100 96 Oxygen Delivery Method Room Air Room Air Positive well nourished, well developed and obese Constitutional Narrative: Actively vomiting and ill-appearing but keenly alert and able to converse General Appearance ED: well developed Nutritional Appearance: obese HEENT Reports moist mucous membranes normocephalic and atraumatic Eyes PERRL and EOMs intact bilaterally Neck full ROM and supple Resp normal respiratory effort and clear to auscultation bilaterally Cardio regular rate, regular rhythm and no murmurs Rate: tachycardic GI non-distended GI Narrative: Tender left upper quadrant with some voluntary guarding, otherwise benign. Auscultation: normoactive bowel sounds Palpation: soft Back/Spine no CVA tenderness General Back: other FROM Extremity normal to inspection General Extremety ED: Negative for edema, pulses abnormal or tenderness General Extremity: Negative for edema or pulses abnormal Neuro oriented x3, CN's II-XII intact bilaterally and no sensory deficits noted Sensorium / Orientation: awake and alert Motor Exam: strength 5/5 throughout Psych thought process normal Psych Narrative: Labile. Tearful, anxious. Skin no rashes or lesions noted and no wounds MDM MDM MDM Narrative Medical decision making narrative: Patient was treated with IV Protonix bolus and drip while we worked her up, her hemoglobin is excellent at 14.9, her heart rate was measured as 190 which I think was inaccurate this was remeasured at 62 after we gave her fluids and Zofran along with the IV Protonix. Given the fact that she has a history of paroxysmal atrial fibrillation and is anticoagulated, I think she should be admitted. Discussed with GI and hospitalist. Lab Data Attestation: I reviewed the patient's lab results. Labs: Laboratory Results - last 24 hr 10/21/22 10/21/22 10/21/22 12:55 12:55 13:10 WBC 21.1 H RBC 4.88 Hgb 14.9 Hct 43.8 MCV 89.8 MCH 30.5 MCHC 34.0 RDW Std Deviation 43.9 RDW Coeff of Radha 13.3 Plt Count 309 MPV 9.7 Immature Gran % (Auto) 0.600 Neut % (Auto) 87.4 H Lymph % (Auto) 7.7 L Finney % (Auto) 4.0 Eos % (Auto) 0.0 Baso % (Auto) 0.3 Absolute Neuts (auto) 18.4 H Absolute Lymphs (auto) 1.63 Nucleated RBC % 0 Sodium 144 Potassium 3.2 L Chloride 105 Carbon Dioxide 27.0 Anion Gap 12 BUN 9 Creatinine 1.13 H Estim Creat Clear Calc 61.34 Est GFR (MDRD) Af Amer 70 Est GFR (MDRD) Non-Af 58 L BUN/Creatinine Ratio 8.0 L Glucose 158 H Calcium 11.4 H Blood Type B POSITIVE Antibody Screen NEGATIVE Rhythm Strip Rhythm Strip: Sinus Rhythm Rate: 60 Ectopy: None EKG Initial EKG: Attestation: I personally reviewed and interpreted this EKG as follows: Interpretation: Sinus Rhythm and No Acute Injury Pattern Prior EKG tracings: available for review Prior: Unchanged Management Discussion w/another healthcare provider: Hospitalist (Dr. Mckenzie) and Manager Report (Dr. Porter) Discharge Plan Dx/Rx/DC Orders Clinical Impression: Acute gastritis with bleeding, Anticoagulated Disposition Disposition: Acute Care Hospital [facility]
[2022-10-21] MEDS: Ondansetron 4 MG/2 ML Vial IV (13:14)
[2022-10-21] MEDS: 0.9% Normal Saline 1,000 ML 999 ML IV (13:14)
[2022-10-21 13:16] LABS: Absolute Lymphocyte Count 1.63 X10^3/uL (0.83-4.51); Absolute Neutrophil Count 18.4 X10^3/uL (2.0-7.7); Basophil# 0.07 X10^3/uL; Basophil% 0.3 % (0-1); Hematocrit 43.8 % (37-47); Hemoglobin 14.9 g/dL (12.0-15.0); Lymphocyte # 1.63 X10^3/ul (0.83-4.51); Lymphocyte % 7.7 % (19-41); Mean Corpuscular Hgb 30.5 pg (27.0-32.0); Mean Corpuscular Volume 89.8 fL (81-99); Mean Platelet Vol. 9.7 fl (6.2-12.0); Monocyte# 0.85 X10^3/uL; NRBC Flagged by Analyzer 0 % (0-5); Neutrophil # 18.44 X10^3/uL (2.7-7.7); Neutrophil % 87.4 % (47-70); Platelet Count 309 K/mm3 (150-450); RBC Distribution Width CV 13.3 % (11.6-14.6); RBC Distribution Width SD 43.9 fl (35.1-43.9); Red Blood Count 4.88 M/mm3 (4.2-5.4); White Blood Count 21.1 K/mm3 (4.4-11.0)
[2022-10-21 13:28] LABS: Anion Gap 12 (5-15); BUN 9 mg/dL (7-18); Calcium,Total 11.4 mg/dL (8.5-10.1); Chloride 105 mmol/L (98-107); Creatinine, Serum 1.13 mg/dL (0.55-1.02); EST Glomerular Filtration Rate 58 mL/min (>60); Est Glom Filt Rate - Afr Amer 70 mL/min (>60); Estimated Creatinine Clearance 61.34 ml/min; Glucose 158 mg/dL (74-106); Potassium 3.2 mmol/L (3.5-5.1); Sodium Level 144 mmol/L (136-145)
[2022-10-21] MEDS: levETIRAcetam IV 1,000 MG/100 ML BAG 400 MG IV ×2 (13:39→18:18)
[2022-10-21 14:17] VITALS: BP 150/80; PULSE 62; RESP 26; O2SAT 96
[2022-10-21] MEDS: Metoclopramide 10 MG/2 ML Vial 5 MG IV (14:30)
--- NOTE | 2022-10-21 15:12 | CON.PCM.GI_ITS ---
HPI Consult Data Date of Consult: 10/21/22 HPI Narrative Reason for Consultation: Hematemesis HPI Narrative: URSULA HUGHES, is a 37 F who presents with multiple episode of nausea and vomiting. She stated the last few episodes had some blood streaking in it. She has a past medical history of atrial fibrillation-paroxysmal superimposed upon a history of cardiac ectopy of PACs/PVCs and PSVT previously cared for by [facility] cardiology.? She takes verapamil for rate control. She also underwent evaluation with a transthoracic echocardiogram.? According to the report at that time her LV systolic function was thought to be normal and she had no significant valvular disease reported.? Her LVEF was listed at 59%. She also has a history of remote hemicolectomy secondary to bowel obstruction.? She has had frequent visits for vomiting and abdominal pain.? She also has a history of bipolar disorder, seizure, chronic back pain, possible COPD and possible marijuana hyperemesis.. [facility] Medical History Abdominal pain Abnormal pulmonary function test Epilepsy Febrile seizure GERD (gastroesophageal reflux disease) New onset atrial fibrillation Pancreatitis Paroxysmal atrial fibrillation Partial small bowel obstruction Seizure disorder Splenic infarct Traumatic brain injury Home Medications sucralfate 1 gram tablet 1 g PO TID GERD 12/20/14 [History Last Taken 07/03/19] trazodone 100 mg tablet 150 mg PO QHS sleep 02/11/17 [History Last Taken 07/03/19] rizatriptan 10 mg tablet 10 mg PO DAILY PRN Headache 11/15/17 [History Last Taken 10/29/18 10 MG] hydroxyzine pamoate 50 mg capsule 50 mg PO BID PRN PRN Anxiety 03/31/19 [History Last Taken 07/04/19] albuterol sulfate 90 mcg/actuation aerosol inhaler (ProAir HFA) 2 puff inhalation Q6H PRN 08/17/22 [History Last Taken Unknown] apixaban 5 mg tablet (Eliquis) 5 mg PO BID 08/17/22 [History Last Taken Unknown] dicyclomine 20 mg tablet 20 mg PO Q6H PRN 08/17/22 [History Last Taken Unknown] epinephrine 0.3 mg/0.3 mL injection, auto-injector 0.3 mg IM ONCE PRN anaphylaxis 08/17/22 [History Last Taken Unknown] famotidine 40 mg tablet 40 mg PO DAILY 08/17/22 [History Last Taken Unknown] folic acid 1 mg tablet 4 mg PO DAILY 08/17/22 [History Last Taken Unknown] levetiracetam 1,000 mg tablet 1,000 mg PO BID 08/17/22 [History Last Taken Unknown] lithium carbonate 300 mg tablet 300 mg PO .COMPLEX 08/17/22 [History Last Taken Unknown] ondansetron HCl 8 mg tablet 8 mg PO Q12H PRN nausea and vomiting 08/17/22 [History Last Taken Unknown] pantoprazole 40 mg tablet,delayed release 40 mg PO BID 08/17/22 [History Last Taken Unknown] prazosin 2 mg capsule 2 mg PO QHS 08/17/22 [History Last Taken Unknown] quetiapine 300 mg tablet (Seroquel) 300 mg PO DAILY 08/17/22 [History Last Taken Unknown] verapamil 240 mg tablet,extended release 240 mg PO DAILY 08/17/22 [History Last Taken Unknown] Allergy/AdvReac Type Severity Reaction Status Date / Time bupropion HCl Allergy seizures Verified 10/21/22 12:22 [From Wellbutrin] dill oil Allergy Shortness Verified 10/21/22 12:22 of breath diphenhydramine HCl Allergy Itching/throat Verified 10/21/22 12:22 [From Benadryl] swells doxycycline Allergy Itching/vom Verified 10/21/22 12:22 iting venom-honey bee Allergy Anaphylaxis Verified 10/21/22 12:22 [bee venom (honey bee)] Opioids - Morphine Analogues AdvReac HX Drug Verified 10/21/22 12:22 Diversion Family History Mother Cancer Breast Asthma Grandmother Heart disease Grandfather Heart disease Aunt Atrial fibrillation Surgical History History of partial colectomy History of surgery on wrist History of tonsillectomy Social History Smoking Status: Current every day smoker tobacco type: cigarettes alcohol intake: never substance use type: marijuana caffeine: Yes (occasional) ROS Review of Systems ROS Unobtainable: other Constitutional Constitutional: Denies fatigue, fever(s), poor appetite, weight gain or weight loss ENT HEENT: Denies mouth lesions Cardiovascular Cardiovascular: Denies abdominal bloating, abdominal edema or abdominal pain Respiratory/Chest Respiratory/Chest: Denies change in mental status, change in phlegm color, chest congestion or chest tightness Gastrointestinal Gastrointestinal: Denies belching, bloating, change in bowel habits, change in stool character, chewing difficulty, coffee ground emesis, constipation, cramping, diarrhea, dyspepsia, dysphagia, early satiety, excessive flatus, fecal incontinence, heartburn, hematemesis, hematochezia, hemorrhoids, loose stools, melena, nausea, odynophagia, rectal bleeding, tenesmus, vomiting or weight changes Genitourinary Genitourinary: Denies abdominal discomfort, burning urination or itching Musculoskeletal Musculoskeletal: Reports as per HPI; Denies muscle weakness or myalgias Integumentary Integumentary: Denies jaundice Neurologic Neurologic: Denies lack of coordination or weakness Psychiatric Psychiatric: Denies confusion, depression, memory loss, mood swings, paranoia or suicidal ideation Endocrine Endocrinology: Denies systems reviewed and no addt'l complaints, except as documented Hematologic/Lymphatic Hematologic/Lymphatic: Denies anemia, easy bleeding, easy bruising or lymphadenopathy Allergic/Immunologic Allergic/Immunologic: Denies systems reviewed and no addt'l complaints, except as documented Physical Exam Const alert General Appearance: cooperative Orientation / Consciousness: oriented to person HEENT hearing grossly normal bilaterally Head and Scalp: normal to inspection Face and Sinus: face symmetric Nose: external nose normal Mouth: oral and palatal mucosa normal Eyes conjunctivae normal General Eye: normal appearance of both eyes Neck full ROM General: normal visual inspection Lymph Lymphatic: no lymphadenopathy noted Chest inspection of chest normal and palpation of chest normal Chest: symmetrical chest wall rise Resp normal respiratory effort Effort and Inspection: able to speak in complete sentences Cardio regular rate GI non-distended Percussion: normal to percussion Rectal Exam: deferred Neuro Speech: speech normal Gait (Neuro): normal gait Lab / Micro Data Result Diagrams: 10/21/22 12:55 10/21/22 12:55 Labs: Laboratory Results - last 24 hr 10/21/22 12:55: WBC 21.1 H, RBC 4.88, Hgb 14.9, Hct 43.8, MCV 89.8, MCH 30.5, MCHC 34.0, RDW Std Deviation 43.9, RDW Coeff of Radha 13.3, Plt Count 309, MPV 9.7, Immature Gran % (Auto) 0.600, Neut % (Auto) 87.4 H, Lymph % (Auto) 7.7 L, [place] % (Auto) 4.0, Eos % (Auto) 0.0, Baso % (Auto) 0.3, Absolute Neuts (auto) 18.4 H, Absolute Lymphs (auto) 1.63, Nucleated RBC % 0 10/21/22 12:55: Sodium 144, Potassium 3.2 L, Chloride 105, Carbon Dioxide 27.0, Anion Gap 12, BUN 9, Creatinine 1.13 H, Estim Creat Clear Calc 61.34, Est GFR (MDRD) Af Amer 70, Est GFR (MDRD) Non-Af 58 L, BUN/Creatinine Ratio 8.0 L, Glucose 158 H, Calcium 11.4 H 10/21/22 13:10: Blood Type B POSITIVE, Antibody Screen NEGATIVE Assessment & Plan Assessment/Plan (1) Upper GI bleed: PLAN: The differential diagnosis for upper GI bleed does include Ghislaine-Curran tear, peptic ulcer disease, severe erosive esophagitis. She should undergo an upper endoscopy to evaluate upper GI tract. Recommend Protonix 40 mg IV every 12 hours (2) Leukocytosis: PLAN: . Leukocytosis possibly reactive secondary to nausea vomiting and dehydration. Work-up is in progress. (3) Cyclic vomiting syndrome: PLAN: It is difficult to determine whether she has marijuana hyperemesis or cyclic vomiting syndrome. Particularly to features of cyclic vomiting syndrome usually have a migraine comorbidity, psychiatric comorbidity and rapid gastric emptying whereas cannabinoid hyperemesis is associated with chronic cannabis use, delayed gastric emptying and improvement after 12 months of no marijuana u khai. Treatment for her acute symptoms include PPI drip, 200 mL an hour of normal saline, Ativan 1 mg every 8 hours IV and as needed haloperidol 5 mg every 8 hours IM or IV. Typically we give amitriptyline, propanolol or sumatriptan for migraine prevention but she does not have a migraine at this time. She takes Seroquel so with the addition of metoclopramide she could be at risk for QT prolongation. Compazine has less of a risk but is still a risk. She also may benefit from capsaicin cream applied to the extremities every 4 hours. Charges/Coding Visit Charges Inpatient E&M: 38431 Init Hosp L3
--- NOTE | 2022-10-21 15:28 | PCM.HP.STD ---
HPI - General General Date of Admission: 10/21/22 Date of Service: 10/21/22 Chief Complaint: As above HPI Narrative URSULA HUGHES, is a 37 F with a history of paroxysmal atrial fibrillation on Eliquis, epilepsy on Keppra and medical marijuana, depression who presented to [facility] 10/21/2022 with nausea and vomiting and hematemesis. In the ED she was noted to have some red streaks in her vomitus and brought a sample from home that did show blood. Hemoglobin was stable but given she is chronically on Eliquis and had appreciable blood GI was contacted and recommended PPI drip and admission. Hospitalist consulted for admission. Patient seen and evaluated in ED with friend at bedside. Patient reports since being here her nausea and vomiting slowly improved and she has not had any hematemesis in several hours though did receive Zofran and is on PPI drip. She reports that she has problems chronically with some nausea but yesterday she went to [place] due to nausea and vomiting and was discharged home. At 5 PM she began to have a pink color with her emesis and then progressed to include more red. Also has had some left-sided abdominal pain since yesterday that is worse today. Last took her Eliquis yesterday morning. Denies other abdominal pain or changes in her bowels. Has had decreased urination due to poor p.o. intake because of her nausea and vomiting. [facility] Medical History Abdominal pain Abnormal pulmonary function test Epilepsy Febrile seizure GERD (gastroesophageal reflux disease) New onset atrial fibrillation Pancreatitis Paroxysmal atrial fibrillation Partial small bowel obstruction Seizure disorder Splenic infarct Traumatic brain injury Home Medications sucralfate 1 gram tablet 1 g PO TID GERD 12/20/14 [History Last Taken 07/03/19] trazodone 100 mg tablet 150 mg PO QHS sleep 02/11/17 [History Last Taken 07/03/19] rizatriptan 10 mg tablet 10 mg PO DAILY PRN Headache 11/15/17 [History Last Taken 10/29/18 10 MG] hydroxyzine pamoate 50 mg capsule 50 mg PO BID PRN PRN Anxiety 03/31/19 [History Last Taken 07/04/19] albuterol sulfate 90 mcg/actuation aerosol inhaler (ProAir HFA) 2 puff inhalation Q6H PRN PRN sob 08/17/22 [History Last Taken Unknown] apixaban 5 mg tablet (Eliquis) 5 mg PO BID Check with primary doctor 08/17/22 [History Last Taken Unknown] dicyclomine 20 mg tablet 20 mg PO Q6H PRN Nausea 08/17/22 [History Last Taken Unknown] epinephrine 0.3 mg/0.3 mL injection, auto-injector 0.3 mg IM ONCE PRN anaphylaxis 08/17/22 [History Last Taken Unknown] famotidine 40 mg tablet 40 mg PO DAILY Check with primary doctor 08/17/22 [History Last Taken Unknown] folic acid 1 mg tablet 4 mg PO DAILY Check with primary doctor 08/17/22 [History Last Taken Unknown] levetiracetam 1,000 mg tablet 1,000 mg PO BID Check with primary doctor 08/17/22 [History Last Taken Unknown] lithium carbonate 300 mg tablet 300 mg PO .COMPLEX Check with primary doctor 08/17/22 [History Last Taken Unknown] ondansetron HCl 8 mg tablet 8 mg PO Q12H PRN nausea and vomiting 08/17/22 [History Last Taken Unknown] pantoprazole 40 mg tablet,delayed release 40 mg PO BID Check with primary doctor 08/17/22 [History Last Taken Unknown] prazosin 2 mg capsule 2 mg PO QHS nightmares 08/17/22 [History Last Taken Unknown] quetiapine 300 mg tablet (Seroquel) 200 mg PO DAILY insomnia 08/17/22 [History Last Taken Unknown] verapamil 240 mg tablet,extended release 240 mg PO DAILY Check with primary doctor 08/17/22 [History Last Taken Unknown] Allergy/AdvReac Type Severity Reaction Status Date / Time bupropion HCl Allergy seizures Verified 10/21/22 12:22 [From Wellbutrin] dill oil Allergy Shortness Verified 10/21/22 12:22 of breath diphenhydramine HCl Allergy Itching/throat Verified 10/21/22 12:22 [From Benadryl] swells doxycycline Allergy Itching/vom Verified 10/21/22 12:22 iting venom-honey bee Allergy Anaphylaxis Verified 10/21/22 12:22 [bee venom (honey bee)] Opioids - Morphine Analogues AdvReac HX Drug Verified 10/21/22 12:22 Diversion Family History Mother Cancer Breast Asthma Grandmother Heart disease Grandfather Heart disease Aunt Atrial fibrillation Surgical History History of partial colectomy History of surgery on wrist History of tonsillectomy Social History (Updated 10/21/22 @ 16:16 by Ivy Grijalva) Smoking Status: Current every day smoker tobacco type: cigarettes Tobacco: How many years used: 20 alcohol intake: never substance use type: marijuana caffeine: Yes (occasional) ROS ROS Narrative General: Denies fever or chills HENT: Denies headache, denies stuffy nose, denies sore throat EYES: Denies changes in vision at time of exam Resp: Denies cough, denies shortness of breath Cardiac: Denies chest pain GI: Nausea and vomiting improving, has some left upper quadrant abdominal pain, denies changes in bowel : Decreased urination Extremity: Denies swelling MSK: Denies focal weakness Neuro: Denies any numbness, denies tingling Heme: Denies any bleeding or bruising aside from blood in emesis Skin: Denies rashes Psychiatric: History of depression Vital Signs Vital Signs Vital Signs: 10/21/22 12:20 10/21/22 14:17 Temperature 99 F Temperature Source Temporal Pulse Rate 190 H 62 Respiratory Rate 20 H 26 H Blood Pressure 153/132 H 150/80 H Blood Pressure Mean 139 103 Pulse Ox 100 96 Oxygen Delivery Method Room Air Room Air Weight Weight: 99.79 kg Body Mass Index (BMI) 36.6 Physical Exam Narrative General: Alert, oriented, no apparent distress HEENT: Atraumatic, normocephalic Eyes: Anicteric, normal conjunctiva, extraocular movements grossly intact Neck: Supple Respiratory: Clear to auscultation bilaterally, normal respiratory effort Cardiovascular: Regular rate GI: Soft, no significant tenderness on palpation of abdomen, no rebound, guarding, rigidity, nondistended Extremities: No edema Musculoskeletal: Moving all extremities Neuro: No overt focal neurological deficits Skin: No rashes appreciated Psych: Cooperative Results Lab / Micro Data Result Diagrams: 10/21/22 18:29 10/21/22 12:55 Labs: Laboratory Results - last 24 hr 10/21/22 12:55: WBC 21.1 H, RBC 4.88, Hgb 14.9, Hct 43.8, MCV 89.8, MCH 30.5, MCHC 34.0, RDW Std Deviation 43.9, RDW Coeff of Radha 13.3, Plt Count 309, MPV 9.7, Immature Gran % (Auto) 0.600, Neut % (Auto) 87.4 H, Lymph % (Auto) 7.7 L, [place] % (Auto) 4.0, Eos % (Auto) 0.0, Baso % (Auto) 0.3, Absolute Neuts (auto) 18.4 H, Absolute Lymphs (auto) 1.63, Nucleated RBC % 0 10/21/22 12:55: Sodium 144, Potassium 3.2 L, Chloride 105, Carbon Dioxide 27.0, Anion Gap 12, BUN 9, Creatinine 1.13 H, Estim Creat Clear Calc 61.34, Est GFR (MDRD) Af Amer 70, Est GFR (MDRD) Non-Af 58 L, BUN/Creatinine Ratio 8.0 L, Glucose 158 H, Calcium 11.4 H 10/21/22 13:10: Blood Type B POSITIVE, Antibody Screen NEGATIVE Rhythm Strip Rhythm Strip: Sinus Rhythm Rate: 60 Ectopy: None Assessment & Plan Assessment/Plan (1) Upper GI bleed: (2) Cyclic vomiting syndrome: PLAN: Plan #Hematemesis/n/v/abd pain -Has chronic nausea which may be secondary to her medical marijuana use which she uses roughly 4 times daily -Nausea and vomiting began before blood streaks, cannot exclude Ghislaine-Curran tear or ulcer -Hemoglobin stable in the ED, type and cross sent, repeat was 13.2 and on presentation was 14.9, has not had further hematemesis and has not reported any dark or bloody bowel movements, suspect that this is in part delusional given her very poor p.o. intake leading up to presentation -Trend H&H -Feeling better after Zofran, continue PPI drip -Zofran as needed -Poor p.o. with her nausea and vomiting, will give further IV hydration -Does have some epigastric/left upper quadrant pain, will check lipase -GI consult, n.p.o. at midnight #Paroxysmal atrial fibrillation -Hold Eliquis -Continue verapamil #Epilepsy -Reports her seizures are primarily staring more recently -Initially reported she had been taking her Keppra however later reported she has not taken in several days because she has been feeling sick -Had to give IV 1 g of Keppra due to seizure activity on the floor and gave 1 mg of Ativan -Continue this IV, she received 2 g total of Keppra IV between ED and floor and was loaded adequately, continue 1000 twice daily IV while not tolerating p.o. -Ativan as needed for seizure activity -Labs ordered, routine EEG ordered to assess for any background activity -Suspect seizure activity was secondary to recent noncompliance due to feeling unwell -Low threshold for neuro consult if abnormal EEG or symptoms return #Elevated calcium -Is on lithium chronically -Check lithium level, vitamin D, PTH, Phos -Calcium 11.4 on presentation repeat 9.9 with hydration #Depression -Continue prazosin and Seroquel -Holding lithium pending lithium level #CKD stage IIIa -Hydrating #Tobacco use -Advised cessation -Does not want nicotine patch #DVT ppx: Ambulatory Nora Mckenzie MD Time spent in the patient's overall evaluation,decision-making process, review of diagnostic data, adjustment of management, discussion with other providers, nursing nursing and ancillary staff involved in patient's care documentation, 60 minutes Charges/Coding Visit Charges Inpatient E&M: 94226 Init Hosp L2
[2022-10-21 15:36] VITALS: BP 150/80; PULSE 62; RESP 26; TEMP 37.2; O2SAT 99
[2022-10-21 16:00] VITALS: BP 122/65; PULSE 73; RESP 16; TEMP 37.4; O2SAT 98; BMI 35.6
[2022-10-21 16:28] LABS: AST(SGOT) 12 U/L (15-37); Alanine Aminotransfer ALT/SGPT 24 U/L (13-56); Albumin, Serum 4.5 g/dL (3.2-5.0); Alkaline Phosphatase 65 U/L (45-117); Bilirubin, Direct 0.18 mg/dL (0.00-0.30); Globulin 3.8 g/dL (2.2-4.2); Lipase 49 U/L (73-393); Protein, Total 8.3 g/dL (6.4-8.2)
[2022-10-21 16:30] LABS: International Normalized Ratio 1.1; Prothrombin Time (Protime)PT. 14.3 SECONDS (11.7-14.9)
[2022-10-21] MEDS: 0.9% Normal Saline 1,000 ML 100 ML IV (17:54)
[2022-10-21 18:10] VITALS: O2SAT 100
--- NOTE | 2022-10-21 18:15 | PCM.HOSP.N ---
Hospitalist Note [employer]ELOPER called at 1806, responded to [employer]ELOPER and pt having seizure activity. Ativan and IV keppra ordered. Pt responded when I spoke to her and seizure activity stopped, pt slightly confused and tearful but cooperative. Given 1mg IV ativan and 1g IV keppra and w/ IV keppra in ED she has now had 2g load. She reported initially compliance with meds but later endorsed not taking her keppra for several days d/t not feeling well. Stat labs ordered and pending. Sz precautions. Glc wnl, vitally stable. Pt stable, suspect breakthrough sz d/t med non compliance. If repeat seizure after keppra load will need neurology involvement. Will give keppra IV while pt has poor PO intake
[2022-10-21] MEDS: LORazepam 2 MG/ML Syringe 1 MG IV (18:24)
[2022-10-21 18:42] LABS: Absolute Lymphocyte Count 1.84 X10^3/uL (0.83-4.51); Absolute Neutrophil Count 14.1 X10^3/uL (2.0-7.7); Basophil# 0.06 X10^3/uL; Basophil% 0.4 % (0-1); Hematocrit 39.5 % (37-47); Hemoglobin 13.2 g/dL (12.0-15.0); Lymphocyte # 1.84 X10^3/ul (0.83-4.51); Lymphocyte % 10.8 % (19-41); Mean Corp Hgb Conc 33.4 g/dL (32-36); Mean Corpuscular Hgb 30.1 pg (27.0-32.0); Mean Corpuscular Volume 90.2 fL (81-99); Mean Platelet Vol. 9.4 fl (6.2-12.0); Monocyte# 0.93 X10^3/uL; Monocyte% 5.5 % (0-10); NRBC Flagged by Analyzer 0 % (0-5); Neutrophil # 14.11 X10^3/uL (2.7-7.7); Neutrophil % 82.9 % (47-70); Platelet Count 245 K/mm3 (150-450); RBC Distribution Width CV 13.3 % (11.6-14.6); RBC Distribution Width SD 43.9 fl (35.1-43.9); Red Blood Count 4.38 M/mm3 (4.2-5.4)
[2022-10-21 18:57] LABS: Anion Gap 10 (5-15); BUN 9 mg/dL (7-18); BUN/Creat Ratio 7.7 RATIO (10-20); Calcium,Total 9.9 mg/dL (8.5-10.1); Chloride 110 mmol/L (98-107); Creatinine, Serum 1.17 mg/dL (0.55-1.02); EST Glomerular Filtration Rate 55 mL/min (>60); Est Glom Filt Rate - Afr Amer 67 mL/min (>60); Estimated Creatinine Clearance 59.24 ml/min; Glucose 163 mg/dL (74-106); Potassium 3.3 mmol/L (3.5-5.1); Sodium Level 145 mmol/L (136-145)
[2022-10-21] MEDS: proMETHazine 25 MG/ML Syringe 12.5 MG IM (19:37)
[2022-10-21 19:43] LABS: Magnesium 1.8 mg/dL (1.6-2.6); Phosphorus 2.8 mg/dL (2.5-4.9)
[2022-10-21 19:49] LABS: Lithium < 0.20 mmol/L (0.60-1.20)
--- NOTE | 2022-10-21 19:54 | NURSING ---
This RN at bedside and pt started seizing at 1804, ELECTROCARDIOGRAPH REPAIRER called. 1 mg of IV ativan was given. Seizure lasted for 6 minutes until 1810.
[2022-10-21 19:56] LABS: Lactic Acid 3.6 mmol/L (0.4-1.9)
[2022-10-21 22:39] LABS: Reflex Lactate? Y
[2022-10-21 22:51] LABS: Hematocrit 42.8 % (37-47); Hemoglobin 14.1 g/dL (12.0-15.0)
[2022-10-21 23:14] VITALS: BP 122/72; PULSE 54; RESP 18; TEMP 36.8; O2SAT 96
[2022-10-21] MEDS: QUEtiapine 100 MG Tablet 200 MG PO (23:27)
[2022-10-21] MEDS: Doxazosin 1 MG Tablet 1.5 MG PO (23:27)
[2022-10-21 23:36] LABS: Lactic Acid 1.4 mmol/L (0.4-1.9)
[2022-10-22] VITALS (8 sets, daily range): BP systolic 105–155; BP diastolic 65–83; PULSE 60–75; RESP 14–38; TEMP 36.6–36.9; O2SAT 91–100; BMI 35.6
--- NOTE | 2022-10-22 | GASB_PTH ---
PATIENT: URSULA HUGHES LOC: [facility] U#:[id number] AGE/SX: 37/F ROOM: [facility] RE10/21/[address]: Dr. Lazaro Warner MD : 1985 BED: 1 DIS: 10/22/2022 SPEC #: [id number] RECD: 10/22/22 14:23 STATUS: FERMIN YOUNGBLOOD #: [id number] TRACY: 10/22/22 00:[address]: Vlad Porter DEPT: SURGICAL PATHOLOGY RECD BY: Jay Moore ENTERED: 10/23/22 06:02 SP TYPE: Gastric Bx OTHR DR: MD Dr. Nora Clark MD Dr. William Lago, MD Tissues: Gastric mucous membrane Procedures: Surgery Specimen Level IV Comments: @ Ordering doctor for SUIV edited from to @ by MARGRET at 10/23/22 0854 @ Submitting doctor edited from to @ by RGOOD at 10/23/22 0854 HEADER OPERATION: EGD (MAC) biopsy PRE-OP DIAGNOSIS: Upper GI bleed, leukocytosis, cyclic vomiting syndrome TISSUE SUBMITTED: Gastric cardia biopsy MICROSCOPIC DIAGNOSIS Gastric cardia, biopsy: Mild gastritis. See microscopic description and comment. MYA:[place] 10/23/2022 COMMENT The results of immunohistochemistry for Helicobacter pylori will be reported separately ([id number]). MICROSCOPIC DESCRIPTION Slides are reviewed. The specimen shows fragments of gastric mucosa with chronic inflammatory cell infiltrates in the lamina propria consisting of lymphocytes and plasma cells, consistent with mild chronic gastritis. GROSS DESCRIPTION Received in fixative is one container labeled with the patient's name and designated gastric cardia. The specimen consists of one irregular fragment of light lopez soft tissue that measures 0.3 x 0.2 x 0.1 cm. The specimen is totally submitted in one cassette. / MYA:[place] 10/22/2022 TC:3 CPT: 94246
[2022-10-22 00:10] LABS: Bedside Glucose 163 mg/dL (74-106)
[2022-10-22] MEDS: Potassium Chloride 10mEq/100mL 10 MEQ/100 ML IV.SOLN. 100 MEQ IV BOLUS ×3 (00:11→03:15)
[2022-10-22 01:47] LABS: Mucous, Urine 0 SEEN /hpf (<or=2+)
[2022-10-22 01:49] LABS: Color, Urine Yellow (Yellow); Glucose, Dipstick Normal (Normal); Ketone-Dipstick Negative (Negative); Leukocyte Esterase-Dipstick 100 /ul (Negative); Nitrite-Dipstick Negative (Negative); Occult Blood-Urine 250 /ul (Negative); Protein-Dipstick 30 mg/dl (Negative); Urine Bilirubin Dipstick Negative (Negative); Urine Clarity Sl. Cloudy (Clear); Urine Urobilinogen Normal (Normal)
[2022-10-22 01:56] LABS: White Blood Cells 5-10 SEEN /hpf (0-5)
[2022-10-22 01:57] LABS: Bacteria 1+ /hpf (None Seen); Internal QC Validated? YES +Cl - CLEAR BKGD; Pregnancy, Urine Negative Negative; Red Blood Cells-Urine > 100 SEEN /hpf (0-5); Squamous Epithelial Cells - UA 0-5 SEEN /hpf (5-10)
[2022-10-22] MEDS: proMETHazine 25 MG/ML Syringe 12.5 MG IM (04:11)
[2022-10-22 04:51] LABS: Absolute Lymphocyte Count 2.03 X10^3/uL (0.83-4.51); Absolute Neutrophil Count 9.5 X10^3/uL (2.0-7.7); Basophil# 0.06 X10^3/uL; Basophil% 0.5 % (0-1); Eosinophil# 0.01 X10^3/uL; Eosinophils% 0.1 % (0-5); Hematocrit 40.8 % (37-47); Hemoglobin 13.2 g/dL (12.0-15.0); Lymphocyte # 2.03 X10^3/ul (0.83-4.51); Lymphocyte % 16.4 % (19-41); Mean Corp Hgb Conc 32.4 g/dL (32-36); Mean Corpuscular Hgb 29.6 pg (27.0-32.0); Mean Corpuscular Volume 91.5 fL (81-99); Mean Platelet Vol. 9.7 fl (6.2-12.0); Monocyte# 0.78 X10^3/uL; Monocyte% 6.3 % (0-10); NRBC Flagged by Analyzer 0 % (0-5); Neutrophil # 9.48 X10^3/uL (2.7-7.7); Neutrophil % 76.3 % (47-70); Platelet Count 221 K/mm3 (150-450); RBC Distribution Width CV 13.3 % (11.6-14.6); RBC Distribution Width SD 45.1 fl (35.1-43.9); Red Blood Count 4.46 M/mm3 (4.2-5.4); White Blood Count 12.4 K/mm3 (4.4-11.0)
[2022-10-22 05:25] LABS: International Normalized Ratio 1.2; Prothrombin Time (Protime)PT. 15.2 SECONDS (11.7-14.9)
[2022-10-22 05:27] LABS: ALB/GLOB Ratio 1.3 RATIO (0.9-2.4); AST(SGOT) 19 U/L (15-37); Alanine Aminotransfer ALT/SGPT 23 U/L (13-56); Albumin, Serum 3.8 g/dL (3.2-5.0); Alkaline Phosphatase 54 U/L (45-117); Anion Gap 10 (5-15); BUN 8 mg/dL (7-18); BUN/Creat Ratio 7.7 RATIO (10-20); Calcium,Total 9.3 mg/dL (8.5-10.1); Chloride 111 mmol/L (98-107); Creatinine, Serum 1.04 mg/dL (0.55-1.02); EST Glomerular Filtration Rate 63 mL/min (>60); Est Glom Filt Rate - Afr Amer 77 mL/min (>60); Estimated Creatinine Clearance 66.64 ml/min; Glucose 139 mg/dL (74-106); Potassium 3.6 mmol/L (3.5-5.1); Protein, Total 6.8 g/dL (6.4-8.2); Sodium Level 145 mmol/L (136-145); Thyroid Stim Hormone (TSH) 0.39 uIU/mL (0.358-3.74)
[2022-10-22] MEDS: levETIRAcetam IV 1,000 MG/100 ML BAG 400 MG IV (06:38)
--- NOTE | 2022-10-22 07:48 | TELEMED_ITS ---
[facility] has confirmed receipt of a request for visit. This document confirms receipt of the order initiating the consult. To find the results of the consultation, please view the patient's reports for the scanned Telemed Consult.
[2022-10-22] MEDS: 0.9% Saline Lock 10 ML Syringe IV (08:39)
[2022-10-22] MEDS: LORazepam 2 MG/ML Syringe IV (08:39)
[2022-10-22] MEDS: Verapamil SR 240 MG Tablet PO (08:40)
[2022-10-22] MEDS: Sucralfate 1 GM Tablet PO (08:40)
[2022-10-22] MEDS: Famotidine 20 MG Tablet 40 MG PO (08:40)
[2022-10-22 08:47] LABS: PTHIN 24.8 pg/mL (18.4-80.1)
--- NOTE | 2022-10-22 09:35 | PN.HOSP_ITS ---
Subjective Subjective No issues overnight, she did have a possible seizure yesterday because she has not been taking her seizure medications on the advice of an outside hospital secondary to her GI upset Objective Data Objective Data Vital Signs: Vital Signs Temp Pulse Resp BP Pulse Ox O2 Del Method O2 Flow Rate 98.3 F 60 14 155/83 H 98 Nasal Cannula 2 10/22/22 08:32 10/22/22 08:32 10/22/22 08:32 10/22/22 08:32 10/22/22 09:09 10/22/22 09:09 10/22/22 09:09 Oxygen Flow Rate (L/min) 2 Oxygen Delivery Method Nasal Cannula Weight: 214 lb 1.102 oz Body Mass Index (BMI) 35.6 Intake & Output: Intake and Output for Last 24 Hours 10/21/22 10/22/22 10/23/22 03:59 03:59 03:59 Intake Total 1535 / 2535 1200 / 1200 Balance 1535 / 2535 1200 / 1200 Lab / Micro Data Result Diagrams: 10/22/22 04:32 10/22/22 04:32 Labs: Laboratory Results - last 24 hr 10/21/22 12:51: PT 14.3, INR 1.1 10/21/22 12:55: WBC 21.1 H, RBC 4.88, Hgb 14.9, Hct 43.8, MCV 89.8, MCH 30.5, MCHC 34.0, RDW Std Deviation 43.9, RDW Coeff of Radha 13.3, Plt Count 309, MPV 9.7, Immature Gran % (Auto) 0.600, Neut % (Auto) 87.4 H, Lymph % (Auto) 7.7 L, [place] % (Auto) 4.0, Eos % (Auto) 0.0, Baso % (Auto) 0.3, Absolute Neuts (auto) 18.4 H, Absolute Lymphs (auto) 1.63, Nucleated RBC % 0 10/21/22 12:55: Sodium 144, Potassium 3.2 L, Chloride 105, Carbon Dioxide 27.0, Anion Gap 12, BUN 9, Creatinine 1.13 H, Estim Creat Clear Calc 61.34, Est GFR (MDRD) Af Amer 70, Est GFR (MDRD) Non-Af 58 L, BUN/Creatinine Ratio 8.0 L, Glucose 158 H, Calcium 11.4 H 10/21/22 12:55: Total Bilirubin 0.90, Direct Bilirubin 0.18, AST 12 L, ALT 24, Alkaline Phosphatase 65, Total Protein 8.3 H, Albumin 4.5, Globulin 3.8, Lipase 49 L 10/21/22 13:10: Blood Type B POSITIVE, Antibody Screen NEGATIVE 10/21/22 18:13: POC Glucose 163 H 10/21/22 18:29: WBC 17.0 H, RBC 4.38, Hgb 13.2, Hct 39.5, MCV 90.2, MCH 30.1, MCHC 33.4, RDW Std Deviation 43.9, RDW Coeff of Radha 13.3, Plt Count 245, MPV 9.4, Immature Gran % (Auto) 0.400, Neut % (Auto) 82.9 H, Lymph % (Auto) 10.8 L, [place] % (Auto) 5.5, Eos % (Auto) 0.0, Baso % (Auto) 0.4, Absolute Neuts (auto) 14.1 H, Absolute Lymphs (auto) 1.84, Nucleated RBC % 0 10/21/22 18:29: Sodium 145, Potassium 3.3 L, Chloride 110 H, Carbon Dioxide 25.0, Anion Gap 10, BUN 9, Creatinine 1.17 H, Estim Creat Clear Calc 59.24, Est GFR (MDRD) Af Amer 67, Est GFR (MDRD) Non-Af 55 L, BUN/Creatinine Ratio 7.7 L, Glucose 163 H, Calcium 9.9 10/21/22 18:29: Lactic Acid 3.6 H* 10/21/22 18:29: Phosphorus 2.8, Magnesium 1.8 10/21/22 18:29: [place] < 0.20 L 10/21/22 18:29: PTH Intact 24.8 10/21/22 22:26: Hgb 14.1, Hct 42.8 10/21/22 23:03: Lactic Acid 1.4 10/22/22 01:40: Urine Color Yellow, Urine Clarity Sl. Cloudy, Urine pH 8.0, Ur S pecific [place] 1.010, Urine Protein 30 H, Urine Glucose (UA) Normal, Urine K etones Negative, Urine Occult Blood 250 H, Urine Nitrite Negative, Urine Bili shi Negative, Urine Urobilinogen Normal, Ur Leukocyte Esterase 100 H, Urine RBC > 100 SEEN, Urine WBC 5-10 SEEN, Ur Squamous Epith Cells 0-5 SEEN, Urine Bacteria 1+, Urine Mucus 0 SEEN, Urine Test Negative 10/22/22 04:32: WBC 12.4 H, RBC 4.46, Hgb 13.2, Hct 40.8, MCV 91.5, MCH 29.6, MCHC 32.4, RDW Std Deviation 45.1 H, RDW Coeff of Radha 13.3, Plt Count 221, MPV 9.7, Immature Gran % (Auto) 0.400, Neut % (Auto) 76.3 H, Lymph % (Auto) 16.4 L, [place] % (Auto) 6.3, Eos % (Auto) 0.1, Baso % (Auto) 0.5, Absolute Neuts (auto) 9.5 H, Absolute Lymphs (auto) 2.03, Nucleated RBC % 0 10/22/22 04:32: PT 15.2 H, INR 1.2 10/22/22 04:32: Sodium 145, Potassium 3.6, Chloride 111 H, Carbon Dioxide 24.0, Anion Gap 10, BUN 8, Creatinine 1.04 H, Estim Creat Clear Calc 66.64, Est GFR (MDRD) Af Amer 77, Est GFR (MDRD) Non-Af 63, BUN/Creatinine Ratio 7.7 L, Glucose 139 H, Calcium 9.3, Total Bilirubin 0.80, AST 19, ALT 23, Alkaline Phosphatase 54, Total Protein 6.8, Albumin 3.8, Globulin 3.0, Albumin/Globulin Ratio 1.3, TSH 0.39 Rhythm Strip Rhythm Strip: Sinus Rhythm Rate: 60 Ectopy: None Physical Exam Narrative General: Alert, Oriented x3, Cooperative, No apparent distress HEENT: Atraumatic, PERRLA, EOMI, Normocephalic Oral: Moist Mucosa Neck: Supple, No JVD Lungs: Clear to auscultation, Normal air movement, No rhonchi, No wheeze, No rales Cardiovascular: Regular rate, Regular Rhythm, Normal S1, Normal S2, No murmurs Abdomen: Soft, Non Tender, Non-Distended, No Hepato-splenomegaly Extremities: No edema, Capillary Refill Less than 3 Seconds Skin: No rashes, No breakdown Musculoskeletal: No Tenderness to Palpation of Joints or Extremities Neurological: Cranial nerves II-XII grossly intact, Motor Exam 5/5 strength throughout, Sensory exam intact to light touch and pain Psych/Mental Status: Flat affect, Appropriate Assessment & Plan Assessment/Plan (1) Upper GI bleed: (2) Cyclic vomiting syndrome: PLAN: Plan 1. Hematemesis/n/v/abd pain ? We will consult GI ? Placed on a PPI ? No further episodes of hematemesis ? Hemoglobin is stable and not consistent with large hemorrhage ?Continue with Zofran 2. Epilepsy with a seizure overnight/elevated calcium ? She was told to hold her antiseizure medications by an outside hospital ? EEG is pending ? Continue with IV Keppra and will restart her on her home medications after intervention for her GI bleed ? This was a solitary event she had a single reading of 11.4 and has never had any hypercalcemia and this resolved overnight lithium level as well as other electrolytes are pending 3. Paroxysmal atrial fibrillation ? We will continue with rate control medication of verapamil ? We will hold Eliquis secondary to the GI bleed pending intervention 4. Depression ? Stable ? Continue with her home medications, her lithium is being held pending level 5. CKD 3a ?No CKD history DVT: Ambulation Charges/Coding Visit Charges Inpatient E&M: 98925 Subs Hosp L2
--- NOTE | 2022-10-22 10:25 | CASEMGMT ---
RN?CM?EMPLOYEE SERVICES MANAGER?CM?to room to meet with patient for initial transition planning/care coordination?assessment.?RN?CM?introduced self and role at [facility].? Pt voices understanding and consents to?assessment?at this time.? Pt resting in bed in no distress at this time.? Pt is awake at this time and answers all questions appropriately, but does fall asleep quickly. Care providers, pharmacy, and demographics verified/updated at this time. PCP: Dr Maldonado Specialists: Dr Leonardo-cardiology, Dr AlexisCrcj-xgejelfmp-ZOB/main Preferred [facility]acy: [facility] Insurance: Aetmiquel FRANCIS, [employer] Prescription Benefit:?Yes Living Will/HPOA:?Pt does not currently have LW/HCPOA and declines info at this time.? Pt made aware that she can contact as an out-pt and make appt in the future if she decides she would like to talk with someone about this or would like to utilize [facility] social work for advanced directive completion.? LNOK: Father, Angelito. Pt states her mother is not living and she has no children. She has 2 siblings. Living Arrangements: Pt lives w/sig other, Ashok. Independent w/ADL's and medication mgmt. Pt and Ashok share home mgmt tasks. Transportation:?Neither pt nor Ashok drive. Pt's father takes them to get groceries can take pt home @ discharge. DME: ? Denies using any DME and denies needs.? HHC/SNF: No hx of either. Denies needs and no needs identified. Pt wishes to return home and states has no concerns with going home at time of discharge.? CM?to follow for any discharge planning/needs.? Pt voices no concerns/needs at this time.? Advised pt to ask for?CM?if any questions/concerns/needs arise.? Voices understanding. PLAN:??Home Tabby BSN?RN?CM
--- NOTE | 2022-10-22 11:37 | NURSING ---
report called to baljinder Garcia RN patient taken down
[2022-10-22] MEDS: Lactated Ringers 1,000 ML 15 ML IV (11:48)
--- NOTE | 2022-10-22 12:45 | IMM_PTH ---
PATIENT: URSULA HUGHES LOC: [facility] U#:[id number] AGE/SX: 37/F ROOM: [facility] RE10/21/[address]: Dr. Lazaro Warner MD : 1985 BED: 1 DIS: 10/22/2022 SPEC #: [id number] RECD: 10/23/22 09:13 STATUS: FERMIN YOUNGBLOOD #: [id number] TRACY: 10/22/22 12:[address]: Vlad Porter DEPT: IMMUNOHISTOCHEMISTRY RECD BY: Lainey Lira ENTERED: 10/23/22 09:14 SP TYPE: IMMUNO OTHR DR: MD Dr. Nora Clark MD Dr. William Lago, MD Tissues: Stomach, NOS Procedures: H Pylori (initial) PHYSICIAN & INSTITUTION [place] [id number] SPECIMEN INFORMATION: Tissue Source: Gastric cardia biopsy Clinical Info: Upper GI bleed, leukocytosis, cyclic vomiting syndrome Specimen Number: [id number] CPT code: 65197 METHODOLOGY: Deparaffinized sections of prefer/formalin-fixed tissue or PAP/DQ stained slides are incubated with monoclonal/polyclonal antibodies/oligonucleotide probes. Localization is made via biotin free immunoperoxidase method. Appropriate controls are performed and reacted as expected. Results on target cell population are indicated in the following table: RESULTS: ANTIBODY / CLONE RESULT H Pylori (polyclonal) negative These tests were developed and their performance characteristics determined by [facility]. They may not have been cleared or approved by the U.[place]. Food and Drug Administration. The FDA has determined that such clearance or approval is not necessary. The above immunohistochemical/dualISH markers are ordered and reviewed by the Pathologist. INTERPRETATION: Gastric cardia, biopsy: Negative for Helicobacter pylori organisms. S[place] 10/23/2022
--- NOTE | 2022-10-22 13:42 | OP.CCLET_ITS ---
10/22/2022 Harrison Maldonado Re : Upper GI endoscopy procedure for Lakeshia Faith Joel This procedure was performed on Saturday, October 22, 2022. My impressions and recommendations are as follows: Impressions : - LA Grade B erosive esophagitis. Biopsied. - Non-bleeding gastric ulcer with a visible vessel. Injected. Treated with a heater probe. - Acute gastritis. Biopsied. - No gross lesions in the first portion of the duodenum. Recommendations : - [facility]. - Advance diet as tolerated. - Continue present medications. My findings are described in the full procedure note, which is enclosed. If I can be of further assistance, please feel free to contact me at . Sincerely, Vlad Porter, 10/22/2022 1:42:00 PM This report has been signed electronically.
--- NOTE | 2022-10-22 13:42 | OP.EGD_ITS ---
Patient Name: Lakeshia Pascual Procedure Date: 10/22/2022 12:36 PM Date of : 1985 Age: 37 Procedure: Upper GI endoscopy Indications: Hematemesis Providers: Vlad Porter DO Medicines: Monitored Anesthesia Care Patient Profile: This is a 37 year old female. Refer to note in patient chart for documentation of history and physical. Patient has symptoms of acute epigastric abdominal pain, acute vomiting and chronic vomiting. Complications: No immediate complications. Procedure: Pre-Anesthesia Assessment: - Prior to the procedure, a History and Physical was performed, and patient medications and allergies were reviewed. The risks and benefits of the procedure and the sedation options and risks were discussed with the patient. All questions were answered and informed consent was obtained. Patient identification and proposed procedure were verified by the physician in the pre-procedure area. Mental Status Examination: alert and oriented. Airway Examination: normal oropharyngeal airway and neck mobility. Respiratory Examination: clear to auscultation. CV Examination: normal. Prophylactic Antibiotics: The patient does not require prophylactic antibiotics. Prior Anticoagulants: The patient has taken no previous anticoagulant or antiplatelet agents. ASA Grade Assessment: II - A patient with mild systemic disease. After reviewing the risks and benefits, the patient was deemed in satisfactory condition to undergo the procedure. The anesthesia plan was to use monitored anesthesia care (MAC). Immediately prior to administration of medications, the patient was re-assessed for adequacy to receive sedatives. The heart rate, respiratory rate, oxygen saturations, blood pressure, adequacy of pulmonary ventilation, and response to care were monitored throughout the procedure. The physical status of the patient was re-assessed after the procedure. After obtaining informed consent, the endoscope was passed under direct vision. Throughout the procedure, the patient's blood pressure, pulse, and oxygen saturations were monitored continuously. The Endoscope was introduced through the mouth, and advanced to the second part of duodenum. The upper GI endoscopy was accomplished without difficulty. The patient tolerated the procedure well. Scope In: 1:31:56 PM Scope Out: 1:34:30 PM Total Procedure Duration Time 0 hours 2 minutes 34 seconds Findings: LA Grade B (one or more mucosal breaks greater than 5 mm, not extending between the tops of two mucosal folds) esophagitis with no bleeding was found 37 to 39 cm from the incisors. Biopsies were taken with a cold forceps for histology. Verification of patient identification for the specimen was done. Estimated blood loss was minimal. One non-bleeding cratered gastric ulcer with a visible vessel was found in the cardia. The lesion was 6 mm in largest dimension. Area was successfully injected with 5 mL of a 1:10,000 solution of epinephrine for hemostasis. Estimated blood loss was minimal. Coagulation for hemostasis using heater probe was successful. Estimated blood loss was minimal. Localized mild inflammation characterized by erosions and erythema was found in the cardia and in the gastric body. Biopsies were taken with a cold forceps for histology. Verification of patient identification for the specimen was done. Estimated blood loss was minimal. No gross lesions were noted in the first portion of the duodenum. Impression: - LA Grade B erosive esophagitis. Biopsied. - Non-bleeding gastric ulcer with a visible vessel. Injected. Treated with a heater probe. - Acute gastritis. Biopsied. - No gross lesions in the first portion of the duodenum. Recommendation: - [facility] to [facility] for [facility] care. - Advance diet as tolerated. - Continue present medications. Procedure Code(s): --- Professional --- 40773, 59, Esophagogastroduodenoscopy, flexible, transoral; with control of bleeding, any method 19771, Esophagogastroduodenoscopy, flexible, transoral; with biopsy, single or multiple CPT copyright 2017 [employer]. All rights reserved. The codes documented in this report are preliminary and upon certified procedural coder review may be revised to meet current compliance requirements. Vlad Porter DO 10/22/2022 1:42:00 PM This report has been signed electronically. Number of Addenda: 0 Note Initiated On: 10/22/2022 12:36 PM
--- NOTE | 2022-10-22 15:40 | DCINST_ITS ---
Discharge Instructions Diet Discharge Diet: No restrictions Activity Discharge Activity: Return to Normal Activity Dressing / Incision Call your doctor if you observe: Fever of 101 or Higher, Shortness of breath, Dizziness, Fainting spells, Swelling in the ankles, Chest pain and Increased palpitations (irregular heartbeat) Follow Up Care Test Results: Test results from this visit will be discussed in further detail at your follow- up appointment, if applicable. Discharge Plan Admission Admit Date/Time: 10/21/22 15:27 Attending Provider: Lazaro Warner Primary Care Provider: Harrison Maldonado Consulting Providers: Nora Mckenzie Discharge Orders/Prescriptions Prescriptions: New pantoprazole [Protonix] 40 mg tablet,delayed release (DR/EC) 40 mg PO BID 30 Days Qty: 60 0RF Continued albuterol sulfate [ProAir HFA] 90 mcg/actuation HFA aerosol inhaler 2 puff inhalation Q6H PRN PRN (Reason: sob) dicyclomine 20 mg tablet 20 mg PO Q6H PRN (Reason: Nausea) epinephrine 0.3 mg/0.3 mL auto-injector 0.3 mg IM ONCE PRN (Reason: anaphylaxis) Rx Instructions: as a single dose; may repeat once famotidine 40 mg tablet 40 mg PO DAILY folic acid 1 mg tablet 4 mg PO DAILY levetiracetam 1,000 mg tablet 1,000 mg PO BID lithium carbonate 300 mg tablet 300 mg PO .COMPLEX Rx Instructions: 300 mg orally takes 1 tab in the am and 3 tabs in the pm; ondansetron HCl 8 mg tablet 8 mg PO Q12H PRN (Reason: nausea and vomiting) pantoprazole 40 mg tablet,delayed release (DR/EC) 40 mg PO BID prazosin 2 mg capsule 2 mg PO QHS quetiapine [Seroquel] 300 mg tablet 200 mg PO DAILY verapamil 240 mg tablet extended release 240 mg PO DAILY sucralfate 1 GM tablet 1 g PO TID Label Comments: STOMACH trazodone 100 MG tablet 150 mg PO QHS rizatriptan 10 MG tablet 10 mg PO DAILY PRN (Reason: Headache) hydroxyzine pamoate 50 MG capsule 50 mg PO BID PRN PRN (Reason: Anxiety) Held Eliquis 5 mg tablet 5 mg PO BID Hold Instructions: Resume on 10/26/22. Referrals / Follow Up: Friend,Vlad, DO [Med Staff - Active Staff] - Within 3 Months Harrison Maldonado MD [Primary Care Provider] - Within 1 Week Disposition Disposition (needs filled in before D/C Order can be placed): Home, Self Care
--- NOTE | 2022-10-22 15:44 | PCM.DC.SUM ---
Providers Date of Admission: 10/21/22 Primary Care Physician: Dr. Harrison Maldonado MD Consultations 10/21/22 15:58 Consult: Gastroenterology Routine Consulting Provider: [facility] Reason for Consult: hematemasis EMERGENT Consult: No MD Notified: Yes Date Notified: 10/21/22 Time Notified: 15:32 Method of Notification: ED Physician Initiated Reason For Visit: HEMATEMESIS Diagnosis Discharge Diagnosis (1) Upper GI bleed: Status: Acute Code(s): K92.2 - Gastrointestinal hemorrhage, unspecified (2) Cyclic vomiting syndrome: Status: Acute Code(s): R11.15 - Cyclical vomiting syndrome unrelated to migraine Medications at Discharge Home Medications sucralfate 1 gram tablet 1 g PO TID GERD 12/20/14 trazodone 100 mg tablet 150 mg PO QHS sleep 02/11/17 rizatriptan 10 mg tablet 10 mg PO DAILY PRN Headache 11/15/17 hydroxyzine pamoate 50 mg capsule 50 mg PO BID PRN PRN Anxiety 03/31/19 albuterol sulfate 90 mcg/actuation aerosol inhaler (ProAir HFA) 2 puff inhalation Q6H PRN PRN sob 08/17/22 apixaban 5 mg tablet (Eliquis) 5 mg PO BID Check with primary doctor 08/17/22 dicyclomine 20 mg tablet 20 mg PO Q6H PRN Nausea 08/17/22 epinephrine 0.3 mg/0.3 mL injection, auto-injector 0.3 mg IM ONCE PRN anaphylaxis 08/17/22 famotidine 40 mg tablet 40 mg PO DAILY Check with primary doctor 08/17/22 folic acid 1 mg tablet 4 mg PO DAILY Check with primary doctor 08/17/22 levetiracetam 1,000 mg tablet 1,000 mg PO BID Check with primary doctor 08/17/22 lithium carbonate 300 mg tablet 300 mg PO .COMPLEX Check with primary doctor 08/17/22 ondansetron HCl 8 mg tablet 8 mg PO Q12H PRN nausea and vomiting 08/17/22 pantoprazole 40 mg tablet,delayed release 40 mg PO BID Check with primary doctor 08/17/22 prazosin 2 mg capsule 2 mg PO QHS nightmares 08/17/22 quetiapine 300 mg tablet (Seroquel) 200 mg PO DAILY insomnia 08/17/22 verapamil 240 mg tablet,extended release 240 mg PO DAILY Check with primary doctor 08/17/22 pantoprazole 40 mg tablet,delayed release (Protonix) 40 mg PO BID 30 days #60 tabs 10/22/22 Hospital Course Operations None Procedures EGD Summary of Care Provided Minutes Spent on Discharge: 36 Hospital Course: Per HPI: URSULA UHGHES, is a 37 F with a history of paroxysmal atrial fibrillation on Eliquis, epilepsy on Keppra and medical marijuana, depression who presented to [facility] 10/21/2022 with nausea and vomiting and hematemesis.? In the ED she was noted to have some red streaks in her vomitus and brought a sample from home that did show blood.? Hemoglobin was stable but given she is chronically on Eliquis and had appreciable blood GI was contacted and recommended PPI drip and admission.? Hospitalist consulted for admission.? Patient seen and evaluated in ED with friend at bedside.? Patient reports since being here her nausea and vomiting slowly improved and she has not had any hematemesis in several hours though did receive Zofran and is on PPI drip.? She reports that she has problems chronically with some nausea but yesterday she went to [place] due to nausea and vomiting and was discharged home.? At 5 PM she began to have a pink color with her emesis and then progressed to include more red.? Also has had some left-sided abdominal pain since yesterday that is worse today.? Last took her Eliquis yesterday morning.? Denies other abdominal pain or changes in her bowels.? Has had decreased urination due to poor p.o. intake because of her nausea and vomiting. Hospital Course: 1. Hematemesis with abdominal pain?37-year-old female came to the hospital with hematemesis, her abdominal pain mostly from the multiple episodes of vomiting. EGD today demonstrated a nonbleeding ulcer with visible vessel as well as some gastritis and esophagitis. Her hemoglobin is stable at 13.2. Her anticoagulation for A-fib has been held until 10/26/2022. We will continue with her famotidine on discharge and will also continue with her p.o. Carafate but will add twice daily Protonix. I do recommend outpatient follow-up with her PCP in 3 to 5 days as well as gastroenterology within the next couple of months for possible repeat scope to check for healing. Biopsies were taken that will need to be followed up as an outpatient. I discussed with her and her family the plan for discharge and they expressed understanding of the risk benefits of going home and want to go home today. I discussed with them that we are still waiting for the EEG she had had a seizure the night of admission however they said that this is because she was holding her medications on the recommendation of an outside hospital and that while on her antiseizure medications she has not had a seizure in quite a long time. They have asked multiple times to be able to go home. 2. Epilepsy with seizure overnight and elevated calcium?elevated calcium is likely a red lloyd as it was a solitary elevation, lithium level is low at less than 0.2, recommend outpatient follow-up for monitoring and adjustment of dosing. We will resume her other seizure medications. An EEG is pending that can be followed up as an outpatient as they do not want to stay for the results that could possibly happen tomorrow. 3. Paroxysmal A-fib, depression are chronic medical conditions which complicate her care. Her home medications were continued where appropriate Weight / BMI Weight Weight: 214 lb 1.102 oz Body Mass Index (BMI) 35.6 ABG / Lab / Microbiology Data Result Diagrams: 10/22/22 04:32 10/22/22 04:32 Laboratory: Laboratory Results - last 24 hr 10/21/22 12:51: PT 14.3, INR 1.1 10/21/22 12:55: Total Bilirubin 0.90, Direct Bilirubin 0.18, AST 12 L, ALT 24, Alkaline Phosphatase 65, Total Protein 8.3 H, Albumin 4.5, Globulin 3.8, Lipase 49 L 10/21/22 18:13: POC Glucose 163 H 10/21/22 18:29: WBC 17.0 H, RBC 4.38, Hgb 13.2, Hct 39.5, MCV 90.2, MCH 30.1, MCHC 33.4, RDW Std Deviation 43.9, RDW Coeff of Radha 13.3, Plt Count 245, MPV 9.4, Immature Gran % (Auto) 0.400, Neut % (Auto) 82.9 H, Lymph % (Auto) 10.8 L, [place] % (Auto) 5.5, Eos % (Auto) 0.0, Baso % (Auto) 0.4, Absolute Neuts (auto) 14.1 H, Absolute Lymphs (auto) 1.84, Nucleated RBC % 0 10/21/22 18:29: Sodium 145, Potassium 3.3 L, Chloride 110 H, Carbon Dioxide 25.0, Anion Gap 10, BUN 9, Creatinine 1.17 H, Estim Creat Clear Calc 59.24, Est GFR (MDRD) Af Amer 67, Est GFR (MDRD) Non-Af 55 L, BUN/Creatinine Ratio 7.7 L, Glucose 163 H, Calcium 9.9 10/21/22 18:29: Lactic Acid 3.6 H* 10/21/22 18:29: Phosphorus 2.8, Magnesium 1.8 10/21/22 18:29: [place] < 0.20 L 10/21/22 18:29: PTH Intact 24.8 10/21/22 22:26: Hgb 14.1, Hct 42.8 10/21/22 23:03: Lactic Acid 1.4 10/22/22 01:40: Urine Color Yellow, Urine Clarity Sl. Cloudy, Urine pH 8.0, Ur Specific [place] 1.010, Urine Protein 30 H, Urine Glucose (UA) Normal, Urine Ketones Negative, Urine Occult Blood 250 H, Urine Nitrite Negative, Urine Bilirubin Negative, Urine Urobilinogen Normal, Ur Leukocyte Esterase 100 H, Urine RBC > 100 SEEN, Urine WBC 5-10 SEEN, Ur Squamous Epith Cells 0-5 SEEN, Urine Bacteria 1+, Urine Mucus 0 SEEN, Urine Test Negative 10/22/22 04:32: WBC 12.4 H, RBC 4.46, Hgb 13.2, Hct 40.8, MCV 91.5, MCH 29.6, MCHC 32.4, RDW Std Deviation 45.1 H, RDW Coeff of Radha 13.3, Plt Count 221, MPV 9.7, Immature Gran % (Auto) 0.400, Neut % (Auto) 76.3 H, Lymph % (Auto) 16.4 L, [place] % (Auto) 6.3, Eos % (Auto) 0.1, Baso % (Auto) 0.5, Absolute Neuts (auto) 9.5 H, Absolute Lymphs (auto) 2.03, Nucleated RBC % 0 10/22/22 04:32: PT 15.2 H, INR 1.2 10/22/22 04:32: Sodium 145, Potassium 3.6, Chloride 111 H, Carbon Dioxide 24.0, Anion Gap 10, BUN 8, Creatinine 1.04 H, Estim Creat Clear Calc 66.64, Est GFR (MDRD) Af Amer 77, Est GFR (MDRD) Non-Af 63, BUN/Creatinine Ratio 7.7 L, Glucose 139 H, Calcium 9.3, Total Bilirubin 0.80, AST 19, ALT 23, Alkaline Phosphatase 54, Total Protein 6.8, Albumin 3.8, Globulin 3.0, Albumin/Globulin Ratio 1.3, TSH 0.39 D/C Instructions Discharge Diet: No restrictions Call your doctor if you observe: Fever of 101 or Higher, Shortness of breath, Dizziness, Fainting spells, Swelling in the ankles, Chest pain and Increased palpitations (irregular heartbeat) Meaningful Use Info Meaningful Use Diagnoses (Choose all that apply): None applicable Discharge Plan Admission Admit Date/Time: 10/21/22 15:27 Attending Provider: Lazaro Warner Primary Care Provider: Harrison Maldonado Consulting Providers: Nora Mckenzie Discharge Orders/Prescriptions Prescriptions: New pantoprazole [Protonix] 40 mg tablet,delayed release (DR/EC) 40 mg PO BID 30 Days Qty: 60 0RF Continued albuterol sulfate [ProAir HFA] 90 mcg/actuation HFA aerosol inhaler 2 puff inhalation Q6H PRN PRN (Reason: sob) dicyclomine 20 mg tablet 20 mg PO Q6H PRN (Reason: Nausea) epinephrine 0.3 mg/0.3 mL auto-injector 0.3 mg IM ONCE PRN (Reason: anaphylaxis) Rx Instructions: as a single dose; may repeat once famotidine 40 mg tablet 40 mg PO DAILY folic acid 1 mg tablet 4 mg PO DAILY levetiracetam 1,000 mg tablet 1,000 mg PO BID lithium carbonate 300 mg tablet 300 mg PO .COMPLEX Rx Instructions: 300 mg orally takes 1 tab in the am and 3 tabs in the pm; ondansetron HCl 8 mg tablet 8 mg PO Q12H PRN (Reason: nausea and vomiting) pantoprazole 40 mg tablet,delayed release (DR/EC) 40 mg PO BID prazosin 2 mg capsule 2 mg PO QHS quetiapine [Seroquel] 300 mg tablet 200 mg PO DAILY verapamil 240 mg tablet extended release 240 mg PO DAILY sucralfate 1 GM tablet 1 g PO TID Label Comments: STOMACH trazodone 100 MG tablet 150 mg PO QHS rizatriptan 10 MG tablet 10 mg PO DAILY PRN (Reason: Headache) hydroxyzine pamoate 50 MG capsule 50 mg PO BID PRN PRN (Reason: Anxiety) Held Eliquis 5 mg tablet 5 mg PO BID Hold Instructions: Resume on 10/26/22. Referrals / Follow Up: Vlad Porter DO [Med Staff - Active Staff] - Within 3 Months Harrison Maldonado MD [Primary Care Provider] - Within 1 Week Disposition Disposition (needs filled in before D/C Order can be placed): Home, Self Care Charges/Coding Visit Charges Inpatient E&M: 56326 Disch Hosp >30min
[2022-10-24 14:19] LABS: Vitamin D 1,25-Dihydroxy 56.2 pg/mL (24.8-81.5)
== END 2022-10-22 16:14 | disposition home or self-care (01) | DRG 379 ==
LOC: ED 14:49 → PCU 15:41
PROVIDERS: Internal Medicine Gastroenterology; Admitting Provider Internal Medicine; Emergency Provider Emergency Medicine; PCP Family Medicine; Visit Provider Family Medicine
PROC: 0DJ08ZZ Inspection of Upper Intestinal Tract, Via Natural or Artificial Opening Endoscopic (ICD-10-PCS; CPT 43235; principal; 2022-10-22 12:40)
DX: K25.4 Chronic or unspecified gastric ulcer with hemorrhage (principal); E66.9 Obesity, unspecified; G40.909 Epilepsy, unspecified, not intractable, without status epilepticus; I48.0 Paroxysmal atrial fibrillation; E83.52 Hypercalcemia; N18.31 Chronic kidney disease, stage 3a; K20.80 Other esophagitis without bleeding; F17.210 Nicotine dependence, cigarettes, uncomplicated; R11.15 Cyclical vomiting syndrome unrelated to migraine; Z91.14 Patient's other noncompliance with medication regimen; Z68.36 Body mass index [BMI] 36.0-36.9, adult; F32.A Depression, unspecified; Z79.01 Long term (current) use of anticoagulants; Z90.49 Acquired absence of other specified parts of digestive tract; Z87.11 Personal history of peptic ulcer disease
CPT/HCPCS: 36415; 80048; 80053; 80076; 80178; 81001; 81025; 82652; 82962; 83605; 83690; 83735; 83970; 84100; 84443; 85014; 85018; 85025; 85610; 86850; 86900; 86901; 88305; 88342; 93005; 95819; 99284; J7030; J7120; A4216; J2405; J3490

== ENCOUNTER 2022-10-23 11:48 | Emergency (ER) | payer MEDICARE, MEDICAID, SELFPAY ==
[2022-10-23] VITALS (8 sets, daily range): BP systolic 139–177; BP diastolic 77–110; PULSE 51–82; RESP 16–18; TEMP 36.6–36.8; O2SAT 94–99; BMI 38.2
--- NOTE | 2022-10-23 12:34 | EKG12_ITS ---
Test Reason : SEIZERS Blood Pressure : / mmHG Vent. Rate : 048 BPM Atrial Rate : 048 BPM P-R Int : 154 ms QRS Dur : 092 ms QT Int : 480 ms P-R-T Axes : 054 -16 025 degrees QTc Int : 428 ms Sinus bradycardia Low voltage QRS Poor R wave progression Confirmed by LORENA BANEGAS, CHAI ([id number]), sound editor PIEDAD KHAN ([id number]) on 10/25/2022 9:29:14 AM Referred By: Confirmed By:CHAI CARRILLO MD
--- NOTE | 2022-10-23 12:35 | EX.ED.DYSGE1 ---
HPI History of Present Illness Chief Complaint: Abd Pain Narrative Narrative: I was called to the room right away since the patient was seizing, this is a 37-year-old female with history of seizures she is on Keppra and she has been taking care of at [facility]. She was recently admitted for an upper GI bleed and an ulcer she is anticoagulated on Xarelto for atrial fibrillation. Apparently she has had about 6 or 7 seizures today, however they were not all generalized tonic-clonic she has a mixture of seizures some being partial and some being absence. Per friend in the room she also had another episode of vomiting blood. No melena. When I walked into the room she is not seizing and she is talking to me. She does not seem to be postictal. [facility] Medical History Abdominal pain Abnormal pulmonary function test Epilepsy Febrile seizure GERD (gastroesophageal reflux disease) New onset atrial fibrillation Pancreatitis Paroxysmal atrial fibrillation Partial small bowel obstruction Seizure disorder Splenic infarct Traumatic brain injury Home Medications sucralfate 1 gram tablet 1 g PO TID GERD 12/20/14 [History Last Taken 07/03/19] trazodone 100 mg tablet 150 mg PO QHS sleep 02/11/17 [History Last Taken 07/03/19] rizatriptan 10 mg tablet 10 mg PO DAILY PRN Headache 11/15/17 [History Last Taken 10/29/18 10 MG] hydroxyzine pamoate 50 mg capsule 50 mg PO BID PRN PRN Anxiety 03/31/19 [History Last Taken 07/04/19] albuterol sulfate 90 mcg/actuation aerosol inhaler (ProAir HFA) 2 puff inhalation Q6H PRN PRN sob 08/17/22 [History Last Taken Unknown] apixaban 5 mg tablet (Eliquis) 5 mg PO BID Check with primary doctor 08/17/22 [History Last Taken Unknown] dicyclomine 20 mg tablet 20 mg PO Q6H PRN Nausea 08/17/22 [History Last Taken Unknown] epinephrine 0.3 mg/0.3 mL injection, auto-injector 0.3 mg IM ONCE PRN anaphylaxis 08/17/22 [History Last Taken Unknown] famotidine 40 mg tablet 40 mg PO DAILY Check with primary doctor 08/17/22 [History Last Taken Unknown] folic acid 1 mg tablet 4 mg PO DAILY Check with primary doctor 08/17/22 [History Last Taken Unknown] levetiracetam 1,000 mg tablet 1,000 mg PO BID Check with primary doctor 08/17/22 [History Last Taken Unknown] lithium carbonate 300 mg tablet 300 mg PO .COMPLEX Check with primary doctor 08/17/22 [History Last Taken Unknown] ondansetron HCl 8 mg tablet 8 mg PO Q12H PRN nausea and vomiting 08/17/22 [History Last Taken Unknown] pantoprazole 40 mg tablet,delayed release 40 mg PO BID Check with primary doctor 08/17/22 [History Last Taken Unknown] prazosin 2 mg capsule 2 mg PO QHS nightmares 08/17/22 [History Last Taken Unknown] quetiapine 300 mg tablet (Seroquel) 200 mg PO DAILY insomnia 08/17/22 [History Last Taken Unknown] verapamil 240 mg tablet,extended release 240 mg PO DAILY Check with primary doctor 08/17/22 [History Last Taken Unknown] pantoprazole 40 mg tablet,delayed release (Protonix) 40 mg PO BID 30 days #60 tabs 10/22/22 [Rx Last Taken Unknown] Allergy/AdvReac Type Severity Reaction Status Date / Time bupropion HCl Allergy seizures Verified 10/23/22 11:52 [From Wellbutrin] dill oil Allergy Shortness Verified 10/23/22 11:52 of breath diphenhydramine HCl Allergy Itching/throat Verified 10/23/22 11:52 [From Benadryl] swells doxycycline Allergy Itching/vom Verified 10/23/22 11:52 iting venom-honey bee Allergy Anaphylaxis Verified 10/23/22 11:52 [bee venom (honey bee)] Opioids - Morphine Analogues AdvReac HX Drug Verified 10/23/22 11:52 Diversion Family History Mother Cancer Breast Asthma Grandmother Heart disease Grandfather Heart disease Aunt Atrial fibrillation Surgical History History of partial colectomy History of surgery on wrist History of tonsillectomy Social History Smoking Status: Current every day smoker tobacco type: cigarettes Tobacco: How many years used: 20 alcohol intake: never substance use type: marijuana caffeine: Yes (occasional) ROS ROS ED ROS Narrative Past medical history: Reviewed, it is quite complicated Medications: Reviewed Social history: Noncontributory Review of systems: All systems negative except as indicated General: No fever Eyes: No visual changes ENT: No upper airway congestion, normal voice Neck: No neck pain Cardiovascular: No chest pain Respiratory: No shortness of breath or cough Gastrointestinal: As in HPI Genitourinary: No dysuria Musculoskeletal: Denies myalgias no difficulty with ambulation Skin: No rash Neurological: Seizures as in HPI Psych: No recent behavioral changes Hematologic: Tends to bleed easily secondary to apixaban EXAM Physical Exam Narrative Exam Narrative: Physical exam General: Patient does not appear in significant distress she appears chronically ill Head: Normocephalic, Atraumatic Eyes: Conjunctiva not pale ENT: Slightly dry mucous membranes Neck: Supple, Nontender, No lymphadenopathy Cardiovascular: Somewhat irregular Respiratory: No distress, CTA bilaterally Abdomen: Soft, Nontender, Nondistended Back: Nontender, Normal Inspection. Negative for: CVA tenderness Extremities: Nontender, No edema Skin: Normal color, No rash Neurological: Currently she is alert and oriented with normal strength and sensation Const Vital Signs: 10/23/22 11:49 Temperature 98.2 F Temperature Source Temporal Pulse Rate 61 Respiratory Rate 16 Blood Pressure 144/83 H Blood Pressure Mean 103 Pulse Ox 98 Oxygen Delivery Method Room Air MDM MDM MDM Narrative Medical decision making narrative: A. Problems addressed Patient has the potential of another GI bleed, especially that she is anticoagulated. She also had multiple seizures, she has not had a recent EEG it was going to be done in the hospital but the thought is that she could get it done outpatient which she has not yet. Because of her multiple seizures potential upper GI bleed I will admit her. There is MDMA in her drug screen however she denies any ecstasy this just may be a false positive from the trazodone. B. Amount and/or complexity of the data 1. I talked to her boyfriend in the room CBC CMP talk screen interpreted by me. 2. Independent interpretation of test Telemetry: Sinus rhythm with a rate in the 60s without ectopy 3. I discussed the patient with Dr. Mckenzie. C. Risk of complications and/or morbidity Differential diagnosis: Seizure, upper GI bleed electrolyte abnormality which was ruled out for me. Lab Data Labs: Laboratory Results - last 24 hr 10/23/22 10/23/22 10/23/22 12:48 12:48 12:48 WBC 11.6 H RBC 5.27 Hgb 15.6 H Hct 46.6 MCV 88.4 MCH 29.6 MCHC 33.5 RDW Std Deviation 41.9 RDW Coeff of Radha 12.8 Plt Count 247 MPV 9.4 Immature Gran % (Auto) 0.300 Neut % (Auto) 81.7 H Lymph % (Auto) 12.4 L [place] % (Auto) 4.6 Eos % (Auto) 0.3 Baso % (Auto) 0.7 Absolute Neuts (auto) 9.5 H Absolute Lymphs (auto) 1.44 Nucleated RBC % 0 Sodium 142 Potassium 3.3 L Chloride 108 H Carbon Dioxide 26.0 Anion Gap 8 BUN 10 Creatinine 1.27 H Estim Creat Clear Calc 54.58 Est GFR (MDRD) Af Amer 61 Est GFR (MDRD) Non-Af 50 L BUN/Creatinine Ratio 7.9 L Glucose 152 H Lactic Acid 1.2 Calcium 9.8 Total Bilirubin 1.10 H AST 19 ALT 32 Alkaline Phosphatase 67 Total Protein 7.7 Albumin 4.2 Globulin 3.5 Albumin/Globulin Ratio 1.2 Urine Opiates Screen Urine Methadone Screen Ur Barbiturates Screen Ur Phencyclidine Scrn Ur Amphetamines Screen MDMA (Ecstasy) Screen U Benzodiazepines Scrn Urine Cocaine Screen U Cannabinoids Screen Ur Drug Screen Comment 10/23/22 12:58 WBC RBC Hgb Hct MCV MCH MCHC RDW Std Deviation RDW Coeff of Radha Plt Count MPV Immature Gran % (Auto) Neut % (Auto) Lymph % (Auto) [place] % (Auto) Eos % (Auto) Baso % (Auto) Absolute Neuts (auto) Absolute Lymphs (auto) Nucleated RBC % Sodium Potassium Chloride Carbon Dioxide Anion Gap BUN Creatinine Estim Creat Clear Calc Est GFR (MDRD) Af Amer Est GFR (MDRD) Non-Af BUN/Creatinine Ratio Glucose Lactic Acid Calcium Total Bilirubin AST ALT Alkaline Phosphatase Total Protein Albumin Globulin Albumin/Globulin Ratio Urine Opiates Screen POSITIVE H Urine Methadone Screen NEGATIVE Ur Barbiturates Screen NEGATIVE Ur Phencyclidine Scrn NEGATIVE Ur Amphetamines Screen NEGATIVE MDMA (Ecstasy) Screen POSITIVE H U Benzodiazepines Scrn POSITIVE H Urine Cocaine Screen NEGATIVE U Cannabinoids Screen POSITIVE H Ur Drug Screen Comment EKG Initial EKG: Comments: Sinus rhythm with a rate of 48. Normal AL and QTc intervals. No ischemic changes Interpreted by emergency doctor Discharge Plan Triage Chief Complaint: Abd Pain ED Provider: Earnest Calix Dx/Rx/DC Orders Clinical Impression: Epilepsy, Depression Prescriptions: No Action albuterol sulfate [ProAir HFA] 90 mcg/actuation HFA aerosol inhaler 2 puff inhalation Q6H PRN PRN (Reason: sob) dicyclomine 20 mg tablet 20 mg PO Q6H PRN (Reason: Nausea) epinephrine 0.3 mg/0.3 mL auto-injector 0.3 mg IM ONCE PRN (Reason: anaphylaxis) Rx Instructions: as a single dose; may repeat once famotidine 40 mg tablet 40 mg PO DAILY folic acid 1 mg tablet 4 mg PO DAILY levetiracetam 1,000 mg tablet 1,000 mg PO BID lithium carbonate 300 mg tablet 300 mg PO .COMPLEX Rx Instructions: 300 mg orally takes 1 tab in the am and 3 tabs in the pm; ondansetron HCl 8 mg tablet 8 mg PO Q12H PRN (Reason: nausea and vomiting) pantoprazole 40 mg tablet,delayed release (DR/EC) 40 mg PO BID prazosin 2 mg capsule 2 mg PO QHS quetiapine [Seroquel] 300 mg tablet 200 mg PO DAILY verapamil 240 mg tablet extended release 240 mg PO DAILY Eliquis 5 mg tablet 5 mg PO BID Hold Instructions: Resume on 10/26/22. sucralfate 1 GM tablet 1 g PO TID Label Comments: STOMACH trazodone 100 MG tablet 150 mg PO QHS rizatriptan 10 MG tablet 10 mg PO DAILY PRN (Reason: Headache) hydroxyzine pamoate 50 MG capsule 50 mg PO BID PRN PRN (Reason: Anxiety) pantoprazole [Protonix] 40 mg tablet,delayed release (DR/EC) 40 mg PO BID 30 Days Qty: 60 0RF Primary Care Provider: Harrison Maldonado Referrals: Harrison Maldonado MD [Primary Care Provider] - Disposition Disposition: Acute Care Hospital [facility]
[2022-10-23] MEDS: LORazepam 2 MG/ML Syringe 1 MG IV (12:52)
[2022-10-23 13:04] LABS: Absolute Lymphocyte Count 1.44 X10^3/uL (0.83-4.51); Absolute Neutrophil Count 9.5 X10^3/uL (2.0-7.7); Basophil# 0.08 X10^3/uL; Basophil% 0.7 % (0-1); Eosinophil# 0.03 X10^3/uL; Eosinophils% 0.3 % (0-5); Hematocrit 46.6 % (37-47); Hemoglobin 15.6 g/dL (12.0-15.0); Lymphocyte # 1.44 X10^3/ul (0.83-4.51); Lymphocyte % 12.4 % (19-41); Mean Corp Hgb Conc 33.5 g/dL (32-36); Mean Corpuscular Hgb 29.6 pg (27.0-32.0); Mean Corpuscular Volume 88.4 fL (81-99); Mean Platelet Vol. 9.4 fl (6.2-12.0); Monocyte# 0.53 X10^3/uL; Monocyte% 4.6 % (0-10); NRBC Flagged by Analyzer 0 % (0-5); Neutrophil # 9.53 X10^3/uL (2.7-7.7); Neutrophil % 81.7 % (47-70); Platelet Count 247 K/mm3 (150-450); RBC Distribution Width CV 12.8 % (11.6-14.6); RBC Distribution Width SD 41.9 fl (35.1-43.9); Red Blood Count 5.27 M/mm3 (4.2-5.4); White Blood Count 11.6 K/mm3 (4.4-11.0)
[2022-10-23 13:25] LABS: ALB/GLOB Ratio 1.2 RATIO (0.9-2.4); AST(SGOT) 19 U/L (15-37); Alanine Aminotransfer ALT/SGPT 32 U/L (13-56); Albumin, Serum 4.2 g/dL (3.2-5.0); Alkaline Phosphatase 67 U/L (45-117); Anion Gap 8 (5-15); BUN 10 mg/dL (7-18); BUN/Creat Ratio 7.9 RATIO (10-20); Calcium,Total 9.8 mg/dL (8.5-10.1); Chloride 108 mmol/L (98-107); Creatinine, Serum 1.27 mg/dL (0.55-1.02); EST Glomerular Filtration Rate 50 mL/min (>60); Est Glom Filt Rate - Afr Amer 61 mL/min (>60); Estimated Creatinine Clearance 54.58 ml/min; Globulin 3.5 g/dL (2.2-4.2); Glucose 152 mg/dL (74-106); Potassium 3.3 mmol/L (3.5-5.1); Protein, Total 7.7 g/dL (6.4-8.2); Sodium Level 142 mmol/L (136-145)
[2022-10-23 13:31] LABS: Amphetamine Urine VISTA NEGATIVE (<1000 ng/mL); Barbiturate Urine VISTA NEGATIVE (< 200 ng/mL); Benzodiazepine Urine VISTA POSITIVE (< 200 ng/mL); Cocaine Urine VISTA NEGATIVE (< 300 ng/mL); Ecstacy Urine VISTA POSITIVE (< 500 ng/mL); Methadone Urine VISTA NEGATIVE (< 300 ng/mL); PCP Urine VISTA NEGATIVE (< 25 ng/mL); THC Urine VISTA POSITIVE (< 50 ng/mL); Vista UDS pH Range 8
[2022-10-23 13:48] LABS: Lactic Acid 1.2 mmol/L (0.4-1.9)
--- NOTE | 2022-10-23 14:26 | PN.HOSP_ITS ---
Hospitalist Note URSULA HUGHES, is a 37 F with a history of paroxysmal atrial fibrillation on Eliquis, epilepsy on Keppra and medical marijuana, depression who presented to [facility] 10/23/2022 with nausea and vomiting and hematemesis. She presented 10/21/22 with a similar complaint and was seen by GI and had upper endoscopy tht demostrated LA grade B erosive esophagitis which was biopsied as well as a non bleeding gastric ulcer with a visible vesser which was injected and treated with a heater probe. She also had acute gastritis which was biopsied. Hgb remained stable and she was discharged 10/22 on PPI BID with instructions to resume eliquis 10/26/22. During that admission she had seizure activity which broke spontaneously but was given Ativan and loaded with keppra, she then reported not taking her medication for several days due to feeling sick. EEG was non specific and she had no further seizure activity. After d/c she went home and slept well last night but woke up and couldn't walk and felt off balance and then began vomiting and had streaks of blood again and had several seizures and presented to the ED. In the ED she had wbc 11.6, hgb 15.6, K 3.3, Cr 1.27 BUN 10, t bili 1.10 and otherwise normal hepatic panel. UDS +ecstasy (on trazodone), benzodiazepines (recieved ativan during her admission), cannabinoids (reports medical marijuana card,) and opiates. She had three episodes of seizure like activity in the ED but reportedly had no confusion and talked during the episodes. She was given ativan and hospitalist called for admission. Evaluated patient who reported history as above and said that she has had 7-8 seizures since she was discharged yesterday and has limited awareness during most of the with confusion after most of them as well. Discussed again with ED and given her seizure burden, though atypical, it is recommended that she is transferred to a facility that is capable of continuous EEG and has ability for in-house neurology consult as despite Ativan and Keppra load with resumption of home medication she continues to report seizure burden and has a history of epilepsy.
--- NOTE | 2022-10-23 14:35 | NURSING ---
CALLED [facility] TRANSFER LINE. TALKED TO SUMIT DE SOUZA
--- NOTE | 2022-10-23 15:10 | ED.RN ---
1223 PT SIGNIFICANT OTHER AT BEDSIDE REPORTING SEIZURE ACTIVITY. THIS RN AT BEDSIDE. PT THRASHING ARMS AND LEGS. PT ABLE TO SPEAK TO THIS RN DURING SEIZURE ACTIVITY. REPORTS TO THIS RN THAT SHE,HAS NOT FELT WELL IN A COUPLE DAYS, AND THAT HER ABDOMEN HURTS. PT EXPERIENCED NO CHANGE IN VS DURING EPISODE. THIS RN NOTIFIED DR. MACKAY. DR. MACKAY AT BEDSIDE TO EVALUATE PT.
[2022-10-23] MEDS: Ondansetron 4 MG/2 ML Vial IV ×2 (15:21→17:12)
--- NOTE | 2022-10-23 17:57 | NURSING ---
CALLED [facility] TRANSFER LINE. TALKED TO LULY SONG BED YET
[2022-10-23] MEDS: Metoclopramide 10 MG/2 ML Vial 5 MG IV (18:24)
[2022-10-23 20:15] LABS: Bedside Glucose 115 mg/dL (74-106)
--- NOTE | 2022-10-23 21:58 | ED.RN ---
DR. PICKARD AWARE OF VOMITING AND NAUSEA. NNO.
--- NOTE | 2022-10-23 22:41 | ED.RN ---
pT SO UPDATED ON TRANSFER OUT NOW.
== END 2022-10-23 22:41 | disposition short-term general hospital (02) ==
PROVIDERS: Emergency Medicine; Emergency Provider Emergency Medicine; PCP Family Medicine; Visit Provider Emergency Medicine
DX: G40.909 Epilepsy, unspecified, not intractable, without status epilepticus (principal); I48.0 Paroxysmal atrial fibrillation; F17.210 Nicotine dependence, cigarettes, uncomplicated; F32.A Depression, unspecified; Z79.01 Long term (current) use of anticoagulants; Z79.899 Other long term (current) drug therapy; Z20.822 Contact with and (suspected) exposure to COVID-19
CPT/HCPCS: 80053; 80307; 82962; 83605; 85025; 87811; 93005; 96361; 96374; 96375; 96376; 99285; J7030; A4216; J2405

== ENCOUNTER → 2022-11-13 | Outpatient (CLI) | payer MEDICARE, MEDICAID, SELFPAY ==
--- NOTE | 2022-11-13 18:38 | STRESSREP ---
Stress Test Report Date: 11/13/2022 Procedure: Pharmacologic stress nuclear imaging study Indications: Chest pain, dyspnea Consent: Per the patient Procedure: The patient underwent pharmacologic (Regadenoson) evaluation with a peak heart rate of 92 beats per minute (50%predicted maximal heart rate) and a peak blood pressure of 114/52 mmHg. The baseline ECG demonstrated normal sinus rhythm. EKG during lexiscan infusion revealed no significant ischemic changes. EKG post infusion revealed no significant ischemic changes [There were no cardiac dysrhythmias pretest, during pharmacologic infusion, or recovery]. [There was no complaint of chest discomfort during pharmacologic infusion or recovery]. The examination was discontinued secondary to completion of protocol. Impression: 1. Lexiscan stress test test is negative for Lexiscan infusion induced EKG changes of ischemia. 2. Lexiscan stress test test is negative for Lexiscan infusion induced chest pain. 3. Results of the nuclear portion of the test is as below Myocardial perfusion imaging study: Technique: The patient was injected with 14.8 millicuries of technetium 99m Cardiolite and subsequently rest SPECT Cardiolite nuclear imaging was obtained in the horizontal long, vertical long, and short axis views. The patient underwent pharmacologic [Regadenoson 0.4mg] evaluation. Please see above for details. The patient was injected with 45 millicuries of technetium 99m Cardiolite and subsequently stress SPECT Cardiolite nuclear imaging was obtained in the horizontal long, vertical long, and short axis views. A gated Cardiolite study at peak stress was obtained. Interpretation: Rest and stress SPECT Cardiolite nuclear imaging status post realignment, normalization, and attenuation correction demonstrate extracardiac uptake adjacent to the inferior wall that interferes with the overall test. After attenuation correction there appears to be no evidence of significant ischemia or infarction. Gated images reveal no significant regional wall motion abnormalities. The reported LVEF is 72%. Impression: 1. There is no evidence of significant ischemia or infarction. 2. Estimated ejection fraction is 72%. This note was generated with [place] [employer] software. It may contain incorrect words, spelling, and punctuation that were not noted in checking the note before signing.
== END | disposition home or self-care (01) ==
LOC: CVS 06:12
PROVIDERS: PCP Family Medicine; Visit Provider Family Medicine
DX: R06.02 Shortness of breath (principal); R07.9 Chest pain, unspecified
CPT/HCPCS: 78452; 93017; A9500; A4216; J2785

== ENCOUNTER 2023-05-01 07:07 | Day surgery (SDC) | payer MEDICARE, MEDICAID, SELFPAY ==
[2023-05-01 07:28] VITALS: BP 129/84; PULSE 59; RESP 16; TEMP 36.2; O2SAT 100; BMI 35.6
[2023-05-01 07:33] LABS: Internal QC Validated? YES +Cl - CLEAR BKGD
[2023-05-01 07:34] LABS: Pregnancy, Urine Negative Negative; Record Kit Lot#,Urine Preg HCG0000667200
[2023-05-01] MEDS: Lactated Ringers 1,000 ML 15 ML IV (07:41)
--- NOTE | 2023-05-01 08:15 | EGD_PTH ---
PATIENT: URSULA HUGHES LOC: EN U#:[id number] AGE/SX: 37/F ROOM: RE05/01/[address]: Dr. Vlad Porter DO : 1985 BED: DIS: 05/01/2023 SPEC #: [id number] RECD: 05/01/23 12:25 STATUS: FERMIN RECarol #: [id number] TARCY: 05/01/23 08:[address]: Vlad Porter DEPT: SURGICAL PATHOLOGY RECD BY: Javier Alvarez ENTERED: 05/01/23 13:02 SP TYPE: EGD BIOPSY OT DR: Dr. Harrison Maldonado MD Tissues: Duodenum, NOS Procedures: Surgery Specimen Level IV HEADER OPERATION: EGD ([facility] [place]), biopsy PRE-OP DIAGNOSIS: Constipation, GERD, upper GI bleed TISSUE SUBMITTED: Duodenum biopsy MICROSCOPIC DIAGNOSIS Duodenum, biopsy: Mild nonspecific chronic inflammation. AM:[place] 05/02/2023 MICROSCOPIC DESCRIPTION Slides are reviewed. GROSS DESCRIPTION Received in fixative is one container labeled with the patient's name and designated duodenum biopsy. The specimen consists of multiple irregular fragments of light lopez soft tissue that in aggregate measure 1.0 x 0.3 x 0.1 cm. The specimen is totally submitted in one cassette. / SJ:[place] 05/01/2023 TC:3 CPT: 68186
--- NOTE | 2023-05-01 08:20 | PCM.HP.BLA ---
History and Physical Date of Admission: 05/01/23 URSULA HUGHES, is a 37 F who presents to the office today for PMH migraines, gastritis, depression, anxiety, asthma, TBI, pancreatitis, generalized epilepsy and nonepileptic seizure (seizure activity began 2003). *[facility] hospitalization 10.21.22-10.22.22. ED presentation for emesis which progressed from pink-tinged to lay blood with a history of PUD and reflux for which she has been taking sucralfate for several years; use of Eliquis for Afib presenting concern despite hgb 14.9 and admitted. GI consulted 10.22.22 with EGD same day. ? EGD 10.22.22 LA Grade B erosive esophagitis; non-bleeding gastric ulcer with visible vessel, heater probe; acute gastritis. H.Pylori negative. [facility] ED 10.23.22 with recurrent tonic-clonic and absentee seizures with hematemesis. MDMA noted in drug screen, likely false positive r/t trazodone use. Admission indicated for seizure and GIB; no neurology inpatient management available at [facility] and she was transferred to [facility] for hospitalization. [facility] hospitalization 10.24.22-10.25.22 Medications were continued (maxed out on Keppra) and agreeable to resume treatment with neurologist Dr. Mayen; will f/u with local GI and cardiology (Eliquis restart). OV 5.25.23 BM continue to be irregular with BM daily with straining for several days and then no BM for up to 8 days; periods without BM are when abdominal pian, nausea, bloating and dysphagia are the worst. Bisacodyl used OTC or 2-3/day are used. ROS Const Constitutional: No anorexia, fatigue, fever(s), weight change or sleep problems Eyes Eyes: No change in vision ENT ENT: No abnormal hearing, difficulty swallowing, mouth lesions, tongue swelling or throat swelling Resp Respiratory: No cough or shortness of breath Cardio Cardiology: No chest pain at rest, chest pain with exertion, shortness of breath or dyspnea on exertion Gastro GI: No difficulty swallowing Genitourinary-Female: No difficulty urinating or burning urination Musc Musculoskeletal: No joint pain, joint swelling, muscle weakness or decreased muscle mass Skin Skin: No hair loss in leg, yellowing of the eye, itchy eyes, rash, skin ulcer or skin swelling Neuro Neurology: No abnormal hearing, abnormal movements, confusion, unsteady gait/balance or memory loss Psych Psychiatric: No anxiety, No confusion and No memory loss Endo Endocrine: No fatigue or weight change Aller/Imm Allergy/Immunologic: No itchy eyes, throat swelling or tongue swelling Alverto/Lymp Hematologic/Lymphatic: No easy bleeding, easy bruising or enlarged lymph nodes Exam Const General: cooperative and comfortable Nutritional Appearance: average body habitus and well nourished HENDE Head: normal to inspection Ears: hearing grossly normal bilaterally Nose: external nose normal Face and sinus: normal facial exam Mouth: oral mucosae normal Throat: posterior oropharynx normal Eyes General: appearance normal, both eyes and all related structures Neck Neck: normal visual inspection Chest Chest palpation & inspection: normal inspection of the chest and normal palpation of entire chest wall Resp Effort & Inspection: normal respiratory effort Auscultation: Bilateral: Clear to Auscultation Cardio Palpation: normal PMI Rate: regular rate Rhythm: regular rhythm GI Inspection: normal to inspection Auscultation: normal bowel sounds Percussion: normal to percussion Palpation: no hepatosplenomegaly Skin General: no rashes or lesions noted Neuro General: patient alert Extrem General: normal to inspection Psych Affect: normal affect Quality Reporting Tobacco Screening ([facility]) Smoking Status: Current every day smoker Assessment and Plan Assessment and Plan (1) Constipation: Status: Chronic (2) GERD (gastroesophageal reflux disease): Status: Acute (3) Upper GI bleed: Status: Acute Plan: 37-year-old female came to the hospital with hematemesis, her abdominal pain mostly from the multiple episodes of vomiting.? EGD today demonstrated a nonbleeding ulcer with visible vessel as well as some gastritis and esophagitis.? Her hemoglobin is stable at 13.2.? Her anticoagulation for A-fib has been held until today.? I will give her a short p.o. Carafate but will add twice daily Protonix.? I have examined the patient and the H&P has been reviewed. There are no clinical changes since date of exam.
[2023-05-01 08:42] VITALS: BP 129/84; BP 99/58; PULSE 79; RESP 18; TEMP 36.2; O2SAT 95
--- NOTE | 2023-05-01 08:46 | OP.EGD_ITS ---
Patient Name: Lakeshia Pascual Procedure Date: 05/01/2023 8:26 AM Date of : 1985 Age: 37 Procedure: Upper GI endoscopy Indications: Epigastric abdominal pain, Functional Dyspepsia, Heartburn Providers: Vlad Porter DO Referring MD: Vlad Porter DO Medicines: Monitored Anesthesia Care Patient Profile: This is a 37 year old female. Refer to note in patient chart for documentation of history and physical. Patient has symptoms of chronic abdominal cramping, chronic epigastric abdominal pain, chronic dyspepsia and chronic heartburn. Complications: No immediate complications. Procedure: Pre-Anesthesia Assessment: - Prior to the procedure, a History and Physical was performed, and patient medications and allergies were reviewed. The patient is competent. The risks and benefits of the procedure and the sedation options and risks were discussed with the patient. All questions were answered and informed consent was obtained. Patient identification and proposed procedure were verified by the physician in the pre-procedure area. Mental Status Examination: alert and oriented. Airway Examination: normal oropharyngeal airway and neck mobility. Respiratory Examination: clear to auscultation. CV Examination: normal. Prophylactic Antibiotics: The patient does not require prophylactic antibiotics. Prior Anticoagulants: The patient has taken no anticoagulant or antiplatelet agents. ASA Grade Assessment: II - A patient with mild systemic disease. After reviewing the risks and benefits, the patient was deemed in satisfactory condition to undergo the procedure. The anesthesia plan was to use monitored anesthesia care (MAC). Immediately prior to administration of medications, the patient was re-assessed for adequacy to receive sedatives. The heart rate, respiratory rate, oxygen saturations, blood pressure, adequacy of pulmonary ventilation, and response to care were monitored throughout the procedure. The physical status of the patient was re-assessed after the procedure. After obtaining informed consent, the endoscope was passed under direct vision. Throughout the procedure, the patient's blood pressure, pulse, and oxygen saturations were monitored continuously. The Endoscope was introduced through the mouth, and advanced to the second part of duodenum. The upper GI endoscopy was accomplished without difficulty. The patient tolerated the procedure well. Scope In: 8:33:36 AM Scope Out: 8:36:20 AM Total Procedure Duration Time 0 hours 2 minutes 44 seconds Findings: The examined esophagus was normal. A small hiatal hernia was present. The entire examined stomach was normal. Diffuse mildly erythematous mucosa without active bleeding and with no stigmata of bleeding was found in the duodenal bulb, in the first portion of the duodenum and in the second portion of the duodenum. Biopsies were taken with a cold forceps for histology. Verification of patient identification for the specimen was done. Estimated blood loss was minimal. Impression: - Normal esophagus. - Small hiatal hernia. - Normal stomach. - Erythematous duodenopathy. Biopsied. Recommendation: - Discharge patient to home. - Resume previous diet. - Continue present medications. - Await pathology results. Procedure Code(s): --- Professional --- 32239, Esophagogastroduodenoscopy, flexible, transoral; with biopsy, single or multiple CPT copyright 2021 [employer] [place] [employer]. All rights reserved. The codes documented in this report are preliminary and upon lead sewage plant operator review may be revised to meet current compliance requirements. Vlad Porter DO 05/01/2023 8:45:55 AM This report has been signed electronically. Number of Addenda: 0 Note Initiated On: 05/01/2023 8:26 AM
--- NOTE | 2023-05-01 08:46 | OP.CCLET_ITS ---
05/01/2023 Harrison Maldonado Re : Upper GI endoscopy procedure for Lakeshia Pascual Dear Joel This procedure was performed on Monday, May 01, 2023. My impressions and recommendations are as follows: Impressions : - Normal esophagus. - Small hiatal hernia. - Normal stomach. - Erythematous duodenopathy. Biopsied. Recommendations : - Discharge patient to home. - Resume previous diet. - Continue present medications. - Await pathology results. My findings are described in the full procedure note, which is enclosed. If I can be of further assistance, please feel free to contact me at . Sincerely, Vlad Porter, 05/01/2023 8:45:55 AM This report has been signed electronically.
[2023-05-01 08:48] VITALS: BP 104/65; BP 129/84; PULSE 62; RESP 20; O2SAT 92
[2023-05-01 08:55] VITALS: BP 103/68; BP 129/84; PULSE 60; RESP 18; O2SAT 95
[2023-05-01 09:00] VITALS: BP 104/63; BP 129/84; PULSE 55; RESP 18; TEMP 36.2; O2SAT 97
[2023-05-01 09:19] VITALS: BP 129/84
== END 2023-05-01 09:36 | disposition home or self-care (01) ==
LOC: EN 07:10 → AC 07:10
PROVIDERS: Anesthesiology; PCP Family Medicine; Referring Provider Family Medicine; Visit Provider Internal Medicine Gastroenterology
PROC: 0DJ08ZZ Inspection of Upper Intestinal Tract, Via Natural or Artificial Opening Endoscopic (ICD-10-PCS; CPT 43235; principal; 2023-05-01 08:10)
DX: K29.80 Duodenitis without bleeding (principal); I48.0 Paroxysmal atrial fibrillation; K92.2 Gastrointestinal hemorrhage, unspecified; K44.9 Diaphragmatic hernia without obstruction or gangrene; K59.00 Constipation, unspecified; K21.9 Gastro-esophageal reflux disease without esophagitis; F17.200 Nicotine dependence, unspecified, uncomplicated; J45.909 Unspecified asthma, uncomplicated; Z79.01 Long term (current) use of anticoagulants; Z79.899 Other long term (current) drug therapy; Z87.19 Personal history of other diseases of the digestive system; Z90.49 Acquired absence of other specified parts of digestive tract
CPT/HCPCS: 43239; 81025; 88305; J7120; J2405

== ENCOUNTER 2023-05-27 19:16 | Emergency (ER) | payer MEDICARE, MEDICAID, SELFPAY ==
[2023-05-27 19:18] VITALS: BP 163/100; PULSE 88; RESP 16; TEMP 36.1; O2SAT 100; BMI 36.8
--- NOTE | 2023-05-27 19:36 | US_ITS ---
PROCEDURE: ABDOMINAL ULTRASOUND, RIGHT UPPER QUADRANT COMPARISONS: CT abdomen and pelvis 03/01/2019. CLINICAL INDICATION: ruq pain TECHNIQUE: Real-time long-scale abdominal ultrasound. Limited color Doppler evaluation is performed. FINDINGS: Liver: Enlarged to 20 cm with increased echotexture. Shadowing from adjacent calcification is seen on reference CT. Appropriate hepatopetal flow is present in the main portal vein. Gallbladder: Normal wall thickness. No gallstones. Sonographic Carver''s sign is absent. No pericholecystic fluid is present. Biliary Tree: Nondilated. Common bile duct measures 5 mm. Pancreas: Limited evaluation of the head and body is unremarkable. Right kidney: Normal in size and echogenicity. No hydronephrosis or stones. The right kidney measures 10.5 cm in long axis. No free fluid. US/Gallbladder IMPRESSION: No acute findings in the abdomen. Hepatomegaly with fatty infiltration. Electronically Signed: Elliott Tyler MD at 21:20 EDT ,
--- NOTE | 2023-05-27 19:38 | EKG12_ITS ---
Test Reason : CP Blood Pressure : / mmHG Vent. Rate : 071 BPM Atrial Rate : 071 BPM P-R Int : 188 ms QRS Dur : 092 ms QT Int : 418 ms P-R-T Axes : 053 -22 029 degrees QTc Int : 454 ms Normal sinus rhythm Low voltage QRS Borderline ECG When compared with ECG of 23-OCT-2022 12:36, Vent. rate has increased BY 23 BPM Confirmed by PATTI BO MD ([id number]), assistant production editor ROYA BUENO ([id number]) on 05/29/2023 2:27:30 PM Referred By: JONNATHAN Confirmed By:PATTI BO MD
--- NOTE | 2023-05-27 19:45 | ED.VIS.GI ---
HPI HPI - GI History of Present Illness Chief Complaint: Abd Pain Narrative Narrative: This is a 37-year-old female with history of gastritis, GERD, upper GI bleed presenting with chest pain which she has had since the . She also states that she was seen at [facility] on the and had a cardiac work-up done including a chest x-ray. She states that she had some abdominal pain at that time however she states that its extended from the right upper quadrant down to the right lower quadrant and now into the inguinal area. She states she had a CT performed at the other facility which was negative she was sent home and told she had costochondritis. The patient states that she was not told that she just looked it up. She followed up with her PCP today who told her to come to [place] emergency [facility] and get a second opinion. The patient states that because he cannot see any of her work-up and does not know what she had done that he cannot help her. He did not offer her anything for pain. She states she was referred directly to the emergency room. The patient reports she has not had fevers or chills. She has nausea which is specifically worsened 20 minutes or so after she eats. She has abdominal pain which radiates down to the right side of her abdomen. She describes all of the chest pain and abdominal pain as pressure. She now states that she developed a headache. Patient is on Eliquis for history of A-fib. She has not missed any doses. She denies any new black or bloody stools. She is not lightheaded or dizzy. [facility] Medical History (Updated 05/27/23 @ 22:[address] Christopher Greenwood, DO) Abdominal pain Abnormal pulmonary function test Acute gastritis with bleeding Anticoagulated Anxiety Asthma Back pain Cardiology follow-up encounter Chest pain Difficulty chewing Difficulty swallowing Epilepsy Excessive bleeding Febrile seizure Gastric reflux GERD (gastroesophageal reflux disease) History of atrial fibrillation History of Clostridium difficile infection History of echocardiogram History of IBS History of steroid therapy History of stress test History of ulceration Injury of head and neck Kidney stones Migraine headache New onset atrial fibrillation Pancreatitis Paroxysmal atrial fibrillation Partial small bowel obstruction Seizure disorder Seizures Shortness of breath on exertion Smoker Splenic infarct TIA (transient ischemic attack) Traumatic brain injury Upper GI bleed Wears glasses Home Medications trazodone 100 mg tablet 150 mg PO QHS sleep 02/11/17 [History Last Taken 10/22/22] rizatriptan 10 mg tablet 10 mg PO DAILY PRN Headache 11/15/17 [History Last Taken 10/29/18 10 MG] hydroxyzine pamoate 50 mg capsule 50 mg PO BID PRN PRN Anxiety 03/31/19 [History Last Taken 2 Days Ago ~10/21/22] albuterol sulfate 90 mcg/actuation aerosol inhaler (ProAir HFA) 2 puff inhalation Q6H PRN PRN sob 08/17/22 [History Last Taken 2 Days Ago ~10/21/22] dicyclomine 20 mg tablet 20 mg PO Q6H PRN Nausea 08/17/22 [History Last Taken Unknown] epinephrine 0.3 mg/0.3 mL injection, auto-injector 0.3 mg IM ONCE PRN anaphylaxis 08/17/22 [History Last Taken Unknown] lithium carbonate 300 mg tablet 300 mg PO .COMPLEX Check with primary doctor 08/17/22 [History Last Taken 2 Days Ago ~10/21/22] quetiapine 300 mg tablet (Seroquel) 200 mg PO QHS insomnia 08/17/22 [History Last Taken 10/22/22] verapamil 240 mg tablet,extended release 240 mg PO QHS Check with primary doctor 08/17/22 [History Last Taken 10/22/22] lamotrigine 100 mg tablet 300 mg PO BID . 10/23/22 [History Last Taken 05/01/23] apixaban 5 mg tablet (Eliquis) 5 mg PO BID #60 tabs 01/04/23 [Rx Last Taken 04/27/23] pantoprazole 40 mg tablet,delayed release (Protonix) 40 mg PO DAILY 03/08/23 [History Last Taken Unknown] lithium carbonate 150 mg capsule 150 mg PO .QAM 04/24/23 [History Last Taken 05/01/23] scopolamine base 1 mg over 3 days transdermal patch 1 patch transdermal Q72H #10 ea 05/14/23 [Rx Last Taken Unknown] sucralfate 1 gram tablet (Carafate) 1 g PO BID #90 tabs 05/14/23 [Rx Last Taken Unknown] famotidine 40 mg tablet 40 mg PO Q12H 05/27/23 [History Last Taken Unknown] hydrocodone-acetaminophen 5-325mg 5mg-325mg 1 tab PO Q6H PRN PRN Pain 3 days #12 TABLETS 05/27/23 [Rx Last Taken Unknown] Allergy/AdvReac Type Severity Reaction Status Date / Time bupropion HCl Allergy seizures Verified 05/27/23 19:17 [From Wellbutrin] dill oil Allergy Shortness Verified 05/27/23 19:17 of breath diphenhydramine HCl Allergy Itching/throat Verified 05/27/23 19:17 [From Benadryl] swells doxycycline Allergy Itching/vom Verified 05/27/23 19:17 iting venom-honey bee Allergy Anaphylaxis Verified 05/27/23 19:17 [bee venom (honey bee)] clindamycin AdvReac Intermediate Vomiting Verified 05/27/23 19:17 Opioids - Morphine Analogues AdvReac HX Drug Verified 05/27/23 19:17 Diversion Family History Mother Cancer Breast Asthma Grandmother Heart disease Grandfather Heart disease Aunt Atrial fibrillation Surgical History History of esophagogastroduodenoscopy (EGD) History of partial colectomy History of surgery on wrist History of tonsillectomy Hx of section Social History Smoking Status: Current every day smoker tobacco type: cigarettes Tobacco: How many years used: 20 alcohol intake: never substance use type: marijuana caffeine: Yes (occasional) ROS ROS ED Constitutional Constitutional ED: Denies chills, fever(s) or sweats Eyes Eyes: Denies blurry vision or change in vision ENT ENT ED: Denies ear pain or sore throat Cardiovascular Cardiovascular: Reports chest pain; Denies palpitations or racing heartbeat Respiratory/Chest Respiratory/Chest: Denies cough, dyspnea or sputum Gastrointestinal Gastrointestinal: Reports abdominal pain, diarrhea and nausea; Denies constipation or vomiting Genitourinary Genitourinary ED: Denies dysuria, hematuria or urinary frequency Musculoskeletal Musculoskeletal: Denies arthralgias, myalgias or neck pain Integumentary Denies abscess, Abrasions or rash Neurologic Neurologic: Reports headache(s); Denies paresthesias or weakness Psychiatric Psychiatric: Denies anxiety, depression, suicidal ideation or suicidal thoughts Endocrine Endocrinology: Denies polydipsia or polyuria EXAM Physical Exam Const Vital Signs: 05/27/23 19:18 05/27/23 19:34 05/27/23 21:17 Temperature 97 F L Temperature Source Temporal Pulse Rate 88 87 Respiratory Rate 16 14 Respiratory Effort Normal Respiratory Pattern Normal Blood Pressure 163/100 H 107/92 H Blood Pressure Mean 121 97 Pulse Ox 100 97 Oxygen Delivery Method Room Air Positive well nourished General Appearance ED: NAD and pallor HEENT Reports moist mucous membranes Eyes PERRL and EOMs intact bilaterally Neck no lymphadenopathy Resp normal respiratory effort and clear to auscultation bilaterally Auscultation: Negative for rales, rhonchi or wheezes Cardio regular rate and regular rhythm GI non-tender Palpation: tender RLQ and RUQ Back/Spine no CVA tenderness Neuro CN's II-XII intact bilaterally Sensorium / Orientation: alert Psych mental status grossly normal and thought process normal Skin no wounds General Skin Exam: jaundice and pallor MDM MDM MDM Narrative Medical decision making narrative: Patient presenting with chest and abdominal pain which been present since the . I looked into [facility] and apparently she has been seen twice for this condition already at [facility] she has had a chest x-ray, cardiac work-up, CT of the abdomen pelvis with IV contrast. All of her work-up has been negative. When she called her primary care physician he stated that he could not see her and to go to the emergency room because he does not know what kind of test they did at [facility]. Patient was very knowledgeable about what it happened and states that she continues to have pain although it seems to be worsening. She has not been prescribed anything for pain either from [facility] x2 nor from her primary care physician. Patient cannot take NSAIDs due to being on Eliquis. Differential includes but is not limited to ACS, PE, aortic dissection, pneumonia, pneumothorax, muscle strain, costochondritis, CHF. Patient presenting with right flank pain. Differential includes colitis, diverticulitis, gastritis, pancreatitis, acute cholecystitis, constipation, appendicitis, pyelonephritis, calculi, ureteral calculi, obstruction, malignancy, dehydration, electrolyte abnormalities, ovarian torsion, ovarian cyst. She previously had a urinalysis which was negative. She has no concern for . All this was considered. Patient given morphine, Zofran. Although the allergy list shows she is allergic to morphine she states that she is not and she tolerated this well. CBC was obtained to assess white blood cell count, hemoglobin, platelets. CMP to assess liver function, renal function, electrolytes, glucose. Lipase to assess for pancreatitis. High-sensitivity troponin and EKG were obtained to assess for ischemia. Patient does have symptoms of right upper quadrant pain so I did initially start with an ultrasound as she had already had a CT scan of the abdomen pelvis which was negative. CBC shows no leukocytosis with white blood cell count 10.9. Hemoglobin stable at 13.2. Platelets normal at 297. Creatinine near baseline at 1.24. Lactic acid was elevated today at 2.4. She was given a liter normal saline. Her right upper quadrant ultrasound, if negative but given the increasing abdominal pain and the lactic acid 2.4 we did discuss doing a CT of the abdomen pelvis and since he is having chest pain we will obtain a CT of the chest as well. CTA chest abdomen pelvis was obtained and is ultimately negative for any acute findings. There is known hepatomegaly and fatty infiltration. High-sensitivity troponin is 3. EKG sinus rhythm with a ventricular rate of 71 bpm without sign of ischemic change or ectopy on my interpretation. At this point I feel the patient is stable for discharge home. He is given a prescription for [place]. I recommended she call her PCP and Dr. Friend for follow-up. Return precautions discussed. Impression: 1. Chest pain 2. Abdominal pain Lab Data Attestation: I reviewed the patient's lab results. Labs: Laboratory Results - last 24 hr 05/27/23 19:54 WBC 10.9 RBC 4.27 Hgb 13.2 Hct 40.5 MCV 94.8 MCH 30.9 MCHC 32.6 RDW Std Deviation 43.3 RDW Coeff of Radha 12.4 Plt Count 297 MPV 9.1 Immature Gran % (Auto) 0.300 Neut % (Auto) 65.7 Lymph % (Auto) 26.0 [place] % (Auto) 4.5 Eos % (Auto) 2.6 Baso % (Auto) 0.9 Absolute Neuts (auto) 7.1 Absolute Lymphs (auto) 2.83 Nucleated RBC % 0 Sodium 140 Potassium 3.6 Chloride 107 Carbon Dioxide 24.0 Anion Gap 9 BUN 13 Creatinine 1.24 H Estim Creat Clear Calc 55.90 Est GFR (MDRD) Af Amer 62 Est GFR (MDRD) Non-Af 52 L BUN/Creatinine Ratio 10.5 Glucose 103 Lactic Acid 2.4 H* Calcium 9.5 Total Bilirubin 0.40 Direct Bilirubin 0.10 AST 7 L ALT 20 Alkaline Phosphatase 83 Troponin I High Sens 3 Total Protein 7.7 Albumin 4.2 Globulin 3.5 Lipase 69 Radiography Diagnostic Testing: Clinical Impression(s) from Imaging Studies Gallbladder Ultrasound 05/27/23 19:36 IMPRESSION: No acute findings in the abdomen. Hepatomegaly with fatty infiltration. Electronically Signed: Elliott Tyler MD at 21:20 EDT , Chest/Abdomen/Pelvis CTA 05/27/23 21:31 IMPRESSION: 1. No thoracic or abdominal aortic aneurysm or dissection. 2. No evidence of cardiopulmonary disease. 3. No evidence of an acute intra-abdominal abnormality. 4. Fatty infiltration of the liver. Electronically Signed: Tulio Hopper DO at 22:39 EDT , Discharge Plan Triage Chief Complaint: Abd Pain ED Provider: Christopher Greenwood Dx/Rx/DC Orders Prescriptions: New hydrocodone-acetaminophen 5-325 mg tablet 1 tab PO Q6H PRN PRN (Reason: Pain) 3 Days Qty: 12 0RF No Action albuterol sulfate [ProAir HFA] 90 mcg/actuation HFA aerosol inhaler 2 puff inhalation Q6H PRN PRN (Reason: sob) dicyclomine 20 mg tablet 20 mg PO Q6H PRN (Reason: Nausea) epinephrine 0.3 mg/0.3 mL auto-injector 0.3 mg IM ONCE PRN (Reason: anaphylaxis) Rx Instructions: as a single dose; may repeat once lithium carbonate 300 mg tablet 300 mg PO .COMPLEX Rx Instructions: 300 mg orally takes 1 tab in the am and 3 tabs in the pm; quetiapine [Seroquel] 300 mg tablet 200 mg PO QHS verapamil 240 mg tablet extended release 240 mg PO QHS sucralfate [Carafate] 1 gram tablet 1 g PO BID Qty: 90 2RF scopolamine base 1 mg over 3 days patch 3 day 1 patch transdermal Q72H Qty: 10 2RF pantoprazole [Protonix] 40 mg tablet,delayed release (DR/EC) 40 mg PO DAILY trazodone 100 MG tablet 150 mg PO QHS rizatriptan 10 MG tablet 10 mg PO DAILY PRN (Reason: Headache) hydroxyzine pamoate 50 MG capsule 50 mg PO BID PRN PRN (Reason: Anxiety) lamotrigine 100 mg tablet 300 mg PO BID Patient Comments: TAKE TWO (2) TABLETS BY MOUTH TWICE DAILY lithium carbonate 150 mg capsule 150 mg PO .QAM Patient Comments: IN ADDISTION TO THE 300 MG DOSE famotidine 40 mg tablet 40 mg PO Q12H Eliquis 5 mg tablet 5 mg PO BID Qty: 60 12RF Hold Instructions: Resume on 10/26/22. Primary Care Provider: Harrison Maldonado Referrals: FriendVlad DO [Med Staff - Active Staff] - 3-5 Days Harrison Maldonado MD [Primary Care Provider] - Disposition Disposition: Home, Self Care
[2023-05-27] MEDS: Ondansetron 4 MG/2 ML Vial IV (19:57)
[2023-05-27] MEDS: Morphine 4 MG/ML Syringe IV (19:57)
[2023-05-27 20:13] LABS: Absolute Lymphocyte Count 2.83 X10^3/uL (0.83-4.51); Absolute Neutrophil Count 7.1 X10^3/uL (2.0-7.7); Basophil% 0.9 % (0-1); Eosinophil# 0.28 X10^3/uL; Eosinophils% 2.6 % (0-5); Hematocrit 40.5 % (37-47); Hemoglobin 13.2 g/dL (12.0-15.0); Lymphocyte # 2.83 X10^3/ul (0.83-4.51); Mean Corp Hgb Conc 32.6 g/dL (32-36); Mean Corpuscular Hgb 30.9 pg (27.0-32.0); Mean Corpuscular Volume 94.8 fL (81-99); Mean Platelet Vol. 9.1 fl (6.2-12.0); Monocyte# 0.49 X10^3/uL; Monocyte% 4.5 % (0-10); NRBC Flagged by Analyzer 0 % (0-5); Neutrophil # 7.14 X10^3/uL (2.7-7.7); Neutrophil % 65.7 % (47-70); Platelet Count 297 K/mm3 (150-450); RBC Distribution Width CV 12.4 % (11.6-14.6); RBC Distribution Width SD 43.3 fl (35.1-43.9); Red Blood Count 4.27 M/mm3 (4.2-5.4); White Blood Count 10.9 K/mm3 (4.4-11.0)
[2023-05-27 20:32] LABS: AST(SGOT) 7 U/L (15-37); Alanine Aminotransfer ALT/SGPT 20 U/L (13-56); Albumin, Serum 4.2 g/dL (3.2-5.0); Alkaline Phosphatase 83 U/L (45-117); Anion Gap 9 (5-15); BUN 13 mg/dL (7-18); BUN/Creat Ratio 10.5 RATIO (10-20); Calcium,Total 9.5 mg/dL (8.5-10.1); Chloride 107 mmol/L (98-107); Creatinine, Serum 1.24 mg/dL (0.55-1.02); EST Glomerular Filtration Rate 52 mL/min (>60); Est Glom Filt Rate - Afr Amer 62 mL/min (>60); Globulin 3.5 g/dL (2.2-4.2); Glucose 103 mg/dL (74-106); Lipase 69 U/L (13-75); Potassium 3.6 mmol/L (3.5-5.1); Protein, Total 7.7 g/dL (6.4-8.2); Sodium Level 140 mmol/L (136-145); Troponin-I HS 3 pg/mL (3.0-54.0)
[2023-05-27 21:16] LABS: Lactic Acid 2.4 mmol/L (0.4-1.9)
[2023-05-27 21:17] VITALS: BP 107/92; PULSE 87; RESP 14; O2SAT 97
[2023-05-27] MEDS: 0.9% Normal Saline (1000mL) 1,000 ML 999 ML IV (21:22)
--- NOTE | 2023-05-27 21:31 | CT_ITS ---
INDICATION: aortic dissection EXAMINATION: CTA Chest and CTA Abdomen and Pelvis W/ Contrast Injection (and W/O Contrast Images if performed) TECHNIQUE: Helically acquired axial images were obtained of the chest, abdomen, and pelvis with sagittal and coronal reconstructed images. Three-D reconstructed images were reviewed. Individualized dose optimization techniques were used for this CT. IV contrast dosage and agent: 100 mL of [id number]-[id number]. Oral contrast: None. COMPARISON: 03/01/2019 CT abdomen/pelvis and 05/27/2023 ultrasound. FINDINGS: ---Chest: LUNGS, PLEURA AND LARGE AIRWAYS: No consolidation or edema. No pulmonary nodule. No pleural effusion. No pneumothorax. THYROID: Unremarkable. HEART AND PERICARDIUM: No evidence of coronary artery calcification. No pericardial effusion. MEDIASTINUM AND FRANCISCA: No mediastinal or hilar adenopathy. Esophagus is unremarkable. No hiatal hernia. VESSELS: No thoracic aortic aneurysm or dissection. No pulmonary embolus. BONES: No acute abnormality. Chronic right rib fracture. ---Abdomen/Pelvis: VESSELS: No abdominal aortic aneurysm or dissection. LIVER: Stable probable flash filling hemangioma in the medial segment of the left lobe. No intrahepatic or extrahepatic biliary duct dilation. Diffuse decreased attenuation. GALLBLADDER: No calcified stones. No evidence of cholecystitis. PANCREAS: No focal solid or cystic mass. No evidence of pancreatitis. SPLEEN: Normal. ADRENAL GLANDS: Normal. KIDNEYS AND URETERS: No urinary tract stone. No hydronephrosis or hydroureter. No significant asymmetric perinephric stranding. URINARY BLADDER: Unremarkable. BOWEL: Status post right hemicolectomy. No evidence of diverticulosis or diverticulitis. No evidence of bowel obstruction. REPRODUCTIVE ORGANS: No evidence of a pelvic mass. PERITONEUM: No intraabdominal free fluid or free air. LYMPH NODES: No pathologically enlarged mesenteric or retroperitoneal lymph nodes. ABDOMINAL WALL: Small fat-containing umbilical hernia and supraumbilical hernias. BONES: No acute abnormality. CT/CTA Chst, Abd, Pel W and/or WO IMPRESSION: 1. No thoracic or abdominal aortic aneurysm or dissection. 2. No evidence of cardiopulmonary disease. 3. No evidence of an acute intra-abdominal abnormality. 4. Fatty infiltration of the liver. Electronically Signed: Tulio Hopper DO at 22:39 EDT ,
[2023-05-27 23:00] VITALS: BP 109/77; PULSE 82; RESP 14; O2SAT 98
[2023-05-27] MEDS: HYDROcodone Bitartrate/Apap 5/325 Tablet PO (23:07)
[2023-05-28 00:08] LABS: Reflex Lactate? Y
== END 2023-05-27 23:55 | disposition home or self-care (01) ==
PROVIDERS: Emergency Provider Student in an Organized Health Care Education/Training Program; PCP Family Medicine; Visit Provider Student in an Organized Health Care Education/Training Program
DX: R07.9 Chest pain, unspecified (principal); I48.91 Unspecified atrial fibrillation; R74.8 Abnormal levels of other serum enzymes; R10.9 Unspecified abdominal pain; F17.210 Nicotine dependence, cigarettes, uncomplicated; K21.9 Gastro-esophageal reflux disease without esophagitis; Z79.01 Long term (current) use of anticoagulants; R51.9 Headache, unspecified
CPT/HCPCS: 71275; 74174; 76705; 78264; 80048; 80076; 83605; 83690; 84484; 85025; 93005; 96361; 96374; 96375; 99284; A9541; Q9967; A4216; J2405

== ENCOUNTER → 2023-05-27 | Outpatient (CLI) | payer MEDICARE, MEDICAID, SELFPAY ==
--- NOTE | 2023-05-27 10:57 | NM_ITS ---
CLINICAL: 37-year-old female with history of clinical gastroparesis. SEMI-SOLID PHASE 99m Tc SULFUR COLLOID GASTRIC EMPTYING STUDY COMPARISON: None available FINDINGS: The patient was administered 1.1 mCi of 99m Tc sulfur colloid mixed with oatmeal and consumed per os. Image acquisitions in the anterior-posterior projections were obtained for 60 minutes. There is prompt visualization of the stomach. There is no gastroesophageal reflux identified. First order kinetics are maintained throughout the duration of the acquisitions. The T ? linear fit was calculated to be 57.75 minutes, (Normal: 12-56 minutes). NM/Gastric Emptying Study IMPRESSION: 1. ABNORMAL 99m Tc sulfur colloid semi-solid phase (oatmeal) gastric emptying imaging examination. A. There is delayed semi-solid phase gastric emptying compared to normal controls with maintained first order kinetics throughout all components of the examination. (Laverne et al, J Nucl Med Tech 38: 186, 2010). Electronically Signed: Gabe Mendez DO at 22:39 EDT ,
== END | disposition home or self-care (01) ==
LOC: NM 10:56
PROVIDERS: PCP Family Medicine; Referring Provider Internal Medicine Gastroenterology; Visit Provider Internal Medicine Gastroenterology
DX: K21.9 Gastro-esophageal reflux disease without esophagitis (principal)
CPT/HCPCS: 78264; A9541

== ENCOUNTER → 2023-09-13 | Outpatient (CLI) | payer MEDICARE, MEDICAID, SELFPAY ==
[2023-09-13 09:13] LABS: Absolute Neutrophil Count 5.5 X10^3/uL (2.0-7.7); Basophil# 0.07 X10^3/uL; Basophil% 0.8 % (0-1); Eosinophil# 0.38 X10^3/uL; Eosinophils% 4.6 % (0-5); Hematocrit 40.2 % (37-47); Hemoglobin 13.1 g/dL (12.0-15.0); Lymphocyte % 24.1 % (19-41); Mean Corp Hgb Conc 32.6 g/dL (32-36); Mean Corpuscular Hgb 30.3 pg (27.0-32.0); Mean Corpuscular Volume 92.8 fL (81-99); Mean Platelet Vol. 8.8 fl (6.2-12.0); Monocyte# 0.36 X10^3/uL; Monocyte% 4.3 % (0-10); NRBC Flagged by Analyzer 0 % (0-5); Neutrophil # 5.45 X10^3/uL (2.7-7.7); Neutrophil % 65.8 % (47-70); Platelet Count 281 K/mm3 (150-450); RBC Distribution Width SD 43.9 fl (35.1-43.9); Red Blood Count 4.33 M/mm3 (4.2-5.4); White Blood Count 8.3 K/mm3 (4.4-11.0)
[2023-09-13 09:51] LABS: Erythrocyte Sedimentation Rate 11 mm/hr (0-30)
[2023-09-13 10:07] LABS: ALB/GLOB Ratio 1.2 RATIO (0.9-2.4); AST(SGOT) 6 U/L (15-37); Alanine Aminotransfer ALT/SGPT 19 U/L (13-56); Albumin, Serum 3.9 g/dL (3.2-5.0); Alkaline Phosphatase 79 U/L (45-117); Anion Gap 10 (5-15); BUN 8 mg/dL (7-18); BUN/Creat Ratio 6.3 RATIO (10-20); CRP 5.36 mg/L (0.0-3.0); Calcium,Total 9.4 mg/dL (8.5-10.1); Chloride 116 mmol/L (98-107); Creatinine, Serum 1.27 mg/dL (0.55-1.02); EST Glomerular Filtration Rate 50 mL/min (>60); Est Glom Filt Rate - Afr Amer 61 mL/min (>60); Free T3 1.9 pg/mL (2.18-3.98); Globulin 3.3 g/dL (2.2-4.2); Glucose 152 mg/dL (74-106); LDH 162 U/L (84-246); Potassium 3.5 mmol/L (3.5-5.1); Protein, Total 7.2 g/dL (6.4-8.2); Sodium Level 142 mmol/L (136-145); T4 Free Direct 0.77 ng/dL (0.76-1.46); Thyroid Stim Hormone (TSH) 1.18 uIU/mL (0.358-3.74)
[2023-09-18 09:09] LABS: Anti-Centromere B Ab <0.2 AI (0.0-0.9); Anti-Chromatin <0.2 AI (0.0-0.9); Anti-Jo <0.2 AI (0.0-0.9); Anti-Scleroderma-70 AB <0.2 AI (0.0-0.9); Anti-dsDNA Ab 1 IU/mL (0-9); Beef <0.10 kU/L (Class 0); Chocolate <0.10 kU/L (Class 0); Codfish <0.10 kU/L (Class 0); Corn <0.10 kU/L (Class 0); Egg, Whole <0.10 kU/L (Class 0); Milk (Cow) <0.10 kU/L (Class 0); Mussels <0.10 kU/L (Class 0); Peanut <0.10 kU/L (Class 0); Pork <0.10 kU/L (Class 0); RNP Ab <0.2 AI (0.0-0.9); SJOGREN'S Anti-SS-A test < 0.2 AI (0.0-0.9); SJOGREN'S Anti-SS-B test < 0.2 AI (0.0-0.9); Salmon <0.10 kU/L (Class 0); Shrimp <0.10 kU/L (Class 0); Smith Ab <0.2 AI (0.0-0.9); Soybean <0.10 kU/L (Class 0); Tuna <0.10 kU/L (Class 0); Wheat <0.10 kU/L (Class 0)
[2023-09-19 01:07] LABS: ACCA 0 units (0-90); AMCA 11 units (0-100); Cytoplasmic Ab (C-ANCA) <1:20 titer (Neg:<1:20); Endomysial Antibody IgA Negative (Negative); Immunofixation Urine Comment: (.); Immunoglobulin A 152 mg/dL (87-352); Immunoglobulin E 37 IU/mL (6-495); Immunoglobulin G 727 mg/dL (586-1602); Immunoglobulin M 113 mg/dL (26-217); Perinuclear Ab (P-ANCA) <1:20 titer (Neg:<1:20); gASCA 35 units (0-50); t-Transglutaminase IgA <2 U/mL (0-3)
[2023-11-06 14:33] LABS: ALCA 5 units (0-60)
== END | disposition home or self-care (01) ==
PROVIDERS: PCP Registered Nurse; Referring Provider Internal Medicine Gastroenterology; Visit Provider Internal Medicine Gastroenterology
DX: R11.0 Nausea (principal)
CPT/HCPCS: 36415; 80053; 80178; 82784; 82785; 83516; 83615; 84439; 84443; 84481; 85025; 85652; 86003; 86005; 86036; 86140; 86225; 86235; 86255; 86256; 86335; 86671

== ENCOUNTER → 2023-09-18 | Outpatient (CLI) | payer MEDICARE, MEDICAID, SELFPAY ==
[2023-09-23 14:08] LABS: Pancreatic Elastase, Fecal 407 (>200)
[2023-09-24 17:07] LABS: Calprotectin, Stool 21 ug/g (0-120); Fats, Neutral Normal (.); Fats, Total Normal (.)
== END | disposition home or self-care (01) ==
LOC: LABSPEC 11:13
PROVIDERS: PCP Registered Nurse; Referring Provider Internal Medicine Gastroenterology; Visit Provider Internal Medicine Gastroenterology
DX: R11.0 Nausea (principal)
CPT/HCPCS: 82274; 82653; 82705; 83630; 83993; 87177; 87209; 87329; 87493; 87506

== ENCOUNTER → 2023-11-06 | Outpatient (CLI) | payer MEDICARE, MEDICAID, SELFPAY ==
[2023-11-06 11:11] LABS: Erythrocyte Sedimentation Rate 8 mm/hr (0-30)
[2023-11-11 16:09] LABS: Aldosterone, Serum 34.3 ng/dL (0.0-30.0); Angiotensin Convert Enzyme 48 U/L (14-82); Chromogranin A 53.7 ng/mL (0.0-101.8); Dopamine, Pl <30 pg/mL (0-48); Epinephrine, Pl <15 pg/mL (0-62); Gastrin, Serum 57 pg/mL (0-115); Norepinephrine, Pl 518 pg/mL (0-874)
== END | disposition home or self-care (01) ==
LOC: LAB 10:30
PROVIDERS: PCP Registered Nurse; Referring Provider Internal Medicine Gastroenterology; Visit Provider Internal Medicine Gastroenterology
DX: R10.9 Unspecified abdominal pain (principal); R07.9 Chest pain, unspecified
CPT/HCPCS: 36415; 82088; 82164; 82384; 82533; 82941; 84244; 85652; 86141; 86316

== ENCOUNTER → 2023-11-13 | Outpatient (CLI) | payer MEDICARE, MEDICAID, SELFPAY ==
[2023-11-19 17:07] LABS: Dopamine, 24Ur 241 ug/24 hr (0-510); Dopamine, UR 86 ug/L (Undefined); Epinephrine, 24Ur < 8 ug/24 hr (0-20); Epinephrine, Ur < 3 ug/L (Undefined); Norepinephrine, 24Ur 53 ug/24 hr (0-135); Norepinephrine, Ur 19 ug/L (Undefined)
== END | disposition home or self-care (01) ==
LOC: LABSPEC 08:59
PROVIDERS: PCP Registered Nurse; Referring Provider Internal Medicine Gastroenterology; Visit Provider Internal Medicine Gastroenterology
DX: R10.9 Unspecified abdominal pain (principal)
CPT/HCPCS: 81050; 82384

== ENCOUNTER 2024-04-16 19:55 | Emergency (ER) | payer MEDICARE, MEDICAID, SELFPAY ==
[2024-04-16 19:56] VITALS: BP 137/91; PULSE 71; RESP 16; TEMP 36.6; O2SAT 98
== END 2024-04-16 21:40 | disposition left against medical advice (07) ==
LOC: ED 21:44
PROVIDERS: PCP Family Medicine
DX: Z53.21 Procedure and treatment not carried out due to patient leaving prior to being seen by health care provider (principal)